=== PATIENT | female | born 1955 | race Caucasian/White ===

== ENCOUNTER → 2016-09-26 | Day surgery (SDC) | payer OTHER ==
[2016-09-13 14:36] VITALS: Ht 160 cm; Wt 71.8 kg
[~2016-09-26] VITALS: Ht 160 cm; Wt 71.8 kg
[~2016-09-26] MED LIST: ARIP30TA3 PO; BUPR200T2 PO; CELE100C PO; CLON1TAB3 PO; CYAN10005 PO; ENAL1TAB34 PO; LIDOCAINE HCL 2% 2 ML VIAL (20MG/ML) ONE; OXCA600T3 PO; PROPOFOL IV EMULSION 10 MG/ML 20 ML VIAL IV ONE; TRAZ100T29 PO; VENL150C PO
[2016-09-26 13:52] VITALS: PULSE 75; TEMP 36.2; O2SAT 96
[2016-09-26 13:55] VITALS: BP 178/93
--- NOTE | 2016-09-26 14:55 | Endo History and Physical ---
History & Physical Date of Service: Sep 26, 2016. Chief Complaint: history of polyps Referring Physician: History of Present Illness 61 yo CF who presented for colonoscopy secondary to history of polyps. Upon arrival she admits to drinking approximately 1 gallon of water approximately 4 hours ago, and does also complain of intermittent chest pain. She was noted to have an elevated BP. Anesthesia dicussed the case with Dr. Chang her PCP and decision was made to cancel the colonoscopy until the patient can undergo a cardiac workup. Past Medical History Anxiety, Reflux, Hypertension, Liver Disease, Depression Past Surgical History Hx Cardiac Surgery: No Hx Internal Defibrillator: No Hx Pacemaker: No Hx Abdominal Surgery: Yes (, TUBAL LIGATION) Hx of Implantable Prosthesis: No Hx Post-Op Nausea and Vomiting: No Hx Cancer Surgery: No Hx Thoracic Surgery: No Hx Orthopedic: No Hx Urinary Tract Surgery: No Family History None Social History Smoking Status: Current Every Day Smoker Hx Substance Use: No Hx Alcohol Use: Yes (OCCASIONAL) Allergies Coded Allergies: No Known Allergies (Verified , 09/13/16) Current Medications Reported Home Medications Medications Dose Route/Sig Max Daily Dose Days Date Category Abilify (Aripiprazole) 30 Mg Tab 30 Mg PO HS 09/13/16 Reported Vitamin B-12 (Cyanocobalamin) 1,000 Mcg Tab 1,000 Mcg PO QAM 09/13/16 Reported Celebrex (Celecoxib) 100 Mg Cap 100 Mg PO QAM 02/08/16 Reported Trileptal (Oxcarbazepine) 600 Mg Tab 600 Mg PO BID 02/08/16 Reported Vasotec (Enalapril Maleate) 10 Mg Tab 10 Mg PO QAM 07/20/15 Reported Effexor Xr (Venlafaxine Hcl) 150 Mg Cap 300 Mg PO QAM 07/20/15 Reported Wellbutrin Sr (Bupropion Hcl) 200 Mg Tab 200 Mg PO BID 07/20/15 Reported Trazodone (Trazodone HCl) 100 Mg Tab 300 Mg PO HS 07/20/15 Reported Klonopin (Clonazepam) 1 Mg Tab 1 Mg PO BID 07/20/15 Reported Vital Signs Weight (Kilograms): 71.82 Height (Feet): 5 Height (Inches): 3 Date Time Temp Pulse Resp B/P Pulse Ox O2 Delivery O2 Flow Rate FiO2 09/26/16 13:55 178/93 09/26/16 13:52 36.2 75 20 179/96 96 Room Air Physical Exam General Appearance: WD/WN, no apparent distress Respiratory/Chest: Auscultation: breath sounds normal Cardiovascular: Heart Auscultation: RRR Abdomen: Bowel Sounds: normal Inspection & Palpation: soft, non-distended, no tenderness, guarding & rebound Assessment and Plan Assessment: 61 yo CF who presented for colonoscopy, however, she was found to have uncontrolled BP and has been having intermittent chest pain. Plan: Cancel colonoscopy Recommend followup with Dr. Chang for further evaluation of intermittent CP and hypertension.
--- NOTE | 2016-09-26 14:59 | Anesthesiology Progress Note ---
Anesthesia Progress Note Date of Service Sep 26, 2016. Progress Notes The patient is a 61 y/o female with a h/o HTN, GERD, + tob ( greater than 30 pack years), Anxiety and Depression who was scheduled for colonoscopy for Dr. Judd for h/o polyps. On arrival her BP was elevated to 178/93. She stated that she did not take her antihypertensives for three days. During my evaluation she mentioned that she has been having chest pain that she described as L sided chest tightness on occasion while she is being active at work. She stated this started several months ago. She denies having shortness of breath, lightheaded or dizziness or any radiating pain when this occurs. She stated that it does not happen at rest and denies any current chest pain. She has not told her PCP about her chest pain. I called her PCP Dr. Chang and informed her of the chest pain the patient has been experiencing. She stated that she has not evaluated the patient in some time as the patient has missed her last several appointments. Per Dr. Chang, the patient's last EKG was in 2012 and showed NSR with no ischemic changes. She recommended that the patient's procedure be cancelled until she can evaluate the patient for her chest pain. She would like the patient to make an appointment to see her as soon as possible. Dr. Judd was also in agreement that the patient's procedure be cancelled until her chest pain is evaluated and he came to the bedside to speak to the patient. I informed the patient that Dr. Alicea would like her to call and make an appointment with her as soon as possible. I stressed the importance of going to her appointment as chest pain could signify significant heart disease and could lead to heart attack or if not properly evaluated and treated. She verbalized that she understood and agreed. I also informed her to go to the ED if she experiences chest pain, shortness of breath, lightheaded or dizziness or with any other concerns. She verbalized that she understood and agreed.
== END | disposition home or self-care (01) ==
LOC: C.PAT 08-01 08:00 → EDSTATUS 08-01 14:10 → C.GI 12:06
PROVIDERS: ATTEND Internal Medicine
DX: K63.5 Polyp of colon (principal); Z53.09 Procedure and treatment not carried out because of other contraindication; K21.9 Gastro-esophageal reflux disease without esophagitis; I10 Essential (primary) hypertension; F41.9 Anxiety disorder, unspecified; F32.9 Major depressive disorder, single episode, unspecified

== ENCOUNTER → 2016-12-25 | Outpatient (CLI) | payer OTHER ==
[~2016-12-25] MED LIST changes: -LIDOCAINE HCL 2% 2 ML VIAL (20MG/ML) ONE; -PROPOFOL IV EMULSION 10 MG/ML 20 ML VIAL IV ONE
[2016-12-25 13:22] LABS: ESTIMATED AVERAGE GLUCOSE 111 mg/dl; HA1C FLAG Normal (Normal)
[2016-12-25 13:27] LABS: URINE APPEARANCE CLEAR (CLEAR); URINE BILIRUBIN NEG (NEG); URINE COLOR YELLOW; URINE NITRITE NEG (NEG); URINE SPECIFIC GRAVITY 1.014 (1.000-1.030); UROBILINOGEN NEG (NEG); ZZUR CULT IF INDIC CLEAN CATCH NO
[2016-12-25 13:30] LABS: MANUAL MICROSCOPIC REQUIRED? NO; REVIEW REQ? NO
[2016-12-25 14:18] LABS: ALT/SGPT 15 U/L (12-78); BLOOD UREA NITROGEN 6 mg/dl (7-18); CARBON DIOXIDE 27 mmol/L (21-32); CHLORIDE 105 mmol/L (98-107); CHOLESTEROL 172 mg/dl (0-200); GLUCOSE 96 mg/dl (70-99); POTASSIUM 3.9 mmol/L (3.5-5.1); SODIUM 141 mmol/L (136-145); TRIGLYCERIDES 99 mg/dl (0-150); VERY LOW DENSITY LIPOPROT CALC 20 mg/dl
[2016-12-25 14:21] LABS: ALB/GLOB RATIO 1.3 (0.9-2); ALKALINE PHOSPHATASE 66 U/L (45-117); AST/SGOT 9 U/L (15-37); CHOLESTEROL/HDL RATIO 2.2; HDL CHOLESTEROL 77 mg/dl; LDL CHOLESTEROL CALCULATED 75 mg/dl
== END | disposition home or self-care (01) ==
LOC: C.LAB1850 11:50
PROVIDERS: ATTEND Internal Medicine
DX: R35.1 Nocturia (principal); I10 Essential (primary) hypertension; Z11.59 Encounter for screening for other viral diseases; E78.1 Pure hyperglyceridemia; R73.9 Hyperglycemia, unspecified

== ENCOUNTER → 2017-03-04 | Outpatient (CLI) | payer OTHER ==
--- NOTE | 2017-03-05 07:55 | MAMMOGRAPHY REPORT ---
BILATERAL DIGITAL SCREENING MAMMOGRAM TOMOSYNTHESIS WITH CAD: 03/04/2017 CLINICAL HISTORY: Routine screening. Patient has no complaints. TECHNIQUE: Breast tomosynthesis in addition to standard 2D mammography was performed. Current study was also evaluated with a Computer Aided Detection (CAD) system. COMPARISON: Comparison is made to exams dated: 11/30/2013 ultrasound, 08/31/2013 ultrasound, 08/31/2013 mammogram, 11/06/2012 mammogram, 02/13/2006 mammogram, and 06/21/2009 mammogram - [facility]. BREAST COMPOSITION: There are scattered areas of fibroglandular density in both breasts. FINDINGS: There are benign-appearing round and punctate microcalcifications scattered in the breasts . No suspicious mass, architectural distortion or cluster of suspicious microcalcifications is seen. IMPRESSION: ACR BI-RADS CATEGORY 1: NEGATIVE There is no mammographic evidence of malignancy. A 1 year screening mammogram is recommended. The pa tient will receive written notification of the results. Approximately 10% of breast cancers are not detected with mammography. A negative mammographic report should not delay biopsy if a clinically suggestive mass is present. Brigette Mixon M.D. ay/:03/04/2017 18:21:53 Sander Operator: Jose Leary, M, [facility] letter sent: Normal 1/2 BI-RADS Code: ACR BI-RADS Category 1: Negative
== END | disposition home or self-care (01) ==
LOC: C.MAMM 08:27
PROVIDERS: ATTEND Internal Medicine
DX: Z12.31 Encounter for screening mammogram for malignant neoplasm of breast (principal)

== ENCOUNTER 2022-05-23 10:56 | Inpatient (IN) ==
--- NOTE | 2022-05-23 12:17 | XRay Report ---
XR chest 2V PA/lateral HISTORY: Shortness of breath. COMPARISON: Chest and abdominal series 12/18/2018. FINDINGS: No pneumothorax. The cardiac silhouette is top normal in size. The right lung appears clear . Left mid to lower lung zone airspace opacities are new from the prior study. Only seen on the later al view there is a possible 3.8 cm nodule overlying the heart. This is not confirmed on the frontal v iew. No pleural effusions. There is an old, healed left humeral neck fracture. IMPRESSION: 1. Left upper and lower lobe airspace opacities. This likely represents a pneumonia. 2. Possible 3.8 cm left infrahilar nodule/mass. Follow-up chest CT recommended for further evaluation . ACT 112: Negative or not required by law. Electronically signed by: Jermaine Peck M.D. 05/23/2022 12:15 PM
[2022-05-23] MEDS ORDERED: AZITHROMYCIN 500 MG in DEXTROSE 5% 250 ML IV STA (12:21)
[2022-05-23] MEDS ORDERED: cefTRIAXone SODIUM 2,000 MG/70 ML BAG IV STA (12:21)
[2022-05-23 12:27] LABS: Hematocrit (blood only) 47.1 % (34.1-44.9); Hemoglobin 16.8 g/dl (12.0-16.0); Mean Corpuscular Hemoglobin 30.9 pg (25.0-34.0); Mean Corpuscular Hgb Conc 35.7 g/dL (32.0-36.0); Mean Corpuscular Volume 86.6 fL (80.0-100.0); Mean Platelet Volume 11.8 fL (9.4-12.3); Platelet Count 143 K/uL (130-400); RDW Coefficient of Variation 15.2 % (11.5-14.5); RDW Standard Deviation 47.9 fL (36.4-46.3); Red Blood Count 5.44 M/uL (3.93-5.22); White Blood Count 9.07 K/ul (4.8-10.8)
[2022-05-23 12:30] LABS: Albumin Globulin Ratio 1.1 (0.9-2); Albumin Level 3.6 gm/dl (3.4-5.0); BUN Creatinine Ratio 38.1 (10-20); Bilirubin,Total 2.3 mg/dl (0.2-1.0); Calcium 10.1 mg/dl (8.5-10.1); Creatinine Clr Calc Pharmacy 43.1 ml/min; Est GFR (African American) 55.3 ml/min; Est GFR (Non-African American) 47.7 ml/min; Globulin 3.4 gm/dl (2.5-4.0); Potassium 3.8 mmol/L (3.5-5.1)
[2022-05-23 12:31] LABS: Acanthocytes 1+; Dohle Bodies 1+; Echinocytes 2+; Lymphocytes # (manual) 0.54 K/uL (1.2-3.4); Lymphocytes % (manual) 6 %; Monocytes # (manual) 0.27 K/uL (0.24-0.82); Monocytes % (manual) 3 %; Neutrophils # (manual) 8.25 K/uL (1.4-6.5); Neutrophils % (manual) 91 %; Polychromasia 1+; Toxic Granulation 1+
[2022-05-23] MEDS ORDERED: SODIUM CHLORIDE 0.9% 1000ML 2,000 ML IV ONE (12:42)
--- NOTE | 2022-05-23 12:42 | Emergency Department Note ---
Impression & Plan Pneumonia, Respiratory failure, Hypoxic ED Provider Note NAME: GIO ZAYAS AGE: 67 SEX: F : 1955 ARRIVES VIA: Walk-In INFORMANT: Patient ED PROVIDER(S): Mat Aggarwal DO CHIEF COMPLAINT: shortness of breath HPI: Patient is a 67-year-old female who presents to the ER for upper respiratory symptoms associate with cough and shortness of breath. She notes shortness of breath has been getting worse over the past week. She notes she has some blood out of her left ear which started about 2 days ago. She does not believe that she was picking at it. She also notes some tenderness and fullness in her left axilla/armpit which started over the past week. She also has some epigastric abdominal pain which is present with lying flat. Denies any nausea vomiting or diarrhea. No dysuria urgency or frequency. No other exacerbating or remitting factors. ROS: See above HPI for pertinent positives & negatives. A total of 10 systems reviewed and were otherwise negative. PAST MEDICAL HISTORY:See Below PAST SURGICAL HISTORY:See Below FAMILY HISTORY:See Below SOCIAL HISTORY:See Below HOME MEDICATIONS:See Below ALLERGIES:See Below VITALS:See Below PHYSICAL EXAMINATION: GENERAL: Sitting up in bed, alert, chronically ill appearing, slightly dyspneic with conversation EYE EXAM: normal conjunctiva. EAR: Left TM is clear with dried blood in the canal. Right TM is clear. OROPHARYNX: no exudate, no erythema, lips, buccal mucosa, and tongue normal and mucous membranes are moist NECK: supple, no nuchal rigidity, no adenopathy, non-tender LUNGS: Diminished bilaterally. Normal chest wall mechanics HEART: no murmurs, S1 normal and S2 normal ABDOMEN: abdomen soft, non-tender, normo-active bowel sounds, no masses, no rebound or guarding. UPPER EXTREMITIES: upper extremities are grossly normal. LOWER EXTREMITIES: No pitting edema. NEURO EXAM: Normal sensorium, cranial nerves II-XII grossly intact, normal speech, no gross weakness of arms, no gross weakness of legs. MEDICAL DECISION MAKING: Patient is a 67-year-old female who presents ER for above-stated complaint. IV was established blood work is obtained. Labs show no significant leukocytosis. Hemoglobin 16. VBG with a pH of 7.45. BMP along with LFTs was unremarkable. T bili elevated at 2.3. Troponin was elevated at 15. Pro-Eddi 5.8. Chest x-ray with an infiltrate and questionable mass. CT PE was performed and showed no PEs but aspiration pneumonitis. Patient was covered with Rocephin and azithromycin. Updated bedside. CT head was negative. She remained on 4 L nasal cannula and was admitted to the hospitalist for further evaluation. Triage Nursing notes reviewed. Limited review of prior medical records performed Vital Signs: reviewed and remarkable for tachy Differential diagnosis: Differential diagnoses includes but is not limited to pneumonia, bronchitis, COPD/Asthma exacerbation, pneumothorax, pulmonary embolism, congestive heart failure, acute coronary syndrome ER treatment provided: See below Diagnostics interpreted by me: ECG: Sinus tachycardia rate 126 Normal axis No PVCs Septal Q waves QTC [address] wave changes Cardiac Monitoring: An order was placed for continuous cardiac monitoring. The monitor shows a rate of 122 with sinus rhythm. Laboratory studies: As stated above and show below. Imaging studies: CT head was negative CT angio of the chest was unremarkable for PE but did show pneumonia and asp iration Consultation(s): Discussed with the hospitalist for further evaluation Dr. Toth Procedures: none Critical Care: I have personally spent 32 minutes of critical care time in the direct management of this patient. This includes bedside care, interpretation of diagnostic studies, and testing, discussion with consultants, patient, and family members, and other required patient management activities. This 32 min utes is in excess of all separately billable procedures. Past Med/Surg History Medical History (Updated 05/23/22 @ 17:59 by Mat Aggarwal DO) Abdominal pressure Adenomatous polyp of colon Anxiety Anxiety disorder Colon polyp Depression Diarrhea Disc degeneration, lumbar EKG, abnormal Essential hypertriglyceridemia Fecal incontinence Generalized osteoarthritis of multiple sites Hyperglycemia Hypertension Insomnia Low back pain Low back pain with sciatica LVH (left ventricular hypertrophy) Nicotine dependence Nocturia Surgical History History of bilateral tubal ligation History of section History of colonoscopy History of phacoemulsification of cataract of both eyes with intraocular lens implantation History of tooth extraction all teeth Family History Brother Family history of diabetes mellitus Prostate cancer Sister Family history of diabetes mellitus Mother Myocardial infarction Other No family history of adverse response to anesthesia Denies family history of Ovarian cancer Breast cancer Colorectal cancer Social History Smoking Status: Current every day smoker Tobacco Type: Cigarettes Cigarettes Per Day: 20 a day; Second Hand Exposure: No; Hx Alcohol Use: No Hx Substance Use: No Preferred Language: Tajik Communication Ability: Effective Visual Impairment: Limited Hearing Ability: Normal Certified Prosthetist Vice President Required: No Beliefs That Will Affect Care: None Current Living Situation: Alone current occupational status: disabled How many Children do You have: 1 How many Children do You have Comment: 1 girl Feels Safe at Home: Yes Childhood Exposure to Second-Hand Smoke: No during the past year weight has: remained stable Dental Care, Regularly: Yes Physical Activity Frequency: Daily Physical Activity Frequency Comment: walking Seatbelt Use: always Sunscreen Use: Yes Assistive Devices: Denture - Upper and Denture - Lower Allergies Allergies Allergy/AdvReac Type Severity Reaction Status Date / Time No Known Allergies Allergy Unverified 05/23/22 13:07 Home Meds Home Medications Medication Instructions Recorded Confirmed trazodone 100 mg tablet 100 mg PO HS 12/11/18 05/23/22 aripiprazole 5 mg tablet (Abilify) 5 mg PO DAILY 08/31/20 05/23/22 clonazepam 1 mg tablet (Klonopin) 1 mg PO BID PRN Anxiety 08/31/20 05/23/22 bupropion HCl 300 mg 24 hr tablet, 300 mg PO DAILY 05/23/22 05/23/22 extended release Previous Rx's Medication Instructions Recorded calcium carbonate 500 mg-vitamin 1 tab PO DAILY #30 tabs 05/02/21 D3 5 mcg (200 unit) tablet (Calcium 500 + D) magnesium 250 mg tablet 250 mg PO DAILY #30 tabs 05/02/21 mecobalamin (vitamin B12) 1,000 1,000 mcg sublingual DAILY #30 tabs 05/02/21 mcg disintegrating tablet,sublingual albuterol sulfate 90 mcg/actuation 1 inh inhalation QID PRN shortness 10/02/21 aerosol inhaler of breath or wheezing #6.7 grams Results & Data (ED) Vital Signs Vital Signs - 24 hr 05/23/22 11:07 05/23/22 13:13 05/23/22 13:15 Temperature 36.6 C Temperature Source Temporal Artery Scan Pulse Rate 131 H Pulse Rate [Apical] 84 Pulse Rate from SpO2 Sensor Respiratory Rate 24 20 Respiratory Effort / Characteristics Spontaneous Non-Labored Spontaneous Respiratory Depth Normal Respiratory Pattern Regular Blood Pressure 118/81 Blood Pressure [Left Arm] 145/89 H Blood Pressure Mean 93 Blood Pressure Mean [Left Arm] 107 Blood Pressure Position Sitting Pulse Oximetry 90 87 L 91 Oxygen Delivery Method Room Air Room Air Nasal Cannula Oxygen Flow Rate 4 Sepsis Recent Fever Within 48 Hours No Sepsis New/Unexplained Change in Mental Status No Sepsis Action Taken by Nursing No Action Required 05/23/22 12:46 05/23/22 13:00 05/23/22 13:34 Temperature Temperature Source Pulse Rate 90 66 Pulse Rate [Apical] Pulse Rate from SpO2 Sensor 121 H 121 H 115 H Respiratory Rate 29 H 28 H 24 Respiratory Effort / Characteristics Respiratory Depth Respiratory Pattern Blood Pressure Blood Pressure [Left Arm] Blood Pressure Mean Blood Pressure Mean [Left Arm] Blood Pressure Position Pulse Oximetry 88 L 89 L 90 Oxygen Delivery Method Oxygen Flow Rate Sepsis Recent Fever Within 48 Hours Sepsis New/Unexplained Change in Mental Status Sepsis Action Taken by Nursing 05/23/22 13:48 05/23/22 13:48 05/23/22 13:49 Temperature Temperature Source Pulse Rate 114 H 112 H Pulse Rate [Apical] Pulse Rate from SpO2 Sensor 116 H 112 H Respiratory Rate 19 44 H Respiratory Effort / Characteristics Respiratory Depth Respiratory Pattern Blood Pressure 115/74 Blood Pressure [Left Arm] Blood Pressure Mean 87 Blood Pressure Mean [Left Arm] Blood Pressure Position Pulse Oximetry 89 L 92 Oxygen Delivery Method Oxygen Flow Rate Sepsis Recent Fever Within 48 Hours Sepsis New/Unexplained Change in Mental Status Sepsis Action Taken by Nursing 05/23/22 13:49 05/23/22 14:00 05/23/22 14:00 Temperature Temperature Source Pulse Rate 112 H Pulse Rate [Apical] Pulse Rate from SpO2 Sensor Respiratory Rate 39 H Respiratory Effort / Characteristics Respiratory Depth Respiratory Pattern Blood Pressure 150/89 H 133/78 Blood Pressure [Left Arm] Blood Pressure Mean 109 96 Blood Pressure Mean [Left Arm] Blood Pressure Position Pulse Oximetry Oxygen Delivery Method Oxygen Flow Rate Sepsis Recent Fever Within 48 Hours Sepsis New/Unexplained Change in Mental Status Sepsis Action Taken by Nursing 05/23/22 14:30 05/23/22 14:30 05/23/22 15:00 Temperature Temperature Source Pulse Rate 110 H Pulse Rate [Apical] Pulse Rate from SpO2 Sensor Respiratory Rate 36 H Respiratory Effort / Characteristics Respiratory Depth Respiratory Pattern Blood Pressure 131/84 153/91 H Blood Pressure [Left Arm] Blood Pressure Mean 99 111 Blood Pressure Mean [Left Arm] Blood Pressure Position Pulse Oximetry 93 Oxygen Delivery Method Oxygen Flow Rate Sepsis Recent Fever Within 48 Hours Sepsis New/Unexplained Change in Mental Status Sepsis Action Taken by Nursing 05/23/22 15:00 Temperature Temperature Source Pulse Rate 110 H Pulse Rate [Apical] Pulse Rate from SpO2 Sensor 110 H Respiratory Rate 30 H Respiratory Effort / Characteristics Respiratory Depth Respiratory Pattern Blood Pressure Blood Pressure [Left Arm] Blood Pressure Mean Blood Pressure Mean [Left Arm] Blood Pressure Position Pulse Oximetry 96 Oxygen Delivery Method Oxygen Flow Rate Sepsis Recent Fever Within 48 Hours Sepsis New/Unexplained Change in Mental Status Sepsis Action Taken by Nursing Laboratory Data Result diagrams: 05/23/22 11:54 05/23/22 11:54 Lab Results 05/23/22 05/23/22 05/23/22 Range/Units 11:54 11:54 11:54 WBC 9.07 (4.8-10.8) K/ul RBC 5.44 H (3.93-5.22) M/uL Hgb 16.8 H (12.0-16.0) g/dl Hct 47.1 H (34.1-44.9) % MCV 86.6 (80.0-100.0) fL MCH 30.9 (25.0-34.0) pg MCHC 35.7 (32.0-36.0) g/dL RDW Std Deviation 47.9 H (36.4-46.3) fL RDW Coeff of Jamie 15.2 H (11.5-14.5) % Plt Count 143 (130-400) K/uL MPV 11.8 (9.4-12.3) fL Neutrophils % (Manual) 91 % Lymphocytes % (Manual) 6 % Monocytes % (Manual) 3 % Neutrophils # (Manual) 8.25 H (1.4-6.5) K/uL Lymphocytes # (Manual) 0.54 L (1.2-3.4) K/uL Monocytes # (Manual) 0.27 (0.24-0.82) K/uL Toxic Granulation 1+ Dohle Bodies 1+ Polychromasia 1+ Echinocytes 2+ Acanthocytes (Spur) 1+ VBG pH (7.36-7.41) VBG pCO2 (38-50) mmHg VBG pO2 mmHg VBG HCO3 mmol/L VBG O2 Saturation % VBG Base Excess mEq/L Sodium 134 L (136-145) mmol/L Potassium 3.8 (3.5-5.1) mmol/L Chloride 96 L (98-107) mmol/L Carbon Dioxide 25 (21-32) mmol/L Anion Gap 13 H (3-11) BUN 45 H (6-23) mg/dl Creatinine 1.18 (0.6-1.2) mg/dl Est Cr Clr Drug Dosing 43.1 ml/min Est GFR ( Amer) 55.3 ml/min Est GFR (Non-Af Amer) 47.7 ml/min BUN/Creatinine Ratio 38.1 H (10-20) Glucose 149 H (70-99(Fasting)) mg/dl Lactate (0.4-2.0) mmol/L Calcium 10.1 (8.5-10.1) mg/dl Total Bilirubin 2.3 H (0.2-1.0) mg/dl AST 20 (13-39) U/L ALT 11 (7-52) U/L Alkaline Phosphatase 96 (34-104) U/L Troponin I High Sens (0-14) pg/ml C-Reactive Protein (0-0.5) mg/dl Total Protein 7.0 (6.0-8.3) gm/dl Albumin 3.6 (3.4-5.0) gm/dl Globulin 3.4 (2.5-4.0) gm/dl Albumin/Globulin Ratio 1.1 (0.9-2) Procalcitonin 5.82 H (0-0.5) ng/ml SARS-CoV-2 (PCR) (Negative) Influenza Type A (PCR) (Neg) Influenza Type B (PCR) (Neg) RSV (RT-PCR) (Neg) 05/23/22 05/23/22 05/23/22 Range/Units 12:38 12:49 12:49 WBC (4.8-10.8) K/ul RBC (3.93-5.22) M/uL Hgb (12.0-16.0) g/dl Hct (34.1-44.9) % MCV (80.0-100.0) fL MCH (25.0-34.0) pg MCHC (32.0-36.0) g/dL RDW Std Deviation (36.4-46.3) fL RDW Coeff of Jamie (11.5-14.5) % Plt Count (130-400) K/uL MPV (9.4-12.3) fL Neutrophils % (Manual) % Lymphocytes % (Manual) % Monocytes % (Manual) % Neutrophils # (Manual) (1.4-6.5) K/uL Lymphocytes # (Manual) (1.2-3.4) K/uL Monocytes # (Manual) (0.24-0.82) K/uL Toxic Granulation Dohle Bodies Polychromasia Echinocytes Acanthocytes (Spur) VBG pH 7.45 H (7.36-7.41) VBG pCO2 37 L (38-50) mmHg VBG pO2 39 mmHg VBG HCO3 26 mmol/L VBG O2 Saturation 71.8 % VBG Base Excess 1.8 mEq/L Sodium (136-145) mmol/L Potassium (3.5-5.1) mmol/L Chloride (98-107) mmol/L Carbon Dioxide (21-32) mmol/L Anion Gap (3-11) BUN (6-23) mg/dl Creatinine (0.6-1.2) mg/dl Est Cr Clr Drug Dosing ml/min Est GFR ( Amer) ml/min Est GFR (Non-Af Amer) ml/min BUN/Creatinine Ratio (10-20) Glucose (70-99(Fasting)) mg/dl Lactate 2.1 H* (0.4-2.0) mmol/L Calcium (8.5-10.1) mg/dl Total Bilirubin (0.2-1.0) mg/dl AST (13-39) U/L ALT (7-52) U/L Alkaline Phosphatase (34-104) U/L Troponin I High Sens 15.3 H (0-14) pg/ml C-Reactive Protein (0-0.5) mg/dl Total Protein (6.0-8.3) gm/dl Albumin (3.4-5.0) gm/dl Globulin (2.5-4.0) gm/dl Albumin/Globulin Ratio (0.9-2) Procalcitonin (0-0.5) ng/ml SARS-CoV-2 (PCR) (Negative) Influenza Type A (PCR) (Neg) Influenza Type B (PCR) (Neg) RSV (RT-PCR) (Neg) 05/23/22 05/23/22 05/23/22 Range/Units 12:49 13:24 14:44 WBC (4.8-10.8) K/ul RBC (3.93-5.22) M/uL Hgb (12.0-16.0) g/dl Hct (34.1-44.9) % MCV (80.0-100.0) fL MCH (25.0-34.0) pg MCHC (32.0-36.0) g/dL RDW Std Deviation (36.4-46.3) fL RDW Coeff of Jamie (11.5-14.5) % Plt Count (130-400) K/uL MPV (9.4-12.3) fL Neutrophils % (Manual) % Lymphocytes % (Manual) % Monocytes % (Manual) % Neutrophils # (Manual) (1.4-6.5) K/uL Lymphocytes # (Manual) (1.2-3.4) K/uL Monocytes # (Manual) (0.24-0.82) K/uL Toxic Granulation Dohle Bodies Polychromasia Echinocytes Acanthocytes (Spur) VBG pH (7.36-7.41) VBG pCO2 (38-50) mmHg VBG pO2 mmHg VBG HCO3 mmol/L VBG O2 Saturation % VBG Base Excess mEq/L Sodium (136-145) mmol/L Potassium (3.5-5.1) mmol/L Chloride (98-107) mmol/L Carbon Dioxide (21-32) mmol/L Anion Gap (3-11) BUN (6-23) mg/dl Creatinine (0.6-1.2) mg/dl Est Cr Clr Drug Dosing ml/min Est GFR ( Amer) ml/min Est GFR (Non-Af Amer) ml/min BUN/Creatinine Ratio (10-20) Glucose (70-99(Fasting)) mg/dl Lactate 1.5 (0.4-2.0) mmol/L Calcium (8.5-10.1) mg/dl Total Bilirubin (0.2-1.0) mg/dl AST (13-39) U/L ALT (7-52) U/L Alkaline Phosphatase (34-104) U/L Troponin I High Sens (0-14) pg/ml C-Reactive Protein 42.76 H (0-0.5) mg/dl Total Protein (6.0-8.3) gm/dl Albumin (3.4-5.0) gm/dl Globulin (2.5-4.0) gm/dl Albumin/Globulin Ratio (0.9-2) Procalcitonin (0-0.5) ng/ml SARS-CoV-2 (PCR) NEGATIVE (Negative) Influenza Type A (PCR) Negative (Neg) Influenza Type B (PCR) Negative (Neg) RSV (RT-PCR) Negative (Neg) Administered Medications Discontinued Medications Albuterol (Albut/Ipratrop 3mg/0.5mg Neb 3 Ml Vial) 3 ml NEB NOW STA; Protocol Stop: 05/23/22 15:31 Last Admin: 05/23/22 16:07 Dose: 3 ml Documented By: SUSAN Ceftriaxone Sodium (Rocephin) 2,000 mg in 70 mls @ 140 mls/hr IV NOW STA Stop: 05/23/22 12:50 Last Infusion: 05/23/22 14:24 Dose: 0 mls/hr Documented By: Admin: 05/23/22 13:43 Dose: 140 mls/hr Documented By: Azithromycin 500 mg/ Dextrose 255 mls @ 127.5 mls/hr IV NOW STA Stop: 05/23/22 14:20 Last Infusion: 05/23/22 16:58 Dose: 0 mls/hr Documented By: [facility] Admin: 05/23/22 14:25 Dose: 127.5 mls/hr Documented By: SUSAN Sodium Chloride (Nss 1000ml) 2,000 mls @ 999 mls/hr IV .Q2H1M ONE Stop: 05/23/22 14:42 Last Infusion: 05/23/22 16:58 Dose: 0 mls/hr Documented By: [facility] Admin: 05/23/22 12:58 Dose: 999 mls/hr Documented By: SUSAN Ioversol (Optiray 320 500ml) 120 ml IV ONCE ONE Stop: 05/23/22 13:26 Last Admin: 05/23/22 13:25 Dose: 120 ml Documented By: CHINO Imaging Data Radiologist's Impression: Chest X-Ray 05/23/22 11:19 XR chest 2V PA/lateral HISTORY: Shortness of breath. COMPARISON: Chest and abdominal series 12/18/2018. FINDINGS: No pneumothorax. The cardiac silhouette is top normal in size. The right lung appears clear. Left mid to lower lung zone airspace opacities are new from the prior study. Only seen on the lateral view there is a possible 3.8 cm nodule overlying the heart. This is not confirmed on the frontal view. No pleural effusions. There is an old, healed left humeral neck fracture. IMPRESSION: 1. Left upper and lower lobe airspace opacities. This likely represents a pneumonia. 2. Possible 3.8 cm left infrahilar nodule/mass. Follow-up chest CT recommended for further evaluation. ACT 112: Negative or not required by law. Electronically signed by: Jermaine Peck M.D. 05/23/2022 12:[address] 05/23/22 12:[address] DOSE: HISTORY: confusion TECHNIQUE: Multiaxial CT images of the head were performed without the use of intravenous contrast. Automated exposure control was utilized for this study. A dose lowering technique was utilized adhering to the principles of ALARA. Comparison: Head CT 09/21/2019. Findings: Mild mucosal thickening within the ethmoid air cells and maxillary sinuses. The right mastoid air cells are clear. There is complete opacification of the left mastoid air cells. The calvarium and skull base are intact. The ventricles and sulci are within normal limits. There is no mass, hematoma, midli ne shift, or acute infarct. 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 Mild microvascular ischemic changes again noted. Impression: No significant change compared to the prior study. No acute intracranial abnormality. ACT 112: Negative or not required by law. Electronically signed by: Jermaine Peck M.D. 05/23/2022 1:43 PM Chest CTA 05/23/22 12:38 CT ANGIOGRAM OF THE CHEST CLINICAL HISTORY: Dyspnea. Hypoxia. COMPARISON STUDY: Chest radiograph dated 05/23/2022. TECHNIQUE: Following the IV administration of 120 cc of Optiray 320, CT angiogram of the chest was performed from the upper abdomen to the thoracic inlet utilizing the pulmonary embolus protocol. Images are reviewed in the axial, sagittal, and coronal planes. 3-D MIPS images are created and assessed. IV contrast was administered without complication. A dose lowering technique was utilized adhering to the principles of ALARA. The examination is compromised by motion artifact. CT DOSE: 1173.74 mGy.cm FINDINGS: Thyroid: Imaged portions of the thyroid gland are normal in size and attenuation. Thoracic aorta: There is atherosclerotic calcification of the thoracic aorta. There is ectasia of the ascending thoracic aorta which measures up to 3.8 cm in diameter. The remainder of the thoracic aorta is normal in caliber, and the arch demonstrates standard 3-vessel anatomy. No dissection is seen. Pulmonary vasculature: The pulmonary trunk is normal in caliber. There are no filling defects identified in main, lobar, or proximal segmental pulmonary branches to suggest pulmonary embolus. Evaluation of the distal segmental and subsegmental branches is compromised by motion artifact. Heart: The heart is enlarged and without pericardial effusion. Lungs and pleural spaces: Evaluation of the lung parenchyma is compromised by motion artifact. There is mild emphysema. The trachea is clear. Secretions/debris fills the left lower lobe airways. There is multifocal airspace consolidation throughout the left lung, greatest in the mid to lower lung. There are only minimal right basilar airspace opacities. No pleural effusion is identified. There are scattered calcified granulomas. Mediastinum: There are numerous enlarged mediastinal lymph nodes which measure up to 13 mm in short axis. Jayda: Mildly enlarged left hilar nodes measure up to 12 mm in short axis. Axillae: A 2.0 cm lobulated cystic lesion is seen in the left axilla on axial image #199. No axillary lymphadenopathy is seen. Upper abdomen: There is a small hiatal hernia. Partially visualized upper abdominal viscera is otherwise within normal limits. Skeletal structures: The skeletal structures are osteopenic. Spondylotic change is noted throughout the thoracic spine. No lytic or blastic bony lesions are seen. IMPRESSION: 1. Motion compromises examination. 2. There is no evidence of central pulmonary embolus in the main, lobar, or proximal segmental pulmonary arteries. Evaluation of the segmental and subsegmental branches is degraded by motion artifact. 3. Extensive airspace consolidation throughout the left lung is typical for pneumonia/aspiration pneumonitis. Clinical correlation will be required and radiographic follow-up to resolution is recommended. 4. Secretions/debris fills the left lower lobe airways. 5. There are also minimal airspace opacities at the right lung base. 6. Cardiomegaly and emphysema. 7. Mildly enlarged mediastinal and left hilar nodes are likely reactive. 8. There is an indeterminant 2.0 cm lobulated cystic lesion in the left axilla. This it is of low suspicion. A precautionary nonemergent/outpatient follow-up with ultrasound is recommended for further assessment 9. Additional findings as above. ACT 112: Negative or not required by law. Electronically signed by: Carlos Echevarria M.D. 05/23/2022 1:52 PM Discharge Plan Visit Data Chief Complaint: Illness Stated Complaint: RT SIDED ABD PAIN,BLEEDING FROM LT EAR,CONFUSION ED Provider: Mat Aggarwal Discharge Problem: Pneumonia, Respiratory failure, Hypoxic Discharge Instructions Interventions: ED Discharge Assessment Last Done: 05/23/22 16:44
[2022-05-23 12:50] LABS: Base Excess VBG 1.8 mEq/L; HCO3 VBG 26 mmol/L; Oxygen Saturation VBG 71.8 %; PCO2 VBG 37 mmHg (38-50); PO2 VBG 39 mmHg; pH VBG 7.45 (7.36-7.41)
[2022-05-23] MEDS ORDERED: OPTIRAY 320 500ml IV ONE (13:25)
--- NOTE | 2022-05-23 13:44 | CT Scan Report ---
HEAD CT NONCONTRAST CT DOSE: HISTORY: confusion TECHNIQUE: Multiaxial CT images of the head were performed without the use of intravenous contrast. A utomated exposure control was utilized for this study. A dose lowering technique was utilized adheri ng to the principles of ALARA. Comparison: Head CT 09/21/2019. Findings: Mild mucosal thickening within the ethmoid air cells and maxillary sinuses. The right masto id air cells are clear. There is complete opacification of the left mastoid air cells. The calvarium and skull base are intact. The ventricles and sulci are within normal limits. There is no mass, hemat arpan, midline shift, or acute infarct. 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 Mild lizet rovascular ischemic changes again noted. Impression: No significant change compared to the prior study. No acute intracranial abnormality. ACT 112: Negative or not required by law. Electronically signed by: Jermaine Peck M.D. 05/23/2022 1:43 PM
--- NOTE | 2022-05-23 13:54 | CT Scan Report ---
CT ANGIOGRAM OF THE CHEST CLINICAL HISTORY: Dyspnea. Hypoxia. COMPARISON STUDY: Chest radiograph dated 05/23/2022. TECHNIQUE: Following the IV administration of 120 cc of Optiray 320, CT angiogram of the chest was pe rformed from the upper abdomen to the thoracic inlet utilizing the pulmonary embolus protocol. Images are reviewed in the axial, sagittal, and coronal planes. 3-D MIPS images are created and assessed. I V contrast was administered without complication. A dose lowering technique was utilized adhering to the principles of ALARA. The examination is compromised by motion artifact. CT DOSE: 1173.74 mGy.cm FINDINGS: Thyroid: Imaged portions of the thyroid gland are normal in size and attenuation. Thoracic aorta: There is atherosclerotic calcification of the thoracic aorta. There is ectasia of the ascending thoracic aorta which measures up to 3.8 cm in diameter. The remainder of the thoracic aort a is normal in caliber, and the arch demonstrates standard 3-vessel anatomy. No dissection is seen. Pulmonary vasculature: The pulmonary trunk is normal in caliber. There are no filling defects identif ied in main, lobar, or proximal segmental pulmonary branches to suggest pulmonary embolus. Evaluation of the distal segmental and subsegmental branches is compromised by motion artifact. Heart: The heart is enlarged and without pericardial effusion. Lungs and pleural spaces: Evaluation of the lung parenchyma is compromised by motion artifact. There is mild emphysema. The trachea is clear. Secretions/debris fills the left lower lobe airways. There i s multifocal airspace consolidation throughout the left lung, greatest in the mid to lower lung. Ther e are only minimal right basilar airspace opacities. No pleural effusion is identified. There are sca ttered calcified granulomas. Mediastinum: There are numerous enlarged mediastinal lymph nodes which measure up to 13 mm in short a xis. Jayda: Mildly enlarged left hilar nodes measure up to 12 mm in short axis. Axillae: A 2.0 cm lobulated cystic lesion is seen in the left axilla on axial image #199. No axillary lymphadenopathy is seen. Upper abdomen: There is a small hiatal hernia. Partially visualized upper abdominal viscera is otherw ise within normal limits. Skeletal structures: The skeletal structures are osteopenic. Spondylotic change is noted throughout t he thoracic spine. No lytic or blastic bony lesions are seen. IMPRESSION: 1. Motion compromises examination. 2. There is no evidence of central pulmonary embolus in the main, lobar, or proximal segmental pulmon dwaine arteries. Evaluation of the segmental and subsegmental branches is degraded by motion artifact. 3. Extensive airspace consolidation throughout the left lung is typical for pneumonia/aspiration pneu monitis. Clinical correlation will be required and radiographic follow-up to resolution is recommende d. 4. Secretions/debris fills the left lower lobe airways. 5. There are also minimal airspace opacities at the right lung base. 6. Cardiomegaly and emphysema. 7. Mildly enlarged mediastinal and left hilar nodes are likely reactive. 8. There is an indeterminant 2.0 cm lobulated cystic lesion in the left axilla. This it is of low jim picion. A precautionary nonemergent/outpatient follow-up with ultrasound is recommended for further a ssessment 9. Additional findings as above. ACT 112: Negative or not required by law. Electronically signed by: Carlos Echevarria M.D. 05/23/2022 1:52 PM
[2022-05-23 14:55] LABS: Influenza A virus by PCR Negative (Neg); Influenza B virus by PCR Negative (Neg); RSV by PCR Negative (Neg); SARS CoV2 RNA(COVID-19)Cepheid NEGATIVE (Negative)
--- NOTE | 2022-05-23 15:25 | History & Physical Report ---
Date of Service May 23, 2022 Assessment & Plan (1) Pneumonia: Plan: Pneumonia in a 67 yo female with longstanding tobacco use and likely advanced COPD. Patient is only on albuterol at home. Likely will require maintenance inhaler Patient will be placed on antibiotics ceftriaxone and azithromycin If inflammatory markers are elavted will order solumedrol ordered nebs (2) Respiratory failure: Plan: Patient with acute hypoxic respiratory failure requiring nasal cannula 5 liters. continue nebs, contiue above treatment as above. (3) Anxiety disorder: Plan: resume home meds (4) Nicotine dependence: Plan: states no nicotine patches History of Present Illness Chief Complaint: worsening cough Primary Care Provider: Rema Strickland MD 67-year-old female with past medical history of COPD and about [id number] history of smoking cigarettes as well as alcohol abuse and history of marijuana use presents to the hospital with about 1 month history of worsening cough. Her symptoms been worsening over the past week with subjective fever chills, productive sputum, increase requirement of albuterol where she has required to take it daily. A friend brought her into the hospital today as she was becoming more tired and fatigued and did not want to get out of bed today. Patient is a poor historian as she does not directly answer questions and requires me to repeat the question. Allergies Allergy/AdvReac Type Severity Reaction Status Date / Time No Known Allergies Allergy Unverified 05/23/22 13:07 Home Medications Medication Instructions Recorded Confirmed Type trazodone 100 mg tablet 100 mg PO HS 12/11/18 05/23/22 History aripiprazole 5 mg tablet (Abilify) 5 mg PO DAILY 08/31/20 05/23/22 History clonazepam 1 mg tablet (Klonopin) 1 mg PO BID PRN Anxiety 08/31/20 05/23/22 History calcium carbonate 500 mg-vitamin 1 tab PO DAILY #30 tabs 05/02/21 05/23/22 Rx D3 5 mcg (200 unit) tablet (Calcium 500 + D) magnesium 250 mg tablet 250 mg PO DAILY #30 tabs 05/02/21 05/23/22 Rx mecobalamin (vitamin B12) 1,000 1,000 mcg sublingual DAILY #30 tabs 05/02/21 05/23/22 Rx mcg disintegrating tablet,sublingual albuterol sulfate 90 mcg/actuation 1 inh inhalation QID PRN shortness 10/02/21 05/23/22 Rx aerosol inhaler of breath or wheezing #6.7 grams bupropion HCl 300 mg 24 hr tablet, 300 mg PO DAILY 05/23/22 05/23/22 History extended release Past Med/Surg History Medical History (Updated 05/23/22 @ 17:59 by Mat Aggarwal DO) Abdominal pressure Adenomatous polyp of colon Anxiety Anxiety disorder Colon polyp Depression Diarrhea Disc degeneration, lumbar EKG, abnormal Essential hypertriglyceridemia Fecal incontinence Generalized osteoarthritis of multiple sites Hyperglycemia Hypertension Insomnia Low back pain Low back pain with sciatica LVH (left ventricular hypertrophy) Nicotine dependence Nocturia Surgical History History of bilateral tubal ligation History of section History of colonoscopy History of phacoemulsification of cataract of both eyes with intraocular lens implantation History of tooth extraction all teeth Family History Brother Family history of diabetes mellitus Prostate cancer Sister Family history of diabetes mellitus Mother Myocardial infarction Other No family history of adverse response to anesthesia Denies family history of Ovarian cancer Breast cancer Colorectal cancer Social History Smoking Status: Current every day smoker Tobacco Type: Cigarettes Cigarettes Per Day: 30; Second Hand Exposure: No; Do You Dip or Chew Tobacco: No; Tobacco Cessation Education Requested by Patient: No Hx Alcohol Use: Yes Alcohol type: beer Hx Substance Use: No Preferred Language: Sinhala Communication Ability: Effective Visual Impairment: Limited Hearing Ability: Normal Submarine Element Coordinator Required: No Beliefs That Will Affect Care: None and Sabianism Sabianism Beliefs: Anabelle Current Living Situation: Alone current occupational status: disabled How many Children do You have: 1 How many Children do You have Comment: 1 girl Other Information That Helps Us Care for You: No Feels Safe at Home: Yes Safety Concerns: Feels Safe At This Time Childhood Exposure to Second-Hand Smoke: No during the past year weight has: remained stable Dental Care, Regularly: Yes Physical Activity Frequency: Daily Physical Activity Frequency Comment: walking Seatbelt Use: always Sunscreen Use: Yes Assistive Devices: Denture - Upper, Denture - Lower and Glasses Review of Systems Constitutional: + fever, + malaise and + weakness Eyes: no blind spots Ear, Nose, Mouth, Throat: + ear discharge (blood in ears this past month.) Respiratory: + cough, + dyspnea and + dyspnea on exertion Cardiovascular: no chest pain Gastrointestinal: + abdominal pain Genitourinary: no dysuria Musculoskeletal: no back pain Integumentary: no acne Neurologic: no gait abnormality Psychiatric: no behavioral changes Endocrine: no fatigue Hematologic / Lymphatic: no easy bleeding Allergy / Immunological: no GI upset with certain foods Physical Exam Constitutional: WD/WN, vitals as above Eyes: PERRL, conjunctivae normal, anicteric sclerae ENMT: external ear and nose normal, oropharynx normal Neck: trachea midline, no thyromegaly Respiratory: + respiratory distress and + uses accessory muscles Auscultation: + diminished lung sounds Cardiovascular: Rate/Rhythm: + tachycardic Heart Sounds: normal S1 and normal S2 Gastrointestinal (Abdomen): normal bowel sounds, soft, nontender, no hepatosplenomegaly Musculoskeletal: no cyanosis or clubbing, extremities motor strength 5/5 Skin: no rashes, warm and dry Neurologic: PERRL, EOMI, accommodation nl, no face palsy, no dysarthria Psychiatric: Orientation: alert, oriented to person, oriented to place and cooperative Lymphatic: no cervical or axillary lymphadenopathy Results & Data Results & Data ([facility]) Vital Signs (Past 12 Hours) Vital Signs Temp Pulse Pulse Resp BP BP Pulse Ox 05/23/22 15:00 110 H 30 H 96 05/23/22 15:00 153/91 H 93 05/23/22 14:30 110 H 36 H 05/23/22 14:30 131/84 05/23/22 14:00 112 H 39 H 05/23/22 14:00 133/78 05/23/22 13:49 150/89 H 05/23/22 13:49 112 H 44 H 92 05/23/22 13:48 114 H 19 89 L 05/23/22 13:48 115/74 05/23/22 13:34 66 24 90 05/23/22 13:00 28 H 89 L 05/23/22 12:46 90 29 H 88 L 05/23/22 13:15 91 05/23/22 13:13 84 20 145/89 H 87 L 05/23/22 11:07 36.6 C 131 H 24 118/81 90 O2 Del Method O2 Flow Rate 05/23/22 15:00 05/23/22 15:00 05/23/22 14:30 05/23/22 14:30 05/23/22 14:00 05/23/22 14:00 05/23/22 13:49 05/23/22 13:49 05/23/22 13:48 05/23/22 13:48 05/23/22 13:34 05/23/22 13:00 05/23/22 12:46 05/23/22 13:15 Nasal Cannula 4 05/23/22 13:13 Room Air 05/23/22 11:07 Room Air PG Care Time/CCT Total # of Minutes Spent Total Time Spent with Patient: Total time spent is greater than 50% in coordination of care (as documented) at patient's floor/unit and/or counseling patient: Coding Level of Care Code 12406 Initial Inpt Care Lvl 3 Diagnoses Pneumonia J18.9 Respiratory failure J96.90 Anxiety disorder F41.9 Nicotine dependence F17.200
[2022-05-23] MEDS ORDERED: ALBUT/IPRATROP 3MG/0.5MG NEB 3 ML VIAL NEB STA (15:30)
--- NOTE | 2022-05-23 15:43 | Electrocardiogram Report ---
Test Reason : Blood Pressure : / mmHG Vent. Rate : 126 BPM Atrial Rate : 126 BPM P-R Int : 096 ms QRS Dur : 080 ms QT Int : 392 ms P-R-T Axes : 000 -07 015 degrees QTc Int : 567 ms Poor data quality, interpretation may be adversely affected Sinus tachycardia Low voltage QRS Possible Old Septal infarct Diffuse Nonspecific T wave abnormality Abnormal ECG When compared with ECG of 21-SEP-2019 21:55, HR has increased BY 56 BPM Nonspecific T wave abnormality now present Confirmed by Enoc Marquez ([id number]) on 05/23/2022 3:43:32 PM Referred By: SELF Confirmed By:Enoc Marquez
[2022-05-23] MEDS ORDERED: clonazePAM 1 MG TAB PO PRN (16:54)
[2022-05-23 18:02] LABS: Prothrombin Time 11.1 Seconds (9.0-12.0)
[2022-05-23 18:38] LABS: Appearance Urine Clear (Clear); Bilirubin Urine Negative (Negative); Blood Urine Negative (Negative); Color Urine Yellow; Glucose Urine UA Negative (Negative); Ketones Urine Negative (Negative); Leukocyte Esterase Urine Negative (Negative); Nitrite Urine Negative (Negative); Protein Urine Negative (Negative); Specific Gravity Urine 1.021 (1.000-1.030); Urobilinogen Urine Negative (Negative); pH Urine 6.5 (4.5-7.5)
[2022-05-23] MEDS ORDERED: LEVALBUTEROL HCL 1.25 MG/3 ML NEB NEB SCH (19:00)
--- NOTE | 2022-05-23 19:15 | CT Scan Report ---
CT OF THE ABDOMEN AND PELVIS WITHOUT CONTRAST CLINICAL HISTORY: Abdominal pain. COMPARISON STUDY: CT of the abdomen and pelvis September 28, 2018. Abdominal series December 18, 2018. TECHNIQUE: Axial images of the abdomen and pelvis were obtained without IV contrast. Images were revi ewed in the axial, sagittal, and coronal planes. Automated exposure control was utilized for the rivera dy. A dose lowering technique was utilized adhering to the principles of ALARA. FINDINGS: Extensive left lower lobe consolidation is better depicted on chest CT performed earlier to day. This exam is optimized by motion artifact and lack of IV contrast. There is a small hiatal herni a. No pneumatosis, free air or portal venous gas is present. Unenhanced images of the liver, spleen, adrenal glands and pancreas are unremarkable. There is no biliary or pancreatic ductal dilatation. Th ere is no peripancreatic or pericholecystic stranding. Enhancement of the kidneys is from recent cont rast-enhanced CT. There is no hydronephrosis. There is decrease sensitivity for detection of urinary calculi given excreted contrast. No filling defect within the bladder is present. There is extensive colonic diverticulosis without evidence for acute diverticulitis. There is no evidence for a bowel ob struction. The appendix is normal. No lymphadenopathy is present. There is no fluid collection to sug gest an abscess. Multilevel degenerative changes within lumbar spine are present. No acute fracture w ithin the lumbar spine, pelvis or hips is identified. IMPRESSION: 1. Extensive left lung consolidation consistent with pneumonia/aspiration pneumonitis, better depicte d on chest CT performed earlier today. 2. No acute process within the abdomen or pelvis on unenhanced exam. 3. Colonic diverticulosis. No evidence for acute diverticulitis. 4. No bowel obstruction. No bowel wall thickening on unenhanced exam. Normal appendix. ACT 112: Negative or not required by law. Electronically signed by: Rolly Montemayor M.D. 05/23/2022 7:13 PM
[2022-05-23] MEDS ORDERED: LEVALBUTEROL HCL 1.25 MG/3 ML NEB NEB PRN (20:33)
[2022-05-23] MEDS: traZODone HCL 100 MG TAB PO SCH (22:10)
[2022-05-23] MEDS: HEPARIN SOD 5,000 UNIT/0.5 ML VIAL SQ SCH (22:10)
--- NOTE | 2022-05-23 22:40 | Communication Note ---
Date of Service: May 23, 2022 Stroke alert was called at ~2115. On arrival at the patient's room I was told that patient was admitted for PNA/COPD exacerbation and had been A+O x3 and fully alert on 2-3L/min NC, but then acutely developed dysarthria, right-sided weakness and worsened to obtunded medical status. On examination of the patient she is obtunded and minimally responsive to noxious stimuli (moans to sternal rub). Remainder of initial exam was limited as patient was rushed down for stat CT w/o contrast and CTA head/neck. As patient was returning from the CT scanner she reportedly rapidly regained full consciousness and was again completely alert and oriented. Patient reported that she last remembers lying in bed smoking a cigarette although she knows that does not make sense. She was not eating at that time and denies aspiration/choking. Denies shaking. Denies shortness of breath. Dnies other abnormalities preceding the above-mentioned rapid and temporary decline. On re-examination at ~5 she was alert/oriented x4. She had bilateral rales, without evidence of increased work of breathing on 3L/min nasal cannula. Full neurological exam was non-focal and unremarkable. All cranial nerves intact, 5/5 strength bilateral/throughout, sensation intact throughout, speech normal, 2+ patellar/brachial reflexes, no cerebellar signs. Stat labs ordered which included CBC, CMP, Mg, hsTroponin, and ABG. ABG did show pO2 of 63 but pH was 7.4 and pCO2/pHCO3 were WNL. K was 3.2 and was repleted. Plts 122 (although largely unchanged from previous). Otherwise all labs unremarkable. Stat imaging reviewed with on-call Radiologist: CT head and CTA head/neck all unremarkable without acute pathology including stroke/hemorrhage. Discussed case with on-call [facility] tele-stroke Neurologist, who recommended that we continue with Q2H Neuro checks, in addition with stat MRI brain imaging. Patient not a candidate for tPA or systemic anti-coagulation. She recommended that we consider EEG for worsening neurologic symptoms. - MRI ordered - pending - continue Q2H neuro checks - consider EEG and Neurology evaluation Resident Activity Tracking Resident Involvement: Resident Care Provided Care Provided: [facility]
[2022-05-23 22:46] LABS: Base Excess ABG 1.5 mEq/L (-9-1.8); HCO3 ABG 27 mmol/L (19-24); Oxygen Saturation ABG 96.2 % (90-95); PCO2 ABG 43 mmHg (35-46); PO2 ABG 63 mmHg (80-95)
[2022-05-23 22:50] LABS: Hematocrit (blood only) 38.3 % (34.1-44.9); Hemoglobin 13.1 g/dl (12.0-16.0); Mean Corpuscular Hemoglobin 30.6 pg (25.0-34.0); Mean Corpuscular Hgb Conc 34.2 g/dL (32.0-36.0); Mean Corpuscular Volume 89.5 fL (80.0-100.0); Mean Platelet Volume 10.8 fL (9.4-12.3); Platelet Count 122 K/uL (130-400); RDW Coefficient of Variation 15.5 % (11.5-14.5); RDW Standard Deviation 50.8 fL (36.4-46.3); Red Blood Count 4.28 M/uL (3.93-5.22); White Blood Count 8.42 K/ul (4.8-10.8)
[2022-05-23 22:53] LABS: Allen Test POS (Pos)
[2022-05-23 23:02] LABS: Basophils # (auto) 0.08 K/uL (0-0.2); Dohle Bodies 1+; Echinocytes 1+; Immature Granulocytes # (auto) 0.24 K/uL (0.00-0.02); Immature Granulocytes % (auto) 2.9 %; Lymphocytes # (auto) 0.49 K/uL (1.2-3.4); Lymphocytes % (auto) 5.8 %; Monocytes # (auto) 0.87 K/uL (0.24-0.82); Monocytes % (auto) 10.3 %; Neutrophils # (auto) 6.74 K/uL (1.4-6.5); Toxic Granulation 1+
[2022-05-23 23:24] LABS: Albumin Globulin Ratio 1.1 (0.9-2); Albumin Level 2.7 gm/dl (3.4-5.0); Calcium 8.2 mg/dl (8.5-10.1); Est GFR (African American) 95.6 ml/min; Est GFR (Non-African American) 82.5 ml/min; Globulin 2.4 gm/dl (2.5-4.0); Magnesium 1.9 mg/dl (1.7-2.4); Potassium 3.2 mmol/L (3.5-5.1); Total Protein 5.1 gm/dl (6.0-8.3); Troponin I High Sensitivity 11.4 pg/ml (0-14)
[2022-05-23 23:25] LABS: Bilirubin,Total 0.8 mg/dl (0.2-1.0)
[2022-05-24] MEDS ORDERED: GADOBUTROL 65ML VIAL IV ONE (00:02)
[2022-05-24] MEDS: POTASSIUM CHLORIDE CRTAB 20 MEQ TABCR PO STA ×2 (00:55→01:38)
[2022-05-24] MEDS ORDERED: LORazepam 0.5 MG in SYRINGE 0 ML IV ONE (01:20)
[2022-05-24] MEDS: OFLOXACIN 0.3% 75 DROPS/5 ML BTL OPL SCH ×8 (02:07→23:13)
[2022-05-24 03:23] LABS: Allen Test Pos (Pos); Base Excess ABG -0.5 mEq/L (-9-1.8); HCO3 ABG 30 mmol/L (19-24); Oxygen Saturation ABG 93.6 % (90-95); PCO2 ABG 81 mmHg (35-46); PO2 ABG 68 mmHg (80-95)
[2022-05-24 03:25] LABS: pH ABG 7.18 (7.35-7.45)
[2022-05-24 03:49] LABS: BUN Creatinine Ratio 40.8 (10-20); Calcium 8.6 mg/dl (8.5-10.1); Creatinine Clr Calc Pharmacy 72.9 ml/min; Est GFR (African American) 102.2 ml/min; Est GFR (Non-African American) 88.1 ml/min; Potassium 3.5 mmol/L (3.5-5.1)
[2022-05-24 03:57] LABS: Hematocrit (blood only) 41.3 % (34.1-44.9); Hemoglobin 14.1 g/dl (12.0-16.0); Mean Corpuscular Hemoglobin 31.7 pg (25.0-34.0); Mean Corpuscular Hgb Conc 34.1 g/dL (32.0-36.0); Mean Corpuscular Volume 92.8 fL (80.0-100.0); Platelet Count 116 K/uL (130-400); Platelet Estimate Decreased (Normal); RDW Coefficient of Variation 15.9 % (11.5-14.5); RDW Standard Deviation 54.2 fL (36.4-46.3); Red Blood Count 4.45 M/uL (3.93-5.22); White Blood Count 8.44 K/ul (4.8-10.8)
[2022-05-24 04:26] LABS: Base Excess ABG 0.6 mEq/L (-9-1.8); HCO3 ABG 27 mmol/L (19-24); Oxygen Saturation ABG 99.2 % (90-95); PCO2 ABG 52 mmHg (35-46); PO2 ABG 87 mmHg (80-95); pH ABG 7.33 (7.35-7.45)
[2022-05-24 04:31] LABS: Allen Test Pos (Pos)
--- NOTE | 2022-05-24 07:15 | CT Scan Report ---
HEAD CT NONCONTRAST CT DOSE: HISTORY: right weakness, obtunded TECHNIQUE: Multiaxial CT images of the head were performed without the use of intravenous contrast. A utomated exposure control was utilized for this study. A dose lowering technique was utilized adheri ng to the principles of ALARA. Comparison: Head CT 05/23/2022. Findings: Mild mucosal thickening within the ethmoid air cells. Complete opacification of the left ma stoid air cells. The right mastoid air cells are clear. 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 The calvarium and skull base are intact. There is no mass, hematoma, midline shift, acut e infarct. White matter hypodensity is nonspecific but suggestive of microvascular ischemic change. T he ventricles and sulci demonstrate mild age-related involutional changes. Impression: No significant change compared to the prior study. No acute intracranial abnormality. Left mastoid ef fusion again noted. ACT 112: Negative or not required by law. Electronically signed by: Jermaine Peck M.D. 05/24/2022 7:13 AM
--- NOTE | 2022-05-24 07:22 | CT Scan Report ---
NECK CTA HISTORY: right weakness, obtunded, slurred speech TECHNIQUE: Multiaxial CT images of the neck were performed following the intravenous administration o f contrast to evaluate the major cervical vessels. Maximum intensity projection images were also obta ined. All measurements were calculated based on NASCET criteria. A dose lowering technique was utili zed adhering to the principles of ALARA. COMPARISON STUDY: None. FINDINGS: The aortic arch and proximal great vessels are widely patent. There is no significant sten osis, occlusion, or dissection identified within the bilateral common carotid, internal carotid, or v ertebral arteries. Left lung airspace opacities are better appreciated on the same day chest CTA. IMPRESSION: No significant stenosis, occlusion, or dissection identified within the carotid or vertebral arteries . ACT 112: Negative or not required by law. Electronically signed by: Jermaine Peck M.D. 05/24/2022 7:21 AM
[2022-05-24] MEDS: methylPREDNISolone 40 MG in SYRINGE 0 ML IV SCH (07:29)
--- NOTE | 2022-05-24 07:34 | Magnetic Resonance Report ---
Brain MRI WITH AND WITHOUT CONTRAST HISTORY: acute onset right weakness, dysarthria, obtunded TECHNIQUE: Multiplanar multisequence MRI of the brain was performed both before and after the intrave nous administration of contrast. COMPARISON STUDY: None. FINDINGS: Motion artifact results in suboptimal evaluation. There are no areas of restricted diffusio n to suggest acute infarction. The midline structures are intact. Small retention cyst within the rig ht maxillary sinus and mild mucosal thickening within the ethmoid air cells. Large left and small rig ht mastoid effusions. Evidence for prior bilateral lens replacement. The ventricles and sulci are wit hin normal limits for age. There is no mass, hematoma, midline shift. The major vascular flow-voids a t the skull base are well maintained. Postcontrast sequences show no areas of abnormal enhancement. T here are old bilateral basal ganglia lacunar infarcts again noted. IMPRESSION: 1. Suboptimal evaluation due to the motion artifact. 2. No acute infarct or intracranial hemorrhage. 3. Large left and small right mastoid effusion. 4. Additional chronic findings as described above. ACT 112: Negative or not required by law. Electronically signed by: Jermaine Peck M.D. 05/24/2022 7:33 AM
--- NOTE | 2022-05-24 07:59 | XRay Report ---
XR chest 1V portable CLINICAL HISTORY: PNA TECHNIQUE: Single frontal radiograph of the chest was obtained. Comparison: Comparison is made to chest radiograph 05/23/2022 FINDINGS: No lines and tubes are seen. The cardiomediastinal silhouette is normal. Airspace disease is seen at the left lung. No evidence of pleural effusion or pneumothorax. IMPRESSION: Airspace disease in the left lung is minimally more prominent than in the prior exam, compatible with pneumonia. ACT 112: Negative or not required by law. Electronically signed by: Jovi Dee M.D. 05/24/2022 7:57 AM
--- NOTE | 2022-05-24 08:32 | CT Scan Report ---
CT angio head w con CLINICAL HISTORY: right weakness, obtunded, slurred speech TECHNIQUE: CT angiography of the head was performed following intravenous administration of iodinated contrast. Coronal and sagittal MIPS were obtained from the axial data set and were submitted for rev iew. Automated dose lowering techniques and/or adjustment according to patient size were utilized fo r this examination. All measurements were calculated based on NASCET criteria. Comparison: Comparison is made to MRI brain 05/23/2022 FINDINGS: CTA Head: The anterior and posterior cerebral circulations are patent. No hemodynamically significan t stenosis, aneurysm, dissection, or arteriovenous malformation is shown. Mild atherosclerotic diseas e is seen most prominently in the carotid siphons. IMPRESSION: 1. No occlusion, hemodynamically significant stenosis, aneurysm, dissection, or arteriovenous malfor mation in the major intracranial arteries. Assessment of stenosis of the internal carotid arteries is based on NASCET criteria. ACT 112: Negative or not required by law. Electronically signed by: Jovi Dee M.D. 05/24/2022 8:31 AM
[2022-05-24] MEDS: ARIPiprazole 5 MG TAB PO SCH (08:36)
[2022-05-24] MEDS: CYANOCOBALAMIN (B-12) 500 MCG TABLET PO SCH (08:37)
[2022-05-24] MEDS: MAGNESIUM OXIDE 400 MG TAB PO SCH (08:37)
[2022-05-24] MEDS: buPROPion XL 300 MG TABCR PO SCH (08:37)
[2022-05-24] MEDS: CALCIUM 600MG + VIT D 400 IU TAB PO SCH (08:37)
[2022-05-24] MEDS: HEPARIN SOD 5,000 UNIT/0.5 ML VIAL SQ SCH ×2 (08:38→20:01)
[2022-05-24] MEDS ORDERED: AZITHROMYCIN 250 MG TAB PO SCH (09:00)
[2022-05-24] MEDS: PIPERACILLIN/TAZOBACTAM 3.375 GM in DEXTROSE 5% 100 ML IV SCH ×2 (09:31→18:25)
--- NOTE | 2022-05-24 09:31 | Hospitalist Progress Note ---
Date of Service May 24, 2022 Assessment & Plan (1) Encephalopathy acute: Plan: hypercarbia w resp acidosis. See under pneumonia below MR brain normal reassuring, EEG pending Also has alcohol use history- start thiamine daily and folic acid. I tried to reach daughter Melinda at 930 h- left message to call RN for update. (2) Pneumonia: Plan: Pneumonia w acute resp failure and encepahlopathy in a 67 yo female with longstanding tobacco use and likely advanced COPD. Poor outpatient follow ups noted- last visit [facility] 2021, and prior to that admitted not taking Htn meds regularly. Patient is only on albuterol at home. I have changed Ceftriaxone to Zosyn for better anaerobic coverage, also changed to iv zithromax. CTA review- extensive L lung consolidation in setting of advanced COPD (3) Respiratory failure: Plan: as above. Start iv fluids w supplemental K - TTE done this am. No clinical suspicion of CHF (4) Anxiety disorder: Plan: :stopped clonazepam and trazadone due to hypercarbic resp failure and stupor. Never got trazodone here in hospital. on low dose aripiprazole 5mg and buspirone- po meds on hold. (5) Nicotine dependence: Plan: stated no nicotine patches (6) COPD (chronic obstructive pulmonary disease): Plan: w exacerbation- levalbuterol , solumedrol (7) Hypertension: (8) Tobacco abuse: (9) Vitamin B12 deficiency: Plan: on po b12 Admission and Anticipated Discharge Date Admission Date: May 23, 2022 Subjective noted overnight events. Obtunded and resp acidoisis w hypercarbia on ABG- BIPAP started and was noted to be oriented times 3 by night RN at handover to day RN, but was obtunded again around 8a m assessment- her BIPAP had been removed by ammonia technician it seems- and she was on nasal cannula again. I saw her at 835 and she opened her eyes briefly, but very drowsy. No po intake several hours. After placing bipap around 815, sats up to 98 %. ROS not possible Physical Exam Physical Exam: opened eye briefly to shaking arm, and squeezd my hand on command- but no response after that Left ear with dry caked blood , R pupil constricted, L opaque, Chest : low intenisty BS b/l post, CVS : NSR on tele, s1 s2 Abd : distended, non tender [employer]: not able to examine Results & Data Results & Data ([facility]) Vital Signs (Past 12 Hours) Vital Signs Temp Pulse Pulse Resp BP Pulse Ox O2 Del Method 05/24/22 08:10 88 16 120/81 98 BiPAP 05/24/22 07:01 36.4 C L 89 20 119/82 91 BiPAP 05/24/22 03:47 118 H 32 H 93 05/24/22 02:42 36.7 C 115 H 22 97/63 L 94 BiPAP 05/24/22 01:58 100 H 05/24/22 01:56 36.7 C 110 H 22 120/73 96 BiPAP 05/24/22 01:32 100 H 32 H 98 FiO2 05/24/22 08:10 05/24/22 07:01 05/24/22 03:47 70 05/24/22 02:42 05/24/22 01:58 05/24/22 01:56 05/24/22 01:32 60 Laboratory Results Abnormal lab results 05/23/22 05/23/22 05/23/22 Range/Units 11:54 11:54 11:54 RBC 5.44 H (3.93-5.22) M/uL Hgb 16.8 H (12.0-16.0) g/dl Hct 47.1 H (34.1-44.9) % RDW Std Deviation 47.9 H (36.4-46.3) fL RDW Coeff of Jamie 15.2 H (11.5-14.5) % Plt Count (130-400) K/uL Neut # (Auto) (1.4-6.5) K/uL Lymph # (Auto) (1.2-3.4) K/uL Posey # (Auto) (0.24-0.82) K/uL Immature Gran # (Auto) (0.00-0.02) K/uL Neutrophils # (Manual) 8.25 H (1.4-6.5) K/uL Lymphocytes # (Manual) 0.54 L (1.2-3.4) K/uL Platelet Estimate (Normal) ABG pH (7.35-7.45) ABG pCO2 (35-46) mmHg ABG pO2 (80-95) mmHg ABG HCO3 (19-24) mmol/L ABG O2 Saturation (90-95) % VBG pH (7.36-7.41) VBG pCO2 (38-50) mmHg Sodium 134 L (136-145) mmol/L Potassium (3.5-5.1) mmol/L Chloride 96 L (98-107) mmol/L Anion Gap 13 H (3-11) BUN 45 H (6-23) mg/dl BUN/Creatinine Ratio 38.1 H (10-20) Glucose 149 H (70-99(Fasting)) mg/dl POC Glucose (70-99) mg/dl Lactate (0.4-2.0) mmol/L Calcium (8.5-10.1) mg/dl Total Bilirubin 2.3 H (0.2-1.0) mg/dl AST (13-39) U/L Troponin I High Sens (0-14) pg/ml C-Reactive Protein (0-0.5) mg/dl Total Protein (6.0-8.3) gm/dl Albumin (3.4-5.0) gm/dl Globulin (2.5-4.0) gm/dl Procalcitonin 5.82 H (0-0.5) ng/ml 05/23/22 05/23/22 05/23/22 Range/Units 12:38 12:49 12:49 RBC (3.93-5.22) M/uL Hgb (12.0-16.0) g/dl Hct (34.1-44.9) % RDW Std Deviation (36.4-46.3) fL RDW Coeff of Jamie (11.5-14.5) % Plt Count (130-400) K/uL Neut # (Auto) (1.4-6.5) K/uL Lymph # (Auto) (1.2-3.4) K/uL Posey # (Auto) (0.24-0.82) K/uL Immature Gran # (Auto) (0.00-0.02) K/uL Neutrophils # (Manual) (1.4-6.5) K/uL Lymphocytes # (Manual) (1.2-3.4) K/uL Platelet Estimate (Normal) ABG pH (7.35-7.45) ABG pCO2 (35-46) mmHg ABG pO2 (80-95) mmHg ABG HCO3 (19-24) mmol/L ABG O2 Saturation (90-95) % VBG pH 7.45 H (7.36-7.41) VBG pCO2 37 L (38-50) mmHg Sodium (136-145) mmol/L Potassium (3.5-5.1) mmol/L Chloride (98-107) mmol/L Anion Gap (3-11) BUN (6-23) mg/dl BUN/Creatinine Ratio (10-20) Glucose (70-99(Fasting)) mg/dl POC Glucose (70-99) mg/dl Lactate 2.1 H* (0.4-2.0) mmol/L Calcium (8.5-10.1) mg/dl Total Bilirubin (0.2-1.0) mg/dl AST (13-39) U/L Troponin I High Sens 15.3 H (0-14) pg/ml C-Reactive Protein (0-0.5) mg/dl Total Protein (6.0-8.3) gm/dl Albumin (3.4-5.0) gm/dl Globulin (2.5-4.0) gm/dl Procalcitonin (0-0.5) ng/ml 05/23/22 05/23/22 05/23/22 Range/Units 12:49 21:32 22:21 RBC (3.93-5.22) M/uL Hgb (12.0-16.0) g/dl Hct (34.1-44.9) % RDW Std Deviation 50.8 H (36.4-46.3) fL RDW Coeff of Jamie 15.5 H (11.5-14.5) % Plt Count 122 L (130-400) K/uL Neut # (Auto) 6.74 H (1.4-6.5) K/uL Lymph # (Auto) 0.49 L (1.2-3.4) K/uL Posey # (Auto) 0.87 H (0.24-0.82) K/uL Immature Gran # (Auto) 0.24 H (0.00-0.02) K/uL Neutrophils # (Manual) (1.4-6.5) K/uL Lymphocytes # (Manual) (1.2-3.4) K/uL Platelet Estimate (Normal) ABG pH (7.35-7.45) ABG pCO2 (35-46) mmHg ABG pO2 (80-95) mmHg ABG HCO3 (19-24) mmol/L ABG O2 Saturation (90-95) % VBG pH (7.36-7.41) VBG pCO2 (38-50) mmHg Sodium (136-145) mmol/L Potassium (3.5-5.1) mmol/L Chloride (98-107) mmol/L Anion Gap (3-11) BUN (6-23) mg/dl BUN/Creatinine Ratio (10-20) Glucose (70-99(Fasting)) mg/dl POC Glucose 117 H (70-99) mg/dl Lactate (0.4-2.0) mmol/L Calcium (8.5-10.1) mg/dl Total Bilirubin (0.2-1.0) mg/dl AST (13-39) U/L Troponin I High Sens (0-14) pg/ml C-Reactive Protein 42.76 H (0-0.5) mg/dl Total Protein (6.0-8.3) gm/dl Albumin (3.4-5.0) gm/dl Globulin (2.5-4.0) gm/dl Procalcitonin (0-0.5) ng/ml 05/23/22 05/23/22 05/24/22 Range/Units 22:21 22:32 01:05 RBC (3.93-5.22) M/uL Hgb (12.0-16.0) g/dl Hct (34.1-44.9) % RDW Std Deviation (36.4-46.3) fL RDW Coeff of Jamie (11.5-14.5) % Plt Count (130-400) K/uL Neut # (Auto) (1.4-6.5) K/uL Lymph # (Auto) (1.2-3.4) K/uL Posey # (Auto) (0.24-0.82) K/uL Immature Gran # (Auto) (0.00-0.02) K/uL Neutrophils # (Manual) (1.4-6.5) K/uL Lymphocytes # (Manual) (1.2-3.4) K/uL Platelet Estimate (Normal) ABG pH (7.35-7.45) ABG pCO2 (35-46) mmHg ABG pO2 63 L (80-95) mmHg ABG HCO3 27 H (19-24) mmol/L ABG O2 Saturation 96.2 H (90-95) % VBG pH (7.36-7.41) VBG pCO2 (38-50) mmHg Sodium (136-145) mmol/L Potassium 3.2 L (3.5-5.1) mmol/L Chloride (98-107) mmol/L Anion Gap (3-11) BUN 33 H (6-23) mg/dl BUN/Creatinine Ratio 44.0 H (10-20) Glucose 127 H (70-99(Fasting)) mg/dl POC Glucose 127 H (70-99) mg/dl Lactate (0.4-2.0) mmol/L Calcium 8.2 L (8.5-10.1) mg/dl Total Bilirubin (0.2-1.0) mg/dl AST 9 L (13-39) U/L Troponin I High Sens (0-14) pg/ml C-Reactive Protein (0-0.5) mg/dl Total Protein 5.1 L D (6.0-8.3) gm/dl Albumin 2.7 L (3.4-5.0) gm/dl Globulin 2.4 L (2.5-4.0) gm/dl Procalcitonin (0-0.5) ng/ml 05/24/22 05/24/22 05/24/22 Range/Units 03:08 03:08 03:08 RBC (3.93-5.22) M/uL Hgb (12.0-16.0) g/dl Hct (34.1-44.9) % RDW Std Deviation 54.2 H (36.4-46.3) fL RDW Coeff of Jamie 15.9 H (11.5-14.5) % Plt Count 116 L (130-400) K/uL Neut # (Auto) (1.4-6.5) K/uL Lymph # (Auto) (1.2-3.4) K/uL Posey # (Auto) (0.24-0.82) K/uL Immature Gran # (Auto) (0.00-0.02) K/uL Neutrophils # (Manual) (1.4-6.5) K/uL Lymphocytes # (Manual) (1.2-3.4) K/uL Platelet Estimate Decreased L (Normal) ABG pH (7.35-7.45) ABG pCO2 (35-46) mmHg ABG pO2 (80-95) mmHg ABG HCO3 (19-24) mmol/L ABG O2 Saturation (90-95) % VBG pH (7.36-7.41) VBG pCO2 (38-50) mmHg Sodium (136-145) mmol/L Potassium (3.5-5.1) mmol/L Chloride (98-107) mmol/L Anion Gap (3-11) BUN 29 H (6-23) mg/dl BUN/Creatinine Ratio 40.8 H (10-20) Glucose 128 H (70-99(Fasting)) mg/dl POC Glucose (70-99) mg/dl Lactate (0.4-2.0) mmol/L Calcium (8.5-10.1) mg/dl Total Bilirubin (0.2-1.0) mg/dl AST (13-39) U/L Troponin I High Sens (0-14) pg/ml C-Reactive Protein (0-0.5) mg/dl Total Protein (6.0-8.3) gm/dl Albumin (3.4-5.0) gm/dl Globulin (2.5-4.0) gm/dl Procalcitonin 3.92 H (0-0.5) ng/ml 05/24/22 05/24/22 05/24/22 Range/Units 03:15 04:11 08:15 RBC (3.93-5.22) M/uL Hgb (12.0-16.0) g/dl Hct (34.1-44.9) % RDW Std Deviation (36.4-46.3) fL RDW Coeff of Jamie (11.5-14.5) % Plt Count (130-400) K/uL Neut # (Auto) (1.4-6.5) K/uL Lymph # (Auto) (1.2-3.4) K/uL Posey # (Auto) (0.24-0.82) K/uL Immature Gran # (Auto) (0.00-0.02) K/uL Neutrophils # (Manual) (1.4-6.5) K/uL Lymphocytes # (Manual) (1.2-3.4) K/uL Platelet Estimate (Normal) ABG pH 7.18 L* 7.33 L (7.35-7.45) ABG pCO2 81 H 52 H (35-46) mmHg ABG pO2 68 L (80-95) mmHg ABG HCO3 30 H 27 H (19-24) mmol/L ABG O2 Saturation 99.2 H (90-95) % VBG pH (7.36-7.41) VBG pCO2 (38-50) mmHg Sodium (136-145) mmol/L Potassium (3.5-5.1) mmol/L Chloride (98-107) mmol/L Anion Gap (3-11) BUN (6-23) mg/dl BUN/Creatinine Ratio (10-20) Glucose (70-99(Fasting)) mg/dl POC Glucose 126 H (70-99) mg/dl Lactate (0.4-2.0) mmol/L Calcium (8.5-10.1) mg/dl Total Bilirubin (0.2-1.0) mg/dl AST (13-39) U/L Troponin I High Sens (0-14) pg/ml C-Reactive Protein (0-0.5) mg/dl Total Protein (6.0-8.3) gm/dl Albumin (3.4-5.0) gm/dl Globulin (2.5-4.0) gm/dl Procalcitonin (0-0.5) ng/ml Medications Administered Home Medications Medication Instructions Recorded Confirmed Last Taken trazodone 100 mg tablet 100 mg PO HS 12/11/18 05/23/22 05/22/22 aripiprazole 5 mg tablet (Abilify) 5 mg PO DAILY 08/31/20 05/23/22 05/23/22 clonazepam 1 mg tablet (Klonopin) 1 mg PO BID PRN Anxiety 08/31/20 05/23/22 05/23/22 calcium carbonate 500 mg-vitamin 1 tab PO DAILY #30 tabs 05/02/21 05/23/22 05/23/22 D3 5 mcg (200 unit) tablet (Calcium 500 + D) magnesium 250 mg tablet 250 mg PO DAILY #30 tabs 05/02/21 05/23/22 05/23/22 mecobalamin (vitamin B12) 1,000 1,000 mcg sublingual DAILY #30 tabs 05/02/21 05/23/22 05/23/22 mcg disintegrating tablet,sublingual albuterol sulfate 90 mcg/actuation 1 inh inhalation QID PRN shortness 10/02/21 05/23/22 05/23/22 aerosol inhaler of breath or wheezing #6.7 grams bupropion HCl 300 mg 24 hr tablet, 300 mg PO DAILY 05/23/22 05/23/22 05/23/22 extended release Active Medications Generic Name Dose Route Start Last Admin Trade Name Freq PRN Reason Stop Dose Admin Aripiprazole 5 mg 05/24/22 09:00 05/24/22 08:36 Aripiprazole 5 Mg Tab PO 06/23/22 08:59 Not Given DAILY [facility] Bupropion HCl 300 mg 05/24/22 09:00 05/24/22 08:37 Bupropion Xl 300 Mg Tabcr PO 06/23/22 08:59 Not Given DAILY C[facility]ACE Calcium/Vitamin D 1 tab 05/24/22 09:00 05/24/22 08:37 Calcium 600mg + Vit D 400 Iu Tab PO 06/23/22 08:59 Not Given DAILY [facility] Cyanocobalamin 1,000 mcg 05/24/22 09:00 05/24/22 08:37 Cyanocobalamin (B-12) 500 Mcg Tablet PO 06/23/22 08:59 Not Given DAILY [facility] Heparin Sodium (Porcine) 5,000 units 05/23/22 21:00 05/24/22 08:38 Heparin Sod 5,000 Unit/0.5 Ml Vial SQ 06/22/22 20:59 5,000 units Q12 CANDACE Administration Methylprednisolone 40 mg/ 0.64 mls @ 1.5 mls/min 05/24/22 06:45 05/24/22 0 7:29 Syringe IV 06/23/22 06:44 1.5 mls/min Q24H CANDACE Administration Magnesium Oxide 400 mg 05/24/22 09:00 05/24/22 08:37 Magnesium Oxide 400 Mg Tab PO 06/23/22 08:59 Not Given DAILY [facility] Ofloxacin 1 drops 05/24/22 02:00 05/24/22 08:38 Ofloxacin 0.3% 75 Drops/5 Ml Btl OPL 05/31/22 01:59 1 drops Q3H CANDACE Administration Trazodone HCl 100 mg 05/23/22 21:00 05/23/22 22:10 Trazodone Hcl 100 Mg Tab PO 06/22/22 20:59 Not Given HS C[facility]ACE PG Care Time/CCT Total # of Minutes Spent Total Time Spent with Patient: Total time spent is greater than 50% in coordination of care (as documented) at patient's floor/unit and/or counseling patient: Coding Level of Care Code 97667 Subseq Hosp Care Lvl 3 Diagnoses Encephalopathy acute G93.40 Pneumonia J18.9 Respiratory failure J96.90 Anxiety disorder F41.9 Nicotine dependence F17.200 COPD (chronic obstructive pulmonary disease) J44.9 Hypertension I10 Tobacco abuse Z72.0 Vitamin B12 deficiency E53.8
[2022-05-24] MEDS ORDERED: THIAMINE HCL 100 MG in SYRINGE 9 ML IV STA (09:37)
[2022-05-24] MEDS ORDERED: FOLIC ACID 1 MG in SYRINGE 9.8 ML IV STA (09:38)
--- NOTE | 2022-05-24 09:57 | Communication Note ---
Date of Service: May 24, 2022 Spoke w daughter Melinda who was not aware until my call this am that patient in hospital. Patient is a loner, lives alone, smokes and drinks alcohol daily- unknown how much. Daughter had not spoken w patient in some weeks. Melinda is the only child, patient is and rides on vans for groceries- does not drive. There is no appointed MPOA says Melinda. H/o an inpatient psychiatry hospitalisation many years ago- Melinda does not know reason/ dx then. Melinda will visit this afternoon after work and was updated that patient is critical .
[2022-05-24 10:13] LABS: Amphetamines+Metham, Urine Neg (Neg); Barbiturates, Urine Neg (Neg); Benzodiazepine, Urine Neg (Neg); Cocaine, Urine Neg (Neg); MDMA (Ecstacy), Urine Pos (Neg); Methadone, Urine Neg (Neg); Opiate, Urine Neg (Neg); Phencyclidine, Urine Neg (Neg)
[2022-05-24] MEDS: AZITHROMYCIN 250 MG in DEXTROSE 5% 250 ML IV SCH (10:33)
[2022-05-24] MEDS: D5W AND 1/2NSS + 20MEQ KCL 20 MEQ/1,000 ML BAG IV SCH ×2 (10:33→18:25)
[2022-05-24] MEDS ORDERED: cefTRIAXone SODIUM 2,000 MG in DEXTROSE 5% 50 ML IV SCH (12:00)
--- NOTE | 2022-05-24 12:02 | Electroencephalogram ---
EEG Procedure Note Date of Service May 24, 2022 Start / End Times Start Time: 07:32 End Time: 07:52 Referring Physician Rich Harper MD History AMS Home Medication List Medication Instructions Recorded Confirmed Type trazodone 100 mg tablet 100 mg PO HS 12/11/18 05/23/22 History aripiprazole 5 mg tablet (Abilify) 5 mg PO DAILY 08/31/20 05/23/22 History clonazepam 1 mg tablet (Klonopin) 1 mg PO BID PRN Anxiety 08/31/20 05/23/22 History calcium carbonate 500 mg-vitamin 1 tab PO DAILY #30 tabs 05/02/21 05/23/22 Rx D3 5 mcg (200 unit) tablet (Calcium 500 + D) magnesium 250 mg tablet 250 mg PO DAILY #30 tabs 05/02/21 05/23/22 Rx mecobalamin (vitamin B12) 1,000 1,000 mcg sublingual DAILY #30 tabs 05/02/21 05/23/22 Rx mcg disintegrating tablet,sublingual albuterol sulfate 90 mcg/actuation 1 inh inhalation QID PRN shortness 10/02/21 05/23/22 Rx aerosol inhaler of breath or wheezing #6.7 grams bupropion HCl 300 mg 24 hr tablet, 300 mg PO DAILY 05/23/22 05/23/22 History extended release Inpatient Medication List Aripiprazole (Aripiprazole 5 Mg Tab) 5 mg PO DAILY [facility] Stop: 06/23/22 08:59 Last Admin: 05/24/22 08:36 Dose: Not Given Documented By: GEORGIE Bupropion HCl (Bupropion Xl 300 Mg Tabcr) 300 mg PO DAILY [facility] Stop: 06/23/22 08:59 Last Admin: 05/24/22 08:37 Dose: Not Given Documented By: GEORGIE Calcium/Vitamin D (Calcium 600mg + Vit D 400 Iu Tab) 1 tab PO DAILY [facility] Stop: 06/23/22 08:59 Last Admin: 05/24/22 08:37 Dose: Not Given Documented By: GEORGIE Cyanocobalamin (Cyanocobalamin (B-12) 500 Mcg Tablet) 1,000 mcg PO DAILY [facility] Stop: 06/23/22 08:59 Last Admin: 05/24/22 08:37 Dose: Not Given Documented By: GEORGIE Heparin Sodium (Porcine) (Heparin Sod 5,000 Unit/0.5 Ml Vial) 5,000 units SQ Q12 [facility]ACE Stop: 06/22/22 20:59 Last Admin: 05/24/22 08:38 Dose: 5,000 units Documented By: Admin: 05/23/22 22:10 Dose: Not Given Documented By: LEATHA Methylprednisolone 40 mg/ (Syringe) 0.64 mls @ 1.5 mls/min IV Q24H [facility]ACE Stop: 06/23/22 06:44 Last Admin: 05/24/22 07:29 Dose: 1.5 mls/min Documented By: GEORGIE Azithromycin 250 mg/ Dextrose 252.5 mls @ 125 mls/hr IV DAILY [facility] Stop: 05/31/22 08:59 Last Admin: 05/24/22 10:33 Dose: 125 mls/hr Documented By: GEORGIE Piperacillin Sod/Tazobactam (Sod 3.375 gm/ Dextrose) 115 mls @ 28.75 mls/hr IV Q8H CANDACE; Protocol Stop: 05/31/22 09:14 Last Admin: 05/24/22 09:31 Dose: 28.8 mls/hr Documented By: GEORGIE Potassium Chloride/Dextrose/Sod Cl (D5w And 1/2nss + 20meq Kcl) 20 meq in 1,000 mls @ 120 mls/hr IV .Q8H20M CANDACE; Protocol Stop: 06/23/22 09:44 Last Admin: 05/24/22 10:33 Dose: 120 mls/hr Documented By: GEORGIE Magnesium Oxide (Magnesium Oxide 400 Mg Tab) 400 mg PO DAILY [facility] Stop: 06/23/22 08:59 Last Admin: 05/24/22 08:37 Dose: Not Given Documented By: GEORGIE Ofloxacin (Ofloxacin 0.3% 75 Drops/5 Ml Btl) 1 drops OPL Q3H C[facility]ACE Stop: 05/31/22 01:59 Last Admin: 05/24/22 10:34 Dose: 1 drops Documented By: Admin: 05/24/22 08:38 Dose: 1 drops Documented By: Admin: 05/24/22 05:21 Dose: 1 drops Documented By: Admin: 05/24/22 02:07 Dose: 1 drops Documented By: LEATHA Trazodone HCl (Trazodone Hcl 100 Mg Tab) 100 mg PO HS [facility]ACE Stop: 06/22/22 20:59 Last Admin: 05/23/22 22:10 Dose: Not Given Documented By: LEATHA Discontinued Medications Albuterol (Albut/Ipratrop 3mg/0.5mg Neb 3 Ml Vial) 3 ml NEB NOW STA; Protocol Stop: 05/23/22 15:31 Last Admin: 05/23/22 16:07 Dose: 3 ml Documented By: SUSAN Azithromycin (Azithromycin 250 Mg Tab) 250 mg PO QAM C[facility]ACE Stop: 05/31/22 08:59 Last Admin: 05/24/22 08:36 Dose: Not Given Documented By: GEORGIE Gadobutrol (Gadobutrol 65ml Vial) 7 ml IV ONCE ONE Stop: 05/24/22 00:03 Last Admin: 05/24/22 00:03 Dose: 7 ml Documented By: TANI Ceftriaxone Sodium (Rocephin) 2,000 mg in 70 mls @ 140 mls/hr IV NOW STA Stop: 05/23/22 12:50 Last Infusion: 05/23/22 14:24 Dose: 0 mls/hr Documented By: Admin: 05/23/22 13:43 Dose: 140 mls/hr Documented By: DOM Azithromycin 500 mg/ Dextrose 255 mls @ 127.5 mls/hr IV NOW STA Stop: 05/23/22 14:20 Last Infusion: 05/23/22 16:58 Dose: 0 mls/hr Documented By: Admin: 05/23/22 14:25 Dose: 127.5 mls/hr Documented By: SUSAN Sodium Chloride (Nss 1000ml) 2,000 mls @ 999 mls/hr IV .Q2H1M ONE Stop: 05/23/22 14:42 Last Infusion: 05/23/22 16:58 Dose: 0 mls/hr Documented By: Admin: 05/23/22 12:58 Dose: 999 mls/hr Documented By: SUSAN Lorazepam 0.5 mg/ Syringe 0.5 mls @ 2 mls/min IV NOW ONE Stop: 05/24/22 01:21 Last Admin: 05/24/22 01:26 Dose: 2 mls/min Documented By: LEATHA Thiamine HCl 100 mg/ Syringe 10 mls @ 2 mls/min IV NOW STA Stop: 05/24/22 09:41 Last Admin: 05/24/22 10:33 Dose: 2 mls/min Documented By: GEORGIE Folic Acid 1 mg/ Syringe 10 mls @ 5 mls/min IV NOW STA Stop: 05/24/22 09:39 Last Admin: 05/24/22 10:33 Dose: 5 mls/min Documented By: GEORGIE Ioversol (Optiray 320 500ml) 120 ml IV ONCE ONE Stop: 05/23/22 13:26 Last Admin: 05/23/22 13:25 Dose: 120 ml Documented By: CHINO Levalbuterol HCl (Levalbuterol Hcl 1.25 Mg/3 Ml Neb) 1.25 mg NEB Q6R CANDACE; Protocol Stop: 06/22/22 18:59 Last Admin: 05/23/22 19:18 Dose: 1.25 mg Documented By: KADEN Potassium Chloride (Potassium Chloride Crtab 20 Meq Tabcr) 60 meq PO NOW STA Stop: 05/24/22 00:32 Last Admin: 05/24/22 01:38 Dose: Not Given Documented By: LEATHA Description This is a 21 electrode EEG with a single channel dedicated to limited EKG. The electrodes were placed in accordance with the International 10-20 system. Interpretation Throughout his EEG recording, the patient has been very somnolent and lethargic. Background activity shows a low amplitude, slow rhythm, composed of 5 to 15 V, 2 to 3 Hz delta, intermixed with 4 to 6 Hz, low amplitude theta, and generalized sleep spindles. Stimulation maneuvers are not performed during the study. There is no distinctive posterior rhythm. Photic stimulations do not induce posterior driving responses. Hyperventilation is not attempted. There are no electrographic seizures, epileptogenic discharges or asymmetries. Impression: This EEG, recorded in somnolent state, is abnormal due to diffuse slowing with low amplitude, consistent with bihemispheric dysfunction, as seen in encephalopathies. There is no electrographic seizures or epileptogenic discharge. Clinical Correlation Normal routine EEG during interictal phase cannot rule out seizure disorder definitively. Clinical correlation is suggested.
[2022-05-24 12:06] LABS: A calco-baum cmplx NotReported Not Detected (NotDetected); Bact fragilis Not Reported Not Detected (NotDetected); C auris Not Reported Not Detected (NotDetected); Calbicans Not Reported Not Detected (NotDetected); Candida glabrata Not Reported Not Detected (NotDetected); Candida krusei Not Reported Not Detected (NotDetected); Cneoformans/gatti Not Reported Not Detected (NotDetected); Cparapsilosis Not Reported Not Detected (NotDetected); Ctropicalis Not Reported Not Detected (NotDetected); E cloacae compx Not Reported Not Detected (NotDetected); Efaecalis Not Reported Not Detected (NotDetected); Efaecium Not Reported Not Detected (NotDetected); Enterobacterales Not Reported Not Detected (NotDetected); Escherichia coli Not Reported Not Detected (NotDetected); H influenzae Not Reported Not Detected (NotDetected); K aerogenes Not Reported Not Detected (NotDetected); Koxytoca Not Reported Not Detected (NotDetected); Kpneumoniae grp Not Reported Not Detected (NotDetected); Lmonocyt Not Reported Not Detected (NotDetected); N meningitidis Not Reported Not Detected (NotDetected); P aeruginosa Not Reported Not Detected (NotDetected); Proteus spp Not Reported Not Detected (NotDetected); Salmonella spp Not Reported Not Detected (NotDetected); Smarcescens Not Reported Not Detected (NotDetected); Staph lugdunensis Not Reported Not Detected (NotDetected); Staph spp. Not Reported DETECTED (NotDetected); Staphaureus Not Reported Not Detected (NotDetected); Staphepi Not Reported Not Detected (NotDetected); Staphylococcus spp. DETECTED (NotDetected); Stenmaltophilia Not Reported Not Detected (NotDetected); Strep agal(GrpB) Not Reported Not Detected (NotDetected); Strep pneum Not Reported Not Detected (NotDetected); Strep pyog (GrpA) Not Reported Not Detected (NotDetected); Strep spp Not Reported Not Detected (NotDetected)
--- NOTE | 2022-05-24 12:37 | Neurology Consultation ---
Date of Consultation May 24, 2022 Assessment & Plan (1) Encephalopathy acute: Impression: Since last night, the patient has been having fluctuating altered mental status. She is currently lethargic. Imaging studies including brain MRI did not show acute intracranial pathology. EEG showed diffuse slowing, as seen in encephalopathies but no epileptogenic activity. The likely cause of altered mental status is multifactorial encephalopathy. Substance abuse, COPD with recent pneumonia, hypercarbic respiratory acidosis, probable sleep apnea, psychoactive medication side effects are potential contributory factors. There is no history or abnormal EEG finding to suggest seizures as a cause of mental status change. Plan: Management of metabolic derangements and treatment of infections. I agree with holding sedative medications other than Abilify. Management of alcohol withdrawal syndrome. We will see the patient again only as needed. Follow-up with neurology clinic in a month. I will inform neurology clinic to set up a follow-up appointment. Thank you for the consultation. (2) Pneumonia: Impression: Chest x-ray showed airspace disease in the patient is started on antibiotic treatment. (3) Respiratory failure: Impression: The patient has long history of COPD with recent pneumonia. She has also symptoms and signs suggestive of obstructive sleep apnea. Recommendations: Outpatient follow-up for potential obstructive sleep apnea. (4) Substance abuse or dependence: Impression: According to family, the patient has been using tobacco, marijuana, and alcohol regularly. Urine toxicology screen was also positive for MDMA. Recommendations: Alcohol withdrawal precautions. Outpatient counseling. History of Present Illness Reason for Consultation: [facility] Requesting Physician: Rich Harper MD Attending Physician: Faizan Vivar MD History of Present Illness The patient is a 67-year-old female, who was brought to the emergency department yesterday, because of respiratory distress and chronic coughing which has been going on for last 4 weeks. Chest x-ray showed pneumonia and the patient was started on antibiotic treatment. The patient was alert and oriented on admission. However, last night, she was found obtunded, and stroke alert was activated. On-call teleneurology was consulted. Head CT, CT angiogram of the head and neck were unremarkable other than chronic right basal ganglia lacunar infarct. The patient was found in hypercarbic respiratory acidosis. Apparently, she has signs of obstructive sleep apnea and BiPAP was started. The patient's mental status was improved, and overnight neurological examination was nonfocal. Since yesterday, the patient's mental status has been fluctuating. She is currently very lethargic. Further work-up revealed high ethyl alcohol level, and positivity for THC and MDMA and toxicology screen. According to daughter, the patient uses alcohol, tobacco, and marijuana regularly. Alcohol withdrawal precautions were activated. Last night, when the patient was obtunded, she also had urinary incontinence. There was no tonic-clonic activity, or tongue biting. The patient has no history of seizure disorder. This morning, EEG was done, which showed diffuse slowing, as seen in encephalopathies. There was no epileptogenic activity. Brain MRI today did not show acute intracranial pathology including cerebrovascular accident. The patient has been on multiple psychoactive medications including clonazepam, trazodone, aripiprazole, and bupropion. Those medications have been on hold. I have reviewed the patient's chart including imaging studies and visualized them personally. I have discussed the case with nursing staff. Allergies Allergy/AdvReac Type Severity Reaction Status Date / Time No Known Allergies Allergy Unverified 05/23/22 13:07 Home Medications Medication Instructions Recorded Confirmed Type trazodone 100 mg tablet 100 mg PO HS 12/11/18 05/23/22 History aripiprazole 5 mg tablet (Abilify) 5 mg PO DAILY 08/31/20 05/23/22 History clonazepam 1 mg tablet (Klonopin) 1 mg PO BID PRN Anxiety 08/31/20 05/23/22 History calcium carbonate 500 mg-vitamin 1 tab PO DAILY #30 tabs 05/02/21 05/23/22 Rx D3 5 mcg (200 unit) tablet (Calcium 500 + D) magnesium 250 mg tablet 250 mg PO DAILY #30 tabs 05/02/21 05/23/22 Rx mecobalamin (vitamin B12) 1,000 1,000 mcg sublingual DAILY #30 tabs 05/02/21 05/23/22 Rx mcg disintegrating tablet,sublingual albuterol sulfate 90 mcg/actuation 1 inh inhalation QID PRN shortness 10/02/21 05/23/22 Rx aerosol inhaler of breath or wheezing #6.7 grams bupropion HCl 300 mg 24 hr tablet, 300 mg PO DAILY 05/23/22 05/23/22 History extended release Patient History Medical History (Updated 05/24/22 @ 12:47 by Samuel Sanchez MD) Abdominal pressure Adenomatous polyp of colon Anxiety Anxiety disorder Colon polyp Depression Diarrhea Disc degeneration, lumbar EKG, abnormal Essential hypertriglyceridemia Fecal incontinence Generalized osteoarthritis of multiple sites Hyperglycemia Hypertension Insomnia Low back pain Low back pain with sciatica LVH (left ventricular hypertrophy) Nicotine dependence Nocturia Surgical History History of bilateral tubal ligation History of section History of colonoscopy History of phacoemulsification of cataract of both eyes with intraocular lens implantation History of tooth extraction all teeth Family History Brother Family history of diabetes mellitus Prostate cancer Sister Family history of diabetes mellitus Mother Myocardial infarction Other No family history of adverse response to anesthesia Denies family history of Ovarian cancer Breast cancer Colorectal cancer Social History Smoking Status: Current every day smoker Tobacco Type: Cigarettes Cigarettes Per Day: 30; Second Hand Exposure: No; Do You Dip or Chew Tobacco: No; Tobacco Cessation Education Requested by Patient: No Hx Alcohol Use: Yes Alcohol type: beer Hx Substance Use: No Preferred Language: Omani Communication Ability: Effective Visual Impairment: Limited Hearing Ability: Normal 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 Beliefs That Will Affect Care: None and Restorationism Restorationism Beliefs: Anabelle Current Living Situation: Alone current occupational status: disabled How many Children do You have: 1 How many Children do You have Comment: 1 girl Other Information That Helps Us Care for You: No Feels Safe at Home: Yes Safety Concerns: Feels Safe At This Time Childhood Exposure to Second-Hand Smoke: No during the past year weight has: remained stable Dental Care, Regularly: Yes Physical Activity Frequency: Daily Physical Activity Frequency Comment: walking Seatbelt Use: always Sunscreen Use: Yes Assistive Devices: Denture - Upper, Denture - Lower and Glasses Review of Systems Review of Systems: Unobtainable due to cognitive status Physical Exam 2 Physical Exam: General Examination: Constitutional: Well developed person in no acute distress. HEENT: Normal exam with inspection. CV: Hearth rhythm is regular. Neck: Supple, no carotid bruits. Lungs: Non-labored with bibasilar crackles. Abdomen: Soft, non-tender, non-distended. Skin: No rash or ecchymosis. Extremities: No edema or cyanosis NEUROLOGICAL EXAMINATION: Mental Status: Lethargic. The patient opens her eyes and respond to simple questions but falls back in to sleep quickly. Cranial Nerves: Pupils are 3 mm and reactive to light bilaterally. Extraocular muscles are intact. Facial symmetry is preserved during grimacing. Positive corneal and gag reflexes. Funduscopy: Unable to visualize. Motor: Poor cooperation. The patient withdraws all extremities to painful stimuli symmetrically. Tone: Normal without spasticity or rigidity. Sensory: Unable to assess. Coordination: Unable to assess. Speech: Fluent but limited verbal output. Comprehension is intact during lucid episodes. Gait: Unable to assess. DTRs: 1+ all. No Babinsky Musculoskeletal: Normal muscle bulk, no atrophy. Results & Data ([facility]) Vital Signs (Past 12 Hours) Vital Signs Temp Pulse Pulse Resp BP Pulse Ox O2 Del Method 05/24/22 12:12 36.7 C 89 18 112/76 97 BiPAP 05/24/22 08:00 BiPAP 05/24/22 08:10 88 16 120/81 98 BiPAP 05/24/22 07:01 36.4 C L 89 20 119/82 91 BiPAP 05/24/22 03:47 118 H 32 H 93 05/24/22 02:42 36.7 C 115 H 22 97/63 L 94 BiPAP 05/24/22 01:58 100 H 05/24/22 01:56 36.7 C 110 H 22 120/73 96 BiPAP 05/24/22 01:32 100 H 32 H 98 FiO2 05/24/22 12:12 05/24/22 08:00 70 05/24/22 08:10 05/24/22 07:01 05/24/22 03:47 70 05/24/22 02:42 05/24/22 01:58 05/24/22 01:56 05/24/22 01:32 60 Laboratory Results Laboratory Results - last 24 hr 05/23/22 05/23/22 05/23/22 11:54 11:59 12:38 WBC RBC Hgb Hct MCV MCH MCHC RDW Std Deviation RDW Coeff of Jamie Plt Count MPV Immature Gran % (Auto) Neut % (Auto) Lymph % (Auto) [place] % (Auto) Eos % (Auto) Baso % (Auto) Neut # (Auto) Lymph # (Auto) [place] # (Auto) Eos # (Auto) Baso # (Auto) Immature Gran # (Auto) Toxic Granulation Dohle Bodies Platelet Estimate Echinocytes PT 11.1 INR 1.0 ABG pH ABG pCO2 ABG pO2 ABG HCO3 ABG O2 Saturation ABG Base Excess Jose L Test VBG pH 7.45 H VBG pCO2 37 L VBG pO2 39 VBG HCO3 26 VBG O2 Saturation 71.8 VBG Base Excess 1.8 Oxygen Given Sodium Potassium Chloride Carbon Dioxide Anion Gap BUN Creatinine Est Cr Clr Drug Dosing Est GFR ( Amer) Est GFR (Non-Af Amer) BUN/Creatinine Ratio Glucose POC Glucose Lactate Calcium Magnesium Total Bilirubin AST ALT Alkaline Phosphatase Troponin I High Sens C-Reactive Protein Total Protein Albumin Globulin Albumin/Globulin Ratio Vitamin B12 Procalcitonin 5.82 H Urine Color Urine Appearance Urine pH Ur Specific [place] Urine Protein Urine Glucose (UA) Urine Ketones Urine Blood Urine Nitrite Urine Bilirubin Urine Urobilinogen Ur Leukocyte Esterase Urine Opiates Screen Ur Methadone, Qual Urine Barbiturates Ur Phencyclidine (PCP) U Amphetamin/Meth Scrn Urine MDEA MDMA (Ecstasy) Screen MDMA Urine MDMA U Benzodiazepines Scrn Ur Cocaine Metabolite U Marijuana (THC) Screen U Marijuana THC Carboxy Drug Screen Comment SARS-CoV-2 (PCR) Influenza Type A (PCR) Influenza Type B (PCR) RSV (RT-PCR) Bld Cult ID Panel PCR 05/23/22 05/23/22 05/23/22 12:38 12:49 12:49 WBC RBC Hgb Hct MCV MCH MCHC RDW Std Deviation RDW Coeff of Jamie Plt Count MPV Immature Gran % (Auto) Neut % (Auto) Lymph % (Auto) [place] % (Auto) Eos % (Auto) Baso % (Auto) Neut # (Auto) Lymph # (Auto) [place] # (Auto) Eos # (Auto) Baso # (Auto) Immature Gran # (Auto) Toxic Granulation Dohle Bodies Platelet Estimate Echinocytes PT INR ABG pH ABG pCO2 ABG pO2 ABG HCO3 ABG O2 Saturation ABG Base Excess Jose L Test VBG pH VBG pCO2 VBG pO2 VBG HCO3 VBG O2 Saturation VBG Base Excess Oxygen Given Sodium Potassium Chloride Carbon Dioxide Anion Gap BUN Creatinine Est Cr Clr Drug Dosing Est GFR ( Amer) Est GFR (Non-Af Amer) BUN/Creatinine Ratio Glucose POC Glucose Lactate 2.1 H* Calcium Magnesium Total Bilirubin AST ALT Alkaline Phosphatase Troponin I High Sens 15.3 H C-Reactive Protein Total Protein Albumin Globulin Albumin/Globulin Ratio Vitamin B12 Procalcitonin Urine Color Urine Appearance Urine pH Ur Specific [place] Urine Protein Urine Glucose (UA) Urine Ketones Urine Blood Urine Nitrite Urine Bilirubin Urine Urobilinogen Ur Leukocyte Esterase Urine Opiates Screen Ur Methadone, Qual Urine Barbiturates Ur Phencyclidine (PCP) U Amphetamin/Meth Scrn Urine MDEA MDMA (Ecstasy) Screen MDMA Urine MDMA U Benzodiazepines Scrn Ur Cocaine Metabolite U Marijuana (THC) Screen U Marijuana THC Carboxy Drug Screen Comment SARS-CoV-2 (PCR) Influenza Type A (PCR) Influenza Type B (PCR) RSV (RT-PCR) Bld Cult ID Panel PCR Pending 05/23/22 05/23/22 05/23/22 12:49 13:24 14:44 WBC RBC Hgb Hct MCV MCH MCHC RDW Std Deviation RDW Coeff of Jamie Plt Count MPV Immature Gran % (Auto) Neut % (Auto) Lymph % (Auto) [place] % (Auto) Eos % (Auto) Baso % (Auto) Neut # (Auto) Lymph # (Auto) [place] # (Auto) Eos # (Auto) Baso # (Auto) Immature Gran # (Auto) Toxic Granulation Dohle Bodies Platelet Estimate Echinocytes PT INR ABG pH ABG pCO2 ABG pO2 ABG HCO3 ABG O2 Saturation ABG Base Excess Jose L Test VBG pH VBG pCO2 VBG pO2 VBG HCO3 VBG O2 Saturation VBG Base Excess Oxygen Given Sodium Potassium Chloride Carbon Dioxide Anion Gap BUN Creatinine Est Cr Clr Drug Dosing Est GFR ( Amer) Est GFR (Non-Af Amer) BUN/Creatinine Ratio Glucose POC Glucose Lactate 1.5 Calcium Magnesium Total Bilirubin AST ALT Alkaline Phosphatase Troponin I High Sens C-Reactive Protein 42.76 H Total Protein Albumin Globulin Albumin/Globulin Ratio Vitamin B12 Procalcitonin Urine Color Urine Appearance Urine pH Ur Specific [place] Urine Protein Urine Glucose (UA) Urine Ketones Urine Blood Urine Nitrite Urine Bilirubin Urine Urobilinogen Ur Leukocyte Esterase Urine Opiates Screen Ur Methadone, Qual Urine Barbiturates Ur Phencyclidine (PCP) U Amphetamin/Meth Scrn Urine MDEA MDMA (Ecstasy) Screen MDMA Urine MDMA U Benzodiazepines Scrn Ur Cocaine Metabolite U Marijuana (THC) Screen U Marijuana THC Carboxy Drug Screen Comment SARS-CoV-2 (PCR) NEGATIVE Influenza Type A (PCR) Negative Influenza Type B (PCR) Negative RSV (RT-PCR) Negative Bld Cult ID Panel PCR 05/23/22 05/23/22 05/23/22 18:25 21:32 22:21 WBC 8.42 RBC 4.28 Hgb 13.1 D Hct 38.3 MCV 89.5 MCH 30.6 MCHC 34.2 RDW Std Deviation 50.8 H RDW Coeff of Jamie 15.5 H Plt Count 122 L MPV 10.8 Immature Gran % (Auto) 2.9 Neut % (Auto) 80.0 Lymph % (Auto) 5.8 [place] % (Auto) 10.3 Eos % (Auto) 0.0 Baso % (Auto) 1.0 Neut # (Auto) 6.74 H Lymph # (Auto) 0.49 L [place] # (Auto) 0.87 H Eos # (Auto) 0.00 Baso # (Auto) 0.08 Immature Gran # (Auto) 0.24 H Toxic Granulation 1+ Dohle Bodies 1+ Platelet Estimate Echinocytes 1+ PT INR ABG pH ABG pCO2 ABG pO2 ABG HCO3 ABG O2 Saturation ABG Base Excess Jose L Test VBG pH VBG pCO2 VBG pO2 VBG HCO3 VBG O2 Saturation VBG Base Excess Oxygen Given Sodium Potassium Chloride Carbon Dioxide Anion Gap BUN Creatinine Est Cr Clr Drug Dosing Est GFR ( Amer) Est GFR (Non-Af Amer) BUN/Creatinine Ratio Glucose POC Glucose 117 H Lactate Calcium Magnesium Total Bilirubin AST ALT Alkaline Phosphatase Troponin I High Sens C-Reactive Protein Total Protein Albumin Globulin Albumin/Globulin Ratio Vitamin B12 Procalcitonin Urine Color Yellow Urine Appearance Clear Urine pH 6.5 Ur Specific [place] 1.021 Urine Protein Negative Urine Glucose (UA) Negative Urine Ketones Negative Urine Blood Negative Urine Nitrite Negative Urine Bilirubin Negative Urine Urobilinogen Negative Ur Leukocyte Esterase Negative Urine Opiates Screen Ur Methadone, Qual Urine Barbiturates Ur Phencyclidine (PCP) U Amphetamin/Meth Scrn Urine MDEA MDMA (Ecstasy) Screen MDMA Urine MDMA U Benzodiazepines Scrn Ur Cocaine Metabolite U Marijuana (THC) Screen U Marijuana THC Carboxy Drug Screen Comment SARS-CoV-2 (PCR) Influenza Type A (PCR) Influenza Type B (PCR) RSV (RT-PCR) Bld Cult ID Panel PCR 05/23/22 05/23/22 05/24/22 22:21 22:32 01:05 WBC RBC Hgb Hct MCV MCH MCHC RDW Std Deviation RDW Coeff of Jamie Plt Count MPV Immature Gran % (Auto) Neut % (Auto) Lymph % (Auto) [place] % (Auto) Eos % (Auto) Baso % (Auto) Neut # (Auto) Lymph # (Auto) [place] # (Auto) Eos # (Auto) Baso # (Auto) Immature Gran # (Auto) Toxic Granulation Dohle Bodies Platelet Estimate Echinocytes PT INR ABG pH 7.40 ABG pCO2 43 ABG pO2 63 L ABG HCO3 27 H ABG O2 Saturation 96.2 H ABG Base Excess 1.5 Jose L Test POS VBG pH VBG pCO2 VBG pO2 VBG HCO3 VBG O2 Saturation VBG Base Excess Oxygen Given 3L O2 Sodium 136 Potassium 3.2 L Chloride 104 Carbon Dioxide 27 Anion Gap 5 BUN 33 H Creatinine 0.75 D Est Cr Clr Drug Dosing 69.0 Est GFR ( Amer) 95.6 Est GFR (Non-Af Amer) 82.5 BUN/Creatinine Ratio 44.0 H Glucose 127 H POC Glucose 127 H Lactate Calcium 8.2 L Magnesium 1.9 Total Bilirubin 0.8 D AST 9 L ALT 7 Alkaline Phosphatase 68 Troponin I High Sens 11.4 C-Reactive Protein Total Protein 5.1 L D Albumin 2.7 L Globulin 2.4 L Albumin/Globulin Ratio 1.1 Vitamin B12 Procalcitonin Urine Color Urine Appearance Urine pH Ur Specific [place] Urine Protein Urine Glucose (UA) Urine Ketones Urine Blood Urine Nitrite Urine Bilirubin Urine Urobilinogen Ur Leukocyte Esterase Urine Opiates Screen Ur Methadone, Qual Urine Barbiturates Ur Phencyclidine (PCP) U Amphetamin/Meth Scrn Urine MDEA MDMA (Ecstasy) Screen MDMA Urine MDMA U Benzodiazepines Scrn Ur Cocaine Metabolite U Marijuana (THC) Screen U Marijuana THC Carboxy Drug Screen Comment SARS-CoV-2 (PCR) Influenza Type A (PCR) Influenza Type B (PCR) RSV (RT-PCR) Bld Cult ID Panel PCR 05/24/22 05/24/22 05/24/22 03:08 03:08 03:08 WBC 8.44 RBC 4.45 Hgb 14.1 Hct 41.3 MCV 92.8 MCH 31.7 MCHC 34.1 RDW Std Deviation 54.2 H RDW Coeff of Jamie 15.9 H Plt Count 116 L MPV 11.0 Immature Gran % (Auto) Neut % (Auto) Lymph % (Auto) [place] % (Auto) Eos % (Auto) Baso % (Auto) Neut # (Auto) Lymph # (Auto) [place] # (Auto) Eos # (Auto) Baso # (Auto) Immature Gran # (Auto) Toxic Granulation Dohle Bodies Platelet Estimate Decreased L Echinocytes PT INR ABG pH ABG pCO2 ABG pO2 ABG HCO3 ABG O2 Saturation ABG Base Excess Jose L Test VBG pH VBG pCO2 VBG pO2 VBG HCO3 VBG O2 Saturation VBG Base Excess Oxygen Given Sodium 141 Potassium 3.5 Chloride 106 Carbon Dioxide 29 Anion Gap 6 BUN 29 H Creatinine 0.71 Est Cr Clr Drug Dosing 72.9 Est GFR ( Amer) 102.2 Est GFR (Non-Af Amer) 88.1 BUN/Creatinine Ratio 40.8 H Glucose 128 H POC Glucose Lactate 0.8 Calcium 8.6 Magnesium Total Bilirubin AST ALT Alkaline Phosphatase Troponin I High Sens C-Reactive Protein Total Protein Albumin Globulin Albumin/Globulin Ratio Vitamin B12 Procalcitonin Urine Color Urine Appearance Urine pH Ur Specific [place] Urine Protein Urine Glucose (UA) Urine Ketones Urine Blood Urine Nitrite Urine Bilirubin Urine Urobilinogen Ur Leukocyte Esterase Urine Opiates Screen Ur Methadone, Qual Urine Barbiturates Ur Phencyclidine (PCP) U Amphetamin/Meth Scrn Urine MDEA MDMA (Ecstasy) Screen MDMA Urine MDMA U Benzodiazepines Scrn Ur Cocaine Metabolite U Marijuana (THC) Screen U Marijuana THC Carboxy Drug Screen Comment SARS-CoV-2 (PCR) Influenza Type A (PCR) Influenza Type B (PCR) RSV (RT-PCR) Bld Cult ID Panel PCR 05/24/22 05/24/22 05/24/22 03:08 03:08 03:15 WBC RBC Hgb Hct MCV MCH MCHC RDW Std Deviation RDW Coeff of Jamie Plt Count MPV Immature Gran % (Auto) Neut % (Auto) Lymph % (Auto) [place] % (Auto) Eos % (Auto) Baso % (Auto) Neut # (Auto) Lymph # (Auto) [place] # (Auto) Eos # (Auto) Baso # (Auto) Immature Gran # (Auto) Toxic Granulation Dohle Bodies Platelet Estimate Echinocytes PT INR ABG pH 7.18 L* ABG pCO2 81 H ABG pO2 68 L ABG HCO3 30 H ABG O2 Saturation 93.6 ABG Base Excess -0.5 Jose L Test Pos VBG pH VBG pCO2 VBG pO2 VBG HCO3 VBG O2 Saturation VBG Base Excess Oxygen Given 70% FI02 Sodium Potassium Chloride Carbon Dioxide Anion Gap BUN Creatinine Est Cr Clr Drug Dosing Est GFR ( Amer) Est GFR (Non-Af Amer) BUN/Creatinine Ratio Glucose POC Glucose Lactate Calcium Magnesium Total Bilirubin AST ALT Alkaline Phosphatase Troponin I High Sens C-Reactive Protein Total Protein Albumin Globulin Albumin/Globulin Ratio Vitamin B12 > 1500 H Procalcitonin 3.92 H Urine Color Urine Appearance Urine pH Ur Specific [place] Urine Protein Urine Glucose (UA) Urine Ketones Urine Blood Urine Nitrite Urine Bilirubin Urine Urobilinogen Ur Leukocyte Esterase Urine Opiates Screen Ur Methadone, Qual Urine Barbiturates Ur Phencyclidine (PCP) U Amphetamin/Meth Scrn Urine MDEA MDMA (Ecstasy) Screen MDMA Urine MDMA U Benzodiazepines Scrn Ur Cocaine Metabolite U Marijuana (THC) Screen U Marijuana THC Carboxy Drug Screen Comment SARS-CoV-2 (PCR) Influenza Type A (PCR) Influenza Type B (PCR) RSV (RT-PCR) Bld Cult ID Panel PCR 05/24/22 05/24/22 05/24/22 04:11 08:15 09:24 WBC RBC Hgb Hct MCV MCH MCHC RDW Std Deviation RDW Coeff of Jamie Plt Count MPV Immature Gran % (Auto) Neut % (Auto) Lymph % (Auto) [place] % (Auto) Eos % (Auto) Baso % (Auto) Neut # (Auto) Lymph # (Auto) [place] # (Auto) Eos # (Auto) Baso # (Auto) Immature Gran # (Auto) Toxic Granulation Dohle Bodies Platelet Estimate Echinocytes PT INR ABG pH 7.33 L ABG pCO2 52 H ABG pO2 87 ABG HCO3 27 H ABG O2 Saturation 99.2 H ABG Base Excess 0.6 Jsoe L Test Pos VBG pH VBG pCO2 VBG pO2 VBG HCO3 VBG O2 Saturation VBG Base Excess Oxygen Given 70% FI02 Sodium Potassium Chloride Carbon Dioxide Anion Gap BUN Creatinine Est Cr Clr Drug Dosing Est GFR ( Amer) Est GFR (Non-Af Amer) BUN/Creatinine Ratio Glucose POC Glucose 126 H Lactate Calcium Magnesium Total Bilirubin AST ALT Alkaline Phosphatase Troponin I High Sens C-Reactive Protein Total Protein Albumin Globulin Albumin/Globulin Ratio Vitamin B12 Procalcitonin Urine Color Urine Appearance Urine pH Ur Specific [place] Urine Protein Urine Glucose (UA) Urine Ketones Urine Blood Urine Nitrite Urine Bilirubin Urine Urobilinogen Ur Leukocyte Esterase Urine Opiates Screen Neg Ur Methadone, Qual Neg Urine Barbiturates Neg Ur Phencyclidine (PCP) Neg U Amphetamin/Meth Scrn Neg Urine MDEA MDMA (Ecstasy) Screen Pos H MDMA Urine MDMA U Benzodiazepines Scrn Neg Ur Cocaine Metabolite Neg U Marijuana (THC) Screen Pos H U Marijuana THC Carboxy Drug Screen Comment SARS-CoV-2 (PCR) Influenza Type A (PCR) Influenza Type B (PCR) RSV (RT-PCR) Bld Cult ID Panel PCR 05/24/22 09:24 WBC RBC Hgb Hct MCV MCH MCHC RDW Std Deviation RDW Coeff of Jamie Plt Count MPV Immature Gran % (Auto) Neut % (Auto) Lymph % (Auto) [place] % (Auto) Eos % (Auto) Baso % (Auto) Neut # (Auto) Lymph # (Auto) [place] # (Auto) Eos # (Auto) Baso # (Auto) Immature Gran # (Auto) Toxic Granulation Dohle Bodies Platelet Estimate Echinocytes PT INR ABG pH ABG pCO2 ABG pO2 ABG HCO3 ABG O2 Saturation ABG Base Excess Jose L Test VBG pH VBG pCO2 VBG pO2 VBG HCO3 VBG O2 Saturation VBG Base Excess Oxygen Given Sodium Potassium Chloride Carbon Dioxide Anion Gap BUN Creatinine Est Cr Clr Drug Dosing Est GFR ( Amer) Est GFR (Non-Af Amer) BUN/Creatinine Ratio Glucose POC Glucose Lactate Calcium Magnesium Total Bilirubin AST ALT Alkaline Phosphatase Troponin I High Sens C-Reactive Protein Total Protein Albumin Globulin Albumin/Globulin Ratio Vitamin B12 Procalcitonin Urine Color Urine Appearance Urine pH Ur Specific [place] Urine Protein Urine Glucose (UA) Urine Ketones Urine Blood Urine Nitrite Urine Bilirubin Urine Urobilinogen Ur Leukocyte Esterase Urine Opiates Screen Ur Methadone, Qual Urine Barbiturates Ur Phencyclidine (PCP) U Amphetamin/Meth Scrn Urine MDEA Pending MDMA (Ecstasy) Screen MDMA Pending Urine MDMA Pending U Benzodiazepines Scrn Ur Cocaine Metabolite U Marijuana (THC) Screen U Marijuana THC Carboxy Pending Drug Screen Comment Pending SARS-CoV-2 (PCR) Influenza Type A (PCR) Influenza Type B (PCR) RSV (RT-PCR) Bld Cult ID Panel PCR Diagnostic Findings Chest X-Ray 05/23/22 11:19 XR chest 2V PA/lateral HISTORY: Shortness of breath. COMPARISON: Chest and abdominal series 12/18/2018. FINDINGS: No pneumothorax. The cardiac silhouette is top normal in size. The right lung appears clear. Left mid to lower lung zone airspace opacities are new from the prior study. Only seen on the lateral view there is a possible 3.8 cm nodule overlying the heart. This is not confirmed on the frontal view. No pleural effusions. There is an old, healed left humeral neck fracture. IMPRESSION: 1. Left upper and lower lobe airspace opacities. This likely represents a pneumonia. 2. Possible 3.8 cm left infrahilar nodule/mass. Follow-up chest CT recommended for further evaluation. ACT 112: Negative or not required by law. Electronically signed by: Jermaine Peck M.D. 05/23/2022 12:[address] 05/23/22 12:[address] DOSE: HISTORY: confusion TECHNIQUE: Multiaxial CT images of the head were performed without the use of intravenous contrast. Automated exposure control was utilized for this study. A dose lowering technique was utilized adhering to the principles of ALARA. Comparison: Head CT 09/21/2019. Findings: Mild mucosal thickening within the ethmoid air cells and maxillary sinuses. The right mastoid air cells are clear. There is complete opacification of the left mastoid air cells. The calvarium and skull base are intact. The ventricles and sulci are within normal limits. There is no mass, hematoma, midline shift, or acute infarct. 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 Mild microvascular ischemic changes again noted. Impression: No significant change compared to the prior study. No acute intracranial abnormality. ACT 112: Negative or not required by law. Electronically signed by: Jermaine Peck M.D. 05/23/2022 1:43 PM Chest CTA 05/23/22 12:38 CT ANGIOGRAM OF THE CHEST CLINICAL HISTORY: Dyspnea. Hypoxia. COMPARISON STUDY: Chest radiograph dated 05/23/2022. TECHNIQUE: Following the IV administration of 120 cc of Optiray 320, CT angiogram of the chest was performed from the upper abdomen to the thoracic inlet utilizing the pulmonary embolus protocol. Images are reviewed in the axial, sagittal, and coronal planes. 3-D MIPS images are created and assessed. IV contrast was administered without complication. A dose lowering technique was utilized adhering to the principles of ALARA. The examination is compromised by motion artifact. CT DOSE: 1173.74 mGy.cm FINDINGS: Thyroid: Imaged portions of the thyroid gland are normal in size and attenuation. Thoracic aorta: There is atherosclerotic calcification of the thoracic aorta. There is ectasia of the ascending thoracic aorta which measures up to 3.8 cm in diameter. The remainder of the thoracic aorta is normal in caliber, and the arch demonstrates standard 3-vessel anatomy. No dissection is seen. Pulmonary vasculature: The pulmonary trunk is normal in caliber. There are no filling defects identified in main, lobar, or proximal segmental pulmonary branches to suggest pulmonary embolus. Evaluation of the distal segmental and subsegmental branches is compromised by motion artifact. Heart: The heart is enlarged and without pericardial effusion. Lungs and pleural spaces: Evaluation of the lung parenchyma is compromised by motion artifact. There is mild emphysema. The trachea is clear. Secretions/debris fills the left lower lobe airways. There is multifocal airspace consolidation throughout the left lung, greatest in the mid to lower lung. There are only minimal right basilar airspace opacities. No pleural effusion is identified. There are scattered calcified granulomas. Mediastinum: There are numerous enlarged mediastinal lymph nodes which measure up to 13 mm in short axis. Jayda: Mildly enlarged left hilar nodes measure up to 12 mm in short axis. Axillae: A 2.0 cm lobulated cystic lesion is seen in the left axilla on axial image #199. No axillary lymphadenopathy is seen. Upper abdomen: There is a small hiatal hernia. Partially visualized upper abdominal viscera is otherwise within normal limits. Skeletal structures: The skeletal structures are osteopenic. Spondylotic change is noted throughout the thoracic spine. No lytic or blastic bony lesions are seen. IMPRESSION: 1. Motion compromises examination. 2. There is no evidence of central pulmonary embolus in the main, lobar, or proximal segmental pulmonary arteries. Evaluation of the segmental and subsegmental branches is degraded by motion artifact. 3. Extensive airspace consolidation throughout the left lung is typical for pneumonia/aspiration pneumonitis. Clinical correlation will be required and radiographic follow-up to resolution is recommended. 4. Secretions/debris fills the left lower lobe airways. 5. There are also minimal airspace opacities at the right lung base. 6. Cardiomegaly and emphysema. 7. Mildly enlarged mediastinal and left hilar nodes are likely reactive. 8. There is an indeterminant 2.0 cm lobulated cystic lesion in the left axilla. This it is of low suspicion. A precautionary nonemergent/outpatient follow-up with ultrasound is recommended for further assessment 9. Additional findings as above. ACT 112: Negative or not required by law. Electronically signed by: Carlos Echevarria M.D. 05/23/2022 1:52 PM Abdomen/Pelvis CT 05/23/22 17:15 CT OF THE ABDOMEN AND PELVIS WITHOUT CONTRAST CLINICAL HISTORY: Abdominal pain. COMPARISON STUDY: CT of the abdomen and pelvis September 28, 2018. Abdominal series December 18, 2018. TECHNIQUE: Axial images of the abdomen and pelvis were obtained without IV contrast. Images were reviewed in the axial, sagittal, and coronal planes. Automated exposure control was utilized for the study. A dose lowering technique was utilized adhering to the principles of ALARA. FINDINGS: Extensive left lower lobe consolidation is better depicted on chest CT performed earlier today. This exam is optimized by motion artifact and lack of IV contrast. There is a small hiatal hernia. No pneumatosis, free air or portal venous gas is present. Unenhanced images of the liver, spleen, adrenal glands and pancreas are unremarkable. There is no biliary or pancreatic ductal dilatation. There is no peripancreatic or pericholecystic stranding. Enhancement of the kidneys is from recent contrast-enhanced CT. There is no hydronephrosis. There is decrease sensitivity for detection of urinary calculi given excreted contrast. No filling defect within the bladder is present. There is extensive colonic diverticulosis without evidence for acute diverticulitis. There is no evidence for a bowel obstruction. The appendix is normal. No lymphadenopathy is present. There is no fluid collection to suggest an abscess. Multilevel degenerative changes within lumbar spine are present. No acute fracture within the lumbar spine, pelvis or hips is identified. IMPRESSION: 1. Extensive left lung consolidation consistent with pneumonia/aspiration pneumonitis, better depicted on chest CT performed earlier today. 2. No acute process within the abdomen or pelvis on unenhanced exam. 3. Colonic diverticulosis. No evidence for acute diverticulitis. 4. No bowel obstruction. No bowel wall thickening on unenhanced exam. Normal appendix. ACT 112: Negative or not required by law. Electronically signed by: Rolly Montemayor M.D. 05/23/2022 7:[address] 05/23/22 21:[address] DOSE: HISTORY: right weakness, obtunded TECHNIQUE: Multiaxial CT images of the head were performed without the use of intravenous contrast. Automated exposure control was utilized for this study. A dose lowering technique was utilized adhering to the principles of ALARA. Comparison: Head CT 05/23/2022. Findings: Mild mucosal thickening within the ethmoid air cells. Complete opacification of the left mastoid air cells. The right mastoid air cells are clear. 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 The calvarium and skull base are intact. There is no mass, hematoma, midline shift, acute infarct. White matter hypodensity is nonspecific but suggestive of microvascular ischemic change. The ventricles and sulci demonstrate mild age-related involutional changes. Impression: No significant change compared to the prior study. No acute intracranial abnormality. Left mastoid effusion again noted. ACT 112: Negative or not required by law. Electronically signed by: Jermaine Peck M.D. 05/24/2022 7:13 AM Head CTA 05/23/22 21:47 CT angio head w con CLINICAL HISTORY: right weakness, obtunded, slurred speech TECHNIQUE: CT angiography of the head was performed following intravenous administration of iodinated contrast. Coronal and sagittal MIPS were obtained from the axial data set and were submitted for review. Automated dose lowering techniques and/or adjustment according to patient size were utilized for this examination. All measurements were calculated based on NASCET criteria. Comparison: Comparison is made to MRI brain 05/23/2022 FINDINGS: CTA Head: The anterior and posterior cerebral circulations are patent. No hemodynamically significant stenosis, aneurysm, dissection, or arteriovenous malformation is shown. Mild atherosclerotic disease is seen most prominently in the carotid siphons. IMPRESSION: 1. No occlusion, hemodynamically significant stenosis, aneurysm, dissection, or arteriovenous malformation in the major intracranial arteries. Assessment of stenosis of the internal carotid arteries is based on NASCET criteria. ACT 112: Negative or not required by law. Electronically signed by: Jovi Dee M.D. 05/24/2022 8:31 AM Neck CTA 05/23/22 21:48 NECK CTA HISTORY: right weakness, obtunded, slurred speech TECHNIQUE: Multiaxial CT images of the neck were performed following the intravenous administration of contrast to evaluate the major cervical vessels. Maximum intensity projection images were also obtained. All measurements were calculated based on NASCET criteria. A dose lowering technique was utilized adhering to the principles of ALARA. COMPARISON STUDY: None. FINDINGS: The aortic arch and proximal great vessels are widely patent. There is no significant stenosis, occlusion, or dissection identified within the bilateral common carotid, internal carotid, or vertebral arteries. Left lung airspace opacities are better appreciated on the same day chest CTA. IMPRESSION: No significant stenosis, occlusion, or dissection identified within the carotid or vertebral arteries. ACT 112: Negative or not required by law. Electronically signed by: Jermaine Peck M.D. 05/24/2022 7:21 AM Brain MRI 05/23/22 22:37 Brain MRI WITH AND WITHOUT CONTRAST HISTORY: acute onset right weakness, dysarthria, obtunded TECHNIQUE: Multiplanar multisequence MRI of the brain was performed both before and after the intravenous administration of contrast. COMPARISON STUDY: None. FINDINGS: Motion artifact results in suboptimal evaluation. There are no areas of restricted diffusion to suggest acute infarction. The midline structures are intact. Small retention cyst within the right maxillary sinus and mild mucosal thickening within the ethmoid air cells. Large left and small right mastoid effusions. Evidence for prior bilateral lens replacement. The ventricles and sulci are within normal limits for age. There is no mass, hematoma, midline shift. The major vascular flow-voids at the skull base are well maintained. Postcontrast sequences show no areas of abnormal enhancement. There are old bilateral basal ganglia lacunar infarcts again noted. IMPRESSION: 1. Suboptimal evaluation due to the motion artifact. 2. No acute infarct or intracranial hemorrhage. 3. Large left and small right mastoid effusion. 4. Additional chronic findings as described above. ACT 112: Negative or not required by law. Electronically signed by: Jermaine Peck M.D. 05/24/2022 7:33 AM Chest X-Ray 05/24/22 03:02 XR chest 1V portable CLINICAL HISTORY: PNA TECHNIQUE: Single frontal radiograph of the chest was obtained. Comparison: Comparison is made to chest radiograph 05/23/2022 FINDINGS: No lines and tubes are seen. The cardiomediastinal silhouette is normal. Airspace disease is seen at the left lung. No evidence of pleural effusion or pneumothorax. IMPRESSION: Airspace disease in the left lung is minimally more prominent than in the prior exam, compatible with pneumonia. ACT 112: Negative or not required by law. Electronically signed by: Jovi Dee M.D. 05/24/2022 7:57 AM
[2022-05-24] MEDS: traZODone HCL 100 MG TAB PO SCH (20:00)
[2022-05-25] MEDS: PIPERACILLIN/TAZOBACTAM 3.375 GM in DEXTROSE 5% 100 ML IV SCH ×3 (01:01→18:23)
[2022-05-25] MEDS: OFLOXACIN 0.3% 75 DROPS/5 ML BTL OPL SCH ×7 (01:02→21:33)
[2022-05-25] MEDS: D5W AND 1/2NSS + 20MEQ KCL 20 MEQ/1,000 ML BAG IV SCH ×3 (02:53→20:44)
[2022-05-25] MEDS: methylPREDNISolone 40 MG in SYRINGE 0 ML IV SCH (08:22)
[2022-05-25] MEDS: ARIPiprazole 5 MG TAB PO SCH (08:23)
[2022-05-25] MEDS: buPROPion XL 300 MG TABCR PO SCH (08:24)
[2022-05-25] MEDS: CALCIUM 600MG + VIT D 400 IU TAB PO SCH (08:24)
[2022-05-25] MEDS: HEPARIN SOD 5,000 UNIT/0.5 ML VIAL SQ SCH ×2 (08:24→21:32)
[2022-05-25] MEDS: CYANOCOBALAMIN (B-12) 500 MCG TABLET PO SCH (08:24)
[2022-05-25] MEDS: MAGNESIUM OXIDE 400 MG TAB PO SCH (08:24)
[2022-05-25] MEDS: THIAMINE HCL 100 MG in SYRINGE 9 ML IV SCH (08:25)
[2022-05-25] MEDS: AZITHROMYCIN 250 MG in DEXTROSE 5% 250 ML IV SCH (08:30)
[2022-05-25] MEDS: traZODone HCL 100 MG TAB PO SCH (21:33)
--- NOTE | 2022-05-25 22:10 | Hospitalist Progress Note ---
Date of Service May 25, 2022 Assessment & Plan (1) Encephalopathy acute: Plan: hypercarbia w resp acidosis. See under pneumonia below MR brain normal reassuring, EEG not helpful Also has alcohol use history- start thiamine daily and folic acid. Appears to be resolving on 05/25 as patient answers questions appropriately (2) Pneumonia: Plan: Pneumonia w acute resp failure and encepahlopathy in a 67 yo female with longstanding tobacco use and likely advanced COPD. Poor outpatient follow ups noted- last visit [facility] 2021, and prior to that admitted not taking Htn meds regularly. Patient is only on albuterol at home. I have changed Ceftriaxone to Zosyn for better anaerobic coverage, also changed to iv zithromax. CTA review- extensive L lung consolidation in setting of advanced COPD (3) Respiratory failure: Plan: as above. Start iv fluids w supplemental K - TTE done. No clinical suspicion of CHF (4) Anxiety disorder: Plan: :stopped clonazepam and trazadone due to hypercarbic resp failure and stupor. Never got trazodone here in hospital. on low dose aripiprazole 5mg and buspirone- po meds on hold. (5) Nicotine dependence: Plan: stated no nicotine patches (6) COPD (chronic obstructive pulmonary disease): Plan: w exacerbation- levalbuterol , solumedrol (7) Hypertension: (8) Tobacco abuse: (9) Vitamin B12 deficiency: Plan: on po b12 Admission and Anticipated Discharge Date Admission Date: May 23, 2022 Subjective 67 yo female reports feeling better. Continues to have a productive cough knows she is in [facility], concerned about having to possibly moving to new home as she has difficulty going up stairs at home. Review of Systems Review of Systems: All systems reviewed & are unremarkable except as noted in HPI & below Physical Exam Constitutional: WD/WN, vitals as above Eyes: PERRL, conjunctivae normal, anicteric sclerae ENMT: external ear and nose normal, oropharynx normal Neck: trachea midline, no thyromegaly Respiratory: + respiratory distress and + uses accessory muscles Auscultation: + diminished lung sounds Cardiovascular: Rate/Rhythm: + tachycardic Heart Sounds: normal S1 and normal S2 Gastrointestinal (Abdomen): normal bowel sounds, soft, nontender, no hepatosplenomegaly Musculoskeletal: no cyanosis or clubbing, extremities motor strength 5/5 Skin: no rashes, warm and dry Neurologic: PERRL, EOMI, accommodation nl, no face palsy, no dysarthria Psychiatric: Orientation: alert, oriented to person, oriented to place and cooperative Lymphatic: no cervical or axillary lymphadenopathy Results & Data Results & [facility] ([facility]) Vital Signs (Past 12 Hours) Vital Signs Temp Pulse Pulse Resp BP Pulse Ox O2 Del Method 05/25/22 19:30 36.6 C 77 18 113/76 98 Nasal Cannula 05/25/22 14:17 72 05/25/22 15:29 36.7 C 74 19 110/72 96 Nasal Cannula 05/25/22 11:02 36.5 C 82 21 112/75 96 Nasal Cannula O2 Flow Rate 05/25/22 19:30 4 05/25/22 14:17 05/25/22 15:29 4 05/25/22 11:02 4 PG Care Time/CCT Total # of Minutes Spent Total Time Spent with Patient: Total time spent is greater than 50% in coordination of care (as documented) at patient's floor/unit and/or counseling patient: Coding Level of Care Code 14196 Subseq Hosp Care Lvl 2 Diagnoses Encephalopathy acute G93.40 Pneumonia J18.9 Respiratory failure J96.90 Anxiety disorder F41.9 Nicotine dependence F17.200 COPD (chronic obstructive pulmonary disease) J44.9 Hypertension I10 Tobacco abuse Z72.0 Vitamin B12 deficiency E53.8
[2022-05-26] MEDS: OFLOXACIN 0.3% 75 DROPS/5 ML BTL OPL SCH ×9 (00:07→23:11)
[2022-05-26] MEDS: PIPERACILLIN/TAZOBACTAM 3.375 GM in DEXTROSE 5% 100 ML IV SCH ×3 (00:15→17:21)
[2022-05-26] MEDS: D5W AND 1/2NSS + 20MEQ KCL 20 MEQ/1,000 ML BAG IV SCH (04:42)
[2022-05-26] MEDS: methylPREDNISolone 40 MG in SYRINGE 0 ML IV SCH (08:14)
[2022-05-26] MEDS: THIAMINE HCL 100 MG in SYRINGE 9 ML IV SCH (08:15)
[2022-05-26] MEDS: MAGNESIUM OXIDE 400 MG TAB PO SCH (08:15)
[2022-05-26] MEDS: HEPARIN SOD 5,000 UNIT/0.5 ML VIAL SQ SCH ×2 (08:15→20:36)
[2022-05-26] MEDS: CALCIUM 600MG + VIT D 400 IU TAB PO SCH (08:16)
[2022-05-26] MEDS: ARIPiprazole 5 MG TAB PO SCH (08:16)
[2022-05-26] MEDS: AZITHROMYCIN 250 MG in DEXTROSE 5% 250 ML IV SCH (08:16)
[2022-05-26] MEDS: CYANOCOBALAMIN (B-12) 500 MCG TABLET PO SCH (08:16)
[2022-05-26] MEDS: buPROPion XL 300 MG TABCR PO SCH (08:16)
[2022-05-26] MEDS ORDERED: ALBUT/IPRATROP 3MG/0.5MG NEB 3 ML VIAL NEB STA (12:00)
--- NOTE | 2022-05-26 12:06 | Hospitalist Progress Note ---
Date of Service May 26, 2022 Assessment & Plan (1) Pneumonia: Plan: Continue Zosyn and azithromycin. Will consider deescalation to Augmentin to also cover for aspiration pneumonia SLT eval to assess for aspirations (2) COPD (chronic obstructive pulmonary disease): Plan: Exacerbation mentioned on yesterday's note however no wheezing noted on exam and not on scheduled nebulizers. No wheezing on today's exam however noted significant hypercapnia on night after admission. Will trial duoneb to see if helping her cough and consider continuing short course of steroids if beneficial. Concern steroids likely to make her heartburn worse however. (3) Encephalopathy acute: Plan: Resolved. Secondary to acute respiratory acidosis with hypercapnia (4) Respiratory failure with hypoxia and hypercapnia: Plan: Aim O2 sats > 88% (5) Anxiety disorder: Plan: Now encephalopathy resolved and patient also had trazodone the last 2 night will continue this Continue aripiprazole and bupropion (6) Nicotine dependence: Plan: Declined nicotine patches (7) Tobacco abuse: (8) Vitamin B12 deficiency: Plan: on po b12 Plan VTE Prophylaxis - heparin 5000 units SQ BID Diet - Low Na Disposition - stable for transfer to med/surg, PT/OT ordered Admission and Anticipated Discharge Date Admission Date: May 23, 2022 Subjective Much improved mentation from what has been described previously. Alert and orientated x3. Continued productive cough. No fever or chills. She reports her shortness of breath have been improving. No pain. She reports dysphagia and coughing after eating. Telemetry - NSR 60-70s. Review of Systems Review of Systems: All systems reviewed & are unremarkable except as noted in Subjective Physical Exam Constitutional: WD/WN, vitals as above Respiratory: normal respiratory effort; no respiratory distress Auscultation: + crackles (left posteriorly coarse); no diminished lung sounds, no rales, no rhonchi and no wheezes Cardiovascular: RRR, no murmur, no edema Gastrointestinal (Abdomen): normal bowel sounds, soft, nontender, no hepatosplenomegaly Musculoskeletal: no cyanosis or clubbing, extremities motor strength 5/5 Skin: no rashes, warm and dry Neurologic: moves all extremities and awake; no focal motor deficits and not confused Psychiatric: A+Ox3, euthymic affect Results & Data Results & Data ([facility]) Vital Signs (Past 12 Hours) Vital Signs Temp Pulse Pulse Resp BP BP Pulse Ox 05/26/22 11:49 36.6 C 75 20 121/78 93 05/26/22 08:30 36.7 C 77 20 132/82 94 05/26/22 02:44 36.6 C 73 18 136/95 93 05/26/22 00:43 71 05/26/22 00:06 73 31 H 99 O2 Del Method O2 Flow Rate FiO2 05/26/22 11:49 Nasal Cannula 2 05/26/22 08:30 Nasal Cannula 3 05/26/22 02:44 BiPAP 05/26/22 00:43 05/26/22 00:06 40 PG Care Time/CCT Total # of Minutes Spent Total Time Spent with Patient: Total time spent is greater than 50% in coordination of care (as documented) at patient's floor/unit and/or counseling patient: Coding Level of Care Code 06934 Subseq Hosp Care Lvl 2 Diagnoses Pneumonia J18.9 COPD (chronic obstructive pulmonary disease) J44.9 Encephalopathy acute G93.40 Respiratory failure with hypoxia and hypercapnia J96.91; J96.92 Anxiety disorder F41.9 Nicotine dependence F17.200 Tobacco abuse Z72.0 Vitamin B12 deficiency E53.8
[2022-05-26] MEDS: FAMOTIDINE 20 MG in SYRINGE 3 ML IV SCH (12:45)
[2022-05-26] MEDS: traZODone HCL 100 MG TAB PO SCH (20:36)
[2022-05-27] MEDS: PIPERACILLIN/TAZOBACTAM 3.375 GM in DEXTROSE 5% 100 ML IV SCH ×3 (00:47→17:52)
[2022-05-27] MEDS: OFLOXACIN 0.3% 75 DROPS/5 ML BTL OPL SCH ×7 (01:00→20:00)
[2022-05-27 07:56] LABS: Hematocrit (blood only) 36.3 % (34.1-44.9); Hemoglobin 12.1 g/dl (12.0-16.0); Mean Corpuscular Hemoglobin 30.6 pg (25.0-34.0); Mean Corpuscular Hgb Conc 33.3 g/dL (32.0-36.0); Mean Corpuscular Volume 91.7 fL (80.0-100.0); Mean Platelet Volume 10.7 fL (9.4-12.3); Platelet Count 179 K/uL (130-400); RDW Coefficient of Variation 15.9 % (11.5-14.5); Red Blood Count 3.96 M/uL (3.93-5.22); White Blood Count 11.88 K/ul (4.8-10.8)
[2022-05-27] MEDS: ARIPiprazole 5 MG TAB PO SCH (08:22)
[2022-05-27] MEDS: buPROPion XL 300 MG TABCR PO SCH (08:23)
[2022-05-27] MEDS: CYANOCOBALAMIN (B-12) 500 MCG TABLET PO SCH (08:23)
[2022-05-27] MEDS: CALCIUM 600MG + VIT D 400 IU TAB PO SCH (08:23)
[2022-05-27] MEDS: MAGNESIUM OXIDE 400 MG TAB PO SCH (08:24)
[2022-05-27 08:31] LABS: BUN Creatinine Ratio 25.5 (10-20); Calcium 8.5 mg/dl (8.5-10.1); Creatinine Clr Calc Pharmacy 112.4 ml/min; Est GFR (African American) 118.5 ml/min; Est GFR (Non-African American) 102.2 ml/min; Potassium 3.5 mmol/L (3.5-5.1)
[2022-05-27 08:34] LABS: Basophils # (auto) 0.02 K/uL (0-0.2); Basophils % (auto) 0.2 %; Eosinophils # (auto) 0.01 K/uL (0-0.50); Eosinophils % (auto) 0.1 %; Immature Granulocytes # (auto) 1.03 K/uL (0.00-0.02); Immature Granulocytes % (auto) 8.7 %; Lymphocytes # (auto) 1.96 K/uL (1.2-3.4); Lymphocytes % (auto) 16.5 %; Monocytes # (auto) 0.68 K/uL (0.24-0.82); Monocytes % (auto) 5.7 %; Neutrophils # (auto) 8.18 K/uL (1.4-6.5); Neutrophils % (auto) 68.8 %; Toxic Granulation 1+
[2022-05-27] MEDS: THIAMINE HCL 100 MG in SYRINGE 9 ML IV SCH (09:06)
[2022-05-27] MEDS: HEPARIN SOD 5,000 UNIT/0.5 ML VIAL SQ SCH ×2 (09:07→20:01)
[2022-05-27] MEDS: AZITHROMYCIN 250 MG in DEXTROSE 5% 250 ML IV SCH (09:21)
[2022-05-27] MEDS: FAMOTIDINE 20 MG in SYRINGE 3 ML IV SCH (13:06)
--- NOTE | 2022-05-27 17:37 | Hospitalist Progress Note ---
Date of Service May 27, 2022 Assessment & Plan (1) Pneumonia: Plan: Continue Zosyn, azithromycin now complete. Will consider deescalation to Augmentin to also cover for aspiration pneumonia SLT eval to assess -placed back on regular diet, no difficulties noted (2) COPD (chronic obstructive pulmonary disease): Plan: Exacerbation mentioned previously however no wheezing noted on exam and not on scheduled nebulizers. No wheezing on today's exam and does not appear to been requiring steroids. No significant improvement with DuoNeb. Noted significant hypercapnia on night after admission. (3) Encephalopathy acute: Plan: Resolved. Secondary to acute respiratory acidosis with hypercapnia (4) Respiratory failure with hypoxia and hypercapnia: Plan: Aim O2 sats > 88% (5) Anxiety disorder: Plan: Now encephalopathy resolved and patient also had trazodone the last 2 night will continue this Continue aripiprazole and bupropion (6) Nicotine dependence: Plan: Declined nicotine patches (7) Tobacco abuse: (8) Vitamin B12 deficiency: Plan: on po b12 Plan VTE Prophylaxis - heparin 5000 units SQ BID Diet - Low Na Disposition - stable for transfer to med/surg, PT/OT ordered, medically stable for discharge about unable to return home due to 3 flights of stairs required to get into her house. Admission and Anticipated Discharge Date Admission Date: May 23, 2022 Subjective No acute change in mentation. Alert and orientated x3. Less productive cough today. No fever or chills. Shortness of breath continues to improve and she is walking around the [place] however physical therapy recommending rehab as she has 3 flights of steps to reach to the entrance of her apartment. Review of Systems Review of Systems: All systems reviewed & are unremarkable except as noted in Subjective Physical Exam Constitutional: WD/WN, vitals as above Respiratory: normal respiratory effort; no respiratory distress Auscultation: + crackles (left posteriorly coarse); no diminished lung sounds, no rales, no rhonchi and no wheezes Cardiovascular: RRR, no murmur, no edema Gastrointestinal (Abdomen): normal bowel sounds, soft, nontender, no hepatosplenomegaly Musculoskeletal: no cyanosis or clubbing, extremities motor strength 5/5 Skin: no rashes, warm and dry Neurologic: moves all extremities and awake; no focal motor deficits and not confused Psychiatric: A+Ox3, euthymic affect Results & Data Results & Data ([facility]) Vital Signs (Past 12 Hours) Vital Signs Temp Pulse Resp BP Pulse Ox O2 Del Method O2 Flow Rate 05/27/22 16:00 37.1 C 72 18 142/67 H 92 Nasal Cannula 3 05/27/22 08:14 Nasal Cannula 3 05/27/22 07:28 36.9 C 79 18 160/83 H 98 Nasal Cannula 3 PG Care Time/CCT Total # of Minutes Spent Total Time Spent with Patient: Total time spent is greater than 50% in coordination of care (as documented) at patient's floor/unit and/or counseling patient: Coding Level of Care Code 75459 Subseq Hosp Care Lvl 2 Diagnoses Pneumonia J18.9 COPD (chronic obstructive pulmonary disease) J44.9 Encephalopathy acute G93.40 Respiratory failure with hypoxia and hypercapnia J96.91; J96.92 Anxiety disorder F41.9 Nicotine dependence F17.200 Tobacco abuse Z72.0 Vitamin B12 deficiency E53.8
[2022-05-27] MEDS: traZODone HCL 100 MG TAB PO SCH (20:01)
[2022-05-28] MEDS: PIPERACILLIN/TAZOBACTAM 3.375 GM in DEXTROSE 5% 100 ML IV SCH ×3 (01:25→16:39)
[2022-05-28] MEDS: MAGNESIUM OXIDE 400 MG TAB PO SCH (08:47)
[2022-05-28] MEDS: HEPARIN SOD 5,000 UNIT/0.5 ML VIAL SQ SCH ×2 (08:47→20:22)
[2022-05-28] MEDS: ARIPiprazole 5 MG TAB PO SCH (08:47)
[2022-05-28] MEDS: CYANOCOBALAMIN (B-12) 500 MCG TABLET PO SCH (08:47)
[2022-05-28] MEDS: CALCIUM 600MG + VIT D 400 IU TAB PO SCH (08:47)
[2022-05-28] MEDS: buPROPion XL 300 MG TABCR PO SCH (08:47)
[2022-05-28] MEDS: THIAMINE HCL 100 MG in SYRINGE 9 ML IV SCH (08:48)
[2022-05-28] MEDS: OFLOXACIN 0.3% 75 DROPS/5 ML BTL OPL SCH ×4 (08:48→20:22)
[2022-05-28] MEDS: FAMOTIDINE 20 MG in SYRINGE 3 ML IV SCH (13:16)
--- NOTE | 2022-05-28 13:20 | Hospitalist Progress Note ---
Date of Service May 28, 2022 Assessment & Plan (1) Pneumonia: Plan: Continue Zosyn, azithromycin now complete. Will consider deescalation to Augmentin to also cover for aspiration pneumonia SLT eval to assess - placed back on regular diet, no difficulties noted (2) COPD (chronic obstructive pulmonary disease): Plan: No acute exacerbation suspected. Consider follow-up PFTs as an outpatient. (3) Encephalopathy acute: Plan: Resolved. Secondary to acute respiratory acidosis with hypercapnia (4) Respiratory failure with hypoxia and hypercapnia: Plan: Aim O2 sats > 88% (5) Anxiety disorder: Plan: Now encephalopathy resolved and patient also had trazodone the last 2 night will continue this Continue aripiprazole and bupropion Will reintroduce her usual Klonopin but at half the normal dose with 0.5 mg p.o. every 12 hourly as needed (6) Nicotine dependence: Plan: Declined nicotine patches (7) Tobacco abuse: (8) Vitamin B12 deficiency: Plan: on po b12 Plan VTE Prophylaxis - heparin 5000 units SQ BID Diet - Low Na Disposition - stable for transfer to med/surg, PT/OT, medically stable for discharge awaiting rehab placement Admission and Anticipated Discharge Date Admission Date: May 23, 2022 Subjective Patient taken off oxygen with O2 sats maintaining 93%. Medically stable for discharge awaiting placement at this time. She reports increasing anxiety and requests her usual Klonopin. Review of Systems Review of Systems: All systems reviewed & are unremarkable except as noted in Subjective Physical Exam Constitutional: WD/WN, vitals as above Respiratory: normal respiratory effort; no respiratory distress Auscultation: no diminished lung sounds, no crackles, no rales, no rhonchi and no wheezes Cardiovascular: RRR, no murmur, no edema Gastrointestinal (Abdomen): normal bowel sounds, soft, nontender, no hepatosplenomegaly Musculoskeletal: no cyanosis or clubbing, extremities motor strength 5/5 Skin: no rashes, warm and dry Neurologic: moves all extremities and awake; no focal motor deficits and not confused Psychiatric: A+Ox3, euthymic affect Results & Data Results & Data ([facility]) Vital Signs (Past 12 Hours) Vital Signs Temp Pulse Pulse Resp BP Pulse Ox O2 Del Method 05/28/22 09:42 Nasal Cannula 05/28/22 07:09 36.8 C 69 18 150/84 H 94 Nasal Cannula 05/28/22 03:10 80 16 97 O2 Flow Rate FiO2 05/28/22 09:42 3 05/28/22 07:09 3 05/28/22 03:10 40 PG Care Time/CCT Total # of Minutes Spent Total Time Spent with Patient: Total time spent is greater than 50% in coordination of care (as documented) at patient's floor/unit and/or counseling patient: Coding Level of Care Code 84938 Subseq Hosp Care Lvl 1 Diagnoses Pneumonia J18.9 COPD (chronic obstructive pulmonary disease) J44.9 Encephalopathy acute G93.40 Respiratory failure with hypoxia and hypercapnia J96.91; J96.92 Anxiety disorder F41.9 Nicotine dependence F17.200 Tobacco abuse Z72.0 Vitamin B12 deficiency E53.8
[2022-05-28] MEDS: traZODone HCL 100 MG TAB PO SCH (20:22)
[2022-05-29] MEDS: PIPERACILLIN/TAZOBACTAM 3.375 GM in DEXTROSE 5% 100 ML IV SCH ×3 (00:50→17:14)
[2022-05-29 08:05] LABS: Basophils # (auto) 0.05 K/uL (0-0.2); Basophils % (auto) 0.6 %; Eosinophils # (auto) 0.07 K/uL (0-0.50); Eosinophils % (auto) 0.8 %; Hematocrit (blood only) 37.7 % (34.1-44.9); Hemoglobin 12.7 g/dl (12.0-16.0); Immature Granulocytes # (auto) 0.34 K/uL (0.00-0.02); Immature Granulocytes % (auto) 3.9 %; Lymphocytes % (auto) 13.9 %; Mean Corpuscular Hemoglobin 30.2 pg (25.0-34.0); Mean Corpuscular Hgb Conc 33.7 g/dL (32.0-36.0); Mean Corpuscular Volume 89.8 fL (80.0-100.0); Mean Platelet Volume 9.9 fL (9.4-12.3); Monocytes # (auto) 0.43 K/uL (0.24-0.82); Neutrophils # (auto) 6.52 K/uL (1.4-6.5); Neutrophils % (auto) 75.8 %; Platelet Count 271 K/uL (130-400); RDW Coefficient of Variation 15.3 % (11.5-14.5); RDW Standard Deviation 50.4 fL (36.4-46.3); White Blood Count 8.61 K/ul (4.8-10.8)
[2022-05-29] MEDS: MAGNESIUM OXIDE 400 MG TAB PO SCH (08:33)
[2022-05-29] MEDS: CALCIUM 600MG + VIT D 400 IU TAB PO SCH (08:33)
[2022-05-29] MEDS: THIAMINE HCL 100 MG TAB PO SCH (08:33)
[2022-05-29 08:34] LABS: BUN Creatinine Ratio 29.5 (10-20); Calcium 8.3 mg/dl (8.5-10.1); Creatinine Clr Calc Pharmacy 119.9 ml/min; Est GFR (African American) 121.1 ml/min; Est GFR (Non-African American) 104.5 ml/min; Potassium 2.8 mmol/L (3.5-5.1)
[2022-05-29] MEDS: FAMOTIDINE 20 MG TAB PO SCH (08:34)
[2022-05-29] MEDS: buPROPion XL 300 MG TABCR PO SCH (08:34)
[2022-05-29] MEDS: ARIPiprazole 5 MG TAB PO SCH (08:34)
[2022-05-29] MEDS: CYANOCOBALAMIN (B-12) 500 MCG TABLET PO SCH (08:34)
[2022-05-29] MEDS: OFLOXACIN 0.3% 75 DROPS/5 ML BTL OPL SCH ×4 (08:34→21:03)
[2022-05-29] MEDS: HEPARIN SOD 5,000 UNIT/0.5 ML VIAL SQ SCH ×2 (08:35→21:03)
[2022-05-29] MEDS: clonazePAM 0.5 MG TAB PO PRN (08:38)
--- NOTE | 2022-05-29 17:39 | Hospitalist Progress Note ---
Date of Service May 29, 2022 Assessment & Plan (1) Pneumonia: Plan: Continue Zosyn, azithromycin now complete. Switch to Augmentin for final day of treatment. SLT eval to assess - placed back on regular diet, no difficulties noted (2) COPD (chronic obstructive pulmonary disease): Plan: No acute exacerbation suspected. Consider follow-up PFTs as an outpatient. (3) Encephalopathy acute: Plan: Resolved. Secondary to acute respiratory acidosis with hypercapnia (4) Respiratory failure with hypoxia and hypercapnia: Plan: Aim O2 sats > 88% (5) Anxiety disorder: Plan: Now encephalopathy resolved and patient also had trazodone the last 2 night will continue this Continue aripiprazole and bupropion Will reintroduce her usual Klonopin but at half the normal dose with 0.5 mg p.o. every 12 hourly as needed (6) Nicotine dependence: Plan: Declined nicotine patches (7) Tobacco abuse: (8) Vitamin B12 deficiency: Plan: on po b12 Plan VTE Prophylaxis - heparin 5000 units SQ BID Diet - Low Na Disposition - stable for transfer to med/surg, PT/OT, medically stable for discharge awaiting rehab placement Admission and Anticipated Discharge Date Admission Date: May 23, 2022 Subjective Patient taken off oxygen again today and maintaining sats > 90%. No acute concerns or questions. Medically stable for discharge awaiting placement at this time. Review of Systems Review of Systems: All systems reviewed & are unremarkable except as noted in Subjective Physical Exam Constitutional: WD/WN, vitals as above Respiratory: normal respiratory effort; no respiratory distress Auscultation: no diminished lung sounds, no crackles, no rales, no rhonchi and no wheezes Cardiovascular: RRR, no murmur, no edema Gastrointestinal (Abdomen): normal bowel sounds, soft, nontender, no hepat osplenomegaly Musculoskeletal: no cyanosis or clubbing, extremities motor strength 5/5 Skin: no rashes, warm and dry Neurologic: moves all extremities and awake; no focal motor deficits and not confused Psychiatric: A+Ox3, euthymic affect Results & Data Results & Data ([facility]) Vital Signs (Past 12 Hours) Vital Signs Temp Pulse Resp BP BP Pulse Ox O2 Del Method 05/29/22 14:22 36.7 C 80 16 139/86 91 Room Air 05/29/22 09:31 Nasal Cannula 05/29/22 07:41 36.7 C 68 18 147/88 H 97 Nasal Cannula O2 Flow Rate 05/29/22 14:22 05/29/22 09:31 2 05/29/22 07:41 3 PG Care Time/CCT Total # of Minutes Spent Total Time Spent with Patient: Total time spent is greater than 50% in coordination of care (as documented) at patient's floor/unit and/or counseling patient: Coding Level of Care Code 50609 Subseq Hosp Care Lvl 1 Diagnoses Pneumonia J18.9 COPD (chronic obstructive pulmonary disease) J44.9 Encephalopathy acute G93.40 Respiratory failure with hypoxia and hypercapnia J96.91; J96.92 Anxiety disorder F41.9 Nicotine dependence F17.200 Tobacco abuse Z72.0 Vitamin B12 deficiency E53.8
[2022-05-29] MEDS ORDERED: POTASSIUM CHLORIDE CRTAB 20 MEQ TABCR PO STA (18:40)
[2022-05-29] MEDS: ACETAMINOPHEN 325 MG TAB PO PRN (20:58)
[2022-05-29] MEDS: AMOXICILLIN/CLAVULANATE 875 MG TAB PO SCH (20:59)
[2022-05-29] MEDS: traZODone HCL 100 MG TAB PO SCH (21:00)
[2022-05-30 06:22] LABS: Basophils # (auto) 0.03 K/uL (0-0.2); Basophils % (auto) 0.4 %; Eosinophils # (auto) 0.09 K/uL (0-0.50); Eosinophils % (auto) 1.2 %; Hematocrit (blood only) 36.6 % (34.1-44.9); Hemoglobin 12.6 g/dl (12.0-16.0); Immature Granulocytes # (auto) 0.16 K/uL (0.00-0.02); Immature Granulocytes % (auto) 2.2 %; Lymphocytes # (auto) 1.26 K/uL (1.2-3.4); Lymphocytes % (auto) 17.3 %; Mean Corpuscular Hemoglobin 30.6 pg (25.0-34.0); Mean Corpuscular Hgb Conc 34.4 g/dL (32.0-36.0); Mean Corpuscular Volume 88.8 fL (80.0-100.0); Monocytes # (auto) 0.43 K/uL (0.24-0.82); Monocytes % (auto) 5.9 %; Neutrophils # (auto) 5.32 K/uL (1.4-6.5); Platelet Count 316 K/uL (130-400); RDW Coefficient of Variation 15.1 % (11.5-14.5); RDW Standard Deviation 48.8 fL (36.4-46.3); Red Blood Count 4.12 M/uL (3.93-5.22); White Blood Count 7.29 K/ul (4.8-10.8)
[2022-05-30 06:36] LABS: BUN Creatinine Ratio 31.6 (10-20); Calcium 7.9 mg/dl (8.5-10.1); Creatinine Clr Calc Pharmacy 138.9 ml/min; Est GFR (Non-African American) 109.6 ml/min
[2022-05-30] MEDS: CALCIUM 600MG + VIT D 400 IU TAB PO SCH (09:05)
[2022-05-30] MEDS: MAGNESIUM OXIDE 400 MG TAB PO SCH (09:05)
[2022-05-30] MEDS: ARIPiprazole 5 MG TAB PO SCH (09:05)
[2022-05-30] MEDS: CYANOCOBALAMIN (B-12) 500 MCG TABLET PO SCH (09:06)
[2022-05-30] MEDS: FAMOTIDINE 20 MG TAB PO SCH (09:06)
[2022-05-30] MEDS: THIAMINE HCL 100 MG TAB PO SCH (09:06)
[2022-05-30] MEDS: AMOXICILLIN/CLAVULANATE 875 MG TAB PO SCH ×2 (09:07→18:07)
[2022-05-30] MEDS: buPROPion XL 300 MG TABCR PO SCH (09:07)
[2022-05-30] MEDS: OFLOXACIN 0.3% 75 DROPS/5 ML BTL OPL SCH ×4 (09:08→20:47)
[2022-05-30] MEDS: HEPARIN SOD 5,000 UNIT/0.5 ML VIAL SQ SCH ×2 (09:08→20:47)
[2022-05-30 13:00] LABS: MDA negative; MDEA negative; MDMA (Ecstasy) Urine, Confirm negative; Marijuana Quant, GCMS Urine 584 ng/mL (<5)
--- NOTE | 2022-05-30 16:16 | Hospitalist Progress Note ---
Date of Service May 30, 2022 Assessment & Plan (1) Pneumonia: Plan: Continue Augmentin (last day of treatment today, azithromycin course complete. (2) Dysphagia: Plan: SLT eval - placed back on regular diet, no difficulties noted Ongoing despite multiple days of Pepcid. Will switch patient to a minced and moist diet to see if she does better with this. Given this may have contributed towards her aspiration pneumonia we will consult gastroenterology for consideration of inpatient endoscopy. (3) COPD (chronic obstructive pulmonary disease): Plan: No acute exacerbation suspected. Consider follow-up PFTs as an outpatient. (4) Encephalopathy acute: Plan: Resolved. Secondary to acute respiratory acidosis with hypercapnia (5) Respiratory failure with hypoxia and hypercapnia: Plan: Now resolved Aim O2 sats > 88% (6) Anxiety disorder: Plan: Now encephalopathy resolved and patient also had trazodone the last 2 night will continue this Continue aripiprazole and bupropion Continue Klonopin but at half the normal dose with 0.5 mg p.o. every 12 hourly as needed (7) Nicotine dependence: Plan: Declined nicotine patches (8) Tobacco abuse: (9) Vitamin B12 deficiency: Plan: on po b12 Plan VTE Prophylaxis - heparin 5000 units SQ BID Diet - Low Na Disposition - stable for transfer to med/surg, PT/OT, medically stable for discharge awaiting rehab placement Admission and Anticipated Discharge Date Admission Date: May 23, 2022 Subjective Ongoing dysphagia. She does not know if this is to certain foods. Severely affecting her appetite. No odynophagia. No abdominal pain, nausea, vomiting, diarrhea, bright red blood in stool, melena. Shortness of breath improving every day. Review of Systems Review of Systems: All systems reviewed & are unremarkable except as noted in Subjective Physical Exam Constitutional: WD/WN, vitals as above Respiratory: normal respiratory effort; no respiratory distress Auscultation: no diminished lung sounds, no crackles, no rales, no rhonchi and no wheezes Cardiovascular: RRR, no murmur, no edema Gastrointestinal (Abdomen): normal bowel sounds, soft, nontender, no hepatosplenomegaly Musculoskeletal: no cyanosis or clubbing, extremities motor strength 5/5 Skin: no rashes, warm and dry Neurologic: moves all extremities and awake; no focal motor deficits and not confused Psychiatric: A+Ox3, euthymic affect Results & Data Results & Data ([facility]) Vital Signs (Past 12 Hours) Vital Signs Temp Pulse Resp BP Pulse Ox O2 Del Method 05/30/22 14:40 36.9 C 78 16 144/83 H 94 Room Air 05/30/22 09:15 Room Air 05/30/22 08:13 36.7 C 78 18 163/94 H 92 Room Air PG Care Time/CCT Total # of Minutes Spent Total Time Spent with Patient: Total time spent is greater than 50% in coordination of care (as documented) at patient's floor/unit and/or counseling patient: Coding Level of Care Code 20321 Subseq Hosp Care Lvl 2 Diagnoses Pneumonia J18.9 Dysphagia R13.10 COPD (chronic obstructive pulmonary disease) J44.9 Encephalopathy acute G93.40 Respiratory failure with hypoxia and hypercapnia J96.91; J96.92 Anxiety disorder F41.9 Nicotine dependence F17.200 Tobacco abuse Z72.0 Vitamin B12 deficiency E53.8
[2022-05-30] MEDS: clonazePAM 0.5 MG TAB PO PRN (18:10)
[2022-05-30] MEDS: ACETAMINOPHEN 325 MG TAB PO PRN (18:10)
[2022-05-30] MEDS: traZODone HCL 100 MG TAB PO SCH (20:47)
[2022-05-31 06:48] LABS: Basophils # (auto) 0.02 K/uL (0-0.2); Basophils % (auto) 0.3 %; Eosinophils # (auto) 0.09 K/uL (0-0.50); Eosinophils % (auto) 1.2 %; Hematocrit (blood only) 37.2 % (34.1-44.9); Hemoglobin 12.7 g/dl (12.0-16.0); Immature Granulocytes % (auto) 1.3 %; Lymphocytes # (auto) 1.11 K/uL (1.2-3.4); Lymphocytes % (auto) 14.7 %; Mean Corpuscular Hemoglobin 30.6 pg (25.0-34.0); Mean Corpuscular Hgb Conc 34.1 g/dL (32.0-36.0); Mean Corpuscular Volume 89.6 fL (80.0-100.0); Mean Platelet Volume 9.7 fL (9.4-12.3); Monocytes # (auto) 0.55 K/uL (0.24-0.82); Monocytes % (auto) 7.3 %; Neutrophils # (auto) 5.68 K/uL (1.4-6.5); Neutrophils % (auto) 75.2 %; Platelet Count 337 K/uL (130-400); RDW Coefficient of Variation 15.3 % (11.5-14.5); RDW Standard Deviation 50.3 fL (36.4-46.3); Red Blood Count 4.15 M/uL (3.93-5.22); White Blood Count 7.55 K/ul (4.8-10.8)
[2022-05-31 07:18] LABS: BUN Creatinine Ratio 37.5 (10-20); Calcium 8.3 mg/dl (8.5-10.1); Creatinine Clr Calc Pharmacy 131.9 ml/min; Est GFR (African American) 124.9 ml/min; Est GFR (Non-African American) 107.8 ml/min; Potassium 2.9 mmol/L (3.5-5.1)
[2022-05-31] MEDS: THIAMINE HCL 100 MG TAB PO SCH (09:06)
[2022-05-31] MEDS: buPROPion XL 300 MG TABCR PO SCH (09:06)
[2022-05-31] MEDS: CALCIUM 600MG + VIT D 400 IU TAB PO SCH (09:07)
[2022-05-31] MEDS: ARIPiprazole 5 MG TAB PO SCH (09:07)
[2022-05-31] MEDS: FAMOTIDINE 20 MG TAB PO SCH (09:07)
[2022-05-31] MEDS: clonazePAM 0.5 MG TAB PO PRN (09:08)
[2022-05-31] MEDS: CYANOCOBALAMIN (B-12) 500 MCG TABLET PO SCH (09:08)
[2022-05-31] MEDS: MAGNESIUM OXIDE 400 MG TAB PO SCH (09:08)
[2022-05-31] MEDS: HEPARIN SOD 5,000 UNIT/0.5 ML VIAL SQ SCH (09:09)
[2022-05-31] MEDS: OFLOXACIN 0.3% 75 DROPS/5 ML BTL OPL SCH ×2 (09:11→12:50)
[2022-05-31] MEDS ORDERED: POTASSIUM CHLORIDE CRTAB 20 MEQ TABCR PO STA (09:35)
--- NOTE | 2022-05-31 14:23 | Discharge Summary ---
Date of Service May 31, 2022 Admission HPI Per Admitting Provider 67-year-old female with past medical history of COPD and about [id number] history of smoking cigarettes as well as alcohol abuse and history of marijuana use presents to the hospital with about 1 month history of worsening cough. Her symptoms been worsening over the past week with subjective fever chills, productive sputum, increase requirement of albuterol where she has required to take it daily. A friend brought her into the hospital today as she was becoming more tired and fatigued and did not want to get out of bed today. Patient is a poor historian as she does not directly answer questions and requires me to repeat the question. Principal Diagnosis Aspiration pneumonia Acute hypoxic respiratory failure Metabolic/hypercapnic encephalopathy Discharge Exam Constitutional WD/WN, vitals as above Respiratory normal respiratory effort; no respiratory distress Auscultation: no diminished lung sounds, no crackles, no rales, no rhonchi and no wheezes Cardiovascular RRR, no murmur, no edema Gastrointestinal (Abdomen) normal bowel sounds, soft, nontender, no hepatosplenomegaly Musculoskeletal no cyanosis or clubbing, extremities motor strength 5/5 Skin no rashes, warm and dry Neurologic moves all extremities and awake; no focal motor deficits and not confused Psychiatric A+Ox3, euthymic affect Discharge Data Allergies Allergy/AdvReac Type Severity Reaction Status Date / Time No Known Allergies Allergy Unverified 05/23/22 13:07 Consultations 05/23/22 14:11 ED Decision to Admit Stat 05/24/22 01:13 Consult Neurology Routine 05/30/22 16:31 Consult Behavioral Health Liaison Routine Ordered Studies 05/23/22 12:37 CT head/brain wo con Stat Impression: No significant change compared to the prior study. No acute intracranial abnormality. 05/23/22 12:38 CT angio chest PE protocol Stat IMPRESSION: 1. Motion compromises examination. 2. There is no evidence of central pulmonary embolus in the main, lobar, or proximal segmental pulmonary arteries. Evaluation of the segmental and subsegmental branches is degraded by motion artifact. 3. Extensive airspace consolidation throughout the left lung is typical for pneumonia/aspiration pneumonitis. Clinical correlation will be required and radiographic follow-up to resolution is recommended. 4. Secretions/debris fills the left lower lobe airways. 5. There are also minimal airspace opacities at the right lung base. 6. Cardiomegaly and emphysema. 7. Mildly enlarged mediastinal and left hilar nodes are likely reactive. 8. There is an indeterminant 2.0 cm lobulated cystic lesion in the left axilla. This it is of low suspicion. A precautionary nonemergent/outpatient follow-up [facility] ultrasound is recommended for further assessment 9. Additional findings as above. 05/23/22 17:15 CT abd pelvis wo con Routine IMPRESSION: 1. Extensive left lung consolidation consistent with pneumonia/aspiration pneumonitis, better depicted on chest CT performed earlier today. 2. No acute process within the abdomen or pelvis on unenhanced exam. 3. Colonic diverticulosis. No evidence for acute diverticulitis. 4. No bowel obstruction. No bowel wall thickening on unenhanced exam. Normal appendix. 05/23/22 21:46 CT head/brain wo con Urgent Impression: No significant change compared to the prior study. No acute intracranial abnormality. Left mastoid effusion again noted. 05/23/22 21:47 CTA head w con [CT angio head w con] Urgent IMPRESSION: 1. No occlusion, hemodynamically significant stenosis, aneurysm, dissection, or arteriovenous malformation in the major intracranial arteries. 05/23/22 21:48 CTA neck with con [CT angio neck with con] Urgent IMPRESSION: No significant stenosis, occlusion, or dissection identified within the carotid or vertebral arteries. 05/23/22 22:37 MRI Brain [MR brain wo/w con] Stat IMPRESSION: 1. Suboptimal evaluation due to the motion artifact. 2. No acute infarct or intracranial hemorrhage. 3. Large left and small right mastoid effusion. 4. Additional chronic findings as described above. 06/03/22 08:35 FL video swallow Routine Hospital Course (1) Pneumonia: Bernadine Viveros is a 67 year old female admitted to [facility] from May 23 to 2021 due to shortness of breath, fever, chills, cough. She was treated for aspiration / community acquired pneumonia with intravenous antibiotics Zosyn (switched to Augmentin) and Azithromycin. She completed antibiotics during her inpatient stay and has slowly been weaned off oxygen. Her stay was complicated by metabolic encephalopathy suspect due to hypercapnia which Given your ongoing difficulty swallowing recommend a minced and moist diet with aspiration precautions including not eating close to bed and being fully upright while eating. Please follow up with gastroenterology as an outpatient - appointment to be arranged. Recommend routine pantoprazole as prescribed to reduce stomach acid until follow-up with gastroenterology. Due to persistently low potassium levels recommend potassium supplements as prescribed and follow-up with your primary care physician for repeat potassium levels in approximately 1 week. Incidental left axilla lesion on CT chest - recommend follow up with PCP to consider ultrasound of this. (2) Dysphagia: (3) COPD (chronic obstructive pulmonary disease): (4) Encephalopathy acute: (5) Respiratory failure with hypoxia and hypercapnia: (6) Anxiety disorder: (7) Nicotine dependence: (8) Tobacco abuse: (9) Vitamin B12 deficiency: Total Time Total Time Spent Total Time Spent (In Minutes): 40 Discharge Plan Discharge Items Patient Disposition: Home - Home Health Services Reason For Visit: PNEUMONIA Discharge Diagnosis: Aspiration pneumonia Acute hypoxic respiratory failure (low oxygen levels in your blood) Activity: Resume your previous activity Non-emergency contact: Primary Care Provider Call non-emergency contact if: you have any medication questions and your symptoms worsen Follow-up/Referrals: Luciano Judd DO [Physician] - (Follow up dysphagia - 2-4 weeks) Rema Strickland MD [Primary Care Provider] - Diet: Low Sodium (2gm) Diet Texture: Mechanical soft (ground) Addtl Attending Provider Instructions: You were admitted to [facility] from May 23 to 2021 due to shortness of breath, fever, chills, cough. You were treated for aspiration / community acquired pneumonia with intravenous antibiotics. You completed antibiotics during her inpatient stay and has slowly been weaned off oxygen. Given your ongoing difficulty swallowing recommend a minced and moist diet with aspiration precautions including not eating close to bed and being fully upright while eating. Please follow up with gastroenterology as an outpatient - appointment to be arranged. Recommend routine pantoprazole as prescribed to reduce stomach acid until follow-up with gastroenterology. Due to persistently low potassium levels recommend potassium supplements as prescribed and follow-up with your primary care physician for repeat potassium levels in approximately 1 week. Pending Studies at Discharge: No Stand-Alone Forms: My [facility], Smoking Cessation Medications and DC Order Prescriptions: New potassium chloride 20 mEq Tablet,Er Particles/Crystals 20 meq PO BID 7 Days Qty: 14 0RF pantoprazole 40 mg tablet,delayed release (DR/EC) 40 mg PO DAILY Qty: 30 0RF thiamine HCl (vitamin B1) 100 mg tablet 100 mg PO DAILY Qty: 30 0RF Continued calcium carbonate-vitamin D3 [Calcium 500 + D] 500 mg(1,250mg) -200 unit tablet 1 tab PO DAILY Qty: 30 0RF mecobalamin (vitamin B12) 1,000 mcg tablet,disintegrating 1,000 mcg sublingual DAILY Qty: 30 0RF Rx Instructions: place tablet under tongue and allow to dissolve for at least30 secs before swallowing magnesium 250 mg tablet 250 mg PO DAILY Qty: 30 0RF albuterol sulfate 90 mcg/actuation HFA aerosol inhaler 1 inh INH QID PRN (Reason: shortness of breath or wheezing) Qty: 6.7 5RF aripiprazole [Abilify] 5 mg tablet 5 mg PO DAILY clonazepam [Klonopin] 1 mg tablet 1 mg PO BID PRN (Reason: Anxiety) bupropion HCl 300 mg tablet extended release 24 hr 300 mg PO DAILY Changed trazodone 100 mg Tablet 100 mg PO HS PRN (Reason: Insomnia) Qty: 30 0RF Discharge Orders: Discharge Order (Routine); Ordered 05/31/22 Ordered By: Miah Rosado Admission Data Admit Date/Time: 05/23/22 15:29 Attending Provider: Miah Rosado Admit Provider: Jorge Toth Primary Care Provider: Rema Strickland V. Other Providers: Jorge Toth ; River Chavira ; [facility] ; [facility] ; [facility] Other Interventions: Discharge Summary Assessment (RN) Last Done: 05/31/22 15:15 Coding Diagnoses Pneumonia J18.9 Dysphagia R13.10 COPD (chronic obstructive pulmonary disease) J44.9 Encephalopathy acute G93.40 Respiratory failure with hypoxia and hypercapnia J96.91; J96.92 Anxiety disorder F41.9 Nicotine dependence F17.200 Tobacco abuse Z72.0 Vitamin B12 deficiency E53.8
[2022-05-31 15:13] LABS: BUN Creatinine Ratio 38.1 (10-20); Calcium 8.8 mg/dl (8.5-10.1); Creatinine Clr Calc Pharmacy 125.7 ml/min; Est GFR (African American) 122.9 ml/min; Est GFR (Non-African American) 106.1 ml/min; Potassium 3.4 mmol/L (3.5-5.1)
[2022-05-31] MEDS ORDERED: POTASSIUM CHLORIDE CRTAB 20 MEQ TABCR PO SCH (21:00)
== END 2022-05-31 16:20 | disposition home health service (06) | DRG 177 ==
LOC: ED 10:56 → SUATTDRO 15:29 → 2S 15:29 → 3N 05-26 14:29

== ENCOUNTER 2025-01-22 17:23 | Inpatient (IN) ==
--- NOTE | 2025-01-22 17:42 | Emergency Department Note ---
Impression & Plan Pulmonary embolism, Hypoxic, Shortness of breath ED Provider Note NAME: GIO ZAYAS AGE: 69 SEX: F : 1955 ARRIVES VIA: Walk-In INFORMANT: Patient ED PROVIDER(S): Mat Aggarwal DO CHIEF COMPLAINT: Swelling in the legs HPI: Patient is a 69-year-old female with past medical history of PTSD, COPD, LVH and hypertension who presents to the ER for swelling in her bilateral legs which has been present off and on for a couple months. She notes over the past week has gotten worse. She denies any headache or change in vision. No chest pain or shortness of breath. No nausea, vomiting, or diarrhea. No dysuria, urgency, or frequency. No history of heart failure. No other exacerbating or remitting factors. ADDITIONAL HISTORY OBTAINED: Per HPI Chronic Medical/Social Conditions Affecting Care: Per HPI PAST MEDICAL HISTORY:See Below PAST SURGICAL HISTORY:See Below FAMILY HISTORY:See Below SOCIAL HISTORY:See Below HOME MEDICATIONS:See Below ALLERGIES:See Below VITALS:See Below PHYSICAL EXAMINATION: GENERAL: Sitting up in bed, alert, well appearing, well nourished, no distress, non-toxic EYE EXAM: normal conjunctiva. PERRL and EOM's grossly intact. OROPHARYNX: no exudate, no erythema, lips, buccal mucosa, and tongue normal and mucous membranes are moist NECK: supple, no nuchal rigidity, no adenopathy, non-tender LUNGS: Clear to auscultation. Normal chest wall mechanics HEART: no murmurs, S1 normal and S2 normal ABDOMEN: abdomen soft, non-tender, normo-active bowel sounds, no masses, no rebound or guarding. BACK: Back is symmetrical on inspection and there is no deformity, no midline tenderness, no CVA tenderness. SKIN: no rashes and no bruising UPPER EXTREMITIES: upper extremities are grossly normal. LOWER EXTREMITIES: No pitting edema. NEURO EXAM: Normal sensorium, cranial nerves II-XII grossly intact, normal speech, no gross weakness of arms, no gross weakness of legs. MEDICAL DECISION MAKING: Patient is a 69-year-old female who presents ER for shortness of breath with a past medical history of COPD. Review was established and blood work was obtained. Labs show no significant leukocytosis or anemia. She is swelling in bilateral lower extremities. INR unremarkable. BMP with LFTs bilirubin was unremarkable. Troponin was negative. Lipase was unremarkable. CT angio of the chest did show pulmonary emboli. Patient had no bleeding risk factors which were discussed at length at bedside. Patient was placed on a heparin drip and given a bolus. She was updated bedside. Discussed case with the hospitalist for further evaluation management and treatment. She did drop down to 70% with lying flat and with any exertion dropped into the mid 80s. She was given neb treatments for the wheezing. Consults/Care Managements Discussions: Per [facility] Triage Nursing notes reviewed. Limited review of prior medical records performed Vital Signs: reviewed and remarkable for HTN Differential diagnosis: Differential diagnoses includes but is not limited to pneumonia, bronchitis, COPD/Asthma exacerbation, pneumothorax, pulmonary embolism, congestive heart failure, acute coronary syndrome ER treatment provided: See below Diagnostics interpreted by me include EKG and cardiac monitoring as listed below: -Cardiac Monitoring: An order was placed for continuous cardiac monitoring. The monitor shows a rate of 80 with sinus rhythm. -ECG: Sinus rhythm rate 81 Normal axis No PVCs T wave inversions in V1 through V3 QTc 443 -Laboratory studies:Interpreted by me as stated above in MDM and shown below. Imaging studies: Xrays: As interpreted by me: Portable AP upright 1 view of the chest shows right lower lobe infiltrate CTs show: CT angio chest shows PEs Procedures:none Critical Care: I have personally spent 35 minutes of critical care time in the direct management of this patient. This includes bedside care, interpretation of diagnostic studies, and testing, discussion with consultants, patient, and family members, and other required patient management activities. This 35 minutes is in excess of all separately billable procedures. Past Med/Surg History Problem List (Updated 01/22/25 @ 23:33 by Mat Aggarwal DO) Shortness of breath (Acute) Hypoxic (Acute) Pulmonary embolism (Acute) Acute pulmonary embolism Hypertensive urgency CAP (community acquired pneumonia) Hypoxia (Acute) Bilateral leg weakness (Acute) Multifocal pneumonia (Acute) Acute hypoxic respiratory failure Dysphagia Esophageal stenosis Elevated hemoglobin History of adenomatous polyp of colon Osteopenia Gait disturbance Imaging abnormalities Thoracic aorta atherosclerosis on CT chest Screening for lung cancer Hyperpigmented skin lesion Lumbar back pain with radiculopathy affecting right lower extremity Restless leg Numbness and tingling of both lower extremities PTSD (post-traumatic stress disorder) Gastric ulcer Esophageal dysphagia Asymptomatic menopause Vitamin D deficiency disease Vitamin B12 deficiency Tobacco abuse COPD (chronic obstructive pulmonary disease) Abnormal PFT Hypercholesterolemia Health care maintenance Nicotine dependence Low back pain LVH (left ventricular hypertrophy) Insomnia Hyperglycemia Generalized osteoarthritis of multiple sites Fecal incontinence Essential hypertriglyceridemia EKG, abnormal Disc degeneration, lumbar Anxiety disorder Adenomatous polyp of colon Hypertension Medical History Nocturia Restless leg syndrome Thoracic aorta atherosclerosis Osteopenia PTSD (post-traumatic stress disorder) Generalized osteoarthritis Hx of gastric ulcer Gait disturbance Essential hypertriglyceridemia EKG, abnormal Disc degeneration, lumbar Hx of colonic polyps History of esophageal dilatation (09/2022) LVH (left ventricular hypertrophy) Hypertension Insomnia Anxiety Swelling of both ankles History of anesthesia reaction COPD (chronic obstructive pulmonary disease) History of pneumonia (05/2022) Substance abuse or dependence Hypocalcemia Smoker Depression Low back pain with sciatica Surgical History History of esophagogastroduodenoscopy (EGD) Hx of colonoscopy with polypectomy History of bilateral tubal ligation History of section History of tooth extraction History of phacoemulsification of cataract of both eyes with intraocular lens implantation Family History Brother Family history of diabetes mellitus Prostate cancer Sister Family history of diabetes mellitus Mother Myocardial infarction Other No family history of adverse response to anesthesia Denies family history of Ovarian cancer Breast cancer Colorectal cancer Social History Smoking Status: Current every day smoker Tobacco Type: Cigarettes Age Started Using Tobacco: 13; packs per day: 1; Cigarettes Per Day: 20 cigarrettes per day (advised); Second Hand Exposure: Yes; Do You Dip or Chew Tobacco: No; Hx Alcohol Use: Yes Alcohol type: beer Hx Substance Use: Yes Last Used Substance Other:: 2 weeks ago Preferred Language: Turkmen Communication Ability: Effective Visual Impairment: Limited Hearing Ability: Normal Vegetable Tier Required: No Beliefs That Will Affect Care: None Current Living Situation: Alone current occupational status: disabled How many Children do You have: 1 How many Children do You have Comment: 1 girl Feels Safe at Home: Yes Childhood Exposure to Second-Hand Smoke: No Diet: regular during the past year weight has: remained stable Dental Care, Regularly: Yes Physical Activity Frequency: Daily Physical Activity Frequency Comment: walking Seatbelt Use: always Sunscreen Use: Yes Assistive Devices: Denture - Upper, Denture - Lower and Glasses Allergies Allergies Allergy/AdvReac Type Severity Reaction Status Date / Time No Known Allergies Allergy Verified 12/17/24 15:01 Home Meds Home Medications Medication Instructions Recorded Confirmed aripiprazole 5 mg tablet (Abilify) 5 mg PO QAM 08/31/20 01/22/25 clonazepam 1 mg tablet (Klonopin) 1 mg PO BID PRN Anxiety 08/31/20 01/22/25 bupropion HCl 300 mg 24 hr tablet, 300 mg PO QAM 05/23/22 01/22/25 extended release calcium 500 mg (as 1 tab PO QAM 09/19/22 01/22/25 carbonate)-vitamin D3 5 mcg (200 unit) tablet (Calcium 500 + D) magnesium 250 mg tablet 250 mg PO QAM 09/19/22 01/22/25 vitamin B comp and C no.3 15 mg-10 1 cap PO QAM 11/25/23 01/22/25 mg-50 mg-5 mg-300 mg capsule (B Complex Plus Vitamin C) doxepin 100 mg capsule 200 mg PO HS 01/22/25 01/22/25 mecobalamin (vitamin B12) 1,000 1,000 mcg PO QAM 01/22/25 01/22/25 mcg chewable tablet Previous Rx's Medication Instructions Recorded albuterol sulfate 90 mcg/actuation 1 inh inhalation QID PRN shortness 03/22/24 aerosol inhaler of breath or wheezing #20.1 grams hydrochlorothiazide 25 mg tablet 25 mg PO QAM #90 tabs 10/18/24 gabapentin 600 mg tablet 600 mg PO BID #180 tabs 12/07/24 olmesartan 5 mg tablet (Benicar) 10 mg (2 x 5 mg) PO QAM #180 tabs 12/07/24 cholecalciferol (vitamin D3) 50 50 mcg PO DAILY #90 caps 12/17/24 mcg (2,000 unit) capsule Results & Data (ED) Vital Signs Vital Signs - 24 hr 01/22/25 17:24 01/22/25 17:24 01/22/25 17:57 Temperature 36.6 C Temperature Source Temporal Artery Scan Pulse Rate 84 Pulse Rate [Apical] Pulse Rate [Exercises] Pulse Rate [Resting] Respiratory Rate 18 16 Respiratory Rate [Exercises] Blood Pressure 165/95 H Blood Pressure [Right Arm] Blood Pressure Mean 118 Blood Pressure Mean [Right Arm] Pulse Oximetry 92 91 Pulse Oximetry [Exercises] Pulse Oximetry [Resting] Oxygen Delivery Method Room Air Oxygen Flow Rate Sepsis Recent Fever Within 48 Hours No Sepsis New/Unexplained Change in Mental Status N/A Sepsis Action Taken by Nursing No Action Required Oxygen Flow Rate - Titration Pulse Oximetry Post Tiitration 01/22/25 18:02 01/22/25 19:24 01/22/25 19:24 Temperature Temperature Source Pulse Rate 79 Pulse Rate [Apical] Pulse Rate [Exercises] 82 Pulse Rate [Resting] 80 Respiratory Rate Respiratory Rate [Exercises] 18 Blood Pressure Blood Pressure [Right Arm] 170/104 H Blood Pressure Mean Blood Pressure Mean [Right Arm] 126 Pulse Oximetry Pulse Oximetry [Exercises] 88 L Pulse Oximetry [Resting] 91 Oxygen Delivery Method Oxygen Flow Rate Sepsis Recent Fever Within 48 Hours Sepsis New/Unexplained Change in Mental Status Sepsis Action Taken by Nursing Oxygen Flow Rate - Titration Pulse Oximetry Post Tiitration 01/22/25 19:59 01/22/25 20:30 01/22/25 21:58 Temperature Temperature Source Pulse Rate 80 Pulse Rate [Apical] 78 Pulse Rate [Exercises] Pulse Rate [Resting] Respiratory Rate 18 Respiratory Rate [Exercises] Blood Pressure Blood Pressure [Right Arm] 187/120 H Blood Pressure Mean Blood Pressure Mean [Right Arm] 142 Pulse Oximetry 78 L 95 Pulse Oximetry [Exercises] Pulse Oximetry [Resting] Oxygen Delivery Method Oxygen Flow Rate 0 2 Sepsis Recent Fever Within 48 Hours Sepsis New/Unexplained Change in Mental Status Sepsis Action Taken by Nursing Oxygen Flow Rate - Titration 2 Pulse Oximetry Post Tiitration 98 01/22/25 22:30 01/22/25 22:59 Temperature Temperature Source Pulse Rate 78 Pulse Rate [Apical] 78 Pulse Rate [Exercises] Pulse Rate [Resting] Respiratory Rate 18 16 Respiratory Rate [Exercises] Blood Pressure 160/95 H Blood Pressure [Right Arm] 167/100 H Blood Pressure Mean Blood Pressure Mean [Right Arm] 122 Pulse Oximetry 94 95 Pulse Oximetry [Exercises] Pulse Oximetry [Resting] Oxygen Delivery Method Oxygen Flow Rate 2 Sepsis Recent Fever Within 48 Hours Sepsis New/Unexplained Change in Mental Status Sepsis Action Taken by Nursing Oxygen Flow Rate - Titration Pulse Oximetry Post Tiitration Laboratory Data 01/22/25 17:57 01/22/25 17:57 Lab Results 01/22/25 Range/Units 17:57 WBC 6.08 (4.8-10.8) K/ul RBC 4.87 (4.20-5.40) M/uL Hgb 14.5 (12.0-16.0) g/dl Hct 44.8 (37.0-47.0) % MCV 92.0 (80.0-100.0) fL MCH 29.8 (25.0-34.0) pg MCHC 32.4 (32.0-36.0) g/dL RDW Std Deviation 55.5 H (36.4-46.3) fL RDW Coeff of Jamie 16.4 H (11.5-14.5) % Plt Count 202 (130-400) K/uL MPV 9.5 (9.4-12.4) fL Immature Gran % (Auto) 0.3 % Neut % (Auto) 49.6 % Lymph % (Auto) 35.4 % Villalba % (Auto) 10.9 % Eos % (Auto) 3.0 % Baso % (Auto) 0.8 % Neut # (Auto) 3.02 (1.40-6.50) K/uL Lymph # (Auto) 2.15 (1.20-3.40) K/uL Villalba # (Auto) 0.66 H (0.11-0.59) K/uL Eos # (Auto) 0.18 (0.00-0.50) K/uL Baso # (Auto) 0.05 (0.00-0.20) K/uL Immature Gran # (Auto) 0.02 (0.01-0.20) K/uL PT 10.0 (9.0-12.0) Seconds INR 0.9 (0.9-1.1) APTT 27 (21-31) Seconds PTT Ratio 1.0 Sodium 143 (136-145) mmol/L Potassium 3.7 (3.5-5.1) mmol/L Chloride 105 (98-107) mmol/L Carbon Dioxide 30 (21-32) mmol/L Anion Gap 8 (3-11) BUN 13 (6-23) mg/dl Creatinine 0.69 (0.6-1.2) mg/dl Est Cr Clr Drug Dosing 80.2 ml/min eGFR 93.89 BUN/Creatinine Ratio 18.8 (10-20) Glucose 85 (70-99(Fasting)) mg/dl Calcium 8.9 (8.6-10.3) mg/dl Total Bilirubin 0.3 (0.2-1.0) mg/dl AST 10 L (13-39) U/L ALT 9 (7-52) U/L Alkaline Phosphatase 89 (34-104) U/L Troponin I High Sens 2.9 (0-14) pg/ml B-Natriuretic Peptide 24 (0-100) pg/ml Total Protein 6.1 (6.0-8.3) gm/dl Albumin 3.8 (3.4-5.0) gm/dl Globulin 2.3 L (2.5-4.0) gm/dl Albumin/Globulin Ratio 1.7 (0.9-2) Lipase 28 (11-82) U/L Administered Medications Heparin Sodium/Dextrose (Heparin 97385 Unit/500 Ml D5w) 25,000 units in 500 mls @ 24 mls/hr IV .[id number] [facility]; Protocol Stop: 02/21/25 21:44 Last Admin: 01/22/25 21:54 Dose: 1,200 units/hr, 24 mls/hr Documented By: NRScott Co-signed By: MARISA Discontinued Medications Albuterol (Albut/Ipratrop 3mg/0.5mg Neb 3 Ml Vial) 6 ml NEB NOW STA; Protocol Stop: 01/22/25 20:17 Last Admin: 01/22/25 20:21 Dose: 6 ml Documented By: EMILY Heparin Sodium (Porcine) (Heparin Sod (Porcine) 1000 Unit/Ml) 1 units IV NOW ONE Stop: 01/22/25 21:40 Last Admin: 01/22/25 21:54 Dose: 5,000 units Documented By: NRScott Co-signed By: MARISA Heparin Sodium/Dextrose (Heparin Iv Adult Wt-Based Standard W/ Initial Bolus Protocol) 1 each IV NOW STA; Protocol Stop: 01/22/25 21:25 Last Admin: 01/22/25 21:55 Dose: Not Given Documented By: NRScott Ioversol (Optiray 320 125ml) 119 ml IV ONCE ONE Stop: 01/22/25 19:45 Last Admin: 01/22/25 19:45 Dose: 119 ml Documented By: EDK Imaging Data Radiologist's Impression: Chest X-Ray 01/22/25 17:37 EXAM: Portable AP chest radiograph TECHNIQUE: AP portable radiograph of the chest was obtained. INDICATION: Chest pain Comparison: Chest radiograph December 17, 2024 FINDINGS: LINES and TUBES: None CARDIOVASCULAR: Cardiac silhouette is stable enlarged in size. Atherosclerosis of the thoracic aorta. LUNGS/PLEURA: Mild pulmonary vascular congestion is also similar. Mild right basilar densities are unchanged. No significant pleural fluid. No discernible pneumothorax. OSSEOUS/OTHER: No displaced acute osseous process identified. IMPRESSION: Mild congestive changes of the cardiovascular system that are similar to the prior radiograph. Unchanged mild right basilar densities likely representing mild pneumonia Electronically signed by Daron Moreno 01-22-2025 7:11 PM Chest CTA 01/22/25 19:24 EXAM: CT angio chest PE protocol CLINICAL HISTORY: PE. TECHNIQUE: CT angiography of the chest was performed with intravenous contrast with the following protocol: axial images reconstructed coronal and sagittal images. Intravenous contrast was administered using automated injection techniques. Bolus tracking was employed to optimize arterial phase imaging. One of these 3D techniques was utilized: Maximum Intensity Pixel (MIP), 3D Reconstructed Images, Volume Rendered Images, Surface Shaded Rendering. One of the following dose reduction techniques was utilized for this exam: Automated exposure control, adjustment of the mA and/or kV according to patient size, and use of iterative reconstruction. COMPARISON: 12/10/2024 CT. FINDINGS: Aorta and Great Vessels: Ascending Aorta: Normal in caliber, no aneurysm, dissection, or significant atherosclerosis. Aortic Arch: Normal in caliber, no aneurysm, dissection, or significant atherosclerosis. Descending Aorta: Normal in caliber, no aneurysm, dissection, or significant atherosclerosis. Pulmonary Arteries: Intraluminal filling defects are seen in the posterior segmental branch of right upper lobe and middle segmental branches of the right main pulmonary artery (S4 Image 93 and 144). The main pulmonary artery and rest of its branches are patent. Heart: Cardiac Chambers: Cardiomegaly with stable trace of pericardial fluid. Lungs and Pleura: No evidence of consolidation, collapse, or focal lesions. Atelectatic bands in the middle lobe, lingula and both lower lobes with interval resolution of the previously noted bibasal consolidation. No pleural effusion or pleural thickening. Mediastinum: No mediastinal mass or abnormal lymphadenopathy. Normal appearance of the trachea and central bronchi. Hilar Structures: Hilar structures are normal without enlargement. Chest Wall: No mass lesions or abnormalities in the chest wall. Vascular Structures: Superior Vena Cava: Patent without evidence of stenosis or thrombus. Inferior Vena Cava: Patent without evidence of stenosis or thrombus. Bones and Soft Tissues: No fractures, lytic, or blastic lesions of the visualized bony structures. Soft tissues are unremarkable. IMPRESSION: 1. Intraluminal filling defects in the posterior segmental branch of right upper lobe and middle segmental branches of the right main pulmonary artery, representing pulmonary embolism. 2. Atelectatic bands in the middle lobe, lingula and both lower lobes with interval resolution of the previously noted bibasal consolidation. 3. Rest of the findings are unchanged. Electronically signed by Alfredo Rachel 01-22-2025 9:22 PM Venous Doppler Study 01/22/25 20:44 CR Exam(s): US VENOUS BILATERAL LOWER EXTREMITIES EXAM: US Duplex Bilateral Lower Extremities Veins CLINICAL HISTORY: Reason for exam: r/o DVT. TECHNIQUE: Real-time duplex ultrasound scan of the bilateral lower extremity veins integrating B-mode two-dimensional vascular structure, Doppler spectral analysis, color flow Doppler imaging and compression. COMPARISON: No relevant prior studies available. FINDINGS: Right deep veins: No DVT in the right common femoral, femoral, proximal deep femoral or popliteal veins. The veins demonstrate normal color flow, are normally compressible, with normal phasic flow and/or augmentation response. Right superficial veins: No thrombus in the visualized right great saphenous vein. Left deep veins: Nonocclusive DVT in the popliteal vein. No DVT in the left common femoral, femoral, or proximal deep femoral veins, which demonstrate normal color flow, are normally compressible, with normal phasic flow and/or augmentation response. Left superficial veins: No thrombus in the visualized left great saphenous vein. Soft tissues: No acute findings. IMPRESSION: 1. Nonocclusive DVT in the left popliteal vein, which may be acute. 2. No acute DVT in the right lower extremity. Communications: Verify Receipt Electronically signed by: Emely Duenas M.D. 01/22/25 23:14 PM Discharge Plan Visit Data Chief Complaint: Swelling/Edema to Extremity Stated Complaint: LEGS AND FEET SWELLING ED Provider: Mat Aggarwal Discharge Problem: Pulmonary embolism, Hypoxic, Shortness of breath Patient Disposition: Admitted As Inpatient Condition: Fair Discharge Instructions Interventions: ED Discharge Assessment Last Done: 01/22/25 22:59 Forms Stand Alone Forms: My [facility] [employer] Prescriptions Prescriptions: No Action albuterol sulfate 90 mcg/actuation HFA aerosol inhaler 1 inh INH QID PRN (Reason: shortness of breath or wheezing) Qty: 20.1 3RF hydrochlorothiazide 25 mg tablet 25 mg PO QAM Qty: 90 1RF aripiprazole [Abilify] 5 mg tablet 5 mg PO QAM clonazepam [Klonopin] 1 mg tablet 1 mg PO BID PRN (Reason: Anxiety) gabapentin 600 mg tablet 600 mg PO BID Qty: 180 3RF olmesartan [Benicar] 5 mg tablet 10 mg PO QAM Qty: 180 3RF Rx Instructions: 2 tablet dose B Complex Plus Vitamin C 92-86-35-5-300 mg capsule 1 cap PO QAM Rx Instructions: give with food (meal/snack) Trelegy Ellipta 100-62.5-25 mcg blister with device 1 ea inhalation DAILY 0RF cholecalciferol (vitamin D3) 50 mcg (2,000 unit) capsule 50 mcg PO DAILY Qty: 90 3RF Rx Instructions: with heaviest meal of the day bupropion HCl 300 mg tablet extended release 24 hr 300 mg PO QAM magnesium 250 mg tablet 250 mg PO QAM calcium carbonate-vitamin D3 [Calcium 500 + D] 500 mg(1,250mg) -200 unit tablet 1 tab PO QAM doxepin 100 mg capsule 200 mg PO HS mecobalamin (vitamin B12) 1,000 mcg tablet,chewable 1,000 mcg PO QAM Referrals Referrals: Rema Strickland MD [Primary Care Provider] - Discharge Problem: Pulmonary embolism Qualifiers: Pulmonary embolism type: unspecified Chronicity: unspecified Acute cor pulmonale presence: unspecified Qualified Code(s): I26.99 - Other pulmonary embolism without acute cor pulmonale
[2025-01-22 18:15] LABS: Hematocrit (blood only) 44.8 % (37.0-47.0); Hemoglobin 14.5 g/dl (12.0-16.0); Immature Granulocytes # (auto) 0.02 K/uL (0.01-0.20); Immature Granulocytes % (auto) 0.3 %; Mean Corpuscular Hemoglobin 29.8 pg (25.0-34.0); Mean Corpuscular Volume 92.0 fL (80.0-100.0); Platelet Count 202 K/uL (130-400); RDW Standard Deviation 55.5 fL (36.4-46.3); Red Blood Count 4.87 M/uL (4.20-5.40); White Blood Count 6.08 K/ul (4.8-10.8)
[2025-01-22 18:32] LABS: Alanine Aminotransferase 9.0 U/L (7-52); Albumin Globulin Ratio 1.7 (0.9-2); Alkaline Phosphatase 89.0 U/L (34-104); Anion Gap 8.0 (3-11); Bilirubin,Total 0.3 mg/dl (0.2-1.0); Blood Urea Nitrogen 13.0 mg/dl (6-23); Calcium 8.9 mg/dl (8.6-10.3); Carbon Dioxide 30.0 mmol/L (21-32); Chloride 105.0 mmol/L (98-107); Creatinine Clr Calc Pharmacy 80.2 ml/min; Globulin 2.3 gm/dl (2.5-4.0); Glucose 85.0 mg/dl (70-99(Fasting)); Lipase 28.0 U/L (11-82); Potassium 3.7 mmol/L (3.5-5.1); Sodium 143.0 mmol/L (136-145); Total Protein 6.1 gm/dl (6.0-8.3)
--- NOTE | 2025-01-22 19:11 | XRay Report ---
EXAM: Portable AP chest radiograph TECHNIQUE: AP portable radiograph of the chest was obtained. INDICATION: Chest pain Comparison: Chest radiograph December 17, 2024 FINDINGS: LINES and TUBES: None CARDIOVASCULAR: Cardiac silhouette is stable enlarged in size. Atherosclerosis of the thoracic aorta. LUNGS/PLEURA: Mild pulmonary vascular congestion is also similar. Mild right basilar densities are unchanged. No significant pleural fluid. No discernible pneumothorax. OSSEOUS/OTHER: No displaced acute osseous process identified. IMPRESSION: Mild congestive changes of the cardiovascular system that are similar to the prior radiograph. Unchanged mild right basilar densities likely representing mild pneumonia Electronically signed by Daron Moreno 01-22-2025 7:11 PM
[2025-01-22] MEDS: OPTIRAY 320 125ml IV ONE (19:45)
[2025-01-22] MEDS: ALBUT/IPRATROP 3MG/0.5MG NEB 3 ML VIAL NEB STA (20:21)
--- NOTE | 2025-01-22 21:21 | History & Physical Report ---
Date of Service January 22, 2025 Assessment & Plan (1) Bilateral leg weakness: (2) Hypertensive urgency: (3) LVH (left ventricular hypertrophy): (4) COPD (chronic obstructive pulmonary disease): Plan This is a 69 year old female with a PMH of HTN, LVH, PTSD, COPD, tobacco use disorder, HLD - coming in with bilateral lower extremity edema. Acute B/L LE Edema - unsure the underlying cause, echo from 2021 with normal LVEF - check an updated echo - I's and O's, daily weights - CTA chest pending - check venous doppler to r/o DVT Hypertensive Urgency - BP >170/100 on arrival - cont home medications, hold HCTZ as patient may need IV diuresis at this point Depression/Anxiety - cont home medications COPD - cont home inhalers; no exacerbation DVT ppx - Lovenox History of Present Illness Chief Complaint: Bilateral Lower Extremity Swelling Primary Care Provider: Rema Strickland MD This is a 69 year old female with a PMH of HTN, LVH, PTSD, COPD, tobacco use disorder, HLD - coming in with bilateral lower extremity edema. She states that her swelling has been on and off for the past few months, but for the past week has been fairly swollen with no improvement. On arrival here, CXR done and mild congestion noted. Labs drawn and BNP is not elevated. CTA chest ordered and pending. Patient was hypoxemic when laying flat and improved with head elevation. Patient states her breathing is at baseline. Allergies Allergy/AdvReac Type Severity Reaction Status Date / Time No Known Allergies Allergy Verified 12/17/24 15:01 Home Medications Medication Instructions Recorded Confirmed Type aripiprazole 5 mg tablet (Abilify) 5 mg PO QAM 08/31/20 12/17/24 History clonazepam 1 mg tablet (Klonopin) 1 mg PO BID PRN Anxiety 08/31/20 12/17/24 History bupropion HCl 300 mg 24 hr tablet, 300 mg PO QAM 05/23/22 12/17/24 History extended release calcium 500 mg (as 1 tab PO QAM 09/19/22 12/17/24 History carbonate)-vitamin D3 5 mcg (200 unit) tablet (Calcium 500 + D) magnesium 250 mg tablet 250 mg PO QAM 09/19/22 12/17/24 History vitamin B comp and C no.3 15 mg-10 1 cap PO QAM 11/25/23 12/17/24 History mg-50 mg-5 mg-300 mg capsule (B Complex Plus Vitamin C) albuterol sulfate 90 mcg/actuation 1 inh inhalation QID PRN shortness 03/22/24 12/17/24 Rx aerosol inhaler of breath or wheezing #20.1 grams doxepin 50 mg capsule 50 mg PO HS 05/27/24 12/17/24 History hydrochlorothiazide 25 mg tablet 25 mg PO QAM #90 tabs 10/18/24 12/17/24 Rx gabapentin 600 mg tablet 600 mg PO BID #180 tabs 12/07/24 12/17/24 Rx olmesartan 5 mg tablet (Benicar) 10 mg (2 x 5 mg) PO QAM #180 tabs 12/07/24 12/17/24 Rx amoxicillin 875 mg-potassium 1 tab PO BID 7 days #14 tabs 12/17/24 12/17/24 Rx clavulanate 125 mg tablet azithromycin 250 mg tablet See Rx Instructions PO .COMPLEX #6 12/17/24 Rx tabs cholecalciferol (vitamin D3) 50 50 mcg PO DAILY #90 caps 12/17/24 12/17/24 Rx mcg (2,000 unit) capsule mecobalamin (vitamin B12) 1,000 1,000 mcg PO DAILY #90 tabs 12/17/24 12/17/24 Rx mcg chewable tablet methylprednisolone 4 mg tablets in See Rx Instructions .Route 12/17/24 12/17/24 Rx a dose pack (Medrol ([place])) .COMPLEX #21 ea Past Med/Surg History Problem List (Updated 01/22/25 @ 21:34 by Verona Dorsey DO) Hypertensive urgency CAP (community acquired pneumonia) Hypoxia (Acute) Bilateral leg weakness (Acute) Multifocal pneumonia (Acute) Acute hypoxic respiratory failure Dysphagia Esophageal stenosis Elevated hemoglobin History of adenomatous polyp of colon Osteopenia Gait disturbance Imaging abnormalities Thoracic aorta atherosclerosis on CT chest Screening for lung cancer Hyperpigmented skin lesion Lumbar back pain with radiculopathy affecting right lower extremity Restless leg Numbness and tingling of both lower extremities PTSD (post-traumatic stress disorder) Gastric ulcer Esophageal dysphagia Asymptomatic menopause Vitamin D deficiency disease Vitamin B12 deficiency Tobacco abuse COPD (chronic obstructive pulmonary disease) Abnormal PFT Hypercholesterolemia Health care maintenance Nicotine dependence Low back pain LVH (left ventricular hypertrophy) Insomnia Hyperglycemia Generalized osteoarthritis of multiple sites Fecal incontinence Essential hypertriglyceridemia EKG, abnormal Disc degeneration, lumbar Anxiety disorder Adenomatous polyp of colon Hypertension Medical History Nocturia Restless leg syndrome Thoracic aorta atherosclerosis Osteopenia PTSD (post-traumatic stress disorder) Generalized osteoarthritis Hx of gastric ulcer Gait disturbance Essential hypertriglyceridemia EKG, abnormal Disc degeneration, lumbar Hx of colonic polyps History of esophageal dilatation (09/2022) LVH (left ventricular hypertrophy) Hypertension Insomnia Anxiety Swelling of both ankles History of anesthesia reaction COPD (chronic obstructive pulmonary disease) History of pneumonia (05/2022) Substance abuse or dependence Hypocalcemia Smoker Depression Low back pain with sciatica Surgical History History of esophagogastroduodenoscopy (EGD) Hx of colonoscopy with polypectomy History of bilateral tubal ligation History of section History of tooth extraction History of phacoemulsification of cataract of both eyes with intraocular lens implantation Family History Brother Family history of diabetes mellitus Prostate cancer Sister Family history of diabetes mellitus Mother Myocardial infarction Other No family history of adverse response to anesthesia Denies family history of Ovarian cancer Breast cancer Colorectal cancer Social History Smoking Status: Current every day smoker Tobacco Type: Cigarettes Age Started Using Tobacco: 13; packs per day: 1; Cigarettes Per Day: 20 cigarrettes per day (advised); Second Hand Exposure: Yes; Do You Dip or Chew Tobacco: No; Hx Alcohol Use: Yes Alcohol type: beer Hx Substance Use: Yes Last Used Substance Other:: 2 weeks ago Preferred Language: [place] Communication Ability: Effective Visual Impairment: Limited Hearing Ability: Normal Clock And Watch Hands Mounter Required: No Beliefs That Will Affect Care: None Current Living Situation: Alone current occupational status: disabled How many Children do You have: 1 How many Children do You have Comment: 1 girl Feels Safe at Home: Yes Childhood Exposure to Second-Hand Smoke: No Diet: regular during the past year weight has: remained stable Dental Care, Regularly: Yes Physical Activity Frequency: Daily Physical Activity Frequency Comment: walking Seatbelt Use: always Sunscreen Use: Yes Assistive Devices: Denture - Upper, Denture - Lower and Glasses Review of Systems Review of Systems: Constitutional: No Weight Change, No Fever, No Chills, No Night Sweats, No Fatigue, No Malaise ENT/Mouth: No Hearing Changes, No Ear Pain, No Nasal Congestion, No Sinus Pain, No Hoarseness, No sore throat, No Rhinorrhea, No Swallowing Difficulty Eyes: No Eye Pain, No Swelling, No Redness, No Foreign Body, No Discharge, No Vision Changes Cardiovascular: No Chest Pain, No SOB, No PND, No Dyspnea on Exertion, No Orthopnea, No Claudication No Palpitations Respiratory: No Cough, No Sputum, No Wheezing, No Smoke Exposure, No Dyspnea. +bilateral LE edema Gastrointestinal: No Nausea, No Vomiting, No Diarrhea, No Constipation, No Pain, No Heartburn, No Anorexia, No Dysphagia, No Hematochezia, No Melena, No F latulence, No Jaundice Genitourinary: No Dysmenorrhea, No DUB, No Dyspareunia, No Dysuria, No Urinary Frequency, No Hematuria, No Urinary Incontinence, No Urgency, No Flank Pain, No Urinary Flow Changes, No Hesitancy Musculoskeletal: No Arthralgias, No Myalgias, No Joint Swelling, No Joint Stiffness, No Back Pain, No Neck Pain, No Injury History Skin: No Skin Lesions, No Pruritis, No Hair Changes, No Breast/Skin Changes, No Nipple Discharge Neuro: No Weakness, No Numbness, No Paresthesias, No Loss of Consciousness, No Syncope, No Dizziness, No Headache, No Coordination Changes, No Recent Falls Psych: No Anxiety/Panic, No Depression, No Insomnia, No Personality Changes, No Delusions, No Rumination, No SI/HI/AH/VH, No Social Issues, No Memory Changes, No Violence/Abuse Hx., No Eating Concerns Heme/Lymph: No Bruising, No Bleeding, No Transfusions History, No Lymphadenopathy Endocrine: No Polyuria, No Polydipsia, No Temperature Intolerance Physical Exam Physical Exam: VITALS: Reviewed. WEIGHT/BMI reviewed. GEN: Healthy appearing, well-developed, NAD. PSYCH: Good Judgment. AOx3. Normal memory, mood, and affect. HEENT -Head: NC/AT; -Eyes: PERRL, EOMI. No discharge or redn ess; -Ears: External ears are normal. Normal TMs. -Nose: Normal nares. -Mouth and throat: MMM. Normal gums, muc margi, palate,. Good dentition. NECK: Supple, with no masses. CV: RRR, no m/r/g. LUNGS: CTAB, no w/r/c. ABD: Soft, NT/ND, NBS, no masses or organomegaly. : N/A SKIN: Warm, well perfused. No skin rashes or abnormal lesions. MSK: No deformities, Normal gait. EXT: +2 bilateral LE pitting edema NEURO: Ambulating with no limitations. Normal muscle strength and tone. No focal deficits. Results & Data Results & Data Vital Signs (Past 12 Hours) Vital Signs Temp Pulse Pulse Pulse Resp Resp BP 01/22/25 19:59 01/22/25 19:24 01/22/25 19:24 82 80 18 01/22/25 18:02 79 01/22/25 17:57 01/22/25 17:24 16 01/22/25 17:24 36.6 C 84 18 165/95 H BP Pulse Ox Pulse Ox Pulse Ox O2 Del Method O2 Flow Rate 01/22/25 19:59 78 L 0 01/22/25 19:24 170/104 H 01/22/25 19:24 88 L 91 01/22/25 18:02 01/22/25 17:57 91 Room Air 01/22/25 17:24 01/22/25 17:24 92 Laboratory Results 01/22/25 17:57 WBC 6.08 RBC 4.87 Hgb 14.5 Hct 44.8 MCV 92.0 MCH 29.8 MCHC 32.4 RDW Std Deviation 55.5 H RDW Coeff of Jamie 16.4 H Plt Count 202 MPV 9.5 Immature Gran % (Auto) 0.3 Neut % (Auto) 49.6 Lymph % (Auto) 35.4 [place] % (Auto) 10.9 Eos % (Auto) 3.0 Baso % (Auto) 0.8 Neut # (Auto) 3.02 Lymph # (Auto) 2.15 [place] # (Auto) 0.66 H Eos # (Auto) 0.18 Baso # (Auto) 0.05 Immature Gran # (Auto) 0.02 Sodium 143 Potassium 3.7 Chloride 105 Carbon Dioxide 30 Anion Gap 8 BUN 13 Creatinine 0.69 Est Cr Clr Drug Dosing 80.2 eGFR 93.89 BUN/Creatinine Ratio 18.8 Glucose 85 Calcium 8.9 Total Bilirubin 0.3 AST 10 L ALT 9 Alkaline Phosphatase 89 Troponin I High Sens 2.9 B-Natriuretic Peptide 24 Total Protein 6.1 Albumin 3.8 Globulin 2.3 L Albumin/Globulin Ratio 1.7 Lipase 28 Diagnostic Findings Chest X-Ray 01/22/25 17:37 EXAM: Portable AP chest radiograph TECHNIQUE: AP portable radiograph of the chest was obtained. INDICATION: Chest pain Comparison: Chest radiograph December 17, 2024 FINDINGS: LINES and TUBES: None CARDIOVASCULAR: Cardiac silhouette is stable enlarged in size. Atherosclerosis of the thoracic aorta. LUNGS/PLEURA: Mild pulmonary vascular congestion is also similar. Mild right basilar densities are unchanged. No significant pleural fluid. No discernible pneumothorax. OSSEOUS/OTHER: No displaced acute osseous process identified. IMPRESSION: Mild congestive changes of the cardiovascular system that are similar to the prior radiograph. Unchanged mild right basilar densities likely representing mild pneumonia Electronically signed by Daron Moreno 01-22-2025 7:11 PM Chest CTA 01/22/25 19:24 EXAM: CT angio chest PE protocol CLINICAL HISTORY: PE. TECHNIQUE: CT angiography of the chest was performed with intravenous contrast with the following protocol: axial images reconstructed coronal and sagittal images. Intravenous contrast was administered using automated injection techniques. Bolus tracking was employed to optimize arterial phase imaging. One of these 3D techniques was utilized: Maximum Intensity Pixel (MIP), 3D Reconstructed Images, Volume Rendered Images, Surface Shaded Rendering. One of the following dose reduction techniques was utilized for this exam: Automated exposure control, adjustment of the mA and/or kV according to patient size, and use of iterative reconstruction. COMPARISON: 12/10/2024 CT. FINDINGS: Aorta and Great Vessels: Ascending Aorta: Normal in caliber, no aneurysm, dissection, or significant atherosclerosis. Aortic Arch: Normal in caliber, no aneurysm, dissection, or significant atherosclerosis. Descending Aorta: Normal in caliber, no aneurysm, dissection, or significant atherosclerosis. Pulmonary Arteries: Intraluminal filling defects are seen in the posterior segmental branch of right upper lobe and middle segmental branches of the right main pulmonary artery (S4 Image 93 and 144). The main pulmonary artery and rest of its branches are patent. Heart: Cardiac Chambers: Cardiomegaly with stable trace of pericardial fluid. Lungs and Pleura: No evidence of consolidation, collapse, or focal lesions. Atelectatic bands in the middle lobe, lingula and both lower lobes with interval resolution of the previously noted bibasal consolidation. No pleural effusion or pleural thickening. Mediastinum: No mediastinal mass or abnormal lymphadenopathy. Normal appearance of the trachea and central bronchi. Hilar Structures: Hilar structures are normal without enlargement. Chest Wall: No mass lesions or abnormalities in the chest wall. Vascular Structures: Superior Vena Cava: Patent without evidence of stenosis or thrombus. Inferior Vena Cava: Patent without evidence of stenosis or thrombus. Bones and Soft Tissues: No fractures, lytic, or blastic lesions of the visualized bony structures. Soft tissues are unremarkable. IMPRESSION: 1. Intraluminal filling defects in the posterior segmental branch of right upper lobe and middle segmental branches of the right main pulmonary artery, representing pulmonary embolism. 2. Atelectatic bands in the middle lobe, lingula and both lower lobes with interval resolution of the previously noted bibasal consolidation. 3. Rest of the findings are unchanged. Electronically signed by Alfredo Rachel 01-22-2025 9:22 PM Code Status & VTE Plan VTE Prophylaxis Plan VTE Prophylaxis will be ordered: Yes PG Care Time/CCT Total # of Minutes Spent Total Time Spent with Patient: Total time spent is greater than 50% in coordination of care (as documented) at patient's floor/unit and/or counseling patient: Coding Level of Care Code 02599 INT INP/OBS CARE 3/75MIN Diagnoses Bilateral leg weakness R29.898 Hypertensive urgency I16.0 LVH (left ventricular hypertrophy) I51.7 COPD (chronic obstructive pulmonary disease) J44.9
[2025-01-22 21:53] LABS: INR 0.9 (0.9-1.1); Partial Thromboplastin Time 27 Seconds (21-31); Prothrombin Time 10.0 Seconds (9.0-12.0)
[2025-01-22] MEDS: HEPARIN 25000 UNIT/500 ML D5W 25,000 UNITS/500 ML BAG IV SCH (21:54)
[2025-01-22] MEDS: HEPARIN SOD (PORCINE) 1000 UNIT/ML IV ONE (21:54)
[2025-01-22] MEDS: Heparin IV Adult Wt-Based Standard w/ INITIAL Bolus Protocol IV STA (21:55)
--- NOTE | 2025-01-22 22:50 | Progress Note ---
Date of Service January 22, 2025 Subjective ADDENDUM: Patient's CTA returned positive for PE. IV heparin started (stop subq Lovenox) PESI score done and intermediate risk Echo ordered and pending Results & Data Vital Signs (Past 12 Hours) Vital Signs Temp Pulse Pulse Pulse Pulse Resp Resp 01/22/25 22:30 78 18 01/22/25 21:58 80 01/22/25 20:30 78 18 01/22/25 19:59 01/22/25 19:24 01/22/25 19:24 82 80 18 01/22/25 18:02 79 01/22/25 17:57 01/22/25 17:24 16 01/22/25 17:24 36.6 C 84 18 BP BP Pulse Ox Pulse Ox Pulse Ox O2 Del Method O2 Flow Rate 01/22/25 22:30 167/100 H 94 2 01/22/25 21:58 01/22/25 20:30 187/120 H 95 2 01/22/25 19:59 78 L 0 01/22/25 19:24 170/104 H 01/22/25 19:24 88 L 91 01/22/25 18:02 01/22/25 17:57 91 Room Air 01/22/25 17:24 01/22/25 17:24 165/95 H 92 PG Care Time/CCT Total # of Minutes Spent Total Time Spent with Patient: Total time spent is greater than 50% in coordination of care (as documented) at patient's floor/unit and/or counseling patient: Coding Level of Care Code None
--- NOTE | 2025-01-22 23:14 | Ultrasound Report ---
Exam(s): US VENOUS BILATERAL LOWER EXTREMITIES EXAM: US Duplex Bilateral Lower Extremities Veins CLINICAL HISTORY: Reason for exam: r/o DVT. TECHNIQUE: Real-time duplex ultrasound scan of the bilateral lower extremity veins integrating B-mode two-dimensional vascular structure, Doppler spectral analysis, color flow Doppler imaging and compression. COMPARISON: No relevant prior studies available. FINDINGS: Right deep veins: No DVT in the right common femoral, femoral, proximal deep femoral or popliteal veins. The veins demonstrate normal color flow, are normally compressible, with normal phasic flow and/or augmentation response. Right superficial veins: No thrombus in the visualized right great saphenous vein. Left deep veins: Nonocclusive DVT in the popliteal vein. No DVT in the left common femoral, femoral, or proximal deep femoral veins, which demonstrate normal color flow, are normally compressible, with normal phasic flow and/or augmentation response. Left superficial veins: No thrombus in the visualized left great saphenous vein. Soft tissues: No acute findings. IMPRESSION: 1. Nonocclusive DVT in the left popliteal vein, which may be acute. 2. No acute DVT in the right lower extremity. Communications: Verify Receipt Electronically signed by: Emely Duenas M.D. 01/22/25 23:14 PM
[2025-01-22] MEDS ORDERED: POLYETHYLENE (MIRALAX) 17 GM PACK PO PRN (23:59)
[2025-01-22] MEDS ORDERED: MAGNESIUM HYDROXIDE SUSP 30 ML UDC PO PRN (23:59)
[2025-01-22] MEDS ORDERED: ACETAMINOPHEN 325 MG TAB PO PRN (23:59)
[2025-01-22] MEDS ORDERED: ALUMINUM/MAGNESIUM SUSP 30 ML UDC PO PRN (23:59)
[2025-01-22] MEDS ORDERED: ONDANSETRON INJ 2 MG/ML 2 ML VIAL IV PRN (23:59)
[2025-01-22] MEDS ORDERED: MELATONIN 3 MG TAB PO PRN (23:59)
[2025-01-23] MEDS: DOXEPIN HCL 50 MG CAPSULE PO SCH (00:50)
[2025-01-23] MEDS: GABAPENTIN 600 MG TAB PO SCH (00:50)
[2025-01-23 05:00] LABS: Hematocrit (blood only) 42.1 % (37.0-47.0); Hemoglobin 13.7 g/dl (12.0-16.0); Immature Granulocytes # (auto) 0.04 K/uL (0.01-0.20); Immature Granulocytes % (auto) 0.6 %; Mean Corpuscular Hemoglobin 30.2 pg (25.0-34.0); Mean Corpuscular Volume 92.9 fL (80.0-100.0); Platelet Count 181 K/uL (130-400); RDW Standard Deviation 56.8 fL (36.4-46.3); Red Blood Count 4.53 M/uL (4.20-5.40); White Blood Count 6.29 K/ul (4.8-10.8)
[2025-01-23 05:01] LABS: ANTI-Xa, UFH(UnfractionatedHep 0.60 IU/ml (0.3-0.7)
--- NOTE | 2025-01-23 07:59 | Hospitalist Progress Note ---
Date of Service January 23, 2025 Assessment & Plan (1) Bilateral leg weakness: (2) Hypertensive urgency: (3) LVH (left ventricular hypertrophy): (4) COPD (chronic obstructive pulmonary disease): Plan This is a 69 year old female with a PMH of HTN, LVH, PTSD, COPD, tobacco use disorder, HLD - coming in with bilateral lower extremity edema. #Acute B/L LE Edema #LLE DVT #Acute PE #Acute hypoxia - unsure the underlying cause, echo from 2021 with normal LVEF - ECHO unremarkable - I's and O's, daily weights - CTA chest (01/22): intraluminal filling defects in the posterior segmental branch of RUL and middle segmental branches of the right main pulmonary artery - LE duplex positive for nonocclusive DVT in left popliteal vein - pt was hypoxic at the time of admission, currently on 2L, wean as tolerated #Hypertensive Urgency- resolved - BP >170/100 on arrival, BP currently wnl - hold HCTZ for possible IV diuresis - cont losartan #Depression/Anxiety - cont aripiprazole, bupropion, doxepin #COPD - cont home inhalers #Dispo: pending liberation from supplemental oxygen, 2-step closer to discharge, f/u with CM regarding eliquis pricing Admission and Anticipated Discharge Date Admission Date: January 22, 2025 Subjective Admitted yesterday Currently states she is feeling better. She notes that her LE edema is also improving Review of Systems Review of Systems: Comprehensive ROS neg Physical Exam Physical Exam: Gen: no acute distress, lying in bed comfortable HEENT: NC/AT, MMM Lungs: nonlabored breathing, scattered wheezing (pt denied symptoms) CVS: s1s2nl, RRR Abd: nl bowel sounds, soft, NT / ND : no giralod Ext: + LE edema b/l Neuro: AAOx3 Psych: calm cooperative Results & Data Results & Data Vital Signs (Past 12 Hours) Vital Signs Temp Pulse Pulse Resp BP BP BP 01/23/25 07:46 36.4 C L 78 18 125/78 01/23/25 07:32 89 01/23/25 04:00 36.5 C 75 18 115/68 01/23/25 01:04 78 01/23/25 00:04 01/23/25 00:04 36.3 C L 77 18 176/97 H 01/22/25 22:59 78 16 160/95 H 01/22/25 22:30 78 18 167/100 H 01/22/25 21:58 80 01/22/25 20:30 78 18 187/120 H 01/22/25 19:59 Pulse Ox O2 Del Method O2 Flow Rate 01/23/25 07:46 94 Nasal Cannula 2 01/23/25 07:32 01/23/25 04:00 91 Nasal Cannula 2 01/23/25 01:04 01/23/25 00:04 Nasal Cannula 2 01/23/25 00:04 90 Nasal Cannula 2 01/22/25 22:59 95 01/22/25 22:30 94 2 01/22/25 21:58 01/22/25 20:30 95 2 01/22/25 19:59 78 L 0 PG Care Time/CCT Total # of Minutes Spent Total Time Spent with Patient: Total time spent is greater than 50% in coordination of care (as documented) at patient's floor/unit and/or counseling patient: Coding Level of Care Code 00507 SUB INP/OBS CARE 3/50MIN Diagnoses Bilateral leg weakness R29.898 Hypertensive urgency I16.0 LVH (left ventricular hypertrophy) I51.7 COPD (chronic obstructive pulmonary disease) J44.9
[2025-01-23] MEDS: CHOLECALCIFEROL 25 MCG (1000 UNITS) TAB PO SCH (09:00)
[2025-01-23] MEDS ORDERED: NON-FORMULARY MEDICATION (Fluticasone-Umeclidin-Vilanter [Trelegy Ellipta] 100-62.5-25 mcg inhalation SCH (09:00)
[2025-01-23] MEDS: ARIPiprazole 5 MG TAB PO SCH (09:01)
[2025-01-23] MEDS: MAGNESIUM OXIDE 400 MG TAB PO SCH (09:01)
[2025-01-23] MEDS: LOSARTAN POTASSIUM 25 MG TAB PO SCH (09:01)
[2025-01-23] MEDS: FLUTICASONE FUROATE 100MCG 14 PUFFS/INHALER INH SCH (09:02)
[2025-01-23] MEDS: UMECLIDINIUM/VILANTEROL 62.5/25MCG 7 PUFFS/INHALER INH SCH (09:02)
--- NOTE | 2025-01-23 12:27 | XCELERA ---
[id number]
--- NOTE | 2025-01-23 16:42 | Electrocardiogram Report ---
Test Reason : Blood Pressure : */* mmHG Vent. Rate : 81 BPM Atrial Rate : 81 BPM P-R Int : 158 ms QRS Dur : 92 ms QT Int : 382 ms P-R-T Axes : 43 27 22 degrees QTcB Int : 443 ms Normal sinus rhythm Nonspecific T wave abnormality Abnormal ECG When compared with ECG of 10-Dec-2024 12:51, No significant change Confirmed by Cecil Kan ([id number]) on 01/23/2025 4:41:48 PM Referred By: REFERRED SELF Confirmed By: Cecil Kan
[2025-01-24 07:18] LABS: ANTI-Xa, UFH(UnfractionatedHep 0.47 IU/ml (0.3-0.7)
[2025-01-24 07:35] LABS: Anion Gap 5.0 (3-11); Blood Urea Nitrogen 12.0 mg/dl (6-23); Calcium 8.2 mg/dl (8.6-10.3); Carbon Dioxide 33.0 mmol/L (21-32); Chloride 105.0 mmol/L (98-107); Creatinine Clr Calc Pharmacy 74.6 ml/min; Glucose 130.0 mg/dl (70-99(Fasting)); Magnesium 1.9 mg/dl (1.7-2.4); Potassium 3.7 mmol/L (3.5-5.1); Sodium 143.0 mmol/L (136-145)
--- NOTE | 2025-01-24 11:35 | Hospitalist Progress Note ---
Date of Service January 24, 2025 Assessment & Plan (1) Bilateral leg weakness: (2) Hypertensive urgency: (3) LVH (left ventricular hypertrophy): (4) COPD (chronic obstructive pulmonary disease): Plan This is a 69 year old female with a PMH of HTN, LVH, PTSD, COPD, tobacco use disorder, HLD - coming in with bilateral lower extremity edema. Acute hypoxic respiratory failure 2/2 PE CTA chest chest: Right upper lobe/right middle lobe/right main PE Dopplers with left lower extremity DVT Remains with oxygen requirement. Two-step pending PT/OT recommending inpatient rehab. Patient has a high barrier at home with 3 flights of stairs to get into her apartment which she does not appear safe to do at this time both due to her pox oxygen and strength. CM consulted for rehab Will plan to transition to Eliquis. Will switch from heparin GTT to Eliquis at 7 PM tonight Lower extremity swelling Bilateral Doppler showed left lower extremity DVT, no right sided DVT is noted although patient notes she has had swelling in that leg as well Has some history of venous stasis for which her thiazide was held. This was resumed. Swelling could be multifactorial with stasis/edema, also possible she could have had a right-sided thrombus which migrated. Does not change m anagement Hypertensive urgency Continue Dyazide, losartan Depression/anxiety Aripiprazole, bupropion, doxepin continued Clonazepam resumed as patient takes this regularly and is at risk of wit hdrawal COPD Continue inhalers Focal right lower/right middle scant wheeze on assessment no global wheezes suggestive of acute COPD exacerbation Disposition: Two-step pending, CM pending for placement needs Admission and Anticipated Discharge Date Admission Date: January 22, 2025 Subjective Seen at the bedside. Tearful reports she feels anxious about her blood clot and is missed her clonazepam Endorses right leg swelling which has happened to her before for which she normally takes a thiazide but seems a little worse than normal. Did discuss that her DVT was seen on the left however right-sided DVT that migrated cannot be definitively excluded Denies chest pain chest pressure She endorses that she has felt weak and has fallen multiple times, suspects this was from low oxygen levels with her PE Is somewhat anxious about potentially not being able to return home and needing rehab but is agreeable to PT OT evaluations and following based on recommendations at this time At time bedside visit denies lightheadedness, dizziness, shortness of breath, difficulty breathing while at rest on oxygen. She does have 3 flights of stairs to ascend to get to her home apartment Physical Exam Physical Exam: General: A&Ox3. NAD. Cooperative. HEENT: Atraumatic, normocephalic. Vision and hearing grossly intact Pulm: Right middle/right lower lobe scant wheezing. Basilar crackles symmetrical chest rise. No increase in work of breathing. No respiratory distress. On nasal cannula oxygen, comfortable Cardiac: RRR, -mrg. Radial pulses intact and symmetrical. Abdominal: Nontender, nondistended, soft. BS present. Extremities: Bilateral lower extremity pitting edema Results & Data Results & Data Vital Signs (Past 12 Hours) Vital Signs Temp Pulse Pulse Resp BP BP Pulse Ox 01/24/25 11:09 01/24/25 08:22 36.8 C 68 20 152/92 H 95 01/24/25 07:53 01/24/25 05:47 66 01/24/25 04:00 36.8 C 73 18 138/74 92 01/24/25 00:00 36.5 C 76 18 147/85 H 92 Pulse Ox Pulse Ox Pulse Ox Pulse Ox O2 Del Method O2 Flow Rate O2 Flow Rate 01/24/25 11:09 93 93 90 84 L 1 01/24/25 08:22 Nasal Cannula 2.8 01/24/25 07:53 Nasal Cannula 2 01/24/25 05:47 01/24/25 04:00 Nasal Cannula 2.5 01/24/25 00:00 Nasal Cannula 2.5 O2 Flow Rate O2 Flow Rate O2 Flow Rate 01/24/25 11:09 1 0 0 01/24/25 08:22 01/24/25 07:53 01/24/25 05:47 01/24/25 04:00 01/24/25 00:00 PG Care Time/CCT Total # of Minutes Spent Total Time Spent with Patient: Total time spent is greater than 50% in coordination of care (as documented) at patient's floor/unit and/or counseling patient: Coding Level of Care Code 01481 SUB INP/OBS CARE 3/50MIN Diagnoses Bilateral leg weakness R29.898 Hypertensive urgency I16.0 LVH (left ventricular hypertrophy) I51.7 COPD (chronic obstructive pulmonary disease) J44.9
[2025-01-24] MEDS: clonazePAM 1 MG TAB PO PRN (11:53)
[2025-01-24] MEDS: APIXABAN 5 MG TABLET PO SCH (15:41)
[2025-01-24] MEDS ORDERED: APIXABAN 5 MG TABLET PO SCH (19:00)
[2025-01-25 05:59] LABS: Hematocrit (blood only) 45.1 % (37.0-47.0); Hemoglobin 14.1 g/dl (12.0-16.0); Immature Granulocytes # (auto) 0.03 K/uL (0.01-0.20); Immature Granulocytes % (auto) 0.6 %; Mean Corpuscular Hemoglobin 29.6 pg (25.0-34.0); Mean Corpuscular Volume 94.7 fL (80.0-100.0); Platelet Count 195 K/uL (130-400); RDW Standard Deviation 57.1 fL (36.4-46.3); Red Blood Count 4.76 M/uL (4.20-5.40); White Blood Count 5.44 K/ul (4.8-10.8)
[2025-01-25 06:15] LABS: Anion Gap 4.0 (3-11); Blood Urea Nitrogen 14.0 mg/dl (6-23); Calcium 8.5 mg/dl (8.6-10.3); Carbon Dioxide 33.0 mmol/L (21-32); Chloride 106.0 mmol/L (98-107); Creatinine Clr Calc Pharmacy 78.9 ml/min; Glucose 102.0 mg/dl (70-99(Fasting)); Potassium 4.2 mmol/L (3.5-5.1); Sodium 143.0 mmol/L (136-145)
[2025-01-25 06:23] LABS: ANTI-Xa, UFH(UnfractionatedHep 0.29 IU/ml (0.3-0.7)
[2025-01-25] MEDS: hydroCHLOROthiazide 25 MG TAB PO SCH (08:21)
[2025-01-25 12:01] VITALS: BP 156/96; TEMP 98.2
--- NOTE | 2025-01-25 13:21 | Hospitalist Progress Note ---
Date of Service January 25, 2025 Assessment & Plan (1) Bilateral leg weakness: (2) Hypertensive urgency: (3) LVH (left ventricular hypertrophy): (4) COPD (chronic obstructive pulmonary disease): Plan This is a 69 year old female with a PMH of HTN, LVH, PTSD, COPD, tobacco use disorder, HLD - coming in with bilateral lower extremity edema. Acute hypoxic respiratory failure 2/2 PE CTA chest chest: Right upper lobe/right middle lobe/right main PE Dopplers with left lower extremity DVT Remains with oxygen requirement. Two-step pending PT/OT recommending inpatient rehab. Patient has a high barrier at home with 3 flights of stairs to get into her apartment which she does not appear safe to do at this time both due to her pox oxygen and strength. CM consulted for rehab, however, patient insists she wants to go home Now on Eliquis 10mg BID for 7 days, then 5mg BID Lower extremity swelling Bilateral Doppler showed left lower extremity DVT, no right sided DVT is noted although patient notes she has had swelling in that leg as well Has some history of venous stasis for which her thiazide was held. This was resumed. Swelling could be multifactorial with stasis/edema, also possible she could have had a right-sided thrombus which migrated. 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 Hypertensive urgency Continue Dyazide, losartan Depression/anxiety Aripiprazole, bupropion, doxepin continued Clonazepam resumed as patient takes this regularly and is at risk of withdrawal COPD Continue inhalers Focal right lower/right middle scant wheeze on assessment no global wheezes suggestive of acute COPD exacerbation Disposition: Two-step pending, NICK pending for placement needs Admission and Anticipated Discharge Date Admission Date: January 22, 2025 Subjective You were patient seen and examined, still on oxygen, initially agreeable to rehab but then changed her mind, wants to go home. Two-step ordered Review of Systems Review of Systems: All systems reviewed are negative, apart from the ones contained in the history. Physical Exam Physical Exam: General: A&Ox3. NAD. Cooperative. HEENT: Atraumatic, normocephalic. Vision and hearing grossly intact Pulm: Right middle/right lower lobe scant wheezing. Basilar crackles symmetrical chest rise. No increase in work of breathing. No respiratory distress. On nasal cannula oxygen, comfortable Cardiac: RRR, -mrg. Radial pulses intact and symmetrical. Abdominal: Nontender, nondistended, soft. BS present. Extremities: Bilateral lower extremity pitting edema Results & Data Results & Data Vital Signs (Past 12 Hours) Vital Signs Temp Pulse Pulse Pulse Resp BP BP 01/25/25 12:00 98.2 F 75 18 156/96 H 01/25/25 08:21 97.3 F L 71 18 159/98 H 01/25/25 07:42 01/25/25 05:45 71 01/25/25 04:15 97.7 F 75 18 141/81 H Pulse Ox O2 Del Method O2 Flow Rate 01/25/25 12:00 97 Nasal Cannula 2 01/25/25 08:21 93 Nasal Cannula 2 01/25/25 07:42 Room Air 01/25/25 05:45 01/25/25 04:15 91 Nasal Cannula 2 PG Care Time/CCT Total # of Minutes Spent Total Time Spent with Patient: Total time spent is greater than 50% in coordination of care (as documented) at patient's floor/unit and/or counseling patient: Coding Level of Care Code 71675 SUB INP/OBS CARE 2/35MIN Diagnoses Bilateral leg weakness R29.898 Hypertensive urgency I16.0 LVH (left ventricular hypertrophy) I51.7 COPD (chronic obstructive pulmonary disease) J44.9 Time Spent (min) 35
[2025-01-25 15:29] VITALS: PULSE 75; RESP 18; O2SAT 97
--- NOTE | 2025-01-26 07:07 | Discharge Summary ---
Date of Service January 25, 2025 Admission HPI Per Admitting Provider This is a 69 year old female with a PMH of HTN, LVH, PTSD, COPD, tobacco use disorder, HLD - coming in with bilateral lower extremity edema. She states that her swelling has been on and off for the past few months, but for the past week has been fairly swollen with no improvement. On arrival here, CXR done and mild congestion noted. Labs drawn and BNP is not elevated. CTA chest ordered and pending. Patient was hypoxemic when laying flat and improved with head elevation. Patient states her breathing is at baseline. Admission Exam (Per Admitting) Constitutional The patient is awake, alert and oriented 3, well developed and well nourished, normocephalic and atraumatic, lying in bed and in no acute distress. HEENT--PERRL, EOMI, mucous membranes and oropharynx mildly dry Neck--supple. No JVD. No bruits. Thyroid normal, trachea midline, no adenopathy. Heart--normal S1 and S2. No murmurs, rubs or gallops. Lungs--clear bilaterally, no respiratory distress, no accessory muscle use. Abdomen--normal bowel sounds and soft. Extremities--no cyanosis or clubbing. No edema. Dermatologic--normal skin turgor, normal color, no abnormal lymph nodes, no rash. Neurologic--cranial nerves II through XII grossly intact. Rheumatologic--normal range of motion. Psychiatric--normal affect. Discharge Data Consultations 01/22/25 20:33 ED Decision to Admit Stat Hospital Course (1) Bilateral leg weakness: (2) Hypertensive urgency: (3) LVH (left ventricular hypertrophy): (4) COPD (chronic obstructive pulmonary disease): Plan This is a 69 year old female with a PMH of HTN, LVH, PTSD, COPD, tobacco use disorder, HLD - coming in with bilateral lower extremity edema. Acute hypoxic respiratory failure 2/2 PE CTA chest chest: Right upper lobe/right middle lobe/right main PE Dopplers with left lower extremity DVT Remains with oxygen requirement. Two-step pending PT/OT recommending inpatient rehab. Patient has a high barrier at home with 3 flights of stairs to get into her apartment which she does not appear safe to do at this time both due to her pox oxygen and strength. CM consulted for rehab, however, patient insists she wants to go home Now on Eliquis 10mg BID for 7 days, then 5mg BID Lower extremity swelling Bilateral Doppler showed left lower extremity DVT, no right sided DVT is noted although patient notes she has had swelling in that leg as well Has some history of venous stasis for which her thiazide was held. This was resumed. Swelling could be multifactorial with stasis/edema, also possible she could have had a right-sided thrombus which migrated. 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 Hypertensive urgency Continue Dyazide, losartan Depression/anxiety Aripiprazole, bupropion, doxepin continued Clonazepam resumed as patient takes this regularly and is at risk of withdrawal COPD Continue inhalers Focal right lower/right middle scant wheeze on assessment no global wheezes suggestive of acute COPD exacerbation Disposition: Two-step pending, CM pending for placement needs Coding Level of Care Code 26424 INP/OBS DISCH >30 MIN Diagnoses Bilateral leg weakness R29.898 Hypertensive urgency I16.0 LVH (left ventricular hypertrophy) I51.7 COPD (chronic obstructive pulmonary disease) J44.9 Time Spent (min) 35
== END 2025-01-25 16:18 | disposition home health service (06) | DRG 299 ==
LOC: ED 17:23 → 2N 21:04 → SUATTDRO 21:04 → 2N 22:59

== ENCOUNTER 2025-02-04 14:24 | Observation (INO) ==
--- NOTE | 2025-02-04 14:50 | Emergency Department Note ---
History of Present Illness General Chief complaint: Trauma Stated complaint: O2 REALLY LOW, SPEACH SLURRED, HANDS, BALANCE, Time Seen by Provider: 02/04/25 14:34 Source: patient and family History of Present Illness Provider complaint: Slurred speech recurrent falls difficulty breathing 69-year-old female presents emergency department for slurred speech, recurrent falls and difficulty breathing. Patient reports her symptoms have been present for the last 1.5 weeks. Family states that the patient fell multiple times earlier today. Patient is on Eliquis. Patient states she is supposed to be on oxygen however they have not been able to get her oxygen at home. The family member states that the patient is slurring his words cannot hold things and keeps falling. No fevers. Home Medications Medication Instructions Recorded Confirmed Type aripiprazole 5 mg tablet (Abilify) 5 mg PO QAM 08/31/20 02/04/25 History clonazepam 1 mg tablet (Klonopin) 1 mg PO BID PRN Anxiety 08/31/20 02/04/25 History bupropion HCl 300 mg 24 hr tablet, 300 mg PO QAM 05/23/22 02/04/25 History extended release calcium 500 mg (as 1 tab PO QAM 09/19/22 02/04/25 History carbonate)-vitamin D3 5 mcg (200 unit) tablet (Calcium 500 + D) magnesium 250 mg tablet 250 mg PO QAM 09/19/22 02/04/25 History vitamin B comp and C no.3 15 mg-10 1 cap PO QAM 11/25/23 02/04/25 History mg-50 mg-5 mg-300 mg capsule (B Complex Plus Vitamin C) hydrochlorothiazide 25 mg tablet 25 mg PO QAM #90 tabs 10/18/24 02/04/25 Rx gabapentin 600 mg tablet 600 mg PO BID #180 tabs 12/07/24 02/04/25 Rx olmesartan 5 mg tablet (Benicar) 10 mg (2 x 5 mg) PO QAM #180 tabs 12/07/24 02/04/25 Rx cholecalciferol (vitamin D3) 50 50 mcg PO DAILY #90 caps 12/17/24 02/04/25 Rx mcg (2,000 unit) capsule doxepin 100 mg capsule 200 mg PO HS 01/22/25 02/04/25 History mecobalamin (vitamin B12) 1,000 1,000 mcg PO QAM 01/22/25 02/04/25 History mcg chewable tablet albuterol sulfate 90 mcg/actuation 1 inh inhalation QID PRN shortness 02/02/25 02/04/25 Rx aerosol inhaler of breath or wheezing #20.1 grams apixaban 5 mg (74 tabs) tablets in 5 mg PO BID #180 ea 02/04/25 02/04/25 Rx a dose pack (Eliquis) pantoprazole 40 mg tablet,delayed 40 mg PO DAILY 02/04/25 02/04/25 History release Allergies Allergy/AdvReac Type Severity Reaction Status Date / Time No Known Allergies Allergy Verified 02/04/25 11:10 Past Med/Surg History Problem List (Updated 02/04/25 @ 20:14 by Young Lloyd MD) Recurrent falls (Acute) COPD exacerbation (Acute) Hypoxia (Acute) Slurring of speech (Acute) History of deep vein thrombosis (Acute) History of pulmonary embolus (PE) (Acute) Localized swelling of both lower legs (Acute) Shortness of breath (Acute) Hypoxic (Acute) Pulmonary embolism (Acute) Acute pulmonary embolism Hypertensive urgency CAP (community acquired pneumonia) Hypoxia (Acute) Bilateral leg weakness (Acute) Multifocal pneumonia (Acute) Acute hypoxic respiratory failure Dysphagia Esophageal stenosis Elevated hemoglobin History of adenomatous polyp of colon Osteopenia Gait disturbance Imaging abnormalities Thoracic aorta atherosclerosis on CT chest Screening for lung cancer Hyperpigmented skin lesion Lumbar back pain with radiculopathy affecting right lower extremity Restless leg Numbness and tingling of both lower extremities PTSD (post-traumatic stress disorder) Gastric ulcer Esophageal dysphagia Asymptomatic menopause Vitamin D deficiency disease Vitamin B12 deficiency Tobacco abuse COPD (chronic obstructive pulmonary disease) Abnormal PFT Hypercholesterolemia Health care maintenance Nicotine dependence Low back pain LVH (left ventricular hypertrophy) Insomnia Hyperglycemia Generalized osteoarthritis of multiple sites Fecal incontinence Essential hypertriglyceridemia EKG, abnormal Disc degeneration, lumbar Anxiety disorder Adenomatous polyp of colon Hypertension Medical History Fall Sepsis Acute kidney injury Nocturia Restless leg syndrome Thoracic aorta atherosclerosis Osteopenia PTSD (post-traumatic stress disorder) Generalized osteoarthritis Hx of gastric ulcer Gait disturbance pt denies Essential hypertriglyceridemia EKG, abnormal pt unaware Disc degeneration, lumbar Hx of colonic polyps History of esophageal dilatation (09/2022) LVH (left ventricular hypertrophy) Hypertension Insomnia Anxiety Swelling of both ankles pt denies History of anesthesia reaction "comes out of anesthesia too fast" and "not out fully with my last colonoscopy" COPD (chronic obstructive pulmonary disease) inh prn History of pneumonia (05/2022) admitted to [facility] 05/2022 Substance abuse or dependence Hypocalcemia Smoker 20 cigarettes/day Depression Low back pain with sciatica Surgical History History of esophagogastroduodenoscopy (EGD) Hx of colonoscopy with polypectomy History of bilateral tubal ligation History of section History of tooth extraction all teeth History of phacoemulsification of cataract of both eyes with intraocular lens implantation Family History Brother Family history of diabetes mellitus Prostate cancer Sister Family history of diabetes mellitus Mother Myocardial infarction Other No family history of adverse response to anesthesia Denies family history of Ovarian cancer Breast cancer Colorectal cancer Social History Smoking Status: Current every day smoker Tobacco Type: Cigarettes Age Started Using Tobacco: 13; packs per day: 1; Cigarettes Per Day: 1 pack; Second Hand Exposure: No; Do You Dip or Chew Tobacco: No; Hx Alcohol Use: Yes Alcohol type: beer Hx Substance Use: Yes Last Used Substance: Unknown Last Used Substance Other:: 2 weeks ago Preferred Language: Bangladeshi Communication Ability: Effective Visual Impairment: Limited Hearing Ability: Normal Mineral Resources Inspector Required: No Beliefs That Will Affect Care: None Current Living Situation: Alone current occupational status: disabled How many Children do You have: 1 How many Children do You have Comment: 1 girl Feels Safe at Home: Yes Childhood Exposure to Second-Hand Smoke: No Diet: regular during the past year weight has: remained stable Dental Care, Regularly: Yes Physical Activity Frequency: Daily Physical Activity Frequency Comment: walking Seatbelt Use: always Sunscreen Use: Yes Assistive Devices: None Physical Exam Vital Signs Vital Signs - 24 hr 02/04/25 14:24 02/04/25 14:40 02/04/25 14:40 Temperature 36.6 C 36.5 C Temperature Source Temporal Artery Scan Pulse Rate 93 H 82 Pulse Rate [Apical] 75 Pulse Rate from SpO2 Sensor Pulse Rhythm [Apical] Regular Pulse Strength [Apical] Normal Respiratory Rate 18 18 19 Respiratory Effort / Characteristics Non-Labored Spontaneous Respiratory Depth Normal Respiratory Pattern Regular Blood Pressure 115/76 125/68 Blood Pressure [Right Arm] 135/69 Blood Pressure Mean 89 Blood Pressure Mean [Right Arm] 91 Blood Pressure Position [Right Arm] Pulse Oximetry 88 L 92 92 Oxygen Delivery Method Room Air Nasal Cannula Nasal Cannula Oxygen Flow Rate 2 2 Sepsis Recent Fever Within 48 Hours No Sepsis New/Unexplained Change in Mental Status N/A Sepsis Action Taken by Nursing No Action Required 02/04/25 14:40 02/04/25 15:04 02/04/25 15:12 Temperature Temperature Source Pulse Rate 79 Pulse Rate [Apical] Pulse Rate from SpO2 Sensor 79 Pulse Rhythm [Apical] Pulse Strength [Apical] Respiratory Rate 22 Respiratory Effort / Characteristics Respiratory Depth Respiratory Pattern Blood Pressure 135/69 Blood Pressure [Right Arm] Blood Pressure Mean 105 Blood Pressure Mean [Right Arm] Blood Pressure Position [Right Arm] Pulse Oximetry 95 93 Oxygen Delivery Method Nasal Cannula Oxygen Flow Rate 2 Sepsis Recent Fever Within 48 Hours Sepsis New/Unexplained Change in Mental Status Sepsis Action Taken by Nursing 02/04/25 15:31 02/04/25 15:31 02/04/25 15:33 Temperature Temperature Source Pulse Rate 78 Pulse Rate [Apical] Pulse Rate from SpO2 Sensor 78 Pulse Rhythm [Apical] Pulse Strength [Apical] Respiratory Rate 21 Respiratory Effort / Characteristics Respiratory Depth Respiratory Pattern Blood Pressure 122/68 122/68 Blood Pressure [Right Arm] Blood Pressure Mean 81 81 Blood Pressure Mean [Right Arm] Blood Pressure Position [Right Arm] Pulse Oximetry 95 Oxygen Delivery Method Oxygen Flow Rate Sepsis Recent Fever Within 48 Hours Sepsis New/Unexplained Change in Mental Status Sepsis Action Taken by Nursing 02/04/25 15:36 02/04/25 15:49 02/04/25 16:00 Temperature Temperature Source Pulse Rate 78 Pulse Rate [Apical] Pulse Rate from SpO2 Sensor 79 Pulse Rhythm [Apical] Pulse Strength [Apical] Respiratory Rate 17 Respiratory Effort / Characteristics Respiratory Depth Respiratory Pattern Blood Pressure 121/73 Blood Pressure [Right Arm] Blood Pressure Mean 88 Blood Pressure Mean [Right Arm] Blood Pressure Position [Right Arm] Pulse Oximetry 95 Oxygen Delivery Method Room Air Oxygen Flow Rate Sepsis Recent Fever Within 48 Hours Sepsis New/Unexplained Change in Mental Status Sepsis Action Taken by Nursing 02/04/25 16:05 02/04/25 16:06 02/04/25 16:30 Temperature Temperature Source Pulse Rate 75 74 71 Pulse Rate [Apical] Pulse Rate from SpO2 Sensor 74 71 Pulse Rhythm [Apical] Pulse Strength [Apical] Respiratory Rate 20 19 Respiratory Effort / Characteristics Respiratory Depth Respiratory Pattern Blood Pressure Blood Pressure [Right Arm] Blood Pressure Mean Blood Pressure Mean [Right Arm] Blood Pressure Position [Right Arm] Pulse Oximetry 95 98 Oxygen Delivery Method Oxygen Flow Rate Sepsis Recent Fever Within 48 Hours Sepsis New/Unexplained Change in Mental Status Sepsis Action Taken by Nursing 02/04/25 16:30 02/04/25 16:42 02/04/25 16:57 Temperature Temperature Source Pulse Rate 71 71 Pulse Rate [Apical] Pulse Rate from SpO2 Sensor 71 71 Pulse Rhythm [Apical] Pulse Strength [Apical] Respiratory Rate 18 18 Respiratory Effort / Characteristics Respiratory Depth Respiratory Pattern Blood Pressure 130/74 Blood Pressure [Right Arm] Blood Pressure Mean 109 Blood Pressure Mean [Right Arm] Blood Pressure Position [Right Arm] Pulse Oximetry 95 94 Oxygen Delivery Method Oxygen Flow Rate Sepsis Recent Fever Within 48 Hours Sepsis New/Unexplained Change in Mental Status Sepsis Action Taken by Nursing 02/04/25 17:00 02/04/25 17:00 02/04/25 17:00 Temperature 37.3 C Temperature Source Oral Pulse Rate Pulse Rate [Apical] 81 74 Pulse Rate from SpO2 Sensor Pulse Rhythm [Apical] Pulse Strength [Apical] Respiratory Rate 20 20 Respiratory Effort / Characteristics Non-Labored Spontaneous Non-Labored Spontaneous Respiratory Depth Normal Normal Respiratory Pattern Regular Regular Blood Pressure 117/65 Blood Pressure [Right Arm] 117/65 Blood Pressure Mean 91 Blood Pressure Mean [Right Arm] 82 Blood Pressure Position [Right Arm] Semi-fowlers Pulse Oximetry 93 Oxygen Delivery Method Nasal Cannula Nasal Cannula Oxygen Flow Rate 2 2 Sepsis Recent Fever Within 48 Hours Sepsis New/Unexplained Change in Mental Status Sepsis Action Taken by Nursing 02/04/25 17:09 02/04/25 17:21 02/04/25 17:30 Temperature Temperature Source Pulse Rate 71 76 72 Pulse Rate [Apical] Pulse Rate from SpO2 Sensor 71 76 72 Pulse Rhythm [Apical] Pulse Strength [Apical] Respiratory Rate 18 16 19 Respiratory Effort / Characteristics Respiratory Depth Respiratory Pattern Blood Pressure Blood Pressure [Right Arm] Blood Pressure Mean Blood Pressure Mean [Right Arm] Blood Pressure Position [Right Arm] Pulse Oximetry 94 93 93 Oxygen Delivery Method Oxygen Flow Rate Sepsis Recent Fever Within 48 Hours Sepsis New/Unexplained Change in Mental Status Sepsis Action Taken by Nursing 02/04/25 17:30 02/04/25 17:45 02/04/25 17:51 Temperature Temperature Source Pulse Rate 72 72 Pulse Rate [Apical] Pulse Rate from SpO2 Sensor 72 72 Pulse Rhythm [Apical] Pulse Strength [Apical] Respiratory Rate 18 17 Respiratory Effort / Characteristics Respiratory Depth Respiratory Pattern Blood Pressure 156/92 H Blood Pressure [Right Arm] Blood Pressure Mean 124 Blood Pressure Mean [Right Arm] Blood Pressure Position [Right Arm] Pulse Oximetry 94 96 Oxygen Delivery Method Oxygen Flow Rate Sepsis Recent Fever Within 48 Hours Sepsis New/Unexplained Change in Mental Status Sepsis Action Taken by Nursing 02/04/25 17:54 02/04/25 18:00 02/04/25 18:00 Temperature Temperature Source Pulse Rate 75 Pulse Rate [Apical] Pulse Rate from SpO2 Sensor 76 Pulse Rhythm [Apical] Pulse Strength [Apical] Respiratory Rate 19 Respiratory Effort / Characteristics Respiratory Depth Respiratory Pattern Blood Pressure 148/105 H Blood Pressure [Right Arm] 148/105 H Blood Pressure Mean 113 Blood Pressure Mean [Right Arm] 119 Blood Pressure Position [Right Arm] Pulse Oximetry 95 Oxygen Delivery Method Oxygen Flow Rate Sepsis Recent Fever Within 48 Hours Sepsis New/Unexplained Change in Mental Status Sepsis Action Taken by Nursing 02/04/25 18:00 02/04/25 18:09 02/04/25 18:12 Temperature Temperature Source Pulse Rate 78 74 Pulse Rate [Apical] Pulse Rate from SpO2 Sensor 76 74 Pulse Rhythm [Apical] Pulse Strength [Apical] Respiratory Rate 22 23 Respiratory Effort / Characteristics Respiratory Depth Respiratory Pattern Blood Pressure 148/105 H Blood Pressure [Right Arm] Blood Pressure Mean 113 Blood Pressure Mean [Right Arm] Blood Pressure Position [Right Arm] Pulse Oximetry 92 91 Oxygen Delivery Method Oxygen Flow Rate Sepsis Recent Fever Within 48 Hours Sepsis New/Unexplained Change in Mental Status Sepsis Action Taken by Nursing 02/04/25 18:24 02/04/25 19:00 02/04/25 20:04 Temperature Temperature Source Pulse Rate 72 66 Pulse Rate [Apical] 80 Pulse Rate from SpO2 Sensor 73 Pulse Rhythm [Apical] Pulse Strength [Apical] Respiratory Rate 22 20 Respiratory Effort / Characteristics Non-Labored Spontaneous Respiratory Depth Normal Respiratory Pattern Regular Blood Pressure Blood Pressure [Right Arm] 148/105 H Blood Pressure Mean Blood Pressure Mean [Right Arm] 119 Blood Pressure Position [Right Arm] Semi-fowlers Pulse Oximetry 91 94 Oxygen Delivery Method Nasal Cannula Oxygen Flow Rate 2 Sepsis Recent Fever Within 48 Hours Sepsis New/Unexplained Change in Mental Status Sepsis Action Taken by Nursing Primary Survey Airway: Intact Breathing: Rhonchi bilaterally. Inspiratory rales bilaterally. Expiratory wheezes bilaterally. Circulation: Skin warm, distal pulses 2+, capillary refill less than 2 seconds 2+ pitting edema of the bilateral lower extremities. Disability Pupils: Equal and reactive to light, 2 mm, brisk GCS: 15, E = 4 V=4 M= 6 Motor Function: Moves all extremities. Sensory: No deficits Secondary Survey GEN: Well developed and well-nourished HEAD: Normocephallic atruamatic EYES: Pupils round reactive to light, conjunctiva clear, extraocular movements intact, no raccoons eyes ENT: no thompson's sign, nares patent, oropharynx clear NECK: No JVD, midline trachea, no cervical spine tenderness HEART: Regular rate and rhythm LUNGS: Clear to auscultation bilaterally. CHEST: Chest wall non-tender, no bruising/deformity ABD: soft, non-tender, no rebound or guarding, MUSC: Pelvis stable. No step offs or deformities, T-L spine non tender NEURO: CNII-XII grossly intact, no sensory deficits patient slurring her words. Course Course 1434: The patient was evaluated in room B1. A complete history and physical exam was performed Cardiac monitoring: An order was placed for continuous cardiac monitoring. The monitor shows a rate of 90 with sinus rhythm interpreted by me Patient was found to be hypoxic on room air. Supplemental oxygen was applied which improved the patient's oxygen saturation. Patient was upgraded to trauma alert. Chest x-ray viewed by me showed no pneumothorax. 1610: Vital signs stable on supplemental oxygen. Patient C-spine is cleared. Patient remains having dysarthria. Labs and imaging are unremarkable. Patient be treated with DuoNebs and Solu-Medrol and admitted for COPD exacerbation/weakness. It is unclear why the patient has not been able to obtain her oxygen that she was post be discharged home with. Patient has never had MRI of her brain. Patient will need to be admitted to have her oxygen secured at home and to have further neurological testing completed including possible MRI and to have repeat breathing treatments done for her asthma exacerbation. Administered Medications Doxycycline Hyclate 100 mg/ (Dextrose) 100 mls @ 50 mls/hr IV NOW STA Stop: 02/04/25 21:03 Last Admin: 02/04/25 19:46 Dose: 50 mls/hr Documented By: SHARON Discontinued Medications Albuterol (Albut/Ipratrop 3mg/0.5mg Neb 3 Ml Vial) 3 ml NEB NOW STA; Protocol Stop: 02/04/25 15:28 Last Admin: 02/04/25 15:32 Dose: 3 ml Documented By: LEATHA Albuterol (Albut/Ipratrop 3mg/0.5mg Neb 3 Ml Vial) 3 ml NEB NOW STA; Protocol Stop: 02/04/25 15:28 Last Admin: 02/04/25 15:38 Dose: 3 ml Documented By: LEATHA Cefepime HCl (Maxipime 2000mg) 2,000 mg in 20 mls @ 5 mls/min IV NOW STA; Protocol Stop: 02/04/25 19:07 Last Admin: 02/04/25 19:18 Dose: 5 mls/min Documented By: SHARON Ioversol (Optiray 320 100ml) 93 ml IV ONCE ONE Stop: 02/04/25 14:53 Last Admin: 02/04/25 14:54 Dose: 93 ml Documented By: CLAUDIA Methylprednisolone (Methylprednisolone 125 Mg/2 Ml Vial) 125 mg IV NOW STA Stop: 02/04/25 15:28 Last Admin: 02/04/25 15:32 Dose: 125 mg Documented By: LEATHA Critical Care Time Critical Care Time: Yes Total Critical Care Time: 38 I have personally spent greater than 38 minutes of critical care time in the direct management of this patient. This includes bedside care, interpretation of diagnostic studies, and testing, discussion with consultants, patient, and family members, and other required patient management activities. This 38 minutes is in excess of all separately billable procedures. Medical Decision Making Medical Records Attestation: I reviewed the patient's medical records. Medical records reviewed. Patient was admitted from January 22 to January 26, 2025. Patient was admitted for pulmonary embolus and started on Eliquis. Patient was discharged with oxygen requirement. Patient had CT of the head CTA of the head and neck performed 3 days ago on a subsequent visit to the emergency department which were negative and the patient was discharged home. Patient was seen in the office today by her PCP Dr. Denis and unfortunately her note is not completed at this time Laboratory Data 02/04/25 14:45 02/04/25 14:45 Lab Results 02/04/25 02/04/25 02/04/25 Range/Units 14:45 14:47 14:48 WBC 7.13 (4.8-10.8) K/ul RBC 4.88 (4.20-5.40) M/uL Hgb 14.5 (12.0-16.0) g/dl POC Hgb 15.0 (12.0-16.0) g/dl Hct 45.3 (37.0-47.0) % POC Hct 44 (37-47) % MCV 92.8 (80.0-100.0) fL MCH 29.7 (25.0-34.0) pg MCHC 32.0 (32.0-36.0) g/dL RDW Std Deviation 55.8 H (36.4-46.3) fL RDW Coeff of Jamie 16.5 H (11.5-14.5) % Plt Count 219 (130-400) K/uL MPV 10.1 (9.4-12.4) fL PT 10.6 (9.0-12.0) Seconds INR 1.0 (0.9-1.1) APTT 30 (21-31) Seconds PTT Ratio 1.1 VBG pH 7.40 (7.36-7.41) VBG pCO2 52 H (38-50) mmHg VBG pO2 52 mmHg VBG HCO3 32 mmol/L VBG O2 Saturation 88.7 % VBG Base Excess 6.0 mEq/L POC Sodium 141 (135-144) mmol/L Sodium 143 (136-145) mmol/L POC Potassium 4.0 (3.3-5.0) mmol/L Potassium 4.1 (3.5-5.1) mmol/L POC Chloride 102 (101-112) mmol/L Chloride 104 (98-107) mmol/L Carbon Dioxide 31 (21-32) mmol/L POC Total CO2 28 (24-31) mmol/L Anion Gap 8 (3-11) POC Anion Gap 16.0 (16-25) mmol/L POC BUN 9 (7-18) mg/dl BUN 10 (6-23) mg/dl Creatinine 0.74 (0.6-1.2) mg/dl POC Creatinine 0.8 (0.6-1.3) mg/dl Est Cr Clr Drug Dosing 67.8 ml/min eGFR 87.53 BUN/Creatinine Ratio 13.5 (10-20) Glucose 105 H (70-99(Fasting)) mg/dl POC Glucose (other) 100 H (70-99) mg/dl Calcium 9.1 (8.6-10.3) mg/dl POC Ioniz Calcium Patti 1.20 (1.12-1.32) mmol/l Magnesium 2.0 (1.7-2.4) mg/dl Total Bilirubin 0.4 (0.2-1.0) mg/dl AST 34 (13-39) U/L ALT 66 H (7-52) U/L Alkaline Phosphatase 140 H (34-104) U/L Total Creatine Kinase 49 (26-192) U/L Troponin I High Sens 3.1 (0-14) pg/ml B-Natriuretic Peptide 12 (0-100) pg/ml Total Protein 6.1 (6.0-8.3) gm/dl Albumin 4.1 (3.4-5.0) gm/dl Globulin 2.0 L (2.5-4.0) gm/dl Albumin/Globulin Ratio 2.0 (0.9-2) Ethyl Alcohol mg/dL < 10.0 (<10.0) mg/dl Adenovirus (PCR) (NotDetected) B. pertussis DNA (PCR) (NotDetected) B.parapertussis DNA PCR (NotDetected) C. pneumoniae DNA (PCR) (NotDetected) Coronavirus OC43 (PCR) (NotDetected) Coronavirus HKU1 (PCR) (NotDetected) Coronavirus 229E (PCR) (NotDetected) SARS-CoV-2 (PCR) (NotDetected) Coronavirus NL63 (PCR) (NotDetected) Human Metapneumovir PCR (NotDetected) Influenza Type A (PCR) (NotDetected) Influenza Type B (PCR) (NotDetected) M. pneumoniae (PCR) (NotDetected) Parainfluenza 1 (PCR) (NotDetected) Parainfluenza 2 (PCR) (NotDetected) Parainfluenza 3 (PCR) (NotDetected) Parainfluenza 4 (PCR) (NotDetected) RSV (PCR) (NotDetected) Entero/Rhino (PCR) (NotDetected) 02/04/25 Range/Units 17:27 WBC (4.8-10.8) K/ul RBC (4.20-5.40) M/uL Hgb (12.0-16.0) g/dl POC Hgb (12.0-16.0) g/dl Hct (37.0-47.0) % POC Hct (37-47) % MCV (80.0-100.0) fL MCH (25.0-34.0) pg MCHC (32.0-36.0) g/dL RDW Std Deviation (36.4-46.3) fL RDW Coeff of Jamie (11.5-14.5) % Plt Count (130-400) K/uL MPV (9.4-12.4) fL PT (9.0-12.0) Seconds INR (0.9-1.1) APTT (21-31) Seconds PTT Ratio VBG pH (7.36-7.41) VBG pCO2 (38-50) mmHg VBG pO2 mmHg VBG HCO3 mmol/L VBG O2 Saturation % VBG Base Excess mEq/L POC Sodium (135-144) mmol/L Sodium (136-145) mmol/L POC Potassium (3.3-5.0) mmol/L Potassium (3.5-5.1) mmol/L POC Chloride (101-112) mmol/L Chloride (98-107) mmol/L Carbon Dioxide (21-32) mmol/L POC Total CO2 (24-31) mmol/L Anion Gap (3-11) POC Anion Gap (16-25) mmol/L POC BUN (7-18) mg/dl BUN (6-23) mg/dl Creatinine (0.6-1.2) mg/dl POC Creatinine (0.6-1.3) mg/dl Est Cr Clr Drug Dosing ml/min eGFR BUN/Creatinine Ratio (10-20) Glucose (70-99(Fasting)) mg/dl POC Glucose (other) (70-99) mg/dl Calcium (8.6-10.3) mg/dl POC Ioniz Calcium Patti (1.12-1.32) mmol/l Magnesium (1.7-2.4) mg/dl Total Bilirubin (0.2-1.0) mg/dl AST (13-39) U/L ALT (7-52) U/L Alkaline Phosphatase (34-104) U/L Total Creatine Kinase (26-192) U/L Troponin I High Sens (0-14) pg/ml B-Natriuretic Peptide (0-100) pg/ml Total Protein (6.0-8.3) gm/dl Albumin (3.4-5.0) gm/dl Globulin (2.5-4.0) gm/dl Albumin/Globulin Ratio (0.9-2) Ethyl Alcohol mg/dL (<10.0) mg/dl Adenovirus (PCR) Not Detected (NotDetected) B. pertussis DNA (PCR) Not Detected (NotDetected) B.parapertussis DNA PCR Not Detected (NotDetected) C. pneumoniae DNA (PCR) Not Detected (NotDetected) Coronavirus OC43 (PCR) Not Detected (NotDetected) Coronavirus HKU1 (PCR) Not Detected (NotDetected) Coronavirus 229E (PCR) Not Detected (NotDetected) SARS-CoV-2 (PCR) Not Detected (NotDetected) Coronavirus NL63 (PCR) Not Detected (NotDetected) Human Metapneumovir PCR Not Detected (NotDetected) Influenza Type A (PCR) Not Detected (NotDetected) Influenza Type B (PCR) Not Detected (NotDetected) M. pneumoniae (PCR) Not Detected (NotDetected) Parainfluenza 1 (PCR) Not Detected (NotDetected) Parainfluenza 2 (PCR) Not Detected (NotDetected) Parainfluenza 3 (PCR) Not Detected (NotDetected) Parainfluenza 4 (PCR) Not Detected (NotDetected) RSV (PCR) Not Detected (NotDetected) Entero/Rhino (PCR) Not Detected (NotDetected) Imaging Data Attestation: I personally reviewed and interpreted this imaging study as follows: My Impression: Chest x-ray: No pneumothorax Radiologist's Impression: Chest X-Ray 02/04/25 14:30 XR chest 1V portable CLINICAL HISTORY: stroke alert COMPARISON STUDY: 02/01/2025 FINDINGS: There is stable cardiomegaly without pulmonary vascular congestion. Inspiration is shallow. There is stable stranding opacity in the lung bases. No new consolidation or pleural effusion. No pneumothorax. IMPRESSION: Stable exam. ACT 112: Negative or not required by law. Electronically signed by: Shalom Nino M.D. 02/04/2025 2:[address] 02/04/25 14:30 CT SCAN OF THE BRAIN WITHOUT IV CONTRAST CLINICAL HISTORY: Neurological deficit. Stroke like symptoms. COMPARISON STUDY: CT of the brain dated 02/01/2025. TECHNIQUE: Unenhanced axial CT scan of the brain is performed from the vertex to the skull base. Images are reviewed in the axial, sagittal, coronal planes. A dose lowering technique was utilized adhering to the principles of ALARA. The examination is modestly degraded by motion artifact. FINDINGS: Brain parenchyma: There is age-related involutional change noting mild to moderate subcortical and periventricular microangiopathic disease. A small chronic lacunar infarct is noted in the right internal capsule. There is no hemorrhage, mass effect, or evidence of acute territorial ischemia by CT criteria. León-white matter differentiation is preserved. No extra-axial fluid collection is seen. Ventricles, sulci, cisterns: Prominent secondary to involutional change. Intracranial vasculature: There is atherosclerotic calcification of the cavernous carotid and vertebral arteries. Calvarium: Unremarkable. Sinuses and mastoids: There is subtotal opacification of the left maxillary antrum. Mild to moderate mucosal thickening seen within the right maxillary sinus. There is mild mucosal thickening within the ethmoid sinuses. There are bilateral mastoid effusions. Orbits: The bony orbits are grossly intact. There are bilateral ocular lens implants. IMPRESSION: There is no hemorrhage, mass effect, or evidence of acute territorial ischemia by CT criteria. ACT 112: Negative or not required by law. Electronically signed by: Carlos Echevarria M.D. 02/04/2025 3:09 PM Abdomen/Pelvis CT 02/04/25 14:41 CT SCAN OF THE ABDOMEN AND PELVIS WITH IV CONTRAST CLINICAL HISTORY: Trauma. COMPARISON STUDY: CT of the abdomen and pelvis December 10, 2024. TECHNIQUE: Following the IV administration of 93 cc of Optiray 320, CT scan of the abdomen and pelvis is performed from the lung bases to the proximal femora. Images are reviewed in the axial, sagittal, and coronal planes. IV contrast was administered without complication. A dose lowering technique was utilized adhering to the principles of ALARA. CT DOSE: 3558.26 mGy.cm FINDINGS: Cardiomegaly is again noted. Densities within the right middle lobe and lingula suggest atelectasis. Ground glass opacities within the lower lobes also favor atelectasis. No hemoperitoneum or pneumoperitoneum is present. There is no evidence for hepatic injury to the liver, spleen, adrenal glands, kidneys or pancreas. There is no biliary or pancreatic ductal dilatation. Several small bilateral renal cysts are present. There is no hydronephrosis. There is no free fluid. Caliber and wall thickness of small and large bowel are normal. There is colonic diverticulosis without evidence for acute diverticulitis. No acute lumbar spine, pelvis or hip fractures are identified. Disc space narrowing is most pronounced at the L2-L3 level. The bladder is distended. IMPRESSION: No acute traumatic findings within the abdomen or pelvis. ACT 112: Negative or not required by law. Electronically signed by: Rolly Montemayor M.D. 02/04/2025 3:[address] 02/04/25 14:41 CT cervical spine wo con CLINICAL HISTORY: trauma. COMPARISON: 12/10/2024 TECHNIQUE: Multiple axial CT images of the cervical spine were obtained without contrast. A dose lowering technique was utilized adhering to the principles of ALARA. FINDINGS: There is mild motion artifacts. There are moderate degenerative changes at the lower cervical spine. No cervical spine fracture or subluxation seen. There is mucosal thickening and fluid in the left maxillary sinus. Majority of the left mastoid air cells are opacified. IMPRESSION: No cervical spine fracture seen. ACT 112: Negative or not required by law. The above report was generated using voice recognition software. It may contain grammatical, syntax or spelling errors. Electronically signed by: Shalom Nino M.D. 02/04/2025 3:[address] 02/04/25 14:[address] WITH CONTRAST CT DOSE: 3558 HISTORY: trauma TECHNIQUE: Multiaxial CT images of the chest were performed following the IV administration of 90 cc of Optiray. A dose lowering technique was utilized adhering to the principles of ALARA. COMPARISON STUDY: 01/22/2025 FINDINGS: There are mild airway secretions. There is mild dependent atelectasis in the lower lobes. There is no pulmonary contusion, pleural effusion, or pneumothorax. There is a stable 2.6 cm oval hypodense finding at the left axilla with fluid density. No enlarged adenopathy. No pericardial effusion. No evidence of thoracic aortic injury. No mediastinal hematoma. No acute fracture seen at the visualized osseous structures. IMPRESSION: No acute injury seen at the chest. ACT 112: Negative or not required by law. Electronically signed by: Shalom Nino M.D. 02/04/2025 3:21 PM ECG Data Attestation: I personally reviewed and interpreted this ECG as follows: Rate (beats per minute): 89 Rhythm: + normal sinus ECG Intervals/blocks: + Normal QRS, + Normal OH and + Normal QT-c ECG ST segments: + Normal ST segments Additional Comments: Baseline wander and artifact [facility] Narrative 1434: The patient was evaluated in room B1. A complete history and physical exam was performed Cardiac monitoring: An order was placed for continuous cardiac monitoring. The monitor shows a rate of 90 with sinus rhythm interpreted by me Patient was found to be hypoxic on room air. Supplemental oxygen was applied which improved the patient's oxygen saturation. Patient was upgraded to trauma alert. Chest x-ray viewed by me showed no pneumothorax. 1610: Vital signs stable on supplemental oxygen. Patient C-spine is cleared. Patient remains having dysarthria. Labs and imaging are unremarkable. Patient be treated with DuoNebs and Solu-Medrol and admitted for COPD exacerbation/weakness. It is unclear why the patient has not been able to obtain her oxygen that she was post be discharged home with. Patient has never had MRI of her brain. Patient will need to be admitted to have her oxygen secured at home and to have further neurological testing completed including possible MRI and to have repeat breathing treatments done for her asthma exacerbation. Impression & Plan Hypoxia, COPD exacerbation, Recurrent falls Discharge Plan Visit Data Chief Complaint: Trauma Stated Complaint: O2 REALLY LOW, SPEACH SLURRED, HANDS, BALANCE, ED Provider: [place] Discharge Problem: Hypoxia, COPD exacerbation, Recurrent falls Patient Disposition: Admitted As Inpatient Condition: Serious Forms Stand Alone Forms: My [facility] [place] [facility] Prescriptions Prescriptions: No Action hydrochlorothiazide 25 mg tablet 25 mg PO QAM Qty: 90 1RF albuterol sulfate 90 mcg/actuation HFA aerosol inhaler 1 inh INH QID PRN (Reason: shortness of breath or wheezing) Qty: 20.1 3RF aripiprazole [Abilify] 5 mg tablet 5 mg PO QAM clonazepam [Klonopin] 1 mg tablet 1 mg PO BID PRN (Reason: Anxiety) Eliquis 5 mg (74 tabs) tablets,dose pack 5 mg PO BID Qty: 180 3RF gabapentin 600 mg tablet 600 mg PO BID Qty: 180 3RF olmesartan [Benicar] 5 mg tablet 10 mg PO QAM Qty: 180 3RF Rx Instructions: 2 tablet dose B Complex Plus Vitamin C 40-16-92-5-300 mg capsule 1 cap PO QAM Rx Instructions: give with food (meal/snack) Trelegy Ellipta 100-62.5-25 mcg blister with device 1 ea inhalation DAILY 0RF cholecalciferol (vitamin D3) 50 mcg (2,000 unit) capsule 50 mcg PO DAILY Qty: 90 3RF Rx Instructions: with heaviest meal of the day bupropion HCl 300 mg tablet extended release 24 hr 300 mg PO QAM magnesium 250 mg tablet 250 mg PO QAM calcium carbonate-vitamin D3 [Calcium 500 + D] 500 mg(1,250mg) -200 unit tablet 1 tab PO QAM doxepin 100 mg capsule 200 mg PO HS mecobalamin (vitamin B12) 1,000 mcg tablet,chewable 1,000 mcg PO QAM pantoprazole 40 mg tablet,delayed release (DR/EC) 40 mg PO DAILY Referrals Referrals: Rema Strickland MD [Primary Care Provider] -
[2025-02-04 14:53] LABS: Base Excess VBG 6.0 mEq/L; HCO3 VBG 32 mmol/L; Oxygen Saturation VBG 88.7 %; PCO2 VBG 52 mmHg (38-50); PO2 VBG 52 mmHg; pH VBG 7.40 (7.36-7.41)
[2025-02-04] MEDS: OPTIRAY 320 100ml IV ONE (14:54)
--- NOTE | 2025-02-04 14:55 | XRay Report ---
XR chest 1V portable CLINICAL HISTORY: stroke alert COMPARISON STUDY: 02/01/2025 FINDINGS: There is stable cardiomegaly without pulmonary vascular congestion. Inspiration is shallow. There is stable stranding opacity in the lung bases. No new consolidation or pleural effusion. No pn eumothorax. IMPRESSION: Stable exam. ACT 112: Negative or not required by law. Electronically signed by: Shalom Nino M.D. 02/04/2025 2:53 PM
[2025-02-04 15:02] LABS: Hematocrit (blood only) 45.3 % (37.0-47.0); Hemoglobin 14.5 g/dl (12.0-16.0); Mean Corpuscular Hemoglobin 29.7 pg (25.0-34.0); Mean Corpuscular Volume 92.8 fL (80.0-100.0); Platelet Count 219 K/uL (130-400); RDW Standard Deviation 55.8 fL (36.4-46.3); Red Blood Count 4.88 M/uL (4.20-5.40); White Blood Count 7.13 K/ul (4.8-10.8)
--- NOTE | 2025-02-04 15:11 | CT Scan Report ---
CT SCAN OF THE BRAIN WITHOUT IV CONTRAST CLINICAL HISTORY: Neurological deficit. Stroke like symptoms. COMPARISON STUDY: CT of the brain dated 02/01/2025. TECHNIQUE: Unenhanced axial CT scan of the brain is performed from the vertex to the skull base. Imag es are reviewed in the axial, sagittal, coronal planes. A dose lowering technique was utilized adheri ng to the principles of ALARA. The examination is modestly degraded by motion artifact. FINDINGS: Brain parenchyma: There is age-related involutional change noting mild to moderate subcortical and pe riventricular microangiopathic disease. A small chronic lacunar infarct is noted in the right interna l capsule. There is no hemorrhage, mass effect, or evidence of acute territorial ischemia by CT crite george. León-white matter differentiation is preserved. No extra-axial fluid collection is seen. Ventricles, sulci, cisterns: Prominent secondary to involutional change. Intracranial vasculature: There is atherosclerotic calcification of the cavernous carotid and vertebr al arteries. Calvarium: Unremarkable. Sinuses and mastoids: There is subtotal opacification of the left maxillary antrum. Mild to moderate mucosal thickening seen within the right maxillary sinus. There is mild mucosal thickening within the ethmoid sinuses. There are bilateral mastoid effusions. Orbits: The bony orbits are grossly intact. There are bilateral ocular lens implants. IMPRESSION: There is no hemorrhage, mass effect, or evidence of acute territorial ischemia by CT davidt taj. ACT 112: Negative or not required by law. Electronically signed by: Carlos Echevarria M.D. 02/04/2025 3:09 PM
--- NOTE | 2025-02-04 15:13 | CT Scan Report ---
CT SCAN OF THE ABDOMEN AND PELVIS WITH IV CONTRAST CLINICAL HISTORY: Trauma. COMPARISON STUDY: CT of the abdomen and pelvis December 10, 2024. TECHNIQUE: Following the IV administration of 93 cc of Optiray 320, CT scan of the abdomen and pelvi s is performed from the lung bases to the proximal femora. Images are reviewed in the axial, sagittal , and coronal planes. IV contrast was administered without complication. A dose lowering technique wa s utilized adhering to the principles of ALARA. CT DOSE: 3558.26 mGy.cm FINDINGS: Cardiomegaly is again noted. Densities within the right middle lobe and lingula suggest ate lectasis. Ground glass opacities within the lower lobes also favor atelectasis. No hemoperitoneum or pneumoperitoneum is present. There is no evidence for hepatic injury to the liver, spleen, adrenal gl ands, kidneys or pancreas. There is no biliary or pancreatic ductal dilatation. Several small bilater al renal cysts are present. There is no hydronephrosis. There is no free fluid. Caliber and wall thic kness of small and large bowel are normal. There is colonic diverticulosis without evidence for acute diverticulitis. No acute lumbar spine, pelvis or hip fractures are identified. Disc space narrowing is most pronounced at the L2-L3 level. The bladder is distended. IMPRESSION: No acute traumatic findings within the abdomen or pelvis. ACT 112: Negative or not required by law. Electronically signed by: Rolly Montemayor M.D. 02/04/2025 3:11 PM
--- NOTE | 2025-02-04 15:14 | CT Scan Report ---
CT cervical spine wo con CLINICAL HISTORY: trauma. COMPARISON: 12/10/2024 TECHNIQUE: Multiple axial CT images of the cervical spine were obtained without contrast. A dose low ering technique was utilized adhering to the principles of ALARA. FINDINGS: There is mild motion artifacts. There are moderate degenerative changes at the lower cervic al spine. No cervical spine fracture or subluxation seen. There is mucosal thickening and fluid in th e left maxillary sinus. Majority of the left mastoid air cells are opacified. IMPRESSION: No cervical spine fracture seen. ACT 112: Negative or not required by law. The above report was generated using voice recognition software. It may contain grammatical, syntax o r spelling errors. Electronically signed by: Shalom Nino M.D. 02/04/2025 3:12 PM
[2025-02-04 15:19] LABS: Alanine Aminotransferase 66.0 U/L (7-52); Albumin Globulin Ratio 2.0 (0.9-2); Alkaline Phosphatase 140.0 U/L (34-104); Anion Gap 8.0 (3-11); Bilirubin,Total 0.4 mg/dl (0.2-1.0); Blood Urea Nitrogen 10.0 mg/dl (6-23); Calcium 9.1 mg/dl (8.6-10.3); Carbon Dioxide 31.0 mmol/L (21-32); Chloride 104.0 mmol/L (98-107); Creatinine Clr Calc Pharmacy 67.8 ml/min; Globulin 2.0 gm/dl (2.5-4.0); Glucose 105.0 mg/dl (70-99(Fasting)); Magnesium 2.0 mg/dl (1.7-2.4); Potassium 4.1 mmol/L (3.5-5.1); Sodium 143.0 mmol/L (136-145); Total Protein 6.1 gm/dl (6.0-8.3)
--- NOTE | 2025-02-04 15:23 | CT Scan Report ---
CHEST CT WITH CONTRAST CT DOSE: 3558 HISTORY: trauma TECHNIQUE: Multiaxial CT images of the chest were performed following the IV administration of 90 cc of Optiray. A dose lowering technique was utilized adhering to the principles of ALARA. COMPARISON STUDY: 01/22/2025 FINDINGS: There are mild airway secretions. There is mild dependent atelectasis in the lower lobes. T here is no pulmonary contusion, pleural effusion, or pneumothorax. There is a stable 2.6 cm oval hypo dense finding at the left axilla with fluid density. No enlarged adenopathy. No pericardial effusion. No evidence of thoracic aortic injury. No mediastinal hematoma. No acute fracture seen at the visual ized osseous structures. IMPRESSION: No acute injury seen at the chest. ACT 112: Negative or not required by law. Electronically signed by: Shalom Nino M.D. 02/04/2025 3:21 PM
[2025-02-04 15:32] LABS: INR 1.0 (0.9-1.1); Partial Thromboplastin Time 30 Seconds (21-31); Prothrombin Time 10.6 Seconds (9.0-12.0)
[2025-02-04] MEDS: ALBUT/IPRATROP 3MG/0.5MG NEB 3 ML VIAL NEB STA ×2 (15:32→15:38)
--- NOTE | 2025-02-04 17:43 | History & Physical Report ---
Date of Service February 04, 2025 Assessment & Plan (1) Acute metabolic encephalopathy: (2) COPD exacerbation: (3) Pneumonia: (4) History of pulmonary embolus (PE): (5) Hypoxia: (6) History of deep vein thrombosis: (7) Recurrent falls: (8) PTSD (post-traumatic stress disorder): (9) Tobacco abuse: (10) Hypertension: (11) Depression: (12) Hx of gastric ulcer: Plan 69yo female with recent hospitalization at [facility] from 01/22 to 01/25 for PEs/LLE DVT, COPD, ongoing tobacco dependence, prior heavy etoh use, prior PUD, pneumonia in December 2024, and HTN presents from home with multiple falls, slurred speech, difficulty ambulating, dropping things with her hands, cough, and shortness of breath. Per records she was discharged to home on 2 liters [place] O2 with ambulation after her stay for the PEs but she reports the canister "ran out" of oxygen. She was discharged to home on Eliquis for anticoagulation. #acute metabolic encephalopathy - -exact etiology uncertain, but unless something else is found will presume she is confused as a result of suspected pneumonia/COPD exacerbation -to date extensive head imaging including recent CTA head/neck are all negative for acute findings -VBG without significant hypercapnia -etoh level negative -respiratory biofire today negative -TSH earlier this spring was normal -will check an ammonia level -check CRP -consider tox screen -B12 level earlier this year was low; will repeat -if all of the above are negative/normal consider MRI brain -given the lethargy will HOLD gabapentin and HOLD doxepin; continue her abilify and wellbutrin; these meds should not be causing her clinical presentation #suspected pneumonia - -b/l basilar groundglass opacities, then RML/RLL infiltrates on today's CT -she had b/l pneumonia in December - uncertain how much of today's CT findings are new vs left over from December's illness -in light of cough/congestion/extensive wheezing & rales on exam/etc. - and given the CT findings - will treat for pneumonia again -given multiple hospitalizations will need to cover for gram negatives - thus, use cefepime -for atypicals - doxycycline -check MRSA swab - if negative defer on MRSA coverage #COPD exacerbation - -s/p steroids & nebs in ER -will cont solumedrol at 30mg IV q12h -schedule duonebs q6h -flutter valve/incentive mami -mucinex BID -NC O2 - keep sats low 90s -cont home inhalers #hypoxia - -recent PEs, COPD exacerbation, and suspected pneumonia likely all to blame -despite her LE edema I do not believe she has decompensated CHF #recent PEs with LLE DVT - -etiology uncertain -unprovoked? -once patient is more awake/alert will obtain more history -cont Eliquis 5mg BID #falls - -etiology? -due to hypoxia? -check B12 level -consider MRI brain -check ammonia level -check B1 level (whole blood) -will need PT/OT #abnormal LFTs - -new -serial LFTs -check ammonia -check CPK due to falls -liver on CT abd/pelvis unremarkable #h/o PUD / GERD - -cont PPI #tobacco dependence - -nicoderm patch 21mg/day -eligibility counselor to quit at some point during the stay #h/o prior etoh abuse - -she reports quitting years ago -etoh level negative #HTN - -BPs are normal or low-normal -hold olmesartan -hold HCTZ #PTSD / depression / anxiety - -with lethargy HOLD doxepin and HOLD gabapentin -cont abilify -cont clonazepam to avoid benzo withdrawal, but lower the dose from 1mg to 0.5mg -cont wellbutrin will contact family to obtain more collateral information History of Present Illness Chief Complaint: falls, slurred speech Primary Care Provider: Rema Strickland MD 69yo female with recent hospitalization at [facility] from 01/22 to 01/25 for PEs/LLE DVT, COPD, ongoing tobacco dependence, prior heavy etoh use, prior PUD, pneumonia in December 2024, and HTN. During my admission assessment no family were present at bedside, and the patient herself was quite sleepy/groggy. Thus, much of the history was taken from chart review and speaking with the ER attending physician. Fortunately in the latter half of my encounter with Ms Viveros she was awake enough to answer some questions. Her main complaints were weakness, feeling unsteady with walking, and cough. She also c/o dropping things with her hands. Per the ER attending physician she also has had multiple falls at home, slurred speech, and shortness of breath. Records indicate that on the day of discharge following her recent hospitalization 2 liters [place] Oxygen with ambulation was advised. She reports the canister "ran out" of oxygen at some point at home. She was also discharged to home on Eliquis for anticoagulation for the PEs/DVT. Looking through her records she came back to the [facility] ER on 02/01 for ongoing LE edema b/l as well as slurred speech. She underwent CTA head & neck along with head CT - all three studies were norm al/negative. She was discharged from the ER and advised to have f/u with her PCP. Allergies Allergy/AdvReac Type Severity Reaction Status Date / Time No Known Allergies Allergy Verified 02/04/25 11:10 Home Medications Medication Instructions Recorded Confirmed Type aripiprazole 5 mg tablet (Abilify) 5 mg PO QAM 08/31/20 02/04/25 History clonazepam 1 mg tablet (Klonopin) 1 mg PO BID PRN Anxiety 08/31/20 02/04/25 History bupropion HCl 300 mg 24 hr tablet, 300 mg PO QAM 05/23/22 02/04/25 History extended release calcium 500 mg (as 1 tab PO QAM 09/19/22 02/04/25 History carbonate)-vitamin D3 5 mcg (200 unit) tablet (Calcium 500 + D) magnesium 250 mg tablet 250 mg PO QAM 09/19/22 02/04/25 History vitamin B comp and C no.3 15 mg-10 1 cap PO QAM 11/25/23 02/04/25 History mg-50 mg-5 mg-300 mg capsule (B Complex Plus Vitamin C) hydrochlorothiazide 25 mg tablet 25 mg PO QAM #90 tabs 10/18/24 02/04/25 Rx gabapentin 600 mg tablet 600 mg PO BID #180 tabs 12/07/24 02/04/25 Rx olmesartan 5 mg tablet (Benicar) 10 mg (2 x 5 mg) PO QAM #180 tabs 12/07/24 02/04/25 Rx cholecalciferol (vitamin D3) 50 50 mcg PO DAILY #90 caps 12/17/24 02/04/25 Rx mcg (2,000 unit) capsule doxepin 100 mg capsule 200 mg PO HS 01/22/25 02/04/25 History mecobalamin (vitamin B12) 1,000 1,000 mcg PO QAM 01/22/25 02/04/25 History mcg chewable tablet albuterol sulfate 90 mcg/actuation 1 inh inhalation QID PRN shortness 02/02/25 02/04/25 Rx aerosol inhaler of breath or wheezing #20.1 grams apixaban 5 mg (74 tabs) tablets in 5 mg PO BID #180 ea 02/04/25 02/04/25 Rx a dose pack (Eliquis) pantoprazole 40 mg tablet,delayed 40 mg PO DAILY 02/04/25 02/04/25 History release Past Med/Surg History Problem List (Updated 02/04/25 @ 21:34 by Miah Herrera MD) Acute metabolic encephalopathy Recurrent falls (Acute) COPD exacerbation (Acute) Hypoxia (Acute) Slurring of speech (Acute) History of deep vein thrombosis (Acute) History of pulmonary embolus (PE) (Acute) Localized swelling of both lower legs (Acute) Shortness of breath (Acute) Hypoxic (Acute) Acute pulmonary embolism Hypertensive urgency CAP (community acquired pneumonia) Hypoxia (Acute) Bilateral leg weakness (Acute) Multifocal pneumonia (Acute) Acute hypoxic respiratory failure Dysphagia Esophageal stenosis Elevated hemoglobin History of adenomatous polyp of colon Osteopenia Gait disturbance Imaging abnormalities Thoracic aorta atherosclerosis on CT chest Screening for lung cancer Hyperpigmented skin lesion Lumbar back pain with radiculopathy affecting right lower extremity Restless leg Numbness and tingling of both lower extremities PTSD (post-traumatic stress disorder) Gastric ulcer Esophageal dysphagia Asymptomatic menopause Vitamin D deficiency disease Vitamin B12 deficiency Tobacco abuse COPD (chronic obstructive pulmonary disease) Abnormal PFT Hypercholesterolemia Health care maintenance Nicotine dependence Low back pain LVH (left ventricular hypertrophy) Insomnia Hyperglycemia Generalized osteoarthritis of multiple sites Fecal incontinence Essential hypertriglyceridemia EKG, abnormal Disc degeneration, lumbar Anxiety disorder Adenomatous polyp of colon Hypertension Medical History (Updated 02/04/25 @ 21:34 by Miah Herrera MD) Left leg DVT 01/2025 Pulmonary embolism 01/2025 Fall Sepsis Acute kidney injury Nocturia Restless leg syndrome Thoracic aorta atherosclerosis Osteopenia PTSD (post-traumatic stress disorder) Generalized osteoarthritis Hx of gastric ulcer Gait disturbance pt denies Essential hypertriglyceridemia EKG, abnormal pt unaware Disc degeneration, lumbar Hx of colonic polyps History of esophageal dilatation (09/2022) LVH (left ventricular hypertrophy) Hypertension Insomnia Anxiety Swelling of both ankles pt denies History of anesthesia reaction "comes out of anesthesia too fast" and "not out fully with my last colonoscopy" COPD (chronic obstructive pulmonary disease) inh prn History of pneumonia (05/2022) admitted to [facility] 05/2022 Substance abuse or dependence Hypocalcemia Smoker 20 cigarettes/day Depression Low back pain with sciatica Surgical History History of esophagogastroduodenoscopy (EGD) Hx of colonoscopy with polypectomy History of bilateral tubal ligation History of section History of tooth extraction all teeth History of phacoemulsification of cataract of both eyes with intraocular lens implantation Family History (Updated 02/04/25 @ 21:25 by Miah Herrera MD) Brother Family history of diabetes mellitus Prostate cancer Sister Family history of diabetes mellitus Mother Myocardial infarction Diabetes Congestive heart failure Father Diabetes Congestive heart failure Other No family history of adverse response to anesthesia Denies family history of Ovarian cancer Breast cancer Colorectal cancer Social History (Updated 02/04/25 @ 21:26 by Miah Herrera MD) Smoking Status: Current every day smoker Tobacco Type: Cigarettes Age Started Using Tobacco: 13; packs per day: 1; Cigarettes Per Day: pack/day; Second Hand Exposure: No; Do You Dip or Chew Tobacco: No; Tobacco Cessation Education Requested by Patient: No Hx Alcohol Use: Yes Alcohol type: beer Hx Substance Use: Yes Non-Prescribed Medications: Marijuana Last Used Substance: Unknown Preferred Language: Yemeni Communication Ability: Effective Visual Impairment: Limited Hearing Ability: Normal Car Shakeout Operator Required: No Beliefs That Will Affect Care: None marital status: Single Current Living Situation: Alone Current Living Situation Comment: lives in [place] current occupational status: disabled How many Children do You have: 2 How many Children do You have Comment: 1 son is ; estranged from daughter Other Information That Helps Us Care for You: No Feels Safe at Home: Yes Safety Concerns: Feels Safe At This Time Childhood Exposure to Second-Hand Smoke: No Diet: regular during the past year weight has: remained stable Dental Care, Regularly: Yes Physical Activity Frequency: Daily Physical Activity Frequency Comment: walking Seatbelt Use: always Sunscreen Use: Yes Assistive Devices: Denture - Upper and Denture - Lower Review of Systems Review of Systems: ROS was limited due to lethargy -- However, she denied recent fevers, URI symptoms, chest pain, abdominal pain, pain in any limb. Does c/o unsteadiness on her feet, falls, slurred speech, shakiness, dropping things with hands, cough/congestion/dyspnea. Physical Exam Physical Exam: gen - groggy/lethargic, does wake up to name being called, will answer questions; looks ill eyes - PERRL, sclera/conjunctiva injected HENT - MMM, no obvious lesions neck - no JVD, no lymph nodes, no obvious goiter heart - RRR, s1 s2, no murmur lungs - extensive wheezes on left, mild on right; crackles R base about [address] back; no crackles on left; mildly decreased BS R base; no increased work of breathing abd - soft, protuberant, BS+, NT, mild bruising on abdominal wall ext - pitting edema from feet to knees b/l, about 2+; pulses b/l feet 2+ skin - stasis changes/mild pink erythema of both shins, a little worse on left; mild pink erythema of lower abdominal wall and small bruise on mid-abdominal wall; no rash or cellulitis any location neuro - asterixis present; no facial droop; speech is dysarthric at times; strength 5/5 x 4 exts; DTRs 2+ b/l upper exts and patellar psych - sleepy, disoriented, poor historian musculo - no obvious trauma to arms or legs; passive ROM of arms/legs without pain; no deformities of arms/legs; palpation of b/l pelvis without pain Results & Data Results & Data Vital Signs (Past 12 Hours) Vital Signs Temp Pulse Pulse Resp BP BP Pulse Ox 02/04/25 17:00 74 20 93 02/04/25 17:00 37.3 C 81 20 117/65 02/04/25 16:05 75 02/04/25 15:49 02/04/25 15:33 78 21 95 02/04/25 15:31 122/68 02/04/25 15:31 122/68 02/04/25 15:12 79 22 93 02/04/25 15:04 135/69 02/04/25 14:40 95 02/04/25 14:40 75 19 135/69 92 02/04/25 14:40 36.5 C 82 18 125/68 92 02/04/25 14:24 36.6 C 93 H 18 115/76 88 L O2 Del Method O2 Flow Rate 02/04/25 17:00 Nasal Cannula 2 02/04/25 17:00 Nasal Cannula 2 02/04/25 16:05 02/04/25 15:49 Room Air 02/04/25 15:33 02/04/25 15:31 02/04/25 15:31 02/04/25 15:12 02/04/25 15:04 02/04/25 14:40 Nasal Cannula 2 02/04/25 14:40 Nasal Cannula 2 02/04/25 14:40 Nasal Cannula 2 02/04/25 14:24 Room Air Laboratory Results Laboratory Results - last 24 hr 02/04/25 02/04/25 02/04/25 14:45 14:47 14:48 WBC 7.13 RBC 4.88 Hgb 14.5 POC Hgb 15.0 Hct 45.3 POC Hct 44 MCV 92.8 MCH 29.7 MCHC 32.0 RDW Std Deviation 55.8 H RDW Coeff of Jamie 16.5 H Plt Count 219 MPV 10.1 PT 10.6 INR 1.0 APTT 30 PTT Ratio 1.1 VBG pH 7.40 VBG pCO2 52 H VBG pO2 52 VBG HCO3 32 VBG O2 Saturation 88.7 VBG Base Excess 6.0 POC Sodium 141 Sodium 143 POC Potassium 4.0 Potassium 4.1 POC Chloride 102 Chloride 104 Carbon Dioxide 31 POC Total CO2 28 Anion Gap 8 POC Anion Gap 16.0 POC BUN 9 BUN 10 Creatinine 0.74 POC Creatinine 0.8 Est Cr Clr Drug Dosing 67.8 eGFR 87.53 BUN/Creatinine Ratio 13.5 Glucose 105 H POC Glucose (other) 100 H Calcium 9.1 POC Ioniz Calcium Patti 1.20 Magnesium 2.0 Total Bilirubin 0.4 AST 34 ALT 66 H Alkaline Phosphatase 140 H Total Creatine Kinase 49 Troponin I High Sens 3.1 C-Reactive Protein Pending B-Natriuretic Peptide 12 Total Protein 6.1 Albumin 4.1 Globulin 2.0 L Albumin/Globulin Ratio 2.0 Nasal Screen MRSA (PCR) Ethyl Alcohol mg/dL < 10.0 Adenovirus (PCR) B. pertussis DNA (PCR) B.parapertussis DNA PCR C. pneumoniae DNA (PCR) Coronavirus OC43 (PCR) Coronavirus HKU1 (PCR) Coronavirus 229E (PCR) SARS-CoV-2 (PCR) Coronavirus NL63 (PCR) Human Metapneumovir PCR Influenza Type A (PCR) Influenza Type B (PCR) M. pneumoniae (PCR) Parainfluenza 1 (PCR) Parainfluenza 2 (PCR) Parainfluenza 3 (PCR) Parainfluenza 4 (PCR) RSV (PCR) Entero/Rhino (PCR) 02/04/25 02/04/25 17:27 19:14 WBC RBC Hgb POC Hgb Hct POC Hct MCV MCH MCHC RDW Std Deviation RDW Coeff of Jamie Plt Count MPV PT INR APTT PTT Ratio VBG pH VBG pCO2 VBG pO2 VBG HCO3 VBG O2 Saturation VBG Base Excess POC Sodium Sodium POC Potassium Potassium POC Chloride Chloride Carbon Dioxide POC Total CO2 Anion Gap POC Anion Gap POC BUN BUN Creatinine POC Creatinine Est Cr Clr Drug Dosing eGFR BUN/Creatinine Ratio Glucose POC Glucose (other) Calcium POC Ioniz Calcium Patti Magnesium Total Bilirubin AST ALT Alkaline Phosphatase Total Creatine Kinase Troponin I High Sens C-Reactive Protein B-Natriuretic Peptide Total Protein Albumin Globulin Albumin/Globulin Ratio Nasal Screen MRSA (PCR) Negative Ethyl Alcohol mg/dL Adenovirus (PCR) Not Detected B. pertussis DNA (PCR) Not Detected B.parapertussis DNA PCR Not Detected C. pneumoniae DNA (PCR) Not Detected Coronavirus OC43 (PCR) Not Detected Coronavirus HKU1 (PCR) Not Detected Coronavirus 229E (PCR) Not Detected SARS-CoV-2 (PCR) Not Detected Coronavirus NL63 (PCR) Not Detected Human Metapneumovir PCR Not Detected Influenza Type A (PCR) Not Detected Influenza Type B (PCR) Not Detected M. pneumoniae (PCR) Not Detected Parainfluenza 1 (PCR) Not Detected Parainfluenza 2 (PCR) Not Detected Parainfluenza 3 (PCR) Not Detected Parainfluenza 4 (PCR) Not Detected RSV (PCR) Not Detected Entero/Rhino (PCR) Not Detected Diagnostic Findings Chest X-Ray 02/04/25 14:30 XR chest 1V portable CLINICAL HISTORY: stroke alert COMPARISON STUDY: 02/01/2025 FINDINGS: There is stable cardiomegaly without pulmonary vascular congestion. Inspiration is shallow. There is stable stranding opacity in the lung bases. No new consolidation or pleural effusion. No pneumothorax. IMPRESSION: Stable exam. ACT 112: Negative or not required by law. Electronically signed by: Shalom Nino M.D. 02/04/2025 2:[address] 02/04/25 14:30 CT SCAN OF THE BRAIN WITHOUT IV CONTRAST CLINICAL HISTORY: Neurological deficit. Stroke like symptoms. COMPARISON STUDY: CT of the brain dated 02/01/2025. TECHNIQUE: Unenhanced axial CT scan of the brain is performed from the vertex to the skull base. Images are reviewed in the axial, sagittal, coronal planes. A dose lowering technique was utilized adhering to the principles of ALARA. The examination is modestly degraded by motion artifact. FINDINGS: Brain parenchyma: There is age-related involutional change noting mild to mode rate subcortical and periventricular microangiopathic disease. A small chronic lacunar infarct is noted in the right internal capsule. There is no hemorrhage, mass effect, or evidence of acute territorial ischemia by CT criteria. León- white matter differentiation is preserved. No extra-axial fluid collection is seen. Ventricles, sulci, cisterns: Prominent secondary to involutional change. Intracranial vasculature: There is atherosclerotic calcification of the cavernous carotid and vertebral arteries. Calvarium: Unremarkable. Sinuses and mastoids: There is subtotal opacification of the left maxillary antrum. Mild to moderate mucosal thickening seen within the right maxillary sinus. There is mild mucosal thickening within the ethmoid sinuses. There are bilateral mastoid effusions. Orbits: The bony orbits are grossly intact. There are bilateral ocular lens implants. IMPRESSION: There is no hemorrhage, mass effect, or evidence of acute territorial ischemia by CT criteria. ACT 112: Negative or not required by law. Electronically signed by: Carlos Echevarria M.D. 02/04/2025 3:09 PM Abdomen/Pelvis CT 02/04/25 14:41 CT SCAN OF THE ABDOMEN AND PELVIS WITH IV CONTRAST CLINICAL HISTORY: Trauma. COMPARISON STUDY: CT of the abdomen and pelvis December 10, 2024. TECHNIQUE: Following the IV administration of 93 cc of Optiray 320, CT scan of the abdomen and pelvis is performed from the lung bases to the proximal femora. Images are reviewed in the axial, sagittal, and coronal planes. IV contrast was administered without complication. A dose lowering technique was utilized adhering to the principles of ALARA. CT DOSE: 3558.26 mGy.cm FINDINGS: Cardiomegaly is again noted. Densities within the right middle lobe and lingula suggest atelectasis. Ground glass opacities within the lower lobes also favor atelectasis. No hemoperitoneum or pneumoperitoneum is present. There is no evidence for hepatic injury to the liver, spleen, adrenal glands, kidneys or pancreas. There is no biliary or pancreatic ductal dilatation. Several small bilateral renal cysts are present. There is no hydronephrosis. There is no free fluid. Caliber and wall thickness of small and large bowel are normal. There is colonic diverticulosis without evidence for acute diverticulitis. No acute lumbar spine, pelvis or hip fractures are identified. Disc space narrowing is most pronounced at the L2-L3 level. The bladder is distended. IMPRESSION: No acute traumatic findings within the abdomen or pelvis. ACT 112: Negative or not required by law. Electronically signed by: Rolly Montemayor M.D. 02/04/2025 3:[address] 02/04/25 14:41 CT cervical spine wo con CLINICAL HISTORY: trauma. COMPARISON: 12/10/2024 TECHNIQUE: Multiple axial CT images of the cervical spine were obtained without contrast. A dose lowering technique was utilized adhering to the principles of ALARA. FINDINGS: There is mild motion artifacts. There are moderate degenerative changes at the lower cervical spine. No cervical spine fracture or subluxation seen. There is mucosal thickening and fluid in the left maxillary sinus. Majority of the left mastoid air cells are opacified. IMPRESSION: No cervical spine fracture seen. ACT 112: Negative or not required by law. The above report was generated using voice recognition software. It may contain grammatical, syntax or spelling errors. Electronically signed by: Shalom Nino M.D. 02/04/2025 3:[address] 02/04/25 14:[address] WITH CONTRAST CT DOSE: 3558 HISTORY: trauma TECHNIQUE: Multiaxial CT images of the chest were performed following the IV administration of 90 cc of Optiray. A dose lowering technique was utilized adhering to the principles of ALARA. COMPARISON STUDY: 01/22/2025 FINDINGS: There are mild airway secretions. There is mild dependent atelectasis in the lower lobes. There is no pulmonary contusion, pleural effusion, or pneumothorax. There is a stable 2.6 cm oval hypodense finding at the left axilla with fluid density. No enlarged adenopathy. No pericardial effusion. No evidence of thoracic aortic injury. No mediastinal hematoma. No acute fracture seen at the visualized osseous structures. IMPRESSION: No acute injury seen at the chest. ACT 112: Negative or not required by law. Electronically signed by: Shalom Nino M.D. 02/04/2025 3:21 PM Code Status & VTE Plan Code Status DNR/DNI PG Care Time/CCT Total # of Minutes Spent Total Time Spent with Patient: Total time spent is greater than 50% in coordination of care (as documented) at patient's floor/unit and/or counseling patient: Coding Level of Care Code 40243 INT INP/OBS CARE 3/75MIN Diagnoses Acute metabolic encephalopathy G93.41 COPD exacerbation J44.1 Pneumonia J18.9 History of pulmonary embolus (PE) Z86.711 Hypoxia R09.02 History of deep vein thrombosis Z86.718 Recurrent falls R29.6 PTSD (post-traumatic stress disorder) F43.10 Tobacco abuse Z72.0 Hypertension I10 Depression F32.9 Hx of gastric ulcer Z87.11
[2025-02-04 17:59] LABS: Creatine Kinase 49.0 U/L (26-192)
[2025-02-04 18:46] LABS: Chlamydia pneumoniae PCR Not Detected (NotDetected); Coronavirus 229E PCR Not Detected (NotDetected); Coronavirus CoV-2 (COVID19)PCR Not Detected (NotDetected); Coronavirus HKU1 PCR Not Detected (NotDetected); Coronavirus NL63 PCR Not Detected (NotDetected); Coronavirus OC43PCR Not Detected (NotDetected); Human Metapneumovirus PCR Not Detected (NotDetected); Parainfluenza Virus 1 PCR Not Detected (NotDetected); Parainfluenza Virus 2 PCR Not Detected (NotDetected); Parainfluenza Virus 3 PCR Not Detected (NotDetected); Parainfluenza Virus 4 PCR Not Detected (NotDetected); Respiratory Syncytial VirusPCR Not Detected (NotDetected); Rhinovirus/Enterovirus PCR Not Detected (NotDetected)
[2025-02-04] MEDS: CEFEPIME 2000MG 2,000 MG/20 ML SYR IV STA (19:18)
[2025-02-04] MEDS: DOXYCYCLINE HYCLATE 100 MG in DEXTROSE 5% MINI-B 100 ML IV STA (19:46)
[2025-02-04] MEDS ORDERED: ACETAMINOPHEN 325 MG TAB PO PRN (22:05)
[2025-02-04] MEDS ORDERED: ONDANSETRON INJ 2 MG/ML 2 ML VIAL IV PRN (22:05)
[2025-02-04] MEDS: ALBUT/IPRATROP 3MG/0.5MG NEB 3 ML VIAL NEB SCH (22:28)
--- NOTE | 2025-02-04 23:10 | Electrocardiogram Report ---
Test Reason : Blood Pressure : */* mmHG Vent. Rate : 89 BPM Atrial Rate : 89 BPM P-R Int : 186 ms QRS Dur : 94 ms QT Int : 362 ms P-R-T Axes : 33 21 31 degrees QTcB Int : 440 ms Normal sinus rhythm Low voltage QRS Nonspecific T wave abnormality Abnormal ECG When compared with ECG of 01-Feb-2025 20:39, Left posterior fascicular block is no longer Present Confirmed by Sim Boss ([id number]) on 02/04/2025 11:09:55 PM Referred By: REFERRED SELF Confirmed By: Sim Boss
[2025-02-04] MEDS: guaiFENesin 600 MG TABCR PO SCH (23:49)
[2025-02-04] MEDS: APIXABAN 5 MG TABLET PO SCH (23:50)
[2025-02-04] MEDS: NICOTINE 21 MG/24 HR TDSY TD SCH (23:50)
[2025-02-05] MEDS: CEFEPIME 2000MG 2,000 MG/20 ML SYR IV SCH (04:50)
[2025-02-05 06:41] LABS: Amphetamines+Metham, Urine Neg (Neg); MDMA (Ecstacy), Urine Pos (Neg); Marijuana, Urine Neg (Neg)
[2025-02-05 07:48] LABS: Alanine Aminotransferase 50.0 U/L (7-52); Albumin Globulin Ratio 2.0 (0.9-2); Alkaline Phosphatase 124.0 U/L (34-104); Anion Gap 8.0 (3-11); Bilirubin,Total 0.4 mg/dl (0.2-1.0); Blood Urea Nitrogen 10.0 mg/dl (6-23); Calcium 8.8 mg/dl (8.6-10.3); Carbon Dioxide 29.0 mmol/L (21-32); Chloride 105.0 mmol/L (98-107); Creatinine Clr Calc Pharmacy 77.1 ml/min; Globulin 1.9 gm/dl (2.5-4.0); Glucose 157.0 mg/dl (70-99(Fasting)); Potassium 4.3 mmol/L (3.5-5.1); Sodium 142.0 mmol/L (136-145); Total Protein 5.7 gm/dl (6.0-8.3)
[2025-02-05] MEDS ORDERED: NON-FORMULARY MEDICATION (Fluticasone-Umeclidin-Vilanter [Trelegy Ellipta] 100-62.5-25 mcg inhalation SCH (09:00)
[2025-02-05] MEDS: DOXYCYCLINE HYCLATE 100 MG in DEXTROSE 5% MINI-B 100 ML IV SCH (09:00)
[2025-02-05] MEDS: REMOVE NICODERM PATCH SCH (09:09)
[2025-02-05] MEDS: ARIPiprazole 5 MG TAB PO SCH (09:10)
[2025-02-05] MEDS: CHOLECALCIFEROL 25 MCG (1000 UNITS) TAB PO SCH (09:10)
[2025-02-05] MEDS: CYANOCOBALAMIN (B-12) 500 MCG TABLET PO SCH (09:10)
[2025-02-05] MEDS: FLUTICASONE FUROATE 100MCG 14 PUFFS/INHALER INH SCH (09:11)
[2025-02-05] MEDS: UMECLIDINIUM/VILANTEROL 62.5/25MCG 7 PUFFS/INHALER INH SCH (09:11)
[2025-02-05] MEDS ORDERED: GLUCOSE 10 TAB/TUBE PO PRN (12:15)
[2025-02-05] MEDS ORDERED: GLUCOSE 40% GEL 15 GM TUBE PO PRN (12:15)
[2025-02-05] MEDS ORDERED: CARBOHYDRATES FOR HYPOGLYCEMIA PO PRN (12:15)
[2025-02-05] MEDS ORDERED: DEXTROSE 50% 50 ML SYRINGE IV PRN (12:15)
[2025-02-05] MEDS ORDERED: GLUCAGON FOR INJ 1 MG VIAL SQ PRN (12:15)
[2025-02-05] MEDS: INSULIN ASPART PER UNIT CHARGE SC SCH (14:34)
[2025-02-05] MEDS: clonazePAM 0.5 MG TAB PO PRN (14:43)
[2025-02-05] MEDS ORDERED: INSULIN ASPART PER UNIT CHARGE SC SCH (16:30)
--- NOTE | 2025-02-05 18:45 | Hospitalist Progress Note ---
Date of Service February 05, 2025 Assessment & Plan (1) Acute metabolic encephalopathy: (2) COPD exacerbation: (3) Pneumonia: (4) History of pulmonary embolus (PE): (5) Hypoxia: (6) History of deep vein thrombosis: (7) Recurrent falls: (8) PTSD (post-traumatic stress disorder): (9) Tobacco abuse: (10) Hypertension: (11) Depression: (12) Hx of gastric ulcer: (13) Abnormal toxicological findings: (14) Prediabetes: Plan 69yo female with recent hospitalization at [facility] from 01/22 to 01/25 for PEs/LLE DVT, COPD, ongoing tobacco dependence, prior heavy etoh use, prior PUD, pneumonia in December 2024, and HTN presents from home with multiple falls, slurred speech, difficulty ambulating, dropping things with her hands, cough, and shortness of breath. Per records she was discharged to home on 2 liters [place] O2 with ambulation after her stay for the PEs but she reports the canister "ran out" of oxygen. She was discharged to home on Eliquis for anticoagulation. #acute metabolic encephalopathy - resolved - -exact etiology uncertain, but given that she ran out of O2 at home (or cannister was shut off) and given her hypoxia upon admission - suspect hypoxia may have caused confusion at home -COPD exacerbation/pneumonia also likely played a role -extensive head imaging including recent CTA head/neck were all negative for acute findings -VBG without significant hypercapnia -etoh level negative -respiratory biofire negative -TSH earlier this spring was normal -ammonia level normal -CRP minimally elevated -tox screen + for XTC, but suspect false positive due to wellbutrin use -B12 level 384 -defer on MRI brain since she had such a rapid turn-around -I would still HOLD gabapentin and HOLD doxepin; continue her abilify and wellbutrin -can likely resume tomorrow #suspected pneumonia - -b/l basilar groundglass opacities, then RML/RLL infiltrates on chest CT -she had b/l pneumonia in December - uncertain how much of today's CT findings are new vs left over from December's illness -in light of cough/congestion/extensive wheezing & rales on exam/etc. at presentation - and given the CT findings - will treat for pneumonia again -given multiple hospitalizations will need to cover for gram negatives - thus, cont cefepime -for atypicals - doxycycline (can change IV to PO) -MRSA swab - -repeat cxr in am tomorrow #COPD exacerbation - IMPROVED - -s/p steroids & nebs in ER -can stop IV solumedrol, change to PO prednisone tomorrow on 02/06 -schedule duonebs q6h -flutter valve/incentive mami -mucinex BID -NC O2 - keep sats low 90s -cont home inhalers #hypoxia - -recent PEs, COPD exacerbation, and suspected pneumonia likely all to blame -despite her LE edema I do not believe she has decompensated CHF #recent PEs with LLE DVT - -etiology uncertain -unprovoked? -cont Eliquis 5mg BID -occult malignancy? -are some of the chest CT findings due to cancer? #falls - -due to hypoxia? -B12 level wnl -ammonia wnl -B1 level pending -obtain PT/OT evals #abnormal LFTs - -new, but already improved -uncertain cause -ammonia & CPK wnl -liver on CT abd/pelvis unremarkable #h/o PUD / GERD - -cont PPI #tobacco dependence - -nicoderm patch 21mg/day -career guidance counselor to quit #h/o prior etoh abuse - -she reports quitting years ago -etoh level negative #HTN - -BPs are normal or low-normal -can resume olmesartan -hold HCTZ #PTSD / depression / anxiety - -with lethargy HOLD doxepin and HOLD gabapentin -cont abilify -cont clonazepam - increase back to 1mg each dose -cont wellbutrin observe at least another 24 hours will d/w social work her home O2 issues Admission and Anticipated Discharge Date Admission Date: February 04, 2025 Subjective patient very anxious to return home her slurred speech is fully resolved she is awake/alert today she feels very well her breathing is better minimal cough today she is eating well denies dyspnea at rest we discussed her home O2 -- she thinks either the portable tank ran out OR she didn't have it on she never had a stationary oxygen concentrator at home case management found out that the O2 provider tried calling her to deliver the stationary unit to her home but she did not answer her phone tele overnight wnl Review of Systems Review of Systems: gen - no fevers or chills cv - no chest pain or tightness GI - no N/V psych - tearful, anxious Physical Exam Physical Exam: gen - very awake, alert, oriented today - MUCH better in comparison to yesterday eyes - sclera/conjunctiva injection improved HENT - MMM neck - no JVD heart - RRR, s1 s2, no murmur lungs - extensive wheezes improved/resolved; mildly decreased BS R base, minimally decreased BS L base; scattered crackle bases abd - soft, NT, ND, BS+ ext - pitting edema from feet to knees b/l improved today; pulses b/l feet 2+ skin - stasis changes of both shins improved psych - a/o x 3 today Results & Data Results & Data Vital Signs (Past 12 Hours) Vital Signs Temp Pulse Pulse Resp BP Pulse Ox O2 Del Method 02/05/25 16:03 36.6 C 101 H 20 144/81 H 90 Room Air 02/05/25 15:08 92 H 20 92 Room Air 02/05/25 15:00 96 H 02/05/25 11:39 36.4 C L 100 H 22 159/85 H 90 Room Air 02/05/25 10:23 94 H 18 91 Room Air 02/05/25 08:03 36.4 C L 70 23 157/82 H 97 Nasal Cannula 02/05/25 07:35 73 02/05/25 07:30 Room Air 02/05/25 07:29 74 18 90 Nasal Cannula O2 Flow Rate 02/05/25 16:03 02/05/25 15:08 02/05/25 15:00 02/05/25 11:39 02/05/25 10:23 02/05/25 08:03 2 02/05/25 07:35 02/05/25 07:30 02/05/25 07:29 0.5 Laboratory Results Laboratory Results - last 24 hr 02/04/25 02/04/25 02/04/25 14:45 17:27 19:14 Sodium Potassium Chloride Carbon Dioxide Anion Gap BUN Creatinine Est Cr Clr Drug Dosing eGFR BUN/Creatinine Ratio Glucose POC Glucose Calcium Total Bilirubin AST ALT Alkaline Phosphatase Ammonia C-Reactive Protein 1.65 H Total Protein Albumin Globulin Albumin/Globulin Ratio Whole Bld Vitamin B1 Vitamin B12 Nasal Screen MRSA (PCR) Negative Urine Opiates Screen Ur Methadone, Qual Urine Fentanyl Screen Urine Barbiturates Ur Phencyclidine (PCP) U Amphetamin/Meth Scrn Urine MDEA MDMA (Ecstasy) Screen MDMA Urine MDMA U Benzodiazepines Scrn Ur Cocaine Metabolite U Marijuana (THC) Screen Adenovirus (PCR) Not Detected B. pertussis DNA (PCR) Not Detected B.parapertussis DNA PCR Not Detected C. pneumoniae DNA (PCR) Not Detected Coronavirus OC43 (PCR) Not Detected Coronavirus HKU1 (PCR) Not Detected Coronavirus 229E (PCR) Not Detected SARS-CoV-2 (PCR) Not Detected Coronavirus NL63 (PCR) Not Detected Human Metapneumovir PCR Not Detected Influenza Type A (PCR) Not Detected Influenza Type B (PCR) Not Detected M. pneumoniae (PCR) Not Detected Parainfluenza 1 (PCR) Not Detected Parainfluenza 2 (PCR) Not Detected Parainfluenza 3 (PCR) Not Detected Parainfluenza 4 (PCR) Not Detected RSV (PCR) Not Detected Entero/Rhino (PCR) Not Detected 02/04/25 02/05/25 02/05/25 21:47 05:45 11:39 Sodium 142 Potassium 4.3 Chloride 105 Carbon Dioxide 29 Anion Gap 8 BUN 10 Creatinine 0.66 Est Cr Clr Drug Dosing 77.1 eGFR 94.90 BUN/Creatinine Ratio 15.2 Glucose 157 H POC Glucose 246 H Calcium 8.8 Total Bilirubin 0.4 AST 18 ALT 50 Alkaline Phosphatase 124 H Ammonia 34.0 C-Reactive Protein Total Protein 5.7 L Albumin 3.8 Globulin 1.9 L Albumin/Globulin Ratio 2.0 Whole Bld Vitamin B1 Pending Vitamin B12 384 Nasal Screen MRSA (PCR) Urine Opiates Screen Ur Methadone, Qual Urine Fentanyl Screen Urine Barbiturates Ur Phencyclidine (PCP) U Amphetamin/Meth Scrn Urine MDEA MDMA (Ecstasy) Screen MDMA Urine MDMA U Benzodiazepines Scrn Ur Cocaine Metabolite U Marijuana (THC) Screen Adenovirus (PCR) B. pertussis DNA (PCR) B.parapertussis DNA PCR C. pneumoniae DNA (PCR) Coronavirus OC43 (PCR) Coronavirus HKU1 (PCR) Coronavirus 229E (PCR) SARS-CoV-2 (PCR) Coronavirus NL63 (PCR) Human Metapneumovir PCR Influenza Type A (PCR) Influenza Type B (PCR) M. pneumoniae (PCR) Parainfluenza 1 (PCR) Parainfluenza 2 (PCR) Parainfluenza 3 (PCR) Parainfluenza 4 (PCR) RSV (PCR) Entero/Rhino (PCR) 02/05/25 02/05/25 16:50 Unknown Sodium Potassium Chloride Carbon Dioxide Anion Gap BUN Creatinine Est Cr Clr Drug Dosing eGFR BUN/Creatinine Ratio Glucose POC Glucose 143 H Calcium Total Bilirubin AST ALT Alkaline Phosphatase Ammonia C-Reactive Protein Total Protein Albumin Globulin Albumin/Globulin Ratio Whole Bld Vitamin B1 Vitamin B12 Nasal Screen MRSA (PCR) Urine Opiates Screen Neg Ur Methadone, Qual Neg Urine Fentanyl Screen Neg Urine Barbiturates Neg Ur Phencyclidine (PCP) Neg U Amphetamin/Meth Scrn Neg Urine MDEA Pending MDMA (Ecstasy) Screen Pos H MDMA Pending Urine MDMA Pending U Benzodiazepines Scrn Neg Ur Cocaine Metabolite Neg U Marijuana (THC) Screen Neg Adenovirus (PCR) B. pertussis DNA (PCR) B.parapertussis DNA PCR C. pneumoniae DNA (PCR) Coronavirus OC43 (PCR) Coronavirus HKU1 (PCR) Coronavirus 229E (PCR) SARS-CoV-2 (PCR) Coronavirus NL63 (PCR) Human Metapneumovir PCR Influenza Type A (PCR) Influenza Type B (PCR) M. pneumoniae (PCR) Parainfluenza 1 (PCR) Parainfluenza 2 (PCR) Parainfluenza 3 (PCR) Parainfluenza 4 (PCR) RSV (PCR) Entero/Rhino (PCR) PG Care Time/CCT Total # of Minutes Spent Total Time Spent with Patient: Total time spent is greater than 50% in coordination of care (as documented) at patient's floor/unit and/or counseling patient: Coding Level of Care Code 51852 SUB INP/OBS CARE 3/50MIN Diagnoses Acute metabolic encephalopathy G93.41 COPD exacerbation J44.1 Pneumonia J18.9 History of pulmonary embolus (PE) Z86.711 Hypoxia R09.02 History of deep vein thrombosis Z86.718 Recurrent falls R29.6 PTSD (post-traumatic stress disorder) F43.10 Tobacco abuse Z72.0 Hypertension I10 Depression F32.9 Hx of gastric ulcer Z87.11 Abnormal toxicological findings R89.2 Prediabetes R73.03
[2025-02-05] MEDS: DOXYCYCLINE HYCLATE 100 MG CAP PO SCH (20:16)
[2025-02-06] MEDS: predniSONE 20 MG TAB PO SCH (07:46)
[2025-02-06 08:15] LABS: Hemoglobin A1C 5.9 % (4.5-5.6)
[2025-02-06] MEDS: GABAPENTIN 300 MG CAP PO SCH (09:55)
[2025-02-06] MEDS: clonazePAM 1 MG TAB PO PRN (09:58)
--- NOTE | 2025-02-06 10:08 | XRay Report ---
TWO VIEW CHEST CLINICAL HISTORY: Follow-up airspace consolidation. FINDINGS: PA and lateral chest radiographs are compared to chest x-ray and chest CT dated 02/04/2025. T he heart is enlarged noting Atherosclerotic calcification of the thoracic aorta. The pulmonary vascul ature is noncongested. There is bibasilar scarring/atelectasis. No airspace consolidation typical for pneumonia or pleural effusion is identified. There is no pneumothorax. The skeletal structures are o steopenic. There is chronic deformity of the left proximal humerus. IMPRESSION: 1. Cardiomegaly without radiographic evidence of congestive failure. 2. No airspace consolidation typical for pneumonia or pleural effusion is identified. ACT 112: Negative or not required by law. Electronically signed by: Carlos Echevarria M.D. 02/06/2025 10:05 AM
[2025-02-06] MEDS: FUROSEMIDE INJ 20 MG/2 ML VIAL IV ONE (11:19)
[2025-02-06] MEDS: MAGNESIUM OXIDE 400 MG TAB PO SCH (11:19)
[2025-02-06] MEDS: POTASSIUM CHLORIDE CRTAB 20 MEQ TABCR PO STA (11:19)
[2025-02-06] MEDS: LOSARTAN POTASSIUM 50 MG TAB PO SCH (12:52)
[2025-02-06 15:58] VITALS: BP 138/97; RESP 21; TEMP 97.9; O2SAT 93
[2025-02-06 16:42] VITALS: PULSE 70
--- NOTE | 2025-02-06 16:59 | Discharge Summary ---
Discharge Summary Date of Service date of admission - February 04, 2025 date of discharge - February 06, 2025 Principal Dx & Hospital Course #1 = Principal Diagnosis (1) Acute metabolic encephalopathy: (2) COPD exacerbation: (3) Pneumonia: (4) History of pulmonary embolus (PE): (5) Hypoxia: (6) History of deep vein thrombosis: (7) Recurrent falls: (8) PTSD (post-traumatic stress disorder): (9) Tobacco abuse: (10) Hypertension: (11) Depression: (12) Hx of gastric ulcer: (13) Abnormal toxicological findings: (14) Prediabetes: (15) Leg edema: Plan 69yo female with recent hospitalization at [facility] from 01/22 to 01/25 for PEs/LLE DVT; COPD, ongoing tobacco dependence, prior heavy etoh use, prior peptic ulcer disease, pneumonia in December 2024, and HTN. Presented from home with multiple falls, slurred speech, difficulty ambulating, dropping things with her hands, cough, and shortness of breath. Per records she was discharged to home on 2 liters [place] O2 with ambulation after her stay for the PEs but she reports the canister "ran out" of oxygen. She was discharged to home on Eliquis for anticoagulation. #acute metabolic encephalopathy - resolved - -exact etiology uncertain, but given that she ran out of O2 at home (or the canister shut off) and given her hypoxia upon admission --> suspect hypoxia may have caused confusion at home -COPD exacerbation/pneumonia also likely played a role -extensive head imaging including recent CTA head/neck (02/01/25) were all negative for acute findings -VBG without significant hypercapnia -etoh level negative -respiratory biofire negative -TSH earlier this spring was normal -ammonia level normal -CRP minimally elevated -tox screen + for XTC, but suspect false positive due to wellbutrin use -B12 level 384 -MRI brain was deferred since she had such a rapid improvement in her mental status #suspected pneumonia - -patient had b/l basilar groundglass opacities as well as RML infiltrates on CT imaging during this stay -she had b/l pneumonia in December - uncertain how much of this admission's CT findings were new vs left over from December's illness -in light of cough/congestion/extensive wheezing & rales on exam/etc. at presentation - and given the CT findings - treated for pneumonia again -given multiple hospitalizations covered for gram negatives - thus, she was on cefepime while here -for atypicals - doxycycline -MRSA swab was negative -repeat cxr on 02/06/25 was stable -at discharge advised the following: -cefdinir 300mg twice daily x 5 days -doxycycline 100mg twice daily x 5 days -will send to [facility] for PFTs, repeat imaging in the future, etc. #COPD exacerbation - IMPROVED - -s/p steroids & nebs while here with improved symptoms -changed to PO prednisone on 02/06/25 -continue NC O2 - 2 liters with activity -cont home inhalers -will finish a prednisone taper post-discharge -again will send to [facility] -finish cefdinir/doxycycline courses -gave script for duonebs prn and she will have a nebulizer machine delivered by her O2 company #hypoxia - -recent PEs, COPD exacerbation, and suspected pneumonia likely all to blame -patient had significant LE edema while hospitalized -although chest x-ray did not show overt pulmonary edema, I do think that patient probably had an element of pulmonary edema -on day of discharge she received a dose of IV lasix with copious diuresis -on 02/07/25 advised 40mg x 1 of PO lasix -on 02/08/25 advised 20mg x 1 of PO lasix -on 02/09/25 and thereafter take 20mg PO lasix each morning -uncertain if she will need the lasix indefinitely - defer to outpatient providers -recommended daily weights upon return home in light of the recent edema/volume issues #recent PEs with LLE DVT - -etiology uncertain -unprovoked? -cont Eliquis 5mg BID -occult malignancy? -are some of the chest CT findings due to cancer? -advised follow-up with [facility] #falls - -due to hypoxia/illness? -B12 level wnl -ammonia wnl -B1 level was wnl -despite the falls at home the patient had normal gait while here, was walking the hallways without difficulty, etc. #abnormal LFTs - -new, but already improved/resolved -uncertain cause -ammonia & CPK wnl -liver on CT abd/pelvis unremarkable #h/o PUD / GERD - -cont PPI #tobacco dependence - -nicoderm patch 21mg/day -counseled to quit #h/o prior etoh abuse - -she reports quitting years ago -etoh level negative #HTN - -BPs were normal or low-normal while here -can resume olmesartan -hold HCTZ since we are adding furosemide #PTSD / depression / anxiety - -cont abilify -cont clonazepam -cont wellbutrin -cont doxepin -cont gabapentin social work was heavily involved to ensure that patient had her O2 available at home social work confirmed she will have a stationary O2 unit at home as well as portable O2 Notes For Next Care Provider Medication Changes From Visit 1. cefdinir/doxycycline x 5 days 2. duonebs prn 3. prednisone course 4. lasix 20mg qam 5. potassium supplement 10meq daily Admission HPI Per Admitting Provider 69yo female with recent hospitalization at [facility] from 01/22 to 01/25 for PEs/LLE DVT, COPD, ongoing tobacco dependence, prior heavy etoh use, prior PUD, pneumonia in December 2024, and HTN. During my admission assessment no family were present at bedside, and the patient herself was quite sleepy/groggy. Thus, much of the history was taken from chart review and speaking with the ER attending physician. Fortunately in the latter half of my encounter with Ms Viverso she was awake enough to answer some questions. Her main complaints were weakness, feeling unsteady with walking, and cough. She also c/o dropping things with her hands. Per the ER attending physician she also has had multiple falls at home, slurred speech, and shortness of breath. Records indicate that on the day of discharge following her recent hospitalization 2 liters [place] Oxygen with ambulation was advised. She reports the canister "ran out" of oxygen at some point at home. She was also discharged to home on Eliquis for anticoagulation for the PEs/DVT. Looking through her records she came back to the [facility] ER on 02/01 for ongoing LE edema b/l as well as slurred speech. She underwent CTA head & neck along with head CT - all three studies were normal/negative. She was discharged from the ER and advised to have f/u with her PCP. Discharge Exam gen - awake, alert, oriented; NAD eyes - sclera/conjunctiva injection resolved HENT - MMM neck - no JVD heart - RRR, s1 s2, no murmur lungs - extensive wheezes resolved; crackles b/l bases; no increased work of breathing abd - soft, NT, ND, BS+ ext - 1+ pitting edema from feet to knees b/l; edema improved relative to admission; pulses b/l feet 2+ skin - stasis changes of both shins improved psych - a/o x 3 today Discharge Plan Discharge Items Patient Disposition: Home - Self-Care Reason For Visit: ACUTE METABOLIC ENCEPHALOPATHY, HYPOXIA Discharge Diagnosis: 1. acute metabolic encephalopathy (confusion/lethargy) - resolved; suspected to be due to low oxygen levels 2. hypoxia (low oxygen levels) - due to recent blood clots in the lungs, suspected fluid build-up in the lungs, and possible pneumonia 3. recent pulmonary emboli (blood clots in the lungs) 4. left leg DVT blood clot 5. possible/suspected pneumonia 6. pulmonary edema (fluid build-up in the lungs) 7. COPD 8. PRE-diabetes 9. falls Activity: As commented below Activity Comment: gradually increase activities over the next 5-7 days Non-emergency contact: Primary Care Provider Call non-emergency contact if: you have any medication questions, your symptoms worsen and you have a fever Follow-up/Referrals: Rema Strickland MD [Primary Care Provider] - 02/16/25 11:00 am (5-7 days Primary Care hospital follow up scheduled 02/16/25 at 11:00 with Felicitas Coto) Tong Rivera MD, [facility] [Physician] - (we will coordinate an appointment with [facility] (lung doctor) for you ) Diet: Carb Consistent or DM2 Addtl Attending Provider Instructions: Ms Viveros, You were hospitalized after having had falls, confusion, sleepiness, and simply feeling unwell. Upon presentation to [facility] your oxygen levels were low. I suspect that low oxygen was contributing to your symptoms especially the confusion & sleepiness. When you were first admitted you had severe wheezing. CT scan of the lungs showed possible pneumonia particularly at the bottom of the right lung. You received IV antibiotics for this. Neb treatments, steroids, and other supportive care were given for the wheezing. You improved nicely with all of the above. In addition, you appeared to be retaining water not just in your legs but also probably in your lungs. You received a dose of IV diuretic ("water pill") and you responded very nicely to this. Technically speaking when there is water in the lungs this would be from a form of congestive heart failure. However, your recent echocardiogram showed normal heart function/normal squeezing of the heart muscle. I suspect that in the midst of your recent illnesses this placed stress on the heart leading to the additional fluid build-up. The fluid issues can be controlled with medicine. Recommendations - 1. please use your oxygen - 2 liters - with any activity/ambulation and when you leave your home. You can remove the oxygen when sitting, sleeping, etc. 2. for suspected pneumonia - -cefdinir 300mg twice daily x 5 days, first dose tomorrow morning -doxycycline 100mg twice daily x 5 days, first dose tomorrow morning -most common side effect of both antibiotics - diarrhea -the doxycycline can cause stomach upset -the doxycycline can also cause a rash if you go out in the sun while taking the antibiotic; thus, please use sunscreen regularly over the next week 3. for fluid build-up legs/lungs - -take furosemide 40mg (20mg x 2 tablets) morning of 02/07/2025 -take furosemide 20mg starting the morning of 02/08/25 and thereafter 4. stop your hydrochlorothiazide 5. may use albuterol-ipratropium nebs - 1 neb treatment every 6 hours as needed for cough/chest congestion/wheezing/shortness of breath; the oxygen company should be delivering the neb machine to your house 6. prednisone course - start tomorrow, 02/07/25; take with food 7. plan to check your weight EVERY MORNING after waking up on the same scale; keep a log of your weights; what you should see happen is that your weight will drop as the excess fluid goes away; show these weights to your family doctor 8. take a potassium supplement daily starting 02/07/25 9. I am going to send you to [facility] to follow the blood clots, possible pneumonia, and COPD. Additionally, it is uncertain what led to the the blood clots. You may need additional testing to determine the cause of the blood clots 10. check your oxygen levels on your finger periodically with your pulse oximeter. If your oxygen levels are consistently 88-90% or greater these are acceptable levels. If you are consistently less than 88% please seek medical attention Follow-up - see separate section Return to [facility] if - -you have fever over 100 degrees -your pulse oximeter readings are consistently less than 88% -you have worsening shortness of breath -you have chest pains -you have severe diarrhea (3 or more liquid stools in 24 hours) -any other concerns It was our pleasure to care for you! -Dr Javier Beardentl Ign[facility] Specialist Provider Instructions: Call 911 and go to the Emergency Room if: * You have tightness or pain in your chest that does not go away with rest * You are very short of breath even with rest Call your doctor if any of the following symptoms or problems start or get worse: * Shortness of breath or difficulty breathing * Wake up at night short of breath * Chest pain * Cough * Swelling of your hands, fee, or legs * More fatigued or tired with your normal activity * Palpitations - sudden fast heart beats WEIGHT * Weigh yourself every morning after using the bathroom. * Use the same scale. * Wear the same amount of clothing. * Write your weight down on your chart. * Call your doctor if you gain more than 3 pounds in 1-2 days. This is one of the first signs of taking on too much fluid in your body. MEDICATIONS * Use this discharge instruction sheet for instructions. * Take your medications at the time your doctor ordered. * Do not skip a dose of your medicines. * If you miss a dose of medicine, take as soon as possible, but DO NOT DOUBLE A DOSE. * Read your medicine information when you get home. * Know all of the side effects of your medicine. * Call your doctor's office if you have any side effects. * Be sure all of your doctors know what medicine and herbs you take (including cold, flu, and herbal medicine). * Pain Medicine: If you do not get relief from your pain, please call your doctor for help. Take the following with you to your follow-up doctor appointments: * Weight Chart * Medication List * List of questions Do not drink excessive alcohol, beer or wine. Pending Studies at Discharge: No Stand-Alone Forms: My [facility] Firebase, Smoking Cessation Medications and DC Order Prescriptions: New ipratropium-albuterol 0.5 mg-3 mg(2.5 mg base)/3 mL Solution For Nebulization 3 ml NEB Q6H PRN (Reason: cough/wheeze/chest congestion/shortness of breath) Qty: 180 0RF furosemide [Lasix] 20 mg tablet 20 mg PO QAM Qty: 30 2RF potassium chloride 10 mEq tablet extended release 10 meq PO DAILY Qty: 30 2RF prednisone 10 mg tablet 10 mg PO DIRECTED Qty: 12 0RF Rx Instructions: start AM of 8/4, take with food. 3 tabs PO QD x 2 days; 2 tabs PO QD x 2 days; 1 tab PO QD x 2 days. Continued albuterol sulfate 90 mcg/actuation HFA aerosol inhaler 1 inh INH QID PRN (Reason: shortness of breath or wheezing) Qty: 20.1 3RF aripiprazole [Abilify] 5 mg tablet 5 mg PO QAM clonazepam [Klonopin] 1 mg tablet 1 mg PO BID PRN (Reason: Anxiety) Eliquis 5 mg (74 tabs) tablets,dose pack 5 mg PO BID Qty: 180 3RF gabapentin 600 mg tablet 600 mg PO BID Qty: 180 3RF B Complex Plus Vitamin C 97-45-11-5-300 mg capsule 1 cap PO QAM Rx Instructions: give with food (meal/snack) Trelegy Ellipta 100-62.5-25 mcg blister with device 1 ea inhalation DAILY 0RF cholecalciferol (vitamin D3) 50 mcg (2,000 unit) capsule 50 mcg PO DAILY Qty: 90 3RF Rx Instructions: with heaviest meal of the day bupropion HCl 300 mg tablet extended release 24 hr 300 mg PO QAM magnesium 250 mg tablet 250 mg PO QAM calcium carbonate-vitamin D3 [Calcium 500 + D] 500 mg(1,250mg) -200 unit tablet 1 tab PO QAM doxepin 100 mg capsule 200 mg PO HS mecobalamin (vitamin B12) 1,000 mcg tablet,chewable 1,000 mcg PO QAM pantoprazole 40 mg tablet,delayed release (DR/EC) 40 mg PO DAILY Discontinued hydrochlorothiazide 25 mg tablet 25 mg PO QAM Qty: 90 1RF No Action olmesartan 20 mg tablet 20 mg PO DAILY Qty: 90 1RF nicotine [Nicoderm CQ] 21 mg/24 hr patch 24 hour 1 patch transdermal DAILY Qty: 28 0RF Discharge Orders: Discharge Order (Routine); Ordered 02/06/25 Ordered By: Miah Funk/Other Patient Handouts: Understanding Deep Vein Thrombosis, Pulmonary Embolism Admission Data Admit Date/Time: 02/04/25 18:36 Attending Provider: Miah Herrera Admit Provider: Miah Herrera Primary Care Provider: Rema Strickland V. Other Interventions: Discharge Summary Assessment (RN) Last Done: 02/06/25 16:41 Hospital Stay Data Consultations social work Diagnostic Imagining Performed Chest X-Ray 02/04/25 14:30 XR chest 1V portable CLINICAL HISTORY: stroke alert COMPARISON STUDY: 02/01/2025 FINDINGS: There is stable cardiomegaly without pulmonary vascular congestion. Inspiration is shallow. There is stable stranding opacity in the lung bases. No new consolidation or pleural effusion. No pneumothorax. IMPRESSION: Stable exam. ACT 112: Negative or not required by law. Electronically signed by: Shalom Nino M.D. 02/04/2025 2:[address] 02/04/25 14:30 CT SCAN OF THE BRAIN WITHOUT IV CONTRAST CLINICAL HISTORY: Neurological deficit. Stroke like symptoms. COMPARISON STUDY: CT of the brain dated 02/01/2025. TECHNIQUE: Unenhanced axial CT scan of the brain is performed from the vertex to the skull base. Images are reviewed in the axial, sagittal, coronal planes. A dose lowering technique was utilized adhering to the principles of ALARA. The examination is modestly degraded by motion artifact. FINDINGS: Brain parenchyma: There is age-related involutional change noting mild to moderate subcortical and periventricular microangiopathic disease. A small chronic lacunar infarct is noted in the right internal capsule. There is no hemorrhage, mass effect, or evidence of acute territorial ischemia by CT criteria. León-white matter differentiation is preserved. No extra-axial fluid collection is seen. Ventricles, sulci, cisterns: Prominent secondary to involutional change. Intracranial vasculature: There is atherosclerotic calcification of the cavernous carotid and vertebral arteries. Calvarium: Unremarkable. Sinuses and mastoids: There is subtotal opacification of the left maxillary antrum. Mild to moderate mucosal thickening seen within the right maxillary sinus. There is mild mucosal thickening within the ethmoid sinuses. There are bilateral mastoid effusions. Orbits: The bony orbits are grossly intact. There are bilateral ocular lens implants. IMPRESSION: There is no hemorrhage, mass effect, or evidence of acute territorial ischemia by CT criteria. ACT 112: Negative or not required by law. Electronically signed by: Carlos Echevarria M.D. 02/04/2025 3:09 PM Abdomen/Pelvis CT 02/04/25 14:41 CT SCAN OF THE ABDOMEN AND PELVIS WITH IV CONTRAST CLINICAL HISTORY: Trauma. COMPARISON STUDY: CT of the abdomen and pelvis December 10, 2024. TECHNIQUE: Following the IV administration of 93 cc of Optiray 320, CT scan of the abdomen and pelvis is performed from the lung bases to the proximal femora. Images are reviewed in the axial, sagittal, and coronal planes. IV contrast was administered without complication. A dose lowering technique was utilized adhering to the principles of ALARA. CT DOSE: 3558.26 mGy.cm FINDINGS: Cardiomegaly is again noted. Densities within the right middle lobe and lingula suggest atelectasis. Ground glass opacities within the lower lobes also favor atelectasis. No hemoperitoneum or pneumoperitoneum is present. There is no evidence for hepatic injury to the liver, spleen, adrenal glands, kidneys or pancreas. There is no biliary or pancreatic ductal dilatation. Several small bilateral renal cysts are present. There is no hydronephrosis. There is no free fluid. Caliber and wall thickness of small and large bowel are normal. There is colonic diverticulosis without evidence for acute diverticulitis. No acute lumbar spine, pelvis or hip fractures are identified. Disc space narrowing is most pronounced at the L2-L3 level. The bladder is distended. IMPRESSION: No acute traumatic findings within the abdomen or pelvis. ACT 112: Negative or not required by law. Electronically signed by: Rolly Montemayor M.D. 02/04/2025 3:[address] 02/04/25 14:41 CT cervical spine wo con CLINICAL HISTORY: trauma. COMPARISON: 12/10/2024 TECHNIQUE: Multiple axial CT images of the cervical spine were obtained without contrast. A dose lowering technique was utilized adhering to the principles of ALARA. FINDINGS: There is mild motion artifacts. There are moderate degenerative changes at the lower cervical spine. No cervical spine fracture or subluxation seen. There is mucosal thickening and fluid in the left maxillary sinus. Majority of the left mastoid air cells are opacified. IMPRESSION: No cervical spine fracture seen. ACT 112: Negative or not required by law. The above report was generated using voice recognition software. It may contain grammatical, syntax or spelling errors. Electronically signed by: Shalom Nino M.D. 02/04/2025 3:[address] 02/04/25 14:[address] WITH CONTRAST CT DOSE: 3558 HISTORY: trauma TECHNIQUE: Multiaxial CT images of the chest were performed following the IV administration of 90 cc of Optiray. A dose lowering technique was utilized adhering to the principles of ALARA. COMPARISON STUDY: 01/22/2025 FINDINGS: There are mild airway secretions. There is mild dependent atelectasis in the lower lobes. There is no pulmonary contusion, pleural effusion, or pneumothorax. There is a stable 2.6 cm oval hypodense finding at the left axilla with fluid density. No enlarged adenopathy. No pericardial effusion. No evidence of thoracic aortic injury. No mediastinal hematoma. No acute fracture seen at the visualized osseous structures. IMPRESSION: No acute injury seen at the chest. ACT 112: Negative or not required by law. Electronically signed by: Shalom Nino M.D. 02/04/2025 3:21 PM Chest X-Ray 02/06/25 08:59 TWO VIEW CHEST CLINICAL HISTORY: Follow-up airspace consolidation. FINDINGS: PA and lateral chest radiographs are compared to chest x-ray and chest CT dated 02/04/2025. The heart is enlarged noting Atherosclerotic calcification of the thoracic aorta. The pulmonary vasculature is noncongested. There is bibasilar scarring/atelectasis. No airspace consolidation typical for pneumonia or pleural effusion is identified. There is no pneumothorax. The skeletal structures are osteopenic. There is chronic deformity of the left proximal humerus. IMPRESSION: 1. Cardiomegaly without radiographic evidence of congestive failure. 2. No airspace consolidation typical for pneumonia or pleural effusion is identified. ACT 112: Negative or not required by law. Electronically signed by: Carlos Echevarria M.D. 02/06/2025 10:05 AM Pending Results Patient Have Any Pending Studies at Discharge: No Discharge Instructions Given to Patient (Per Discharging Provider) Ms Viveros, You were hospitalized after having had falls, confusion, sleepiness, and simply feeling unwell. Upon presentation to [facility] your oxygen levels were low. I suspect that low oxygen was contributing to your symptoms especially the confusion & sleepiness. When you were first admitted you had severe wheezing. CT scan of the lungs showed possible pneumonia particularly at the bottom of the right lung. You received IV antibiotics for this. Neb treatments, steroids, and other supportive care were given for the wheezing. You improved nicely with all of the above. In addition, you appeared to be retaining water not just in your legs but also probably in your lungs. You received a dose of IV diuretic ("water pill") and you responded very nicely to this. Technically speaking when there is water in the lungs this would be from a form of congestive heart failure. However, your recent echocardiogram showed normal heart function/normal squeezing of the heart muscle. I suspect that in the midst of your recent illnesses this placed stress on the heart leading to the additional fluid build-up. The fluid issues can be controlled with medicine. Recommendations - 1. please use your oxygen - 2 liters - with any activity/ambulation and when you leave your home. You can remove the oxygen when sitting, sleeping, etc. 2. for suspected pneumonia - -cefdinir 300mg twice daily x 5 days, first dose tomorrow morning -doxycycline 100mg twice daily x 5 days, first dose tomorrow morning -most common side effect of both antibiotics - diarrhea -the doxycycline can cause stomach upset -the doxycycline can also cause a rash if you go out in the sun while taking the antibiotic; thus, please use sunscreen regularly over the next week 3. for fluid build-up legs/lungs - -take furosemide 40mg (20mg x 2 tablets) morning of 02/07/2025 -take furosemide 20mg starting the morning of 02/08/25 and thereafter 4. stop your hydrochlorothiazide 5. may use albuterol-ipratropium nebs - 1 neb treatment every 6 hours as needed for cough/chest congestion/wheezing/shortness of breath; the oxygen company should be delivering the neb machine to your house 6. prednisone course - start tomorrow, 02/07/25; take with food 7. plan to check your weight EVERY MORNING after waking up on the same scale; keep a log of your weights; what you should see happen is that your weight will drop as the excess fluid goes away; show these weights to your family doctor 8. take a potassium supplement daily starting 02/07/25 9. I am going to send you to [facility] to follow the blood clots, possible pneumonia, and COPD. Additionally, it is uncertain what led to the the blood clots. You may need additional testing to determine the cause of the blood clots 10. check your oxygen levels on your finger periodically with your pulse oximeter. If your oxygen levels are consistently 88-90% or greater these are acceptable levels. If you are consistently less than 88% please seek medical attention Follow-up - see separate section Return to [facility] if - -you have fever over 100 degrees -your pulse oximeter readings are consistently less than 88% -you have worsening shortness of breath -you have chest pains -you have severe diarrhea (3 or more liquid stools in 24 hours) -any other concerns It was our pleasure to care for you! -Dr Herrera Total Time Total Time Spent Total Time Spent (In Minutes): 50 Coding Level of Care Code 55054 INP/OBS DISCH >30 MIN Diagnoses Acute metabolic encephalopathy G93.41 COPD exacerbation J44.1 Pneumonia J18.9 History of pulmonary embolus (PE) Z86.711 Hypoxia R09.02 History of deep vein thrombosis Z86.718 Recurrent falls R29.6 PTSD (post-traumatic stress disorder) F43.10 Tobacco abuse Z72.0 Hypertension I10 Depression F32.9 Hx of gastric ulcer Z87.11 Abnormal toxicological findings R89.2 Prediabetes R73.03 Leg edema R60.0
[2025-02-10 09:47] LABS: MDA negative; MDEA negative; MDMA (Ecstasy) Urine, Confirm negative
== END 2025-02-06 18:33 | disposition home or self-care (01) | DRG 193 ==
LOC: ED 14:24 → INTOOBSV 18:36 → 4W 18:36

== ENCOUNTER 2025-05-25 06:14 | Inpatient (IN) ==
--- NOTE | 2025-05-25 07:14 | Emergency Department Note ---
History of Present Illness General Chief complaint: Weakness Stated complaint: Weakness Time Seen by Provider: 05/25/25 06:55 Source: patient Mode of arrival: EMS Limitations: no limitations History of Present Illness Patient is a 70-year-old female with history of alcohol use disorder, prior PE, chronic gait disturbance, hyperlipidemia, hypertension who presents for generalized weakness worse in the lower extremities. She states she was getting out of bed and could not hold herself up by her legs. She had to crawl over to her neighbor and knocked on the door until her neighbor was able to respond and call EMS. She says that her "legs were just too shaky". She states she has not drink alcohol in 1 week. She denies any current withdrawal symptoms including but not limited to headache, restlessness, anxiety, visual or auditory hallucinations, tactile hallucinations, nausea, vomiting, diarrhea. Denies any vision changes, speech changes, new numbness in her extremities. Patient does wear 2L of oxygen normally at home. Home Medications Medication Instructions Recorded Confirmed Type aripiprazole 5 mg tablet (Abilify) 5 mg PO QAM 08/31/20 05/25/25 History clonazepam 1 mg tablet (Klonopin) 1 mg PO BID PRN Anxiety 08/31/20 05/25/25 History bupropion HCl 300 mg 24 hr tablet, 300 mg PO QAM 05/23/22 05/25/25 History extended release calcium 500 mg (as 1 tab PO M 09/19/22 05/25/25 History carbonate)-vitamin D3 5 mcg (200 unit) tablet (Calcium 500 + D) magnesium 250 mg tablet 250 mg PO QAM 09/19/22 05/25/25 History vitamin B comp and C no.3 15 mg-10 1 cap PO QAM 11/25/23 05/25/25 History mg-50 mg-5 mg-300 mg capsule (B Complex Plus Vitamin C) cholecalciferol (vitamin D3) 50 50 mcg PO DAILY #90 caps 12/17/24 05/25/25 Rx mcg (2,000 unit) capsule doxepin 100 mg capsule 200 mg PO HS 01/22/25 05/25/25 History mecobalamin (vitamin B12) 1,000 1,000 mcg PO QAM 01/22/25 05/25/25 History mcg chewable tablet albuterol sulfate 90 mcg/actuation 1 inh inhalation QID PRN shortness 02/02/25 05/25/25 Rx aerosol inhaler of breath or wheezing #20.1 grams pantoprazole 40 mg tablet,delayed 40 mg PO DAILY 02/04/25 05/25/25 History release ipratropium 0.5 mg-albuterol 3 mg 3 ml NEB Q6H PRN 02/06/25 05/25/25 Rx (2.5 mg base)/3 mL nebulization cough/wheeze/chest soln congestion/shortness of breath #180 mL olmesartan 20 mg tablet 20 mg PO DAILY #90 tabs 02/08/25 05/25/25 Rx Oxygen Home #1 ea 02/22/25 04/14/25 Rx peg 3350-electrolytes 236 240 ml PO Q10M #4,000 mL 03/29/25 05/25/25 Rx gram-22.74 gram-6.74 gram-5.86 gram solution (Golytely) furosemide 40 mg tablet 40 mg PO QAM #30 tabs 04/20/25 05/25/25 Rx apixaban 5 mg tablet (Eliquis) 0 mg PO BID 04/27/25 05/25/25 History ferrous sulfate 325 mg (65 mg 325 mg PO DAILY 04/27/25 05/25/25 History iron) tablet gabapentin 600 mg tablet 0 mg PO BID 05/25/25 05/25/25 History hydrochlorothiazide 25 mg tablet 0 mg PO QAM 05/25/25 05/25/25 History potassium chloride 10 mEq 0 meq PO DAILY 05/25/25 05/25/25 History tablet,extended release Allergies Allergy/AdvReac Type Severity Reaction Status Date / Time No Known Allergies Allergy Verified 04/27/25 15:16 Past Med/Surg History Problem List (Updated 05/25/25 @ 10:42 by River Ramirez MD) History of CVA (cerebrovascular accident) Alcohol use disorder (Acute) History of pulmonary embolus (PE) Family history of thrombophlebitis Recurrent falls (Acute) Bilateral leg weakness (Acute) Dysphagia Esophageal stenosis Elevated hemoglobin History of adenomatous polyp of colon Osteopenia Gait disturbance Thoracic aorta atherosclerosis on CT chest Screening for lung cancer Hyperpigmented skin lesion Lumbar back pain with radiculopathy affecting right lower extremity Restless leg Numbness and tingling of both lower extremities PTSD (post-traumatic stress disorder) Gastric ulcer Esophageal dysphagia Vitamin D deficiency disease Vitamin B12 deficiency Tobacco abuse COPD (chronic obstructive pulmonary disease) Abnormal PFT Hypercholesterolemia Health care maintenance Nicotine dependence Low back pain LVH (left ventricular hypertrophy) Insomnia Hyperglycemia Generalized osteoarthritis of multiple sites Fecal incontinence Essential hypertriglyceridemia EKG, abnormal Disc degeneration, lumbar Anxiety disorder Adenomatous polyp of colon Hypertension Medical History COPD exacerbation Asymptomatic menopause Imaging abnormalities Acute hypoxic respiratory failure Multifocal pneumonia Hypoxia CAP (community acquired pneumonia) Hypertensive urgency Acute pulmonary embolism Hypoxic Shortness of breath Hypoxia Acute metabolic encephalopathy Abnormal toxicological findings Prediabetes Leg edema Left leg DVT 01/2025 Pulmonary embolism 01/2025 Fall Sepsis Acute kidney injury Nocturia Restless leg syndrome Thoracic aorta atherosclerosis Osteopenia PTSD (post-traumatic stress disorder) Generalized osteoarthritis Hx of gastric ulcer Gait disturbance pt denies Essential hypertriglyceridemia EKG, abnormal pt unaware Disc degeneration, lumbar Hx of colonic polyps History of esophageal dilatation (09/2022) LVH (left ventricular hypertrophy) Hypertension Insomnia Anxiety Swelling of both ankles pt denies History of anesthesia reaction "comes out of anesthesia too fast" and "not out fully with my last colonoscopy" COPD (chronic obstructive pulmonary disease) inh prn History of pneumonia (05/2022) admitted to [facility] 05/2022 Substance abuse or dependence Hypocalcemia Smoker 20 cigarettes/day Depression Low back pain with sciatica Surgical History History of esophagogastroduodenoscopy (EGD) Hx of colonoscopy with polypectomy History of bilateral tubal ligation History of section History of tooth extraction all teeth History of phacoemulsification of cataract of both eyes with intraocular lens implantation Family History Brother Family history of diabetes mellitus Prostate cancer Sister Family history of diabetes mellitus Mother Myocardial infarction Diabetes Congestive heart failure Father Diabetes Congestive heart failure Other No family history of adverse response to anesthesia Denies family history of Ovarian cancer Breast cancer Colorectal cancer Social History Smoking Status: Current every day smoker Tobacco Type: Cigarettes Age Started Using Tobacco: 13; packs per day: 1; Cigarettes Per Day: pack/day; Second Hand Exposure: No; Do You Dip or Chew Tobacco: No; Hx Alcohol Use: Yes Alcohol type: beer Hx Substance Use: Yes Non-Prescribed Medications: Marijuana Last Used Substance: Unknown Preferred Language: [place] Communication Ability: Effective Visual Impairment: Limited Hearing Ability: Normal Director Money Required: No Beliefs That Will Affect Care: None marital status: Single Current Living Situation: Alone Current Living Situation Comment: lives in [place] current occupational status: disabled How many Children do You have: 2 How many Children do You have Comment: 1 son is ; estranged from daughter Feels Safe at Home: No Is there a partner from a previous relationship who is making you feel unsafe now?: No Childhood Exposure to Second-Hand Smoke: No Diet: regular during the past year weight has: remained stable Dental Care, Regularly: Yes Physical Activity Frequency: Daily Physical Activity Frequency Comment: walking Seatbelt Use: always Sunscreen Use: Yes Assistive Devices: Oxygen - Continuous Review of Systems Review of systems negative outside of positive findings mentioned in HPI. Physical Exam Vital Signs Vital Signs - 24 hr 05/25/25 06:15 05/25/25 06:20 05/25/25 06:24 Temperature 36.5 C Temperature Source Oral Pulse Rate 85 83 Pulse Rate from SpO2 Sensor Respiratory Rate 20 Respiratory Effort / Characteristics Non-Labored Spontaneous Respiratory Depth Normal Respiratory Pattern Regular Blood Pressure 140/83 Blood Pressure Mean 102 Pulse Oximetry 86 L 86 L Oxygen Delivery Method Room Air Room Air Nasal Cannula Oxygen Flow Rate 0 Sepsis Recent Fever Within 48 Hours No Sepsis New/Unexplained Change in Mental Status N/A Sepsis Action Taken by Nursing No Action Required Oxygen Flow Rate - Titration 2 Pulse Oximetry Post Tiitration 94 05/25/25 07:00 05/25/25 07:30 05/25/25 08:00 Temperature Temperature Source Pulse Rate 78 71 67 Pulse Rate from SpO2 Sensor 66 Respiratory Rate 20 18 15 Respiratory Effort / Characteristics Respiratory Depth Respiratory Pattern Blood Pressure 110/80 128/78 108/74 Blood Pressure Mean 90 94 85 Pulse Oximetry 100 Oxygen Delivery Method Nasal Cannula Oxygen Flow Rate 2 Sepsis Recent Fever Within 48 Hours Sepsis New/Unexplained Change in Mental Status Sepsis Action Taken by Nursing Oxygen Flow Rate - Titration Pulse Oximetry Post Tiitration 05/25/25 08:01 05/25/25 08:30 05/25/25 09:00 Temperature Temperature Source Pulse Rate 68 67 Pulse Rate from SpO2 Sensor 68 68 Respiratory Rate 16 15 Respiratory Effort / Characteristics Respiratory Depth Respiratory Pattern Blood Pressure 129/81 Blood Pressure Mean 97 Pulse Oximetry 100 97 98 Oxygen Delivery Method Nasal Cannula Nasal Cannula Nasal Cannula Oxygen Flow Rate 2 2 2 Sepsis Recent Fever Within 48 Hours Sepsis New/Unexplained Change in Mental Status Sepsis Action Taken by Nursing Oxygen Flow Rate - Titration Pulse Oximetry Post Tiitration 05/25/25 10:00 05/25/25 10:36 Temperature Temperature Source Pulse Rate 65 65 Pulse Rate from SpO2 Sensor 65 Respiratory Rate 14 Respiratory Effort / Characteristics Respiratory Depth Respiratory Pattern Blood Pressure 120/78 Blood Pressure Mean 92 Pulse Oximetry 96 Oxygen Delivery Method Nasal Cannula Oxygen Flow Rate 2 Sepsis Recent Fever Within 48 Hours Sepsis New/Unexplained Change in Mental Status Sepsis Action Taken by Nursing Oxygen Flow Rate - Titration Pulse Oximetry Post Tiitration See below. Constitutional WD/WN, vitals as above Eyes PERRL, conjunctivae normal, anicteric sclerae ENMT dry mucous membranes Neck trachea midline, no thyromegaly Respiratory normal respiratory effort, lungs clear to auscultation Cardiovascular RRR, no murmur, no edema Gastrointestinal (Abdomen) normal bowel sounds, soft, nontender, no hepatosplenomegaly Skin no rashes, warm and dry Neurologic CN's II-XI intact bilaterally and awake; no focal motor deficit and not confused Speech / Cognition: normal speech Motor/Sensory: + tremor and + asterixis Course Administered Medications Discontinued Medications Folic Acid (Folic Acid 1 Mg Tab) 1 mg PO NOW ONE Stop: 05/25/25 07:07 Last Admin: 05/25/25 07:46 Dose: 1 mg Documented By: MMF Sodium Chloride (Nss) 1,000 mls @ 999 mls/hr IV .Q1H1M CANDACE Stop: 05/25/25 08:15 Last Infusion: 05/25/25 09:34 Dose: Infused Documented By: Admin: 05/25/25 07:46 Dose: 999 mls/hr Documented By: MMF Multivitamins (Multivitamin Tab) 1 tab PO NOW ONE Stop: 05/25/25 07:07 Last Admin: 05/25/25 07:46 Dose: 1 tab Documented By: MMF Thiamine HCl (Thiamine Hcl 100 Mg Tab) 100 mg PO NOW ONE Stop: 05/25/25 07:07 Last Admin: 05/25/25 07:46 Dose: 100 mg Documented By: MMF Medical Decision Making Differential Diagnosis DDx includes but not limited to: Metabolic encephalopathy, infection, toxidrome, CVA, intracranial abnormality Medical Records Attestation: I reviewed the patient's medical records. Home Medications Current Medication List: was personally reviewed by me Laboratory Data Attestation: I reviewed the patient's lab results. 05/25/25 Unknown 05/25/25 Unknown Lab Results 05/25/25 05/25/25 05/25/25 Range/Units 07:23 07:24 08:49 WBC (4.8-10.8) K/ul RBC (4.20-5.40) M/uL Hgb (12.0-16.0) g/dL Hct (37.0-47.0) % MCV (80.0-100.0) fL MCH (25.0-34.0) pg MCHC (32.0-36.0) g/dL RDW Std Deviation (36.4-46.3) fL RDW Coeff of Jamie (11.5-14.5) % Plt Count (130-400) K/uL MPV (9.4-12.4) fL Immature Gran % (Auto) % Neut % (Auto) % Lymph % (Auto) % [place] % (Auto) % Eos % (Auto) % Baso % (Auto) % Neut # (Auto) (1.40-6.50) K/uL Lymph # (Auto) (1.20-3.40) K/uL [place] # (Auto) (0.11-0.59) K/uL Eos # (Auto) (0.00-0.50) K/uL Baso # (Auto) (0.00-0.20) K/uL Immature Gran # (Auto) (0.01-0.20) K/uL Sodium (136-145) mmol/L Potassium (3.5-5.1) mmol/L Chloride (98-107) mmol/L Carbon Dioxide (21-32) mmol/L Anion Gap (3-11) BUN (6-23) mg/dl Creatinine (0.6-1.2) mg/dl Est Cr Clr Drug Dosing ml/min eGFR BUN/Creatinine Ratio (10-20) Glucose (70-99(Fasting)) mg/dl POC Glucose 112 H (70-99) mg/dl Calcium (8.6-10.3) mg/dl Magnesium (1.7-2.4) mg/dl Total Bilirubin (0.2-1.0) mg/dl AST (13-39) U/L ALT (7-52) U/L Alkaline Phosphatase (34-104) U/L Ammonia 50.0 (18-72) umol/L Total Protein (6.0-8.3) gm/dl Albumin (3.4-5.0) gm/dl Globulin (2.5-4.0) gm/dl Albumin/Globulin Ratio (0.9-2) TSH (0.300-4.500) uIu/ml Ethyl Alcohol mg/dL < 10.0 (<10.0) mg/dl 05/25/25 Range/Units Unknown WBC 6.82 (4.8-10.8) K/ul RBC 5.19 (4.20-5.40) M/uL Hgb 15.4 (12.0-16.0) g/dL Hct 47.1 H (37.0-47.0) % MCV 90.8 (80.0-100.0) fL MCH 29.7 (25.0-34.0) pg MCHC 32.7 (32.0-36.0) g/dL RDW Std Deviation 47.1 H (36.4-46.3) fL RDW Coeff of Jamie 14.1 (11.5-14.5) % Plt Count 206 (130-400) K/uL MPV 10.0 (9.4-12.4) fL Immature Gran % (Auto) 0.3 % Neut % (Auto) 56.9 % Lymph % (Auto) 31.5 % [place] % (Auto) 8.8 % Eos % (Auto) 2.1 % Baso % (Auto) 0.4 % Neut # (Auto) 3.88 (1.40-6.50) K/uL Lymph # (Auto) 2.15 (1.20-3.40) K/uL [place] # (Auto) 0.60 H (0.11-0.59) K/uL Eos # (Auto) 0.14 (0.00-0.50) K/uL Baso # (Auto) 0.03 (0.00-0.20) K/uL Immature Gran # (Auto) 0.02 (0.01-0.20) K/uL Sodium 142 (136-145) mmol/L Potassium 3.9 (3.5-5.1) mmol/L Chloride 101 (98-107) mmol/L Carbon Dioxide 31 (21-32) mmol/L Anion Gap 10 (3-11) BUN 28 H (6-23) mg/dl Creatinine 0.97 (0.6-1.2) mg/dl Est Cr Clr Drug Dosing 56.2 ml/min eGFR 62.86 BUN/Creatinine Ratio 28.9 H (10-20) Glucose 124 H (70-99(Fasting)) mg/dl POC Glucose (70-99) mg/dl Calcium 9.8 (8.6-10.3) mg/dl Magnesium 1.9 (1.7-2.4) mg/dl Total Bilirubin 0.6 (0.2-1.0) mg/dl AST 14 (13-39) U/L ALT 13 (7-52) U/L Alkaline Phosphatase 78 (34-104) U/L Ammonia (18-72) umol/L Total Protein 6.8 (6.0-8.3) gm/dl Albumin 4.5 (3.4-5.0) gm/dl Globulin 2.3 L (2.5-4.0) gm/dl Albumin/Globulin Ratio 2.0 (0.9-2) TSH 2.749 (0.300-4.500) uIu/ml Ethyl Alcohol mg/dL (<10.0) mg/dl Imaging Data My Impression: No acute cardiopulmonary process noted. Radiologist's Impression: Chest X-Ray 05/25/25 07:04 EXAM: XR chest 1V portable CLINICAL HISTORY: Weakness TECHNIQUE: An X-ray image of the chest is obtained in AP projection. COMPARISON: CR 04/27/2025. FINDINGS: Pulmonary Parenchyma: Prominence of bronchovascular markings, which could be due to the expiratory study. No evidence of consolidation, collapse, or focal opacities Obscured left lower lung zone and costophrenic angle by cardiac shadow, with the possibility of underlying effusion/ left lower zone opacity can't be excluded No evidence of right pleural effusion or pleural thickening. Heart and Mediastinum: Heart size and shape are normal. No mediastinal widening or masses. No hilar or mediastinal lymphadenopathy. Bony Thorax: Bony thorax appears intact without fractures or deformities. Soft Tissues: Soft tissues overlying the chest wall are unremarkable. IMPRESSION: 1. No evidence of consolidation, collapse, or focal opacities. 2. Prominence of bronchovascular markings, which could be due to the expiratory study. 3. Obscured left lower lung zone and costophrenic angle by cardiac shadow, with the possibility of underlying effusion/ left lower zone opacity can't be excluded. 4. No time interval changes. Electronically signed by Alfredo Rachel 05-25-2025 08:[address] 05/25/25 07:04 EXAM: CT head/brain wo con CLINICAL HISTORY: AMS. TECHNIQUE: Axial non-contrast CT scan of the brain was performed from the skull base to the high parietal region in axial, sagittal and coronal reconstructions. One of the following dose reduction techniques were utilized for this exam: Automated exposure control, adjustment of the mA and/or kV according to patient size, use of iterative reconstruction. COMPARISON: 04/27/2025 CT brain reviewed. FINDINGS: Brain Parenchyma: Tiny focal hypodensities are redemonstrated in bilateral basal ganglia, on the right measures 11 x 9 mm vs 15 x 10 mm. Bilateral periventricular microvascular ischemic changes. Age-appropriate involutional brain changes, with deepening of cortical sulci and prominence of the sylvian fissure. No evidence of hemorrhage or mass effect. Ventricular System: Ventricles are normal in size and configuration. No evidence of hydrocephalus or ventricular enlargement. Cerebellum and Brainstem: No masses, lesions, or areas of abnormal density. Orbits: Normal appearance of the globes, optic nerves, and extraocular muscles. No evidence of orbital masses or abnormal density. Sinuses: Mild mucosal thickening of ethmoid air cells, stable. Clear paranasal sinuses. Mastoid Air Cells: Bilateral mastoid effusion, unchanged. No evidence of mastoiditis. Skull: Normal skull morphology. IMPRESSION: 1. Tiny focal hypodensities are redemonstrated in the bilateral basal ganglia may suggest chronic lacunar infarct. 2. MRI brain with DWI may be obtained for further evaluation. 3. No acute intraparenchymal hemorrhage. 4. Bilateral periventricular microvascular ischemic changes interval stable. 5. Unchanged bilateral mastoid effusion. Electronically signed by Alfredo Rachel 05-25-2025 08:45 AM ECG Data Attestation: I personally reviewed and interpreted this ECG as follows: Indication: + weakness Rate (beats per minute): 84 Rhythm: + normal sinus ECG Intervals/blocks: + First degree AV block, + Normal QRS and + Normal QT ECG [place]: + Normal ECG ST segments: + Normal ST segments Comparison ECG Date: from (04/27/2025) Change: no significant change Additional Comments: Baseline artifact noted MDM Narrative Patient is a 70-year-old female with history as seen above who presents with generalized weakness and tremulousness. On arrival here in the emergency room she is awake and alert but does have diffuse tremors and bilateral lower extremity weakness noted. Exam not consistent with acute CVA and she is outside the window for TNK. Lab work was ordered and reviewed. No acute metabolic abnormality noted. No evidence of infection. Ammonia level is within normal limits. No withdrawal symptoms and CIWA score for me is below 5 do not believe symptoms are secondary to acute withdrawal or pending delirium tremens in the setting of her chronic alcohol use. She also reports she has had difficulty with ambulation and dropping objects over the past month. She had a similar presentation in February and MRI was deferred at that point. Would recommend bringing her in for further workup of her generalized weakness and tremulousness as well as PT/OT evaluation. I did give her multivitamins, folic acid, thiamine. Stable for admission to hospitalist service. Impression & Plan Bilateral leg weakness, Alcohol use disorder Discharge Plan Visit Data Chief Complaint: Weakness Stated Complaint: Weakness ED Provider: River Ramirez Discharge Problem: Bilateral leg weakness, Alcohol use disorder Patient Disposition: Admitted As Inpatient Condition: Good Forms Stand Alone Forms: My [facility] Prescriptions Prescriptions: No Action albuterol sulfate 90 mcg/actuation HFA aerosol inhaler 1 inh INH QID PRN (Reason: shortness of breath or wheezing) Qty: 20.1 3RF (DME) Oxygen Home Liters Per Minute See Rx Instructions .Route Qty: 1 0RF Hold Instructions: not using Rx Instructions: 2 L/NC with activity peg 3350-electrolytes [Golytely] 236-22.74-6.74 -5.86 gram recon soln 240 ml PO Q10M Qty: 4000 0RF Patient Comments: 05/25- no fill history unable to verify Rx Instructions: PER PT "HAVE NOT SCHEDULED TEST YET". Take per split dose instructions furosemide 40 mg tablet 40 mg PO QAM Qty: 30 1RF aripiprazole [Abilify] 5 mg tablet 5 mg PO QAM clonazepam [Klonopin] 1 mg tablet 1 mg PO BID PRN (Reason: Anxiety) olmesartan 20 mg tablet 20 mg PO DAILY Qty: 90 1RF B Complex Plus Vitamin C 65-11-27-5-300 mg capsule 1 cap PO QAM Patient Comments: 05/25- otc unable to verify Rx Instructions: give with food (meal/snack) Trelegy Ellipta 100-62.5-25 mcg blister with device 0 ea inhalation DAILY 0RF Patient Comments: 05/25- no fill history unable to verify. Original: 1 puff daily cholecalciferol (vitamin D3) 50 mcg (2,000 unit) capsule 50 mcg PO DAILY Qty: 90 3RF Patient Comments: 05/25- otc unable to verify Rx Instructions: with heaviest meal of the day bupropion HCl 300 mg tablet extended release 24 hr 300 mg PO QAM magnesium 250 mg tablet 250 mg PO QAM Patient Comments: 05/25- otc unable to verify calcium carbonate-vitamin D3 [Calcium 500 + D] 500 mg(1,250mg) -200 unit tablet 1 tab PO QAM Patient Comments: 05/25- otc unable to verify doxepin 100 mg capsule 200 mg PO HS mecobalamin (vitamin B12) 1,000 mcg tablet,chewable 1,000 mcg PO QAM Patient Comments: 05/25- otc unable to verify pantoprazole 40 mg tablet,delayed release (DR/EC) 40 mg PO DAILY ipratropium-albuterol 0.5 mg-3 mg(2.5 mg base)/3 mL Solution For Nebulization 3 ml NEB Q6H PRN (Reason: cough/wheeze/chest congestion/shortness of breath) Qty: 180 0RF Patient Comments: 05/25- no fill history unable to verify gabapentin 600 mg tablet 0 mg PO BID Patient Comments: 05/25- last filled 04/18 30 day supply #60 potassium chloride 10 mEq tablet extended release 0 meq PO DAILY Patient Comments: 05/25-otc/no fill history unable to verify hydrochlorothiazide 25 mg tablet 0 mg PO QAM Patient Comments: 05/25- last filled 04/20 30 day supply #30 ferrous sulfate 325 mg (65 mg iron) Tablet 325 mg PO DAILY Patient Comments: 05/25- otc unable to verify Eliquis 5 mg Tablet 0 mg PO BID Patient Comments: 05/25- last filled 04/18 30 day supply #60 Referrals Referrals: Rema Strickland MD [Primary Care Provider] -
[2025-05-25 07:18] LABS: Hematocrit (blood only) 47.1 % (37.0-47.0); Hemoglobin 15.4 g/dL (12.0-16.0); Immature Granulocytes # (auto) 0.02 K/uL (0.01-0.20); Immature Granulocytes % (auto) 0.3 %; Mean Corpuscular Hemoglobin 29.7 pg (25.0-34.0); Mean Corpuscular Volume 90.8 fL (80.0-100.0); Platelet Count 206 K/uL (130-400); RDW Standard Deviation 47.1 fL (36.4-46.3); Red Blood Count 5.19 M/uL (4.20-5.40); White Blood Count 6.82 K/ul (4.8-10.8)
[2025-05-25 07:39] LABS: Alanine Aminotransferase 13.0 U/L (7-52); Albumin Globulin Ratio 2.0 (0.9-2); Albumin Level 4.5 gm/dl (3.4-5.0); Alkaline Phosphatase 78.0 U/L (34-104); Anion Gap 10.0 (3-11); Bilirubin,Total 0.6 mg/dl (0.2-1.0); Blood Urea Nitrogen 28.0 mg/dl (6-23); Calcium 9.8 mg/dl (8.6-10.3); Carbon Dioxide 31.0 mmol/L (21-32); Chloride 101.0 mmol/L (98-107); Creatinine Clr Calc Pharmacy 56.2 ml/min; Globulin 2.3 gm/dl (2.5-4.0); Glucose 124.0 mg/dl (70-99(Fasting)); Magnesium 1.9 mg/dl (1.7-2.4); Potassium 3.9 mmol/L (3.5-5.1); Sodium 142.0 mmol/L (136-145); Total Protein 6.8 gm/dl (6.0-8.3)
[2025-05-25] MEDS: THIAMINE HCL 100 MG TAB PO ONE (07:46)
[2025-05-25] MEDS: FOLIC ACID 1 MG TAB PO ONE (07:46)
[2025-05-25] MEDS: MULTIVITAMIN TAB PO ONE (07:46)
[2025-05-25] MEDS: SODIUM CHLORIDE 0.9% 1,000 ML IV SCH (07:46)
[2025-05-25 07:52] LABS: Thyroid Stimulating Hormone 2.749 uIu/ml (0.300-4.500)
--- NOTE | 2025-05-25 08:37 | XRay Report ---
EXAM: XR chest 1V portable CLINICAL HISTORY: Weakness TECHNIQUE: An X-ray image of the chest is obtained in AP projection. COMPARISON: 04/27/2025. FINDINGS: Pulmonary Parenchyma: Prominence of bronchovascular markings, which could be due to the expiratory study. No evidence of consolidation, collapse, or focal opacities Obscured left lower lung zone and costophrenic angle by cardiac shadow, with the possibility of underlying effusion/ left lower zone opacity can't be excluded No evidence of right pleural effusion or pleural thickening. Heart and Mediastinum: Heart size and shape are normal. No mediastinal widening or masses. No hilar or mediastinal lymphadenopathy. Bony Thorax: Bony thorax appears intact without fractures or deformities. Soft Tissues: Soft tissues overlying the chest wall are unremarkable. IMPRESSION: 1. No evidence of consolidation, collapse, or focal opacities. 2. Prominence of bronchovascular markings, which could be due to the expiratory study. 3. Obscured left lower lung zone and costophrenic angle by cardiac shadow, with the possibility of underlying effusion/ left lower zone opacity can't be excluded. 4. No time interval changes. Electronically signed by Alfredo Rachel 05-25-2025 08:36 AM
--- NOTE | 2025-05-25 08:45 | CT Scan Report ---
EXAM: CT head/brain wo con CLINICAL HISTORY: AMS. TECHNIQUE: Axial non-contrast CT scan of the brain was performed from the skull base to the high parietal region in axial, sagittal and coronal reconstructions. One of the following dose reduction techniques were utilized for this exam: Automated exposure control, adjustment of the mA and/or kV according to patient size, use of iterative reconstruction. COMPARISON: 04/27/2025 CT brain reviewed. FINDINGS: Brain Parenchyma: Tiny focal hypodensities are redemonstrated in bilateral basal ganglia, on the right measures 11 x 9 mm vs 15 x 10 mm. Bilateral periventricular microvascular ischemic changes. Age-appropriate involutional brain changes, with deepening of cortical sulci and prominence of the sylvian fissure. No evidence of hemorrhage or mass effect. Ventricular System: Ventricles are normal in size and configuration. No evidence of hydrocephalus or ventricular enlargement. Cerebellum and Brainstem: No masses, lesions, or areas of abnormal density. Orbits: Normal appearance of the globes, optic nerves, and extraocular muscles. No evidence of orbital masses or abnormal density. Sinuses: Mild mucosal thickening of ethmoid air cells, stable. Clear paranasal sinuses. Mastoid Air Cells: Bilateral mastoid effusion, unchanged. No evidence of mastoiditis. Skull: Normal skull morphology. IMPRESSION: 1. Tiny focal hypodensities are redemonstrated in the bilateral basal ganglia may suggest chronic lacunar infarct. 2. MRI brain with DWI may be obtained for further evaluation. 3. No acute intraparenchymal hemorrhage. 4. Bilateral periventricular microvascular ischemic changes interval stable. 5. Unchanged bilateral mastoid effusion. Electronically signed by Alfredo Rachel 05-25-2025 08:45 AM
--- NOTE | 2025-05-25 09:38 | History & Physical Report ---
Date of Service May 25, 2025 Assessment & Plan (1) Bilateral leg weakness: (2) Recurrent falls: (3) History of CVA (cerebrovascular accident): (4) Alcohol use disorder: Plan This patient is a 70-year-old female with a history of COPD, current smoker, chronic hypoxic respiratory failure on 2 LNC O2, alcohol use disorder, chronic lacunar CVAs, anxiety disorder/PTSD/depression, HTN, PE/DVT on Eliquis, B12 deficiency, vitamin D deficiency, chronic lower back pain, GERD/PUD, history of falls who presents to the ED with complaint of feeling weak all over and her legs being shaky and her legs felt mushy.. She was not able to walk so she crawled over to the wall and banged on it until her neighbor heard her and called an ambulance. She reported to the ED physician that her last drink of alcohol was 1 week ago, however she told me it was 3 weeks ago. She later then said she had been sober for 2 years but had a few drinks "every now and then" and does not consider that to be falling off the wagon. She had no signs otherwise of alcohol withdrawal in the ED and was not confused. She reported to me that after several hours of being in the ED, she was exercising her legs and now feels strong again and does not know why she needs to be admitted. She also reports that she gave her oxygen back and does not use oxygen anymore at home. Her CT of the head did show some old basal ganglia infarcts, but her laboratory workup was otherwise fairly unremarkable including a negative alcohol level, CBC, BMP, LFTs, TSH, ammonia level. A CXR was negative for acute issues. She will be admitted for ambulatory dysfunction and a workup for stroke, with suspicion for possible weakness due to possible hypoxemia #Generalized weakness/history of falls/history of CVA-could be secondary to hypoxemia as she no longer has oxygen at home. Is also drinking alcohol-unclear how much she is actually drinking as her story wavers. EtOH level here is negative. CBC, CMP within normal limits. TSH normal. UA not yet collected. Could be medication side effect as she is on multiple EHS SPECIALIST depressing type medications. Her weakness is now completely resolved and she is wearing supplemental O2 in the ED - Admit to medical floor with telemetry to look for arrhythmia - Check brain MRI - Alcohol withdrawal protocol - Encouraged abstinence from alcohol - Start baby aspirin given history of small vessel infarct - Check lipid panel, [id number] statin if cholesterol appropriate - Check BioFire panel #COPD/current smoker/chronic hypoxic respiratory failure-does not use oxygen at home anymore. This could have caused hypoxemia which led to her weakness which is now completely resolved - Continue supplemental O2 to keep pulse ox at or greater than 89% - Check overnight pulse oximetry to see if needs nocturnal oxygen - Check two-step prior to discharge - Continue albuterol as needed - Continue maintenance inhalers #Alcohol use disorder-patient reports she has been "sober" for 2 years, however reports she does drink 3 beers every once in a while, the last time was probably 3 weeks ago. EtOH level here 0. Unclear if she is being truthful. LFTs are within normal limits. - Watch for withdrawal, can give Valium p.o. as needed - Encouraged abstinence - Start thiamine, folic acid, multivitamin #PE/DVT on Eliquis- - Continue Eliquis 5 mg p.o. twice daily #HTN-BPs are controlled - Continue home furosemide, telmisartan #Anxiety/depression/PTSD-no acute issues - Continue home doxepin, clonazepam, bupropion, Abilify #B12 and vitamin D deficiencies-no acute issues - Continue home B12 supplement, calcium plus vitamin D and regular vitamin D supplements #Chronic lower back pain-no acute issues - Continue home gabapentin #GERD/PUD-no acute issues - Continue home Protonix, magnesium DVT prophylaxis-Eliquis Disposition-admit to medical floor with telemetry, PT/OT ordered History of Present Illness Chief Complaint: Weakness in the legs Primary Care Provider: Rema Strickland MD This patient is a 70-year-old female with a history of COPD, current smoker, chronic hypoxic respiratory failure on 2 LNC O2, alcohol use disorder, chronic lacunar CVAs, anxiety disorder/PTSD/depression, HTN, PE/DVT on Eliquis, B12 deficiency, vitamin D deficiency, chronic lower back pain, GERD/PUD, history of falls who presents to the ED with complaint of feeling weak all over and her legs being shaky and her legs felt mushy.. She was not able to walk so she crawled over to the wall and banged on it until her neighbor heard her and called an ambulance. She reported to the ED physician that her last drink of alcohol was 1 week ago, however she told me it was 3 weeks ago. She later then said she had been sober for 2 years but had a few drinks "every now and then" and does not consider that to be falling off the wagon. She had no signs otherwise of alcohol withdrawal in the ED and was not confused. She reported to me that after several hours of being in the ED, she was exercising her legs and now feels strong again and does not know why she needs to be admitted. She also reports that she gave her oxygen back and does not use oxygen anymore at home. Her CT of the head did show some old basal ganglia infarcts, but her laboratory workup was otherwise fairly unremarkable including a negative alcohol level, CBC, BMP, LFTs, TSH, ammonia level. A CXR was negative for acute issues. She will be admitted for ambulatory dysfunction and a workup for stroke, with suspicion for possible weakness due to possible hypoxemia Allergies Allergy/AdvReac Type Severity Reaction Status Date / Time No Known Allergies Allergy Verified 04/27/25 15:16 Home Medications Medication Instructions Recorded Confirmed Type aripiprazole 5 mg tablet (Abilify) 5 mg PO QAM 08/31/20 05/25/25 History clonazepam 1 mg tablet (Klonopin) 1 mg PO BID PRN Anxiety 08/31/20 05/25/25 History bupropion HCl 300 mg 24 hr tablet, 300 mg PO QAM 05/23/22 05/25/25 History extended release calcium 500 mg (as 1 tab PO QAM 09/19/22 05/25/25 History carbonate)-vitamin D3 5 mcg (200 unit) tablet (Calcium 500 + D) magnesium 250 mg tablet 250 mg PO QAM 09/19/22 05/25/25 History vitamin B comp and C no.3 15 mg-10 1 cap PO QAM 11/25/23 05/25/25 History mg-50 mg-5 mg-300 mg capsule (B Complex Plus Vitamin C) cholecalciferol (vitamin D3) 50 50 mcg PO DAILY #90 caps 12/17/24 05/25/25 Rx mcg (2,000 unit) capsule doxepin 100 mg capsule 200 mg PO HS 01/22/25 05/25/25 History mecobalamin (vitamin B12) 1,000 1,000 mcg PO QAM 01/22/25 05/25/25 History mcg chewable tablet albuterol sulfate 90 mcg/actuation 1 inh inhalation QID PRN shortness 02/02/25 05/25/25 Rx aerosol inhaler of breath or wheezing #20.1 grams pantoprazole 40 mg tablet,delayed 40 mg PO DAILY 02/04/25 05/25/25 History release ipratropium 0.5 mg-albuterol 3 mg 3 ml NEB Q6H PRN 02/06/25 05/25/25 Rx (2.5 mg base)/3 mL nebulization cough/wheeze/chest soln congestion/shortness of breath #180 mL olmesartan 20 mg tablet 20 mg PO DAILY #90 tabs 02/08/25 05/25/25 Rx Oxygen Home #1 ea 02/22/25 04/14/25 Rx peg 3350-electrolytes 236 240 ml PO Q10M #4,000 mL 03/29/25 05/25/25 Rx gram-22.74 gram-6.74 gram-5.86 gram solution (Golytely) furosemide 40 mg tablet 40 mg PO QAM #30 tabs 04/20/25 05/25/25 Rx apixaban 5 mg tablet (Eliquis) 0 mg PO BID 04/27/25 05/25/25 History ferrous sulfate 325 mg (65 mg 325 mg PO DAILY 04/27/25 05/25/25 History iron) tablet gabapentin 600 mg tablet 0 mg PO BID 05/25/25 05/25/25 History hydrochlorothiazide 25 mg tablet 0 mg PO QAM 05/25/25 05/25/25 History potassium chloride 10 mEq 0 meq PO DAILY 05/25/25 05/25/25 History tablet,extended release Past Med/Surg History Problem List (Updated 05/25/25 @ 10:42 by River Ramirez MD) History of CVA (cerebrovascular accident) Alcohol use disorder (Acute) History of pulmonary embolus (PE) Family history of thrombophlebitis Recurrent falls (Acute) Bilateral leg weakness (Acute) Dysphagia Esophageal stenosis Elevated hemoglobin History of adenomatous polyp of colon Osteopenia Gait disturbance Thoracic aorta atherosclerosis on CT chest Screening for lung cancer Hyperpigmented skin lesion Lumbar back pain with radiculopathy affecting right lower extremity Restless leg Numbness and tingling of both lower extremities PTSD (post-traumatic stress disorder) Gastric ulcer Esophageal dysphagia Vitamin D deficiency disease Vitamin B12 deficiency Tobacco abuse COPD (chronic obstructive pulmonary disease) Abnormal PFT Hypercholesterolemia Health care maintenance Nicotine dependence Low back pain LVH (left ventricular hypertrophy) Insomnia Hyperglycemia Generalized osteoarthritis of multiple sites Fecal incontinence Essential hypertriglyceridemia EKG, abnormal Disc degeneration, lumbar Anxiety disorder Adenomatous polyp of colon Hypertension Medical History COPD exacerbation Asymptomatic menopause Imaging abnormalities Acute hypoxic respiratory failure Multifocal pneumonia Hypoxia CAP (community acquired pneumonia) Hypertensive urgency Acute pulmonary embolism Hypoxic Shortness of breath Hypoxia Acute metabolic encephalopathy Abnormal toxicological findings Prediabetes Leg edema Left leg DVT 01/2025 Pulmonary embolism 01/2025 Fall Sepsis Acute kidney injury Nocturia Restless leg syndrome Thoracic aorta atherosclerosis Osteopenia PTSD (post-traumatic stress disorder) Generalized osteoarthritis Hx of gastric ulcer Gait disturbance pt denies Essential hypertriglyceridemia EKG, abnormal pt unaware Disc degeneration, lumbar Hx of colonic polyps History of esophageal dilatation (09/2022) LVH (left ventricular hypertrophy) Hypertension Insomnia Anxiety Swelling of both ankles pt denies History of anesthesia reaction "comes out of anesthesia too fast" and "not out fully with my last colonoscopy" COPD (chronic obstructive pulmonary disease) inh prn History of pneumonia (05/2022) admitted to [facility] 05/2022 Substance abuse or dependence Hypocalcemia Smoker 20 cigarettes/day Depression Low back pain with sciatica Surgical History History of esophagogastroduodenoscopy (EGD) Hx of colonoscopy with polypectomy History of bilateral tubal ligation History of section History of tooth extraction all teeth History of phacoemulsification of cataract of both eyes with intraocular lens implantation Family History Brother Family history of diabetes mellitus Prostate cancer Sister Family history of diabetes mellitus Mother Myocardial infarction Diabetes Congestive heart failure Father Diabetes Congestive heart failure Other No family history of adverse response to anesthesia Denies family history of Ovarian cancer Breast cancer Colorectal cancer Social History (Updated 05/25/25 @ 15:11 by Jo Syed MD) Smoking Status: Current every day smoker Tobacco Type: Cigarettes Age Started Using Tobacco: 13; packs per day: 1; Cigarettes Per Day: pack/day; Second Hand Exposure: No; Do You Dip or Chew Tobacco: No; Hx Alcohol Use: Yes Alcohol type: beer Alcohol Intake Frequency: Monthly or Less Hx Substance Use: No Preferred Language: Faroese Communication Ability: Effective Visual Impairment: Limited Hearing Ability: Normal Switch Technician Required: No Beliefs That Will Affect Care: None marital status: Single Current Living Situation: Alone Current Living Situation Comment: lives in [place] current occupational status: disabled How many Children do You have: 2 How many Children do You have Comment: 1 son is ; estranged from daughter Feels Safe at Home: No Is there a partner from a previous relationship who is making you feel unsafe now?: No Childhood Exposure to Second-Hand Smoke: No Diet: regular during the past year weight has: remained stable Dental Care, Regularly: Yes Physical Activity Frequency: Daily Physical Activity Frequency Comment: walking Seatbelt Use: always Sunscreen Use: Yes Assistive Devices: Oxygen - Continuous Review of Systems Review of Systems: All systems reviewed & are unremarkable except as noted in HPI & below Physical Exam Constitutional: WD/WN, vitals as above Neck: trachea midline, no thyromegaly Respiratory: normal respiratory effort, lungs clear to auscultation Cardiovascular: RRR, no murmur, no edema Chest (Breasts): Chest: normal inspection of chest Gastrointestinal (Abdomen): normal bowel sounds, soft, nontender, no hepatosplenomegaly Musculoskeletal: Extremities: extremities normal to inspection; no cyanosis and no clubbing Skin: no rashes, warm and dry Neurologic: moves all extremities and awake; no focal motor deficits (5/5 strength throughout all extremities) Speech / Cognition: normal speech Motor/Sensory: no tremor Psychiatric: A+Ox3, euthymic affect Lymphatic: no lymphedema Results & Data Results & Data Vital Signs (Past 12 Hours) Vital Signs Temp Pulse Resp BP Pulse Ox O2 Del Method O2 Flow Rate 05/25/25 08:30 68 16 97 Nasal Cannula 2 05/25/25 08:01 100 Nasal Cannula 2 05/25/25 08:00 67 15 108/74 100 Nasal Cannula 2 05/25/25 07:30 71 18 128/78 05/25/25 07:00 78 20 110/80 05/25/25 06:24 83 05/25/25 06:20 86 L Room Air, Nasal Cannula 0 05/25/25 06:15 36.5 C 85 20 140/83 86 L Room Air Laboratory Results See HPI Diagnostic Findings See HPI ECG Additional Comments: ECG on 05/25/2025 at 6:22 AM with normal sinus rhythm, rate 24, increased artifact but no definite acute ischemic changes Code Status & VTE Plan Code Status DNR/DNI VTE Prophylaxis Plan VTE Prophylaxis will be ordered: Yes PG Care Time/CCT Total # of Minutes Spent Total Time Spent with Patient: Total time spent is greater than 50% in coordination of care (as documented) at patient's floor/unit and/or counseling patient: Coding Level of Care Code 55931 INT INP/OBS CARE 3/75MIN Diagnoses Bilateral leg weakness R29.898 Recurrent falls R29.6 History of CVA (cerebrovascular accident) Z86.73 Alcohol use disorder F10.90
--- NOTE | 2025-05-25 12:19 | Magnetic Resonance Report ---
MRI OF THE BRAIN WITHOUT IV CONTRAST CLINICAL HISTORY: Strokelike symptoms. Lower extremity weakness COMPARISON STUDY: CT of the brain dated 05/25/2025. TECHNIQUE: MRI of the brain was performed utilizing various T1 and T2-weighted sequences in the axial , sagittal, and coronal planes. IV contrast was not administered for this examination. FINDINGS: Brain parenchyma: There is age-related involutional change noting moderate subcortical and periventri cular microangiopathic disease. There is no hemorrhage or mass effect. There is no restricted diffusi on to suggest acute ischemia. León-white matter differentiation is preserved. A chronic lacunar infar ct is noted in the right basal ganglia. No extra-axial fluid collection is seen. The cerebellar tonsi ls are normal in configuration. Ventricles, sulci, and cisterns: Prominent secondary to involutional change. Pituitary and sella: Unremarkable. Intracranial vasculature: Normal flow voids are maintained at the skull base. Orbits: The bony orbits are grossly intact. Orbital contents are normal in appearance noting bilatera l ocular lens implants. Sinuses and mastoids: There are bilateral mastoid effusions. Mild mucosal thickening is noted within the maxillary and ethmoid sinuses. Calvarium: Unremarkable. Cervical cord: Partially visualized cervical spinal cord is normal in morphology and signal intensity . IMPRESSION: No acute intracranial abnormality. ACT 112: Negative or not required by law. Electronically signed by: Carlos Echevarria M.D. 05/25/2025 12:17 PM
[2025-05-25 12:22] LABS: Chlamydia pneumoniae PCR Not Detected (NotDetected); Coronavirus 229E PCR Not Detected (NotDetected); Coronavirus CoV-2 (COVID19)PCR Not Detected (NotDetected); Coronavirus HKU1 PCR Not Detected (NotDetected); Coronavirus NL63 PCR Not Detected (NotDetected); Coronavirus OC43PCR Not Detected (NotDetected); Human Metapneumovirus PCR Not Detected (NotDetected); Parainfluenza Virus 1 PCR Not Detected (NotDetected); Parainfluenza Virus 2 PCR Not Detected (NotDetected); Parainfluenza Virus 3 PCR Not Detected (NotDetected); Parainfluenza Virus 4 PCR Not Detected (NotDetected); Respiratory Syncytial VirusPCR Not Detected (NotDetected); Rhinovirus/Enterovirus PCR Not Detected (NotDetected)
[2025-05-25 14:48] LABS: Appearance Urine Clear (Clear); Glucose Urine UA Negative (Negative)
[2025-05-25] MEDS ORDERED: ACETAMINOPHEN 325 MG TAB PO PRN (15:33)
[2025-05-25] MEDS ORDERED: ALBUTEROL HFA 8 GM INHALER INH PRN (15:33)
[2025-05-25] MEDS ORDERED: ALBUT/IPRATROP 3MG/0.5MG NEB 3 ML VIAL NEB PRN (15:33)
[2025-05-25] MEDS ORDERED: MAGNESIUM HYDROXIDE SUSP 30 ML UDC PO PRN (15:33)
[2025-05-25] MEDS ORDERED: ONDANSETRON INJ 2 MG/ML 2 ML VIAL IV PRN (15:33)
[2025-05-25] MEDS ORDERED: POLYETHYLENE (MIRALAX) 17 GM PACK PO PRN (15:33)
[2025-05-25] MEDS ORDERED: ALUMINUM/MAGNESIUM SUSP 30 ML UDC PO PRN (15:33)
[2025-05-25] MEDS: ARIPiprazole 5 MG TAB PO SCH (16:35)
[2025-05-25] MEDS: APIXABAN 5 MG TABLET PO SCH (16:35)
[2025-05-25] MEDS: DOXEPIN HCL 50 MG CAPSULE PO SCH (20:19)
[2025-05-25] MEDS: FUROSEMIDE 40 MG TAB PO ONE (20:19)
[2025-05-25] MEDS: GABAPENTIN 600 MG TAB PO SCH (20:19)
[2025-05-25] MEDS: clonazePAM 1 MG TAB PO PRN (20:19)
--- NOTE | 2025-05-26 06:16 | Electrocardiogram Report ---
Test Reason : Blood Pressure : */* mmHG Vent. Rate : 84 BPM Atrial Rate : 84 BPM P-R Int : 200 ms QRS Dur : 94 ms QT Int : 392 ms P-R-T Axes : 34 27 48 degrees QTcB Int : 464 ms Poor data quality, interpretation may be adversely affected Normal sinus rhythm Low voltage QRS Nonspecific T wave abnormality Abnormal ECG When compared with ECG of 27-Apr-2025 15:08, Nonspecific T wave abnormality now evident in Anterior leads Confirmed by Sim Boss ([id number]) on 05/26/2025 6:16:17 AM Referred By: REFERRED SELF Confirmed By: Sim Boss
[2025-05-26 06:31] LABS: Hematocrit (blood only) 44.6 % (37.0-47.0); Hemoglobin 14.2 g/dL (12.0-16.0); Immature Granulocytes # (auto) 0.01 K/uL (0.01-0.20); Immature Granulocytes % (auto) 0.2 %; Mean Corpuscular Hemoglobin 28.7 pg (25.0-34.0); Mean Corpuscular Volume 90.1 fL (80.0-100.0); Platelet Count 191 K/uL (130-400); RDW Standard Deviation 46.5 fL (36.4-46.3); Red Blood Count 4.95 M/uL (4.20-5.40); White Blood Count 5.24 K/ul (4.8-10.8)
[2025-05-26 07:04] LABS: Anion Gap 8.0 (3-11); Blood Urea Nitrogen 20.0 mg/dl (6-23); Calcium 8.9 mg/dl (8.6-10.3); Carbon Dioxide 32.0 mmol/L (21-32); Chloride 104.0 mmol/L (98-107); Cholesterol 148.0 mg/dl (0-200); Creatinine Clr Calc Pharmacy 67.1 ml/min; Glucose 103.0 mg/dl (70-99(Fasting)); HDL Cholesterol 50.0 mg/dl; Magnesium 1.8 mg/dl (1.7-2.4); Potassium 3.7 mmol/L (3.5-5.1); Sodium 144.0 mmol/L (136-145); Triglycerides 137.0 mg/dl (0-150)
[2025-05-26 07:41] VITALS: RESP 18; TEMP 97.3
[2025-05-26 07:49] LABS: Hemoglobin A1C 6.0 % (4.5-5.6)
[2025-05-26] MEDS: ASPIRIN 81 MG ECTAB PO SCH (08:19)
[2025-05-26] MEDS: CYANOCOBALAMIN (B-12) 500 MCG TABLET PO SCH (08:20)
[2025-05-26] MEDS: CALCIUM 600MG + VIT D 400 IU TAB PO SCH (08:20)
[2025-05-26] MEDS: FERROUS SULFATE 325 MG TAB PO SCH (08:21)
[2025-05-26] MEDS: FUROSEMIDE 40 MG TAB PO SCH (08:23)
[2025-05-26] MEDS: MAGNESIUM OXIDE 400 MG TAB PO SCH (08:24)
[2025-05-26] MEDS: THIAMINE HCL 100 MG TAB PO SCH (08:26)
[2025-05-26] MEDS: MULTIVITAMIN TAB PO SCH (08:26)
[2025-05-26] MEDS: UMECLIDINIUM/VILANTEROL 62.5/25MCG 7 PUFFS/INHALER INH SCH (08:27)
[2025-05-26] MEDS: FLUTICASONE FUROATE 100MCG 14 PUFFS/INHALER INH SCH (08:28)
[2025-05-26] MEDS: FOLIC ACID 1 MG TAB PO SCH (08:53)
[2025-05-26] MEDS ORDERED: ATORVASTATIN 40 MG TAB PO SCH (09:00)
--- NOTE | 2025-05-26 15:03 | Discharge Summary ---
Discharge Summary Date of Service May 26, 2025 Principal Dx & Hospital Course #1 = Principal Diagnosis (1) Bilateral leg weakness: (2) Recurrent falls: (3) History of CVA (cerebrovascular accident): (4) Alcohol use disorder: Plan This patient is a 70-year-old female with a history of COPD, current smoker, chronic hypoxic respiratory failure on 2 LNC O2, alcohol use disorder, chronic lacunar CVAs, anxiety disorder/PTSD/depression, HTN, PE/DVT on Eliquis, B12 deficiency, vitamin D deficiency, chronic lower back pain, GERD/PUD, history of falls who presents to the ED with complaint of feeling weak all over and her legs being shaky and her legs felt mushy.. She was not able to walk so she crawled over to the wall and banged on it until her neighbor heard her and called an ambulance. She reported to the ED physician that her last drink of alcohol was 1 week ago, however she told me it was 3 weeks ago. She later then said she had been sober for 2 years but had a few drinks "every now and then" and does not consider that to be falling off the wagon. She had no signs otherwise of alcohol withdrawal in the ED and was not confused. She reported to me that after several hours of being in the ED, she was exercising her legs and now feels strong again and does not know why she needs to be admitted. She also reports that she gave her oxygen back and does not use oxygen anymore at home. Her CT of the head did show some old basal ganglia infarcts, but her laboratory workup was otherwise fairly unremarkable including a negative alcohol level, CBC, BMP, LFTs, TSH, ammonia level. A CXR was negative for acute issues. She will be admitted for ambulatory dysfunction and a workup for stroke, with suspicion for possible weakness due to possible hypoxemia #Generalized weakness/history of falls/history of CVA-could be secondary to hypoxemia as she no longer has oxygen at home. Is also drinking alcohol-unclear how much she is actually drinking as her story wavers. EtOH level here is negative. CBC, CMP within normal limits. TSH normal. UA normal. Respiratory BioFire negative. Could be medication side effect as she is on multiple [employer] depressing type medications. Her weakness is now completely resolved and she is wearing supplemental O2 in the ED. Overnight pulse oximetry significantly abnormal with pulse ox less than 89% for 2 hours of the night. Suspect hypoxemia played the role in her weakness in the morning. She improved with supplemental O2. She had no arrhythmias on telemetry. Her brain MRI only showed an old right basal ganglia lacunar infarct. She no evidence of alcohol withdrawal. She certainly has some cognitive issues and suspect vascular dementia. Has a resting tremor in the right arm. - Recommend follow-up with neurology - Two-step walk test showed she needs 2L NC O2 with exertion and needs 2 L at bedtime and with naps - Encouraged abstinence from alcohol - Start baby aspirin given history of small vessel infarct - Lipid panel acceptable to start high intensity statin with atorvastatin 40 mg daily - A1c 6.0%-prediabetes #COPD/current smoker/chronic hypoxic respiratory failure-does not use oxygen at home anymore. This likely caused hypoxemia which led to her weakness which is now completely resolved - Continue supplemental O2 as above 2LNC with exertion and 2L hs - Continue albuterol as needed - Continue maintenance inhalers #Alcohol use disorder-patient reports she has been "sober" for 2 years, however reports she does drink 3 beers every once in a while, the last time was probably 1-3 weeks ago. EtOH level here 0. Unclear if she is being truthful. LFTs are within normal limits. - no withdrawal here - Encouraged abstinence - Started thiamine, folic acid, multivitamin #PE/DVT on Eliquis- - Continue Eliquis 5 mg p.o. twice daily #HTN-BPs are controlled - Continue home furosemide, telmisartan - Discontinue HCTZ-unclear if she was taking HCTZ versus furosemide at home #Anxiety/depression/PTSD-no acute issues - Continue home doxepin, clonazepam, bupropion, Abilify #B12 and vitamin D deficiencies-no acute issues - Continue home B12 supplement, calcium plus vitamin D and regular vitamin D supplements #Chronic lower back pain-no acute issues - Continue home gabapentin #GERD/PUD-no acute issues - Continue home Protonix, magnesium DVT prophylaxis-Eliquis Disposition-stable for discharge to home with home health Notes For Next Care Provider Needs referral to neurology for workup for dementia and resting tremor. Need to continue to encourage alcohol and smoking cessation Medication Changes From Visit Added aspirin 81 mg p.o. daily Added atorvastatin 40 mg p.o. daily Added supplemental O2 Discontinued HCTZ Admission HPI Per Admitting Provider This patient is a 70-year-old female with a history of COPD, current smoker, chronic hypoxic respiratory failure on 2 LNC O2, alcohol use disorder, chronic lacunar CVAs, anxiety disorder/PTSD/depression, HTN, PE/DVT on Eliquis, B12 deficiency, vitamin D deficiency, chronic lower back pain, GERD/PUD, history of falls who presents to the ED with complaint of feeling weak all over and her legs being shaky and her legs felt mushy.. She was not able to walk so she crawled over to the wall and banged on it until her neighbor heard her and called an ambulance. She reported to the ED physician that her last drink of alcohol was 1 week ago, however she told me it was 3 weeks ago. She later then said she had been sober for 2 years but had a few drinks "every now and then" and does not consider that to be falling off the wagon. She had no signs otherwise of alcohol withdrawal in the ED and was not confused. She reported to me that after several hours of being in the ED, she was exercising her legs and now feels strong again and does not know why she needs to be admitted. She also reports that she gave her oxygen back and does not use oxygen anymore at home. Her CT of the head did show some old basal ganglia infarcts, but her laboratory workup was otherwise fairly unremarkable including a negative alcohol level, CBC, BMP, LFTs, TSH, ammonia level. A CXR was negative for acute issues. She will be admitted for ambulatory dysfunction and a workup for stroke, with suspicion for possible weakness due to possible hypoxemia Discharge Exam Constitutional WD/WN, vitals as above Neck trachea midline, no thyromegaly Respiratory normal respiratory effort, lungs clear to auscultation Cardiovascular RRR, no murmur, no edema Chest (Breasts) Chest: normal inspection of chest Gastrointestinal (Abdomen) normal bowel sounds, soft, nontender, no hepatosplenomegaly Musculoskeletal Extremities: extremities normal to inspection; no cyanosis and no clubbing Skin no rashes, warm and dry Neurologic moves all extremities and awake; no focal motor deficits (5/5 strength throughout all extremities) Speech / Cognition: normal speech Motor/Sensory: no tremor Psychiatric A+Ox3, euthymic affect Lymphatic no lymphedema Discharge Plan Discharge Items Patient Disposition: Home - Home Health Services Reason For Visit: Weakness Discharge Diagnosis: Generalized weakness secondary to hypoxia History of stroke Resting tremor in arm Suspected vascular dementia Condition on Discharge: Good Activity: As commented below Bathing: No limitations Exercise/Sports: Gradually increase as tolerated Exercise Comment: With home PT/OT Non-emergency contact: Primary Care Provider Call non-emergency contact if: you have any medication questions and your symptoms worsen Follow-up/Referrals: Rema Strickland MD [Primary Care Provider] - 06/07/25 10:30 am Diet: Regular Addtl Attending Provider Instructions: You were admitted with weakness which was due to low oxygen levels. You must wear oxygen at 2 L via the nasal cannula anytime you are up and about and also anytime you go to sleep or take a nap. For your tremor and memory issues, it is recommended that you follow-up with a neurologist. Your primary care doctor can refer you to a neurologist for this. You were found to have an old small stroke on your brain MRI but no new strokes. You were started on a baby aspirin and a cholesterol medicine to help prevent future strokes. Is very important that you continue to work on quitting smoking and not drink any alcohol. It was a pleasure taking care of you! If you have any questions about your care before your hospital follow-up visit with your primary care provider, please call [phone] and ask to be transferred to the [facility] Medicine office. Sincerely, Jo Syed M.D. Pending Studies at Discharge: No Stand-Alone Forms: My [facility], Smoking Cessation Medications and DC Order Prescriptions: New atorvastatin 40 mg Tablet 40 mg PO QAM Qty: 30 0RF aspirin 81 mg Tablet,Delayed Release (Dr/Ec) 81 mg PO QAM Qty: 30 0RF thiamine HCl (vitamin B1) 100 mg Tablet 100 mg PO QAM Qty: 30 0RF Rx Instructions: Fuie-zqc-dibzugn folic acid 1 mg Tablet 1 mg PO QAM Qty: 30 0RF Rx Instructions: Gtuz-llg-rrvlqmy multivitamin with folic acid [Daily-Desi (with folic acid)] 400 mcg Tablet 1 tab PO QAM Qty: 30 0RF Rx Instructions: Vgis-bno-iwgdgio Continued albuterol sulfate 90 mcg/actuation HFA aerosol inhaler 1 inh INH QID PRN (Reason: shortness of breath or wheezing) Qty: 20.1 3RF peg 3350-electrolytes [Golytely] 236-22.74-6.74 -5.86 gram recon soln 240 ml PO Q10M Qty: 4000 0RF Patient Comments: 05/25- no fill history unable to verify Rx Instructions: PER PT "HAVE NOT SCHEDULED TEST YET". Take per split dose instructions furosemide 40 mg tablet 40 mg PO QAM Qty: 30 1RF aripiprazole [Abilify] 5 mg tablet 5 mg PO QAM clonazepam [Klonopin] 1 mg tablet 1 mg PO BID PRN (Reason: Anxiety) olmesartan 20 mg tablet 20 mg PO DAILY Qty: 90 1RF B Complex Plus Vitamin C 01-69-70-5-300 mg capsule 1 cap PO QAM Patient Comments: 05/25- otc unable to verify Rx Instructions: give with food (meal/snack) Trelegy Ellipta 100-62.5-25 mcg blister with device 0 ea inhalation DAILY 0RF Patient Comments: 05/25- no fill history unable to verify. Original: 1 puff daily cholecalciferol (vitamin D3) 50 mcg (2,000 unit) capsule 50 mcg PO DAILY Qty: 90 3RF Patient Comments: 05/25- otc unable to verify Rx Instructions: with heaviest meal of the day bupropion HCl 300 mg tablet extended release 24 hr 300 mg PO QAM magnesium 250 mg tablet 250 mg PO QAM Patient Comments: 05/25- otc unable to verify calcium carbonate-vitamin D3 [Calcium 500 + D] 500 mg(1,250mg) -200 unit tablet 1 tab PO QAM Patient Comments: 05/25- otc unable to verify doxepin 100 mg capsule 200 mg PO HS mecobalamin (vitamin B12) 1,000 mcg tablet,chewable 1,000 mcg PO QAM Patient Comments: 05/25- otc unable to verify pantoprazole 40 mg tablet,delayed release (DR/EC) 40 mg PO DAILY ipratropium-albuterol 0.5 mg-3 mg(2.5 mg base)/3 mL Solution For Nebulization 3 ml NEB Q6H PRN (Reason: cough/wheeze/chest congestion/shortness of breath) Qty: 180 0RF Patient Comments: 05/25- no fill history unable to verify gabapentin 600 mg tablet 0 mg PO BID Patient Comments: 05/25- last filled 04/18 30 day supply #60 potassium chloride 10 mEq tablet extended release 0 meq PO DAILY Patient Comments: 05/25-otc/no fill history unable to verify ferrous sulfate 325 mg (65 mg iron) Tablet 325 mg PO DAILY Patient Comments: 05/25- otc unable to verify Eliquis 5 mg Tablet 0 mg PO BID Patient Comments: 05/25- last filled 04/18 30 day supply #60 Changed (DME) Oxygen Home Liters Per Minute See Rx Instructions .Route Qty: 1 0RF Rx Instructions: 2 L/NC with activity and at bedtime Discontinued hydrochlorothiazide 25 mg tablet 0 mg PO QAM Patient Comments: 05/25- last filled 04/20 30 day supply #30 Discharge Orders: Discharge Order (Routine); Ordered 05/26/25 Ordered By: Jo Funk/Other Patient Handouts: Prediabetes, 5 Steps for Eating Healthier Admission Data Admit Date/Time: 05/25/25 11:03 Attending Provider: Jo Syed Admit Provider: Jo Syed Primary Care Provider: Rema Strickland V. Other Providers: Jo Syed; [facility] Stay Data Consultations 05/25/25 09:21 ED Decision to Admit Stat Diagnostic Imagining Performed 05/25/25 07:04 CT head/brain wo con Stat 05/25/25 11:03 MRI Brain [MR brain wo con] Stat Pending Results Patient Have Any Pending Studies at Discharge: No Discharge Instructions Given to Patient (Per Discharging Provider) You were admitted with weakness which was due to low oxygen levels. You must wear oxygen at 2 L via the nasal cannula anytime you are up and about and also anytime you go to sleep or take a nap. For your tremor and memory issues, it is recommended that you follow-up with a neurologist. Your primary care doctor can refer you to a neurologist for this. You were found to have an old small stroke on your brain MRI but no new strokes. You were started on a baby aspirin and a cholesterol medicine to help prevent future strokes. Is very important that you continue to work on quitting smoking and not drink any alcohol. It was a pleasure taking care of you! If you have any questions about your care before your hospital follow-up visit with your primary care provider, please call [phone] and ask to be transferred to the [facility] Medicine office. Sincerely, Jo Syed M.D. Total Time Total Time Spent Total Time Spent (In Minutes): 35 minutes Total Time Includes: Examination of the Patient, Discharge Planning and Medication Reconciliation Coding Level of Care Code 67660 INP/OBS DISCH >30 MIN Diagnoses Bilateral leg weakness R29.898 Recurrent falls R29.6 History of CVA (cerebrovascular accident) Z86.73 Alcohol use disorder F10.90
[2025-05-26 15:53] VITALS: BP 133/87; O2SAT 95
[2025-05-26 15:57] VITALS: PULSE 101
== END 2025-05-26 16:28 | disposition home or self-care (01) | DRG 948 ==
LOC: SUATTDRO → ED 06:14 → 2W 11:03